=== PATIENT | female | born 1945 | race African-American/Black ===

== ENCOUNTER 2016-12-30 05:49 | Inpatient (IN) | payer MEDICARE ==
[2016-12-30] MEDS ORDERED: ASPIRIN 81 MG TABLET, CHEWABLE PO ONE (06:11)
[2016-12-30] MEDS ORDERED: MAGNESIUM SULFATE/D5W 100 ML IV ONE (06:16)
[2016-12-30] MEDS ORDERED: IPRATROPIUM/ALBUTEROL 0.5-2.5 MG/3 ML AMPUL NEB ONE (06:16)
[2016-12-30] MEDS ORDERED: METHYLPREDNISOLONE INJ 125 MG/2 ML SDV IV ONE (06:16)
[2016-12-30] MEDS ORDERED: ALBUTEROL SULFATE 0.083% NEB 2.5 MG/3 ML AMPUL NEB ONE (06:47)
[2016-12-30] MEDS ORDERED: LEVOFLOXACIN 500 MG/D5W RTU 100 ML IV ONE (06:48)
[2016-12-30 07:12] LABS: ABSOLUTE EOSINOPHILS # (AUTO) 0.2 10^3/uL (0.0-0.6); ABSOLUTE LYMPHOCYTES (AUTO) 1.3 10^3/uL (0.5-4.7); ABSOLUTE MONOCYTES (AUTO) 1.1 10^3/uL (0.1-1.4); ABSOLUTE NEUT (AUTO) 4.1 10^3/uL (1.7-8.2); BASOPHILS % (AUTO) 0.6 % (0-2); EOSINOPHILS % (AUTO) 2.4 % (0-6); HEMATOCRIT 40.2 % (36.0-47.0); HEMOGLOBIN 13.6 g/dL (12.0-15.5); HGB HCT DIFFERENCE 0.6; LYMPHOCYTES % (AUTO) 19.6 % (13-45); MEAN CORPUSCULAR HEMOGLOBIN 30.5 pg (27.0-33.4); MEAN CORPUSCULAR HGB CONC 33.8 g/dL (32.0-36.0); MEAN CORPUSCULAR VOLUME 90 fl (80-97); RED BLOOD COUNT 4.46 10^6/uL (3.72-5.28); RED CELL DISTRIBUTION WIDTH 14.4 % (11.5-14.0); SEGMENTED NEUTROPHILS % (AUTO) 61.4 % (42-78); VENOUS BLOOD BASE EXCESS 1.6 mmol/L; VENOUS BLOOD HCO3 27.5 mmol/L (20-32); VENOUS BLOOD PCO2 47.8 mmHg (35-63); VENOUS BLOOD PH 7.38 (7.30-7.42); WHITE BLOOD COUNT 6.6 10^3/uL (4.0-10.5)
[2016-12-30 07:32] LABS: PROTHROMBIN TIME 12.9 SEC (11.4-15.4)
[2016-12-30] MEDS ORDERED: NORMAL SALINE 1000 ML 1,000 ML IV ONE (08:27)
[2016-12-30 08:29] LABS: ALANINE AMINOTRANSFERASE 28 U/L (9-52); ALBUMIN 4.1 g/dL (3.5-5.0); ALKALINE PHOSPHATASE 100 U/L (38-126); ANION GAP 15 (5-19); ASPARTATE AMINO TRANSFERASE 23 U/L (14-36); BILIRUBIN,DIRECT 0.4 mg/dL (0.0-0.4); BILIRUBIN,TOTAL 0.6 mg/dL (0.2-1.3); BLOOD UREA NITROGEN 14 mg/dL (7-20); CALCIUM 9.7 mg/dL (8.4-10.2); CARBON DIOXIDE 24 mmol/L (22-30); CHLORIDE 101 mmol/L (98-107); CREATINE KINASE 116 U/L (30-135); CREATININE RESULT 1.03 mg/dL (0.52-1.25); GLUCOSE 136 mg/dL (75-110); MAGNESIUM 2.3 mg/dL (1.6-2.3); POTASSIUM 3.8 mmol/L (3.6-5.0); SODIUM 139.5 mmol/L (137-145); TOTAL PROTEIN 7.2 g/dL (6.3-8.2)
[2016-12-30 08:45] LABS: CREATINE KINASE MB 1.01 ng/mL (<4.55)
[2016-12-30 08:46] LABS: TROPONIN I < 0.012 ng/mL
--- NOTE | 2016-12-30 08:56 | EKG REPORT ---
SEVERITY:- ABNORMAL ECG - SINUS TACHYCARDIA WITH PACS RIGHT ATRIAL ABNORMALITY CONSIDER LEFT VENTRICULAR HYPERTROPHY NONSPECIFIC T ABNORMALITIES, INFERIOR LEADS : Confirmed by: Pancho Sanchez MD 30-Dec-2016 08:56:19
--- NOTE | 2016-12-30 10:08 | ER Document Report ---
ED General - General Chief Complaint: Breathing Difficulty Stated Complaint: SHORTNESS OF BREATH TRAVEL OUTSIDE OF THE [place] IN LAST 30 DAYS: No - HPI Patient complains to provider of: difficulty breathing shortness of breath Notes: Patient coming in for evaluation shortness of breath states coughing up yellow sputum for the last few days symptoms of breath the last few days denies any recent travel denies chest pain abdominal pain nausea vomiting. Patient denies any antibiotics denies any recent steroids. Patient states she does not smoke. Upon my evaluation patient has audible wheezes proximally 5 word dyspnea. - Related Data Allergies/Adverse Reactions: No Known Allergies Allergy (Unverified 12/30/16 08:02) Home Medications: Current Home Medications Aclidinium [place] [Tudorza Pressair] 1 puff IH DAILY 12/30/16 [History] Albuterol Sulfate [Albuterol Sulfate 2.5mg/3 mL] 3 ml NEB RTQ4 12/30/16 [History ] Amlodipine Besylate [Norvasc 5 mg Tablet] 5 mg PO DAILY 12/30/16 [History] Fluticasone/Salmeterol [Advair 250-50 Diskus 14 Dose/Diskus] 1 puff IH BID 12/30 [History] Furosemide [Lasix] 20 mg PO DAILY 12/30/16 [History] Levothyroxine Sodium [Synthroid] 150 mcg PO DAILY 12/30/16 [History] Meloxicam [Mobic 7.5 mg Tablet] 7.5 mg PO DAILY PRN 12/30/16 [History] Potassium Chloride [Klor-Con 10 Meq Tablet.sa] 10 mg PO DAILY 12/30/16 [History] Theophylline Anhydrous [Theophylline] 400 mg PO DAILY 12/30/16 [History] Tiotropium [place] [Spiriva Respimat] 1 puff IH DAILY 12/30/16 [History] Tizanidine HCl [Zanaflex 4 mg Tablet] 2 mg PO Q8HP PRN 12/30/16 [History] Tramadol HCl [Ultram 50 mg Tablet] 50 mg PO Q8HP PRN 12/30/16 [History] Past Medical History - Social History Smoking Status: Former Smoker Chew tobacco use (# tins/day): No Frequency of alcohol use: Occasional Drug Abuse: None Family History: Reviewed & Not Pertinent Patient has suicidal ideation: No Patient has homicidal ideation: No Renal/ Medical History: Denies: Hx Peritoneal Dialysis Review of Systems - Review of Systems Constitutional: No symptoms reported EENT: No symptoms reported Cardiovascular: No symptoms reported Respiratory: Short of breath Gastrointestinal: No symptoms reported Genitourinary: No symptoms reported Female Genitourinary: No symptoms reported Musculoskeletal: No symptoms reported Skin: No symptoms reported Hematologic/Lymphatic: No symptoms reported Neurological/Psychological: No symptoms reported -: Yes All other systems reviewed and negative Physical Exam - Vital signs Vitals: Temp Pulse Resp BP Pulse Ox 98.9 F 118 H 30 H 187/70 H 94 12/30/16 05:56 12/30/16 05:56 12/30/16 05:56 12/30/16 05:56 12/30/16 05:56 Interpretation: Normal, Tachycardic - General General appearance: Appears well, Alert - HEENT Head: Normocephalic, Atraumatic Eyes: Normal Pupils: PERRL - Respiratory Respiratory status: Other - Mild distress Chest status: Nontender Breath sounds: Rhonchi, Wheezing Chest palpation: Normal - Cardiovascular Rhythm: Regular Heart sounds: Normal auscultation Murmur: No - Abdominal Inspection: Normal Distension: No distension Bowel sounds: Normal Tenderness: Nontender Organomegaly: No organomegaly - Back Back: Normal, Nontender - Extremities General upper extremity: Normal inspection, Nontender, Normal color, Normal ROM , Normal temperature General lower extremity: Normal inspection, Nontender, Normal color, Normal ROM , Normal temperature, Normal weight bearing. No: Curtis's sign - Neurological Neuro grossly intact: Yes Cognition: Normal Orientation: AAOx4 [place] Coma Scale Eye Opening: Spontaneous Maria [place] Coma Scale Verbal: Oriented Maria Esther Coma Scale Motor: Obeys Commands Maria Esther Coma Scale Total: 15 Speech: Normal Motor strength normal: LUE, RUE, LLE, RLE Sensory: Normal - Psychological Associated symptoms: Normal affect, Normal mood - Skin Skin Temperature: Warm Skin Moisture: Dry Skin Color: Normal Course - Re-evaluation Re-evalutation: 12/30/16 15:29 Patient had improvement of her lung sounds and her dyspnea with magnesium steroids and breathing treatments. Patient is a minute around the ER and was found to be hypoxic. 85% patient was placed on 2 L of oxygen. Patient will be admitted to the hospital for more likely developing pneumonia and COPD. - Vital Signs Vital signs: Temp Pulse Resp BP Pulse Ox 97.4 F 76 18 143/61 H 100 12/30/16 12:57 12/30/16 12:57 12/30/16 12:57 12/30/16 12:57 12/30/16 12:57 - Laboratory Result Diagrams: 12/30/16 06:40 12/30/16 08:07 Laboratory results interpreted by me: 12/30/16 12/30/16 06:40 08:07 RDW 14.4 H Monocytes % 16.0 H Est GFR (Non-Af Amer) 53 L Glucose 136 H Critical Care Note - Critical Care Note Total time excluding time spent on procedures (mins): 35 Comments: Patient with tachycardia and mild her story stress multiple re-evaluations. Discharge - Discharge Clinical Impression: COPD exacerbation Pneumonia Qualifiers: Pneumonia type: due to unspecified organism Laterality: unspecified laterality Lung location: unspecified part of lung Qualified Code(s): J18.9 - Pneumonia, unspecified organism Admitting Provider: Hospitalist [facility] Unit Admitted: Telemetry
[2016-12-30] MEDS ORDERED: ACETAMINOPHEN 325 MG TABLET PO PRN (10:58)
[2016-12-30] MEDS ORDERED: PHARMACY COMMUNICATION ORDER MC NR ×2 (11:15)
[2016-12-30] MEDS ORDERED: ENOXAPARIN SODIUM INJ 40 MG/0.4 ML DISP.SYRIN SUBCUT ONE (11:30)
[2016-12-30] MEDS: NORMAL SALINE 1000 ML 1,000 ML IV PRN ×2 (11:56→18:10)
[2016-12-30] MEDS: IPRATROPIUM/ALBUTEROL 0.5-2.5 MG/3 ML AMPUL NEB SCH ×3 (12:34→20:03)
[2016-12-30] MEDS ORDERED: MELOXICAM 7.5 MG TABLET PO PRN (13:56)
[2016-12-30] MEDS ORDERED: TRAMADOL HCL 50 MG TABLET PO PRN (13:56)
[2016-12-30] MEDS ORDERED: TIZANIDINE HCL 4 MG TABLET PO PRN (13:56)
[2016-12-30] MEDS: FLUTICASONE/SALMETEROL DISKUS 250-50 MCG/DOSE IH SCH (18:10)
--- NOTE | 2016-12-30 21:20 | PDOC H&P ---
History of Present Illness Admission Date/PCP: 12/30/16 10:14 KRYSTAL WEBSTER MD History of Present Illness: TEE VERAS is a 71 year old female with a known history of COPD/emphysema, hypothyroidism, hypertension who presents with a cough and shortness of breath increasing over the last 72 hours. Patient has had sick grandchildren. Patient has not been on any recent antibiotics or steroids. Patient was given 3 nebulized treatments, magnesium, Solu-Medrol with minimal relief in the emergency department. She is referred to the hospitalist service for acute hypoxemic respiratory failure with COPD exacerbation. Past Medical History Past Medical History: COPD/emphysema, hypothyroidism, hypertension Past Surgical History Past Surgical History: Reports: None Social History Smoking Status: Former Smoker Frequency of Alcohol Use: Occasional Hx Recreational Drug Use: No Hx Prescription Drug Abuse: No - Advance Directive Resuscitation Status: Full Code Surrogate healthcare decision maker:: [place], Family History Family History: Reviewed & Not Pertinent Parental Family History Reviewed: Yes Children Family History Reviewed: Yes Sibling(s) Family History Reviewed.: Yes Medication/Allergy Home Medications: Aclidinium [place] [Tudorza Pressair] 1 puff IH DAILY 12/30/16 Albuterol Sulfate [Albuterol Sulfate 2.5mg/3 mL] 3 ml NEB RTQ4 12/30/16 Amlodipine Besylate [Norvasc 5 mg Tablet] 5 mg PO DAILY 12/30/16 Fluticasone/Salmeterol [Advair 250-50 Diskus 14 Dose/Diskus] 1 puff IH BID 12/30 Furosemide [Lasix] 20 mg PO DAILY 12/30/16 Levothyroxine Sodium [Synthroid] 150 mcg PO DAILY 12/30/16 Meloxicam [Mobic 7.5 mg Tablet] 7.5 mg PO DAILY PRN 12/30/16 Potassium Chloride [Klor-Con 10 Meq Tablet.sa] 10 mg PO DAILY 12/30/16 Theophylline Anhydrous [Theophylline] 400 mg PO DAILY 12/30/16 Tiotropium [place] [Spiriva Respimat] 1 puff IH DAILY 12/30/16 Tizanidine HCl [Zanaflex 4 mg Tablet] 2 mg PO Q8HP PRN 12/30/16 Tramadol HCl [Ultram 50 mg Tablet] 50 mg PO Q8HP PRN 12/30/16 Allergies/Adverse Reactions: No Known Allergies Allergy (Unverified 12/30/16 08:02) Review of Systems Constitutional: PRESENT: fatigue. ABSENT: chills, fever(s), headache(s), night sweats, weight gain, weight loss Eyes: ABSENT: visual disturbances Ears: ABSENT: hearing changes Cardiovascular: ABSENT: chest pain, dyspnea on exertion, edema, orthropnea, palpitations Respiratory: PRESENT: cough, dyspnea, sputum. ABSENT: hemoptysis Gastrointestinal: ABSENT: abdominal pain, constipation, diarrhea, hematemesis, hematochezia, melena, nausea, vomiting Genitourinary: ABSENT: dysuria, hematuria Musculoskeletal: ABSENT: joint swelling Integumentary: ABSENT: rash, wounds Neurological: ABSENT: abnormal gait, abnormal speech, confusion, dizziness, focal weakness, syncope Psychiatric: ABSENT: anxiety, depression, homidical ideation, suicidal ideation Endocrine: ABSENT: cold intolerance, heat intolerance, polydipsia, polyuria Hematologic/Lymphatic: ABSENT: easy bleeding, easy bruising Physical Exam Vital Signs: Temp Pulse Resp BP Pulse Ox 98.9 F 118 H 22 H 140/68 H 94 12/30/16 05:56 12/30/16 05:56 12/30/16 10:00 12/30/16 10:01 12/30/16 10:01 General appearance: PRESENT: mild distress, obese, well-developed, well- nourished Head exam: PRESENT: atraumatic, normocephalic Eye exam: PRESENT: conjunctiva pink, EOMI, PERRLA. ABSENT: scleral icterus Ear exam: PRESENT: normal external ear exam Mouth exam: PRESENT: moist, tongue midline Neck exam: ABSENT: JVD, lymphadenopathy, thyromegaly, tracheal deviation Respiratory exam: PRESENT: accessory muscle use, prolonged expiratory phas, symmetrical, tachypnea, unlabored, wheezes - Bilateral end expiratory. ABSENT: crackles, rales, rhonchi Cardiovascular exam: PRESENT: RRR, +S1, +S2. ABSENT: diastolic murmur, gallop, rubs, systolic murmur, tachycardia Pulses: PRESENT: normal dorsalis pedis pul Vascular exam: PRESENT: normal capillary refill GI/Abdominal exam: PRESENT: normal bowel sounds, soft. ABSENT: distended, guarding, mass, organolmegaly, rebound, tenderness Rectal exam: PRESENT: deferred Extremities exam: PRESENT: full ROM. ABSENT: calf tenderness, clubbing, pedal edema Neurological exam: PRESENT: alert, awake, oriented to person, oriented to place , oriented to time, oriented to situation, CN II-XII grossly intact. ABSENT: motor sensory deficit Psychiatric exam: PRESENT: appropriate affect, normal mood. ABSENT: homicidal ideation, suicidal ideation Skin exam: PRESENT: dry, intact, warm. ABSENT: cyanosis, rash Results Impressions: Chest X-Ray 12/30/16 06:11 IMPRESSION: COPD. Postsurgical changes on the right. No acute findings. Assessment & Plan - Diagnosis (1) Acute hypoxemic respiratory failure Is this a current diagnosis for this admission?: YesPlan: Continue oxygen to maintain saturation greater than 94% (2) COPD exacerbation Is this a current diagnosis for this admission?: YesPlan: Place patient on Solu-Medrol, scheduled nebulized treatments, and Levaquin with concern for atypical organisms. (3) Hypothyroidism Qualifiers: Hypothyroidism type: unspecified Qualified Code(s): E03.9 - Hypothyroidism, unspecified Is this a current diagnosis for this admission?: YesPlan: We'll check TSH (4) Hypertension Qualifiers: Hypertension type: essential hypertension Qualified Code(s): I10 - Essential (primary) hypertension Is this a current diagnosis for this admission?: YesPlan: Continue home medication (5) Obesity Qualifiers: Obesity type: due to excess calories Obesity severity: non-morbid Qualified Code(s): E66.09 - Other obesity due to excess calories Is this a current diagnosis for this admission?: Yes - Time Time Spent: 50 to 70 Minutes Medications reviewed and adjusted accordingly: Yes Anticipated discharge: Home Within: within 48 hours, within 72 hours
[2016-12-30] MEDS: METHYLPREDNISOLONE INJ 40 MG/1 ML SDV IV SCH (22:27)
[2016-12-30] MEDS: FAMOTIDINE 20 MG TABLET PO SCH (22:28)
[2016-12-30] MEDS: GUAIFENESIN 600 MG TABLET.SA PO SCH (22:29)
[2016-12-31] MEDS: LEVALBUTEROL HCL NEB 1.25 MG/3 ML AMPUL NEB PRN ×2 (02:22→11:41)
[2016-12-31] MEDS: NORMAL SALINE 1000 ML 1,000 ML IV PRN (03:38)
[2016-12-31] MEDS: IPRATROPIUM/ALBUTEROL 0.5-2.5 MG/3 ML AMPUL NEB SCH ×6 (04:45→23:18)
[2016-12-31] MEDS: METHYLPREDNISOLONE INJ 40 MG/1 ML SDV IV SCH (05:31)
[2016-12-31] MEDS: LEVOTHYROXINE SODIUM 0.15 MG TABLET PO SCH (05:31)
[2016-12-31 07:43] LABS: VENOUS BLOOD BASE EXCESS -1.4 mmol/L; VENOUS BLOOD HCO3 25.7 mmol/L (20-32); VENOUS BLOOD PH 7.3 (7.30-7.42)
[2016-12-31 07:44] LABS: HEMOGLOBIN 12.8 g/dL (12.0-15.5); HGB HCT DIFFERENCE 0.4; MEAN CORPUSCULAR HEMOGLOBIN 30.5 pg (27.0-33.4); MEAN CORPUSCULAR HGB CONC 33.6 g/dL (32.0-36.0); MEAN CORPUSCULAR VOLUME 91 fl (80-97); RED BLOOD COUNT 4.19 10^6/uL (3.72-5.28); RED CELL DISTRIBUTION WIDTH 14.5 % (11.5-14.0); WHITE BLOOD COUNT 7.3 10^3/uL (4.0-10.5)
[2016-12-31] MEDS ORDERED: ENOXAPARIN SODIUM INJ 40 MG/0.4 ML DISP.SYRIN SUBCUT SCH (08:00)
[2016-12-31 08:07] LABS: ANION GAP 11 (5-19); BLOOD UREA NITROGEN 17 mg/dL (7-20); CALCIUM 9.4 mg/dL (8.4-10.2); CARBON DIOXIDE 25 mmol/L (22-30); CHLORIDE 105 mmol/L (98-107); CREATININE RESULT 0.91 mg/dL (0.52-1.25); GLUCOSE 163 mg/dL (75-110); POTASSIUM 4.6 mmol/L (3.6-5.0); SODIUM 141.4 mmol/L (137-145)
[2016-12-31] MEDS: LEVOFLOXACIN 750 MG/D5W RTU 150 ML IV SCH (09:53)
[2016-12-31] MEDS: GUAIFENESIN 600 MG TABLET.SA PO SCH ×2 (09:54→21:41)
[2016-12-31] MEDS: FLUTICASONE/SALMETEROL DISKUS 250-50 MCG/DOSE IH SCH ×2 (09:55→17:36)
[2016-12-31] MEDS: FAMOTIDINE 20 MG TABLET PO SCH ×2 (09:55→21:41)
[2016-12-31] MEDS: THEOPHYLLINE ANHYDROUS 100 MG TAB.SR.12H PO SCH (09:56)
[2016-12-31] MEDS ORDERED: THEOPHYLLINE ANHYDROUS 400 MG PO SCH (10:00)
[2016-12-31] MEDS ORDERED: FUROSEMIDE 20 MG TABLET PO SCH (10:00)
[2016-12-31] MEDS ORDERED: AMLODIPINE BESYLATE 5 MG TABLET PO SCH (10:00)
[2016-12-31] MEDS ORDERED: (PENDING PHARMACY ID) (Tiotropium Bromide [Spiriva Respimat] 1 PUFF) IH SCH (10:00)
[2016-12-31] MEDS: ENOXAPARIN SODIUM INJ 40 MG/0.4 ML DISP.SYRIN SUBCUT SCH (10:19)
[2016-12-31] MEDS ORDERED: METHYLPREDNISOLONE INJ 40 MG/1 ML SDV IV SCH (12:00)
[2016-12-31] MEDS ORDERED: METHYLPREDNISOLONE INJ 125 MG/2 ML SDV IV SCH (12:00)
[2016-12-31] MEDS ORDERED: FUROSEMIDE INJ/PF 20 MG/2 ML SDV IV ONE (12:45)
[2016-12-31] MEDS ORDERED: LORAZEPAM INJ 2 MG/1 ML VIAL IV ONE (12:45)
--- NOTE | 2016-12-31 14:58 | Physician Advisory Note ---
Physician Advisor ProgressNote .: Pursuant to the plan for [facility], I have reviewed the medical record for this patient. Physician Advisor Statement: Possible documentation opportunities if attending agrees: 1. ? - "chronic resp failure" - on Theophylline ... As always, if concerned about any unstable VS or abnormal labs, please comment on them & note what doing about them, & please document each day the potential clinical problems you are concerned could occur if pt not kept in hospital for tx at this time. Status: Pt w/COPD/emphysemia, HTN, hypothyroidism, not on home O2, arrived w/labored breathing per ED nursing assessment, here w/worsening SOB/cough, fatigue,sputum , having only minimal relief w/3nebs/Solumedrol/IV Mag in ED. In distress, HR 118, RR22-30, sat initially 94% on RA but later down to 88% at 11AM, w/ accessory muscle use, tachypnea persistent, wheezes. CXR=emphysema. Attending ordered O2, Solumedrol 60mg q8h, Duonebs q4h, Levaquin IV, Xopanex prn , daily Theophylline. After 1MN of hospital care, pt worse, with recurrent tachypnea to 26 w/ recurrent accessory muscle use, tachycardia to 115, needing Bipap by late AM . Attending added IV Cefepime to broaden IV abx coverage. Tx in inpatient hospital setting medically reasonable & necessary to protect pt' s health, safety, & medical condition. Appropriate for Inpt status. Thanks for your help with documentation accuracy/specificity improvement! Inna Junior MD [facility] Physician Advisor, Fellow of Hospital Medicine
[2016-12-31 15:01] LABS: ARTERIAL BLOOD BASE EXCESS -1.1 mmol/L; ARTERIAL BLOOD O2 SATURATION 98.9 % (94-98)
[2016-12-31] MEDS: METHYLPREDNISOLONE INJ 125 MG/2 ML SDV IV SCH ×2 (15:23→21:41)
[2016-12-31] MEDS ORDERED: CEFEPIME 2 GM/D5W RTU 2 GM/50 ML RTUPB IV SCH (16:00)
[2016-12-31] MEDS: CEFEPIME HCL 2 GM in DEXTROSE 5%-WATER 50 ML IV SCH (17:36)
[2016-12-31] MEDS ORDERED: LACTOBACILLUS ACIDOPHILUS 250 MG TAB PO SCH (18:00)
--- NOTE | 2016-12-31 20:32 | XCELERA REPORT ---
[address] [address] Transthoracic Echocardiogram Report Name: TEE VERAS Age: 71 yrs Gender: Female : 1945 Patient Status: Inpatient Patient Location: 5\[id number]\534\[id number]\A Study Date: 12/31/2016 09:22 AM Height: 62 in Weight: 180 lb BSA: 1.8 m2 Reason For Study: murmur Ordering Physician: HIMA HUDDLESTON Performed By: Justina Price Interpretation Summary The left ventricular ejection fraction is normal. Doppler measurements suggest impaired left ventricular relaxation, which is associated with grade I/IV or mild diastolic dysfunction There is borderline concentric left ventricular hypertrophy. The left ventricle is grossly normal size. Wall motion cannot be accurately commented on, but no definite regional wall motion abnormalities noted. The right ventricle appears to be hypertrophied The right ventricle is mildly dilated. The right atrium is normal in size The left atrial size is normal. There is no mitral valve stenosis. There is a trace amount of mitral regurgitation There is no aortic valve stenosis No aortic regurgitation is present. There is a mild amount of tricuspid regurgitation There is moderate pulmonary hypertension by echo Right ventricular systolic pressure is estimated to be elevated at 50- 60mmHg. The aortic root is not well visualized but is probably normal size. The inferior vena cava appeared normal and decreased < 50% with respiration (RAP 10-15 mmHg) There is no pericardial effusion. MMode/2D Measurements \T\ Calculations RVDd: 2.5 cm LVIDd: 4.2 cm FS: 34.5 % Ao root diam: 2.9 cm IVSd: 1.1 cm LVIDs: 2.8 cm EDV(Teich): 80.6 ml LVPWd: 1.1 cm ESV(Teich): 29.1 ml Ao root area: 6.4 cm2 EF(Teich): 63.9 % LA dimension: 2.7 cm LVOT diam: 1.9 cm LVOT area: 2.9 cm2 Doppler Measurements \T\ Calculations MV E max lottie: MV P1/2t max lottie: Ao V2 max: LV V1 max P.5 cm/sec 78.0 cm/sec 119.7 cm/sec 4.2 mmHg MV A max lottie: MV P1/2t: 75.4 msec Ao max PG: LV V1 max: 105.6 cm/sec MVA(P1/2t): 2.9 cm2 5.7 mmHg 102.6 cm/sec MV E/A: 0.74 MV dec slope: ART(V,D): 2.5 cm2 303.1 cm/sec2 PA V2 max: TR max lottie: 103.7 cm/sec 348.6 cm/sec PA max P.3 mmHgTR max P.6 mmHg Left Ventricle The left ventricle is grossly normal size. There is borderline concentric left ventricular hypertrophy. The left ventricular ejection fraction is normal. Doppler measurements suggest impaired left ventricular relaxation, which is associated with grade I/IV or mild diastolic dysfunction. Wall motion cannot be accurately commented on, but no definite regional wall motion abnormalities noted. Right Ventricle The right ventricle is mildly dilated. The right ventricle appears to be hypertrophied. The right ventricular systolic function is normal. Atria The right atrium is normal in size. The left atrial size is normal. Interarterial septum not well visualized and not well dopplered. Cannot comment on ASD/PFO presence. Mitral Valve The mitral valve leaflets are sclerotic, but show no functional abnormalities. There is no mitral valve stenosis. There is a trace amount of mitral regurgitation. Aortic Valve The aortic valve is sclerotic, but shows no functional abnormality. There is no aortic valve stenosis. No aortic regurgitation is present. Tricuspid Valve The tricuspid valve is not well visualized, but is grossly normal. There is no tricuspid stenosis. There is a mild amount of tricuspid regurgitation. There is moderate pulmonary hypertension by echo. Right ventricular systolic pressure is estimated to be elevated at 50-60mmHg. Pulmonic Valve The pulmonic valve is not well visualized. Great Vessels The aortic root is not well visualized but is probably normal size. The inferior vena cava appeared normal and decreased < 50% with respiration (RAP 10-15 mmHg). Effusions There is no pericardial effusion. : HIMA HUDDLESTON > Tam Rosas
[2016-12-31] MEDS: HALOPERIDOL LACTATE INJ 5 MG/1 ML VIAL IV PRN (21:53)
[2016-12-31] MEDS: LORAZEPAM INJ 2 MG/1 ML VIAL IV PRN (23:08)
[2017-01-01] MEDS: HALOPERIDOL LACTATE INJ 5 MG/1 ML VIAL IV PRN (01:57)
[2017-01-01] MEDS: LORAZEPAM INJ 2 MG/1 ML VIAL IV PRN (04:03)
[2017-01-01] MEDS: CEFEPIME HCL 2 GM in DEXTROSE 5%-WATER 50 ML IV SCH ×2 (04:03→15:44)
[2017-01-01] MEDS: IPRATROPIUM/ALBUTEROL 0.5-2.5 MG/3 ML AMPUL NEB SCH ×5 (04:44→20:47)
[2017-01-01] MEDS: METHYLPREDNISOLONE INJ 125 MG/2 ML SDV IV SCH ×4 (05:36→20:12)
[2017-01-01] MEDS: LEVOTHYROXINE SODIUM 0.15 MG TABLET PO SCH (05:36)
[2017-01-01] MEDS: ENOXAPARIN SODIUM INJ 40 MG/0.4 ML DISP.SYRIN SUBCUT SCH (08:32)
[2017-01-01] MEDS: LEVALBUTEROL HCL NEB 1.25 MG/3 ML AMPUL NEB PRN ×2 (09:13→11:28)
[2017-01-01] MEDS: LEVOFLOXACIN 750 MG/D5W RTU 150 ML IV SCH (09:22)
[2017-01-01 09:26] LABS: ARTERIAL BLOOD BASE EXCESS 0.7 mmol/L; ARTERIAL BLOOD O2 SATURATION 97.9 % (94-98)
[2017-01-01] MEDS ORDERED: FUROSEMIDE INJ/PF 20 MG/2 ML SDV IV ONE ×2 (09:30→11:30)
[2017-01-01 09:35] LABS: ABSOLUTE MONOCYTES (AUTO) 0.9 10^3/uL (0.1-1.4); ABSOLUTE NEUT (AUTO) 11.3 10^3/uL (1.7-8.2); BASOPHILS % (AUTO) 0.2 % (0-2); EOSINOPHILS % (AUTO) 0.3 % (0-6); HEMATOCRIT 40.6 % (36.0-47.0); HEMOGLOBIN 13.5 g/dL (12.0-15.5); HGB HCT DIFFERENCE -0.1; LYMPHOCYTES % (AUTO) 7.6 % (13-45); MEAN CORPUSCULAR HEMOGLOBIN 30.4 pg (27.0-33.4); MEAN CORPUSCULAR HGB CONC 33.3 g/dL (32.0-36.0); MEAN CORPUSCULAR VOLUME 91 fl (80-97); MONOCYTES % (AUTO) 6.6 % (3-13); RED BLOOD COUNT 4.45 10^6/uL (3.72-5.28); RED CELL DISTRIBUTION WIDTH 14.8 % (11.5-14.0); SEGMENTED NEUTROPHILS % (AUTO) 85.3 % (42-78); WHITE BLOOD COUNT 13.3 10^3/uL (4.0-10.5)
[2017-01-01 09:58] LABS: ANION GAP 14 (5-19); BLOOD UREA NITROGEN 23 mg/dL (7-20); CALCIUM 9.9 mg/dL (8.4-10.2); CARBON DIOXIDE 28 mmol/L (22-30); CHLORIDE 100 mmol/L (98-107); CREATININE RESULT 1.01 mg/dL (0.52-1.25); GLUCOSE 150 mg/dL (75-110); MAGNESIUM 2.5 mg/dL (1.6-2.3); POTASSIUM 4.9 mmol/L (3.6-5.0); SODIUM 142.4 mmol/L (137-145)
[2017-01-01] MEDS ORDERED: VANCOMYCIN HCL 0 MG in DEXTROSE 5%-WATER 250 ML IV NR (10:00)
[2017-01-01] MEDS ORDERED: FUROSEMIDE INJ/PF 20 MG/2 ML SDV IV SCH ×3 (10:00→22:00)
[2017-01-01] MEDS ORDERED: PHARMACY COMMUNICATION ORDER MC NR (10:00)
[2017-01-01] MEDS ORDERED: NITROGLYCERIN 2% OINTMENT 1 GM PACKET TP ONE (10:00)
[2017-01-01] MEDS ORDERED: ACETAMINOPHEN 325 MG TABLET NG PRN (10:14)
[2017-01-01] MEDS: MAGNESIUM SULFATE/D5W 1 GM/100 ML RTUPB IV PRN ×2 (10:20→13:29)
--- NOTE | 2017-01-01 10:21 | PDOC PROGRESS REPORT ---
Subjective Progress Note for:: 12/31/16 Physical Exam Vital Signs: Selected Entries 12/30/16 12:57 Temperature 97.4 F Temperature Oral Source Pulse Rate [ 76 Right Finger] Respiratory 18 Rate Blood Pressure 143/61 H [Left Upper Arm ] O2 Sat by Pulse 100 Oximetry Oxygen Delivery Room Air Method ( includes room air) Exam: General: Awake alert and oriented x3, on BiPAP, tachypnea, moderate respiratory distress, 5 word dyspnea HEENT: AT/NC, PERRL, EOMI, oropharynx is moist, pink, no scleral icterus, no conjunctival injection Neck: + JVD, trachea midline Chest: Bilateral end expiratory wheezes CV: Regular rate and rhythm, normal S1 and S2, no rub, or gallop Abdomen: Soft, nontender to palpation, nondistended, active bowel sounds; no rebound, rigidity, or guarding Extremities: No cyanosis, clubbing or edema Neuro: Cranial nerves II through XII are grossly intact without focal deficits; awake alert and oriented x3 Psych: Anxious Results Laboratory Results: 12/31/16 07:16 12/31/16 07:16 12/31/16 12/31/16 12/31/16 07:16 07:16 07:16 WBC 7.3 RBC 4.19 Hgb 12.8 Hct 38.0 MCV 91 MCH 30.5 MCHC 33.6 RDW 14.5 H Plt Count 220 VBG pH 7.30 VBG pCO2 53.0 VBG HCO3 25.7 VBG Base Excess -1.4 Sodium 141.4 Potassium 4.6 Chloride 105 Carbon Dioxide 25 Anion Gap 11 BUN 17 Creatinine 0.91 Est GFR ( Amer) > 60 Est GFR (Non-Af Amer) > 60 Glucose 163 H Calcium 9.4 Impressions: Chest X-Ray 12/31/16 00:00 IMPRESSION: No acute radiographic finding in the chest. Emphysema. Assessment & Plan - Diagnosis (1) Acute hypoxemic respiratory failure Is this a current diagnosis for this admission?: YesPlan: Patient currently requiring BiPAP. Would like to do CTA, but prohibited at this time due to her volume overload. Combination of COPD exacerbation and possible diastolic heart failure. Suspect component of pulmonary hypertension. Continue oxygen to maintain saturation greater than 94% (2) COPD exacerbation Is this a current diagnosis for this admission?: YesPlan: Attempt to decrease Solu-Medrol today in light of apparent volume overload. Continues scheduled nebulized treatment . And have consulted Dr. elder of pulmonary medicine. (3) Hypothyroidism Qualifiers: Hypothyroidism type: unspecified Qualified Code(s): E03.9 - Hypothyroidism, unspecified Is this a current diagnosis for this admission?: YesPlan: Normal. Continue Synthroid (4) Hypertension Qualifiers: Hypertension type: essential hypertension Qualified Code(s): I10 - Essential (primary) hypertension Is this a current diagnosis for this admission?: YesPlan: Continue home medication (5) Volume overload Qualifiers: Hypervolemia type: unspecified Qualified Code(s): E87.70 - Fluid overload, unspecified Is this a current diagnosis for this admission?: YesPlan: Suspect the patient has a component of diastolic heart failure and have obtained echo. Have given patient IV Lasix and we'll follow echo. Will stop IV fluids. (6) Obesity Qualifiers: Obesity type: due to excess calories Obesity severity: non-morbid Qualified Code(s): E66.09 - Other obesity due to excess calories Is this a current diagnosis for this admission?: Yes - Time Time Spent with patient: 35 or more minutes Medications reviewed and adjusted accordingly: Yes
[2017-01-01] MEDS ORDERED: AMLODIPINE BESYLATE 5 MG TABLET NG ONE (10:30)
--- NOTE | 2017-01-01 10:31 | PDOC PROGRESS REPORT ---
Subjective Progress Note for:: 01/01/17 Subjective:: Patient did poorly overnight despite having improved throughout the day. Patient continued to have increased work of breathing and tachypnea. Patient found to be in extremis this morning. Physical Exam Vital Signs: Temp Pulse Resp BP Pulse Ox 97.6 F 94 20 158/85 H 100 01/01/17 08:00 01/01/17 08:00 01/01/17 08:00 01/01/17 08:00 01/01/17 08:00 Intake & Output 12/31/16 01/01/17 01/02/17 06:59 06:59 06:59 Intake Total 2660 400 Output Total 0 Balance 2660 400 Weight 81.2 kg 79.9 kg Exam: General: Awake alert, and severe respiratory distress on BiPAP HEENT: AT/NC, PERRL, EOMI, oropharynx is moist, pink, no scleral icterus, no conjunctival injection Neck: +JVD, trachea midline Chest: Tachypnea, use of abdominal muscles, retractions, Poor air excursion, bilateral end expiratory wheezes, poor air movement throughout CV: Tachycardic, Regular rate and rhythm, normal S1 and S2, no rub or gallop Abdomen: Soft, nontender to palpation, nondistended, active bowel sounds; no rebound, rigidity, or guarding Extremities: No cyanosis, clubbing or edema Neuro: Cranial nerves II through XII are grossly intact without focal deficits Results Laboratory Results: 12/31/16 07:16 12/31/16 07:16 12/31/16 14:00 Carbonic Acid 1.28 HCO3/H2CO3 Ratio 18:1 ABG pH 7.37 ABG pCO2 42.5 ABG pO2 151.2 H ABG HCO3 24.2 ABG O2 Saturation 98.9 H ABG Base Excess -1.1 FiO2 40% 12/31/16 07:16 NT-Pro-B Natriuret Pep 160 Impressions: Chest X-Ray 12/31/16 00:00 IMPRESSION: No acute radiographic finding in the chest. Emphysema. Assessment & Plan - Diagnosis (1) Acute hypoxemic respiratory failure Is this a current diagnosis for this admission?: YesPlan: Secondary to COPD exacerbation and acute on chronic diastolic heart failure. Moderate to severe pulmonary hypertension. Patient currently in extremis and will require intubation. (2) COPD exacerbation Is this a current diagnosis for this admission?: YesPlan: Patient has had sick exposure at home. Patient on Solu-Medrol 125mg IV every 6h with now dose. Will give patient 2 g of magnesium over 10 minutes. Continue patient on Levaquin, cefepime, and have added vancomycin. Patient likely has underlying structural lung disease and will obtain CTA once patient is stabilized. Have discussed case with pulmonary medicine and appreciate their input and ventilator settings. (3) Hypothyroidism Qualifiers: Hypothyroidism type: unspecified Qualified Code(s): E03.9 - Hypothyroidism, unspecified Is this a current diagnosis for this admission?: YesPlan: Pending TSH. (4) Hypertension Qualifiers: Hypertension type: essential hypertension Qualified Code(s): I10 - Essential (primary) hypertension Is this a current diagnosis for this admission?: YesPlan: Have given patient topical nitroglycerin and effort to reduce her overload. Will revisit patient's antihypertensives after intubation. (5) Pulmonary hypertension Is this a current diagnosis for this admission?: Yes (6) Obesity Qualifiers: Obesity type: due to excess calories Obesity severity: non-morbid Qualified Code(s): E66.09 - Other obesity due to excess calories Is this a current diagnosis for this admission?: Yes (7) Acute diastolic (congestive) heart failure Is this a current diagnosis for this admission?: YesPlan: Have increased Lasix at this time. We'll continue to monitor I's and O's. Patient with grade 1 diastolic dysfunction. EF not reported, but reported to be normal. - Time Critical Time spent with patient: 35 or more minutes Medications reviewed and adjusted accordingly: Yes - Inpatient Certification Based on my medical assessment, after consideration of the patient's comorbidities, presenting symptoms, or acuity I expect that the services needed warrant INPATIENT care.: Yes I certify that my determination is in accordance with my understanding of Medicare's requirements for reasonable and necessary INPATIENT services [42 CFR 412.3e].: Yes Medical Necessity: Need for Nebulizer Therapy and Monitoring of Response, Need for IV Antibiotics
[2017-01-01] MEDS ORDERED: NORMAL SALINE 1000 ML 1,000 ML IV PRN (10:38)
[2017-01-01] MEDS ORDERED: PROPOFOL 100 ML IV ONE (10:45)
[2017-01-01] MEDS ORDERED: MELOXICAM 7.5 MG TABLET NG PRN (10:49)
--- NOTE | 2017-01-01 11:35 | PDOC CONSULTATION ---
Consultation Consult Date: 01/01/17 Attending physician:: HIMA HUDDLESTON Consult reason:: dyspnea History of Present Illness Admission Date/PCP: 12/30/16 10:59 KRYSTAL WEBSTER MD History of Present Illness: TEE VERAS is a 71 year old female with a known history of COPD/emphysema, hypothyroidism, hypertension who presents with a cough and shortness of breath increasing over the last 72 hours. Patient has had sick grandchildren. Patient has not been on any recent antibiotics or steroids. Patient was given 3 nebulized treatments, magnesium, Solu-Medrol with minimal relief in the emergency department. She is referred to the hospitalist service for acute hypoxemic respiratory failure with COPD exacerbation. Patient currently very lethargic respiratory rate of 28 despite being on BiPAP PCO2 is elevated after discussing with Dr.Cecilia Huddleston patient is being taken to the intensive care unit for intubation. Past Surgical History Past Surgical History: Reports: None Social History Information Source: [facility] Records Smoking Status: Former Smoker Frequency of Alcohol Use: Occasional Hx Recreational Drug Use: No Hx Prescription Drug Abuse: No - Advance Directive Resuscitation Status: Full Code Family History Family History: Reviewed & Not Pertinent Parental Family History Reviewed: No Children Family History Reviewed: No Sibling(s) Family History Reviewed.: No Medication/Allergy Home Medications: Aclidinium [place] [Tudorza Pressair] 1 puff IH DAILY 12/30/16 Albuterol Sulfate [Albuterol Sulfate 2.5mg/3 mL] 3 ml NEB RTQ4 12/30/16 Amlodipine Besylate [Norvasc 5 mg Tablet] 5 mg PO DAILY 12/30/16 Fluticasone/Salmeterol [Advair 250-50 Diskus 14 Dose/Diskus] 1 puff IH BID 12/30 Furosemide [Lasix] 20 mg PO DAILY 12/30/16 Levothyroxine Sodium [Synthroid] 150 mcg PO DAILY 12/30/16 Meloxicam [Mobic 7.5 mg Tablet] 7.5 mg PO DAILY PRN 12/30/16 Potassium Chloride [Klor-Con 10 Meq Tablet.sa] 10 mg PO DAILY 12/30/16 Theophylline Anhydrous [Theophylline] 400 mg PO DAILY 12/30/16 Tiotropium [place] [Spiriva Respimat] 1 puff IH DAILY 12/30/16 Tizanidine HCl [Zanaflex 4 mg Tablet] 2 mg PO Q8HP PRN 12/30/16 Tramadol HCl [Ultram 50 mg Tablet] 50 mg PO Q8HP PRN 12/30/16 Allergies/Adverse Reactions: No Known Allergies Allergy (Unverified 12/30/16 08:02) Review of Systems ROS unobtainable: Due to mental status Physical Exam Vital Signs: Temp Pulse Resp BP Pulse Ox 97.6 F 94 20 158/85 H 100 01/01/17 08:00 01/01/17 08:00 01/01/17 08:00 01/01/17 08:00 01/01/17 08:00 Intake & Output 12/31/16 01/01/17 01/02/17 06:59 06:59 06:59 Intake Total 2660 400 Output Total 0 Balance 2660 400 Weight 81.2 kg 79.9 kg General appearance: PRESENT: disheveled, mild distress, obese Head exam: PRESENT: atraumatic, normocephalic Eye exam: PRESENT: conjunctiva pale, EOMI Mouth exam: PRESENT: dry mucosa, neck supple Neck exam: ABSENT: carotid bruit, JVD, lymphadenopathy, thyromegaly Respiratory exam: PRESENT: decreased breath sounds, prolonged expiratory phas, rhonchi, symmetrical, wheezes Cardiovascular exam: PRESENT: RRR, +S1, +S2 Pulses: PRESENT: normal radial pulses GI/Abdominal exam: PRESENT: normal bowel sounds, soft. ABSENT: distended, guarding, mass, organolmegaly, rebound, tenderness Rectal exam: PRESENT: deferred Musculoskeletal exam: PRESENT: normal inspection Skin exam: PRESENT: dry, warm Results Laboratory Results: 12/31/16 07:16 12/31/16 07:16 12/31/16 14:00 Carbonic Acid 1.28 HCO3/H2CO3 Ratio 18:1 ABG pH 7.37 ABG pCO2 42.5 ABG pO2 151.2 H ABG HCO3 24.2 ABG O2 Saturation 98.9 H ABG Base Excess -1.1 FiO2 40% 12/31/16 07:16 NT-Pro-B Natriuret Pep 160 Impressions: Chest X-Ray 12/31/16 00:00 IMPRESSION: No acute radiographic finding in the chest. Emphysema. Assessment & Plan - Diagnosis (1) Acute hypercapnic respiratory failure Is this a current diagnosis for this admission?: YesPlan: Intubated (2) Acute hypoxemic respiratory failure Is this a current diagnosis for this admission?: YesPlan: Intubated (3) COPD exacerbation Is this a current diagnosis for this admission?: YesPlan: Continue bronchodilators (4) Hypothyroidism Qualifiers: Hypothyroidism type: unspecified Qualified Code(s): E03.9 - Hypothyroidism, unspecified Is this a current diagnosis for this admission?: Yes (5) Pulmonary hypertension Is this a current diagnosis for this admission?: Yes (6) Volume overload Qualifiers: Hypervolemia type: unspecified Qualified Code(s): E87.70 - Fluid overload, unspecified Is this a current diagnosis for this admission?: YesPlan: Patient given diuretics and preload reduction - Time Critical Time spent with patient: 35 or more minutes
[2017-01-01] MEDS ORDERED: NORMAL SALINE 1000 ML 2,000 ML IV ONE (11:36)
[2017-01-01] MEDS ORDERED: DEXTROSE 40% GEL 15 GM TUBE PO PRN ×2 (11:37)
[2017-01-01] MEDS ORDERED: DEXTROSE 50%-WATER 25 GM/50 ML DISP.SYRIN IV PRN ×2 (11:37)
[2017-01-01] MEDS ORDERED: GLUCAGON,HUMAN RECOMB 1 MG INJ IM PRN (11:37)
[2017-01-01] MEDS ORDERED: NOREPINEPHRINE BITARTRATE INJ/PF 4 MG/4 ML SDV IV ONE (11:39)
[2017-01-01 12:15] LABS: ARTERIAL BLOOD BASE EXCESS 2.2 mmol/L; ARTERIAL BLOOD O2 SATURATION 99.6 % (94-98)
[2017-01-01] MEDS: PROPOFOL 100 ML IV PRN ×3 (13:29→20:39)
[2017-01-01] MEDS: VANCOMYCIN HCL 1,250 MG in DEXTROSE 5%-WATER 250 ML IV SCH (13:33)
[2017-01-01] MEDS: THEOPHYLLINE ANHYDROUS 100 MG TAB.SR.12H PO SCH (13:36)
[2017-01-01] MEDS: FLUTICASONE/SALMETEROL DISKUS 250-50 MCG/DOSE IH SCH ×2 (13:36→17:07)
[2017-01-01] MEDS: DEXTROSE 5%-WATER 250 ML with NOREPINEPHRINE BITARTRATE 4 MG IV PRN ×4 (13:38→22:00)
[2017-01-01] MEDS: GUAIFENESIN 600 MG TABLET.SA PO SCH ×2 (13:47→21:41)
[2017-01-01] MEDS: LACTOBACILLUS ACIDOPHILUS 250 MG TAB NG SCH ×2 (13:47→17:07)
[2017-01-01] MEDS: FAMOTIDINE 20 MG TABLET NG SCH ×2 (13:48→21:41)
[2017-01-01] MEDS ORDERED: SUCCINYLCHOLINE CHLORIDE INJ 200 MG/10 ML VIAL ONE (15:03)
--- NOTE | 2017-01-01 17:30 | PDOC PROGRESS REPORT ---
Bedside Procedure - Central Line Right Internal jugular Consent obtained: Yes Central line pre-insertion: Sterile PPE donned, Betadine prep applied, Chloraprep applied, Sterile drapes applied, Other Central line lumen type: Triple Anesthetic type: 1% Lidocaine Ultrasound guided: Yes Line secured with sutures: Yes Central line post-insertion: Blood return from lumens, Biopatch applied, Sutured , Sterile dressing applied, Position confirmed w/ CXR Complications: No - NO PNEUMOTHORAX
[2017-01-01] MEDS: INSULIN LISPRO 100 UNIT/ML 3 ML VIAL SUBCUT PRN (17:42)
[2017-01-01 17:55] LABS: ARTERIAL BLOOD BASE EXCESS 2.8 mmol/L; ARTERIAL BLOOD O2 SATURATION 99.3 % (94-98)
[2017-01-01] MEDS: NORMAL SALINE 1000 ML 1,000 ML IV PRN (18:37)
[2017-01-02] MEDS: IPRATROPIUM/ALBUTEROL 0.5-2.5 MG/3 ML AMPUL NEB SCH ×6 (00:01→21:49)
[2017-01-02] MEDS: PROPOFOL 100 ML IV PRN ×6 (00:43→21:38)
[2017-01-02] MEDS: METHYLPREDNISOLONE INJ 125 MG/2 ML SDV IV SCH ×4 (02:51→20:21)
[2017-01-02] MEDS: NORMAL SALINE 1000 ML 1,000 ML IV PRN ×2 (04:09→11:46)
[2017-01-02] MEDS: CEFEPIME HCL 2 GM in DEXTROSE 5%-WATER 50 ML IV SCH ×2 (04:09→16:51)
[2017-01-02 04:39] LABS: ABSOLUTE LYMPHOCYTES (AUTO) 0.7 10^3/uL (0.5-4.7); ABSOLUTE MONOCYTES (AUTO) 0.6 10^3/uL (0.1-1.4); ABSOLUTE NEUT (AUTO) 7.3 10^3/uL (1.7-8.2); BASOPHILS % (AUTO) 0.1 % (0-2); HEMATOCRIT 36.8 % (36.0-47.0); HEMOGLOBIN 12.4 g/dL (12.0-15.5); HGB HCT DIFFERENCE 0.4; LYMPHOCYTES % (AUTO) 8.3 % (13-45); MEAN CORPUSCULAR HEMOGLOBIN 30.1 pg (27.0-33.4); MEAN CORPUSCULAR HGB CONC 33.6 g/dL (32.0-36.0); MEAN CORPUSCULAR VOLUME 90 fl (80-97); MONOCYTES % (AUTO) 7.3 % (3-13); RED CELL DISTRIBUTION WIDTH 14.6 % (11.5-14.0); SEGMENTED NEUTROPHILS % (AUTO) 84.3 % (42-78); WHITE BLOOD COUNT 8.7 10^3/uL (4.0-10.5)
[2017-01-02 04:48] LABS: ARTERIAL BLOOD BASE EXCESS 1.1 mmol/L; ARTERIAL BLOOD O2 SATURATION 94.8 % (94-98)
[2017-01-02 05:00] LABS: ALANINE AMINOTRANSFERASE 37 U/L (9-52); ALBUMIN 3.6 g/dL (3.5-5.0); ALKALINE PHOSPHATASE 85 U/L (38-126); ANION GAP 11 (5-19); ASPARTATE AMINO TRANSFERASE 31 U/L (14-36); BILIRUBIN,DIRECT 0.2 mg/dL (0.0-0.4); BILIRUBIN,TOTAL 0.4 mg/dL (0.2-1.3); BLOOD UREA NITROGEN 25 mg/dL (7-20); CALCIUM 9.4 mg/dL (8.4-10.2); CARBON DIOXIDE 26 mmol/L (22-30); CHLORIDE 103 mmol/L (98-107); CREATININE RESULT 1.18 mg/dL (0.52-1.25); GLUCOSE 174 mg/dL (75-110); MAGNESIUM 2.9 mg/dL (1.6-2.3); PHOSPHORUS 3.5 mg/dL (2.5-4.5); SODIUM 139.9 mmol/L (137-145)
[2017-01-02 05:05] LABS: POTASSIUM 3.6 mmol/L (3.6-5.0)
[2017-01-02] MEDS: INSULIN LISPRO 100 UNIT/ML 3 ML VIAL SUBCUT PRN (06:13)
[2017-01-02] MEDS: LEVOTHYROXINE SODIUM 0.15 MG TABLET NG SCH (06:13)
[2017-01-02 09:26] LABS: FREE T3 2.58 pg/mL (2.77-5.27)
[2017-01-02] MEDS: FENTANYL CITRATE INJ/PF 100 MCG/2 ML AMPUL IV PRN (10:28)
[2017-01-02] MEDS: FUROSEMIDE INJ/PF 20 MG/2 ML SDV IV SCH (10:29)
[2017-01-02] MEDS: FAMOTIDINE 20 MG TABLET NG SCH ×2 (10:29→21:39)
[2017-01-02] MEDS: LACTOBACILLUS ACIDOPHILUS 250 MG TAB NG SCH ×2 (10:30→18:42)
[2017-01-02] MEDS: GUAIFENESIN 600 MG TABLET.SA PO SCH (10:30)
[2017-01-02] MEDS: ENOXAPARIN SODIUM INJ 40 MG/0.4 ML DISP.SYRIN SUBCUT SCH (10:30)
[2017-01-02] MEDS ORDERED: SUCCINYLCHOLINE CHLORIDE INJ 200 MG/10 ML VIAL ONE (10:30)
[2017-01-02] MEDS: THEOPHYLLINE ANHYDROUS 100 MG TAB.SR.12H PO SCH (10:32)
[2017-01-02] MEDS: AMLODIPINE BESYLATE 5 MG TABLET NG SCH (10:32)
[2017-01-02] MEDS: FLUTICASONE/SALMETEROL DISKUS 250-50 MCG/DOSE IH SCH ×2 (10:32→18:13)
[2017-01-02] MEDS: LEVOFLOXACIN 750 MG/D5W RTU 150 ML IV SCH (10:32)
[2017-01-02] MEDS: VANCOMYCIN HCL 1,250 MG in DEXTROSE 5%-WATER 250 ML IV SCH (11:46)
[2017-01-02] MEDS ORDERED: POTASSIUM CHLORIDE 20 MEQ/15 ML UDCUP PO ONE (13:00)
--- NOTE | 2017-01-02 13:28 | PDOC PROGRESS REPORT ---
Subjective Progress Note for:: 01/02/17 Subjective:: After sedation patient awake responsive Physical Exam Vital Signs: Temp Pulse Resp BP Pulse Ox 97.7 F 87 24 H 112/55 L 99 01/02/17 08:00 01/02/17 08:00 01/02/17 08:23 01/02/17 08:23 01/02/17 08:23 Intake & Output 01/01/17 01/02/17 01/03/17 06:59 06:59 06:59 Intake Total 400 4114 Output Total 0 1905 35 Balance 400 2209 -35 Weight 79.9 kg 80.5 kg General appearance: PRESENT: no acute distress, well-developed, well-nourished Head exam: PRESENT: atraumatic, normocephalic Eye exam: PRESENT: conjunctiva pale, EOMI Mouth exam: PRESENT: dry mucosa, neck supple, other - ET tube in place Neck exam: ABSENT: carotid bruit, JVD, lymphadenopathy, thyromegaly Respiratory exam: PRESENT: decreased breath sounds, prolonged expiratory phas, rhonchi, symmetrical, unlabored, wheezes Cardiovascular exam: PRESENT: RRR, +S1, +S2 Pulses: PRESENT: normal radial pulses GI/Abdominal exam: PRESENT: normal bowel sounds, soft. ABSENT: distended, guarding, mass, organolmegaly, rebound, tenderness Rectal exam: PRESENT: deferred Gentrourinary exam: PRESENT: indwelling catheter Musculoskeletal exam: PRESENT: normal inspection Neurological exam: PRESENT: alert, awake Psychiatric exam: PRESENT: normal mood Skin exam: PRESENT: dry, intact, warm Results Laboratory Results: 01/02/17 04:26 01/02/17 04:26 01/01/17 01/01/17 01/01/17 09:10 09:26 09:26 WBC 13.3 H RBC 4.45 Hgb 13.5 Hct 40.6 MCV 91 MCH 30.4 MCHC 33.3 RDW 14.8 H Plt Count 235 Seg Neutrophils % 85.3 H Lymphocytes % 7.6 L Monocytes % 6.6 Eosinophils % 0.3 Basophils % 0.2 Absolute Neutrophils 11.3 H Absolute Lymphocytes 1.0 Absolute Monocytes 0.9 Absolute Eosinophils 0.0 Absolute Basophils 0.0 Carbonic Acid 2.13 H HCO3/H2CO3 Ratio 14:1 ABG pH 7.25 L ABG pCO2 70.7 H* ABG pO2 126.6 H ABG HCO3 30.0 H ABG O2 Saturation 97.9 ABG Base Excess 0.7 FiO2 40% Sodium 142.4 Potassium 4.9 Chloride 100 Carbon Dioxide 28 Anion Gap 14 BUN 23 H Creatinine 1.01 Est GFR ( Amer) > 60 Est GFR (Non-Af Amer) 54 L Glucose 150 H Calcium 9.9 Phosphorus Magnesium 2.5 H Total Bilirubin AST ALT Alkaline Phosphatase Total Protein Albumin TSH 01/01/17 01/01/17 01/01/17 09:26 11:38 17:30 WBC RBC Hgb Hct MCV MCH MCHC RDW Plt Count Seg Neutrophils % Lymphocytes % Monocytes % Eosinophils % Basophils % Absolute Neutrophils Absolute Lymphocytes Absolute Monocytes Absolute Eosinophils Absolute Basophils Carbonic Acid 1.42 H 1.04 L HCO3/H2CO3 Ratio 19:1 24:1 ABG pH 7.39 7.49 H ABG pCO2 47.3 H 34.6 L ABG pO2 263.4 H 177.3 H ABG HCO3 27.9 H 25.8 ABG O2 Saturation 99.6 H 99.3 H ABG Base Excess 2.2 2.8 FiO2 50% 40% Sodium Potassium Chloride Carbon Dioxide Anion Gap BUN Creatinine Est GFR ( Amer) Est GFR (Non-Af Amer) Glucose Calcium Phosphorus Magnesium Total Bilirubin AST ALT Alkaline Phosphatase Total Protein Albumin TSH < 0.02 L 01/02/17 01/02/17 01/02/17 04:26 04:26 04:26 WBC 8.7 RBC 4.10 Hgb 12.4 Hct 36.8 MCV 90 MCH 30.1 MCHC 33.6 RDW 14.6 H Plt Count 203 Seg Neutrophils % 84.3 H Lymphocytes % 8.3 L Monocytes % 7.3 Eosinophils % 0.0 Basophils % 0.1 Absolute Neutrophils 7.3 Absolute Lymphocytes 0.7 Absolute Monocytes 0.6 Absolute Eosinophils 0.0 Absolute Basophils 0.0 Carbonic Acid 1.16 HCO3/H2CO3 Ratio 21:1 ABG pH 7.44 ABG pCO2 38.4 ABG pO2 70.9 L ABG HCO3 25.2 ABG O2 Saturation 94.8 ABG Base Excess 1.1 FiO2 30% Sodium 139.9 Potassium 3.6 D Chloride 103 Carbon Dioxide 26 Anion Gap 11 BUN 25 H Creatinine 1.18 Est GFR ( Amer) 55 L Est GFR (Non-Af Amer) 45 L Glucose 174 H Calcium 9.4 Phosphorus 3.5 Magnesium 2.9 H Total Bilirubin 0.4 AST 31 ALT 37 Alkaline Phosphatase 85 Total Protein 6.0 L Albumin 3.6 TSH 12/31/16 01/02/17 07:16 04:26 NT-Pro-B Natriuret Pep 160 127 Impressions: Chest/Abdomen CTA 01/01/17 00:00 IMPRESSION: Emphysematous changes. Postsurgical changes in the right upper lobe. Minimal infiltrate in the left base could represent atelectasis or developing pneumonia. . Chest X-Ray 01/02/17 06:00 IMPRESSION: STABLE APPEARANCE OF THE CHEST. Assessment & Plan - Diagnosis (1) Acute hypercapnic respiratory failure Is this a current diagnosis for this admission?: YesPlan: Improved minute ventilation, respiratory rate, FiO2 and airway pressures all suggest successful extubation will proceed with extubation pretreat with albuterol Pulmicort and Decadron,pulmicort and decadron (2) Acute hypoxemic respiratory failure Is this a current diagnosis for this admission?: Yes (3) COPD exacerbation Is this a current diagnosis for this admission?: Yes (4) Hypothyroidism Qualifiers: Hypothyroidism type: unspecified Qualified Code(s): E03.9 - Hypothyroidism, unspecified Is this a current diagnosis for this admission?: Yes (5) Pulmonary hypertension Is this a current diagnosis for this admission?: Yes (6) Volume overload Qualifiers: Hypervolemia type: unspecified Qualified Code(s): E87.70 - Fluid overload, unspecified Is this a current diagnosis for this admission?: Yes - Time Critical Time spent with patient: 35 or more minutes - 55 min
[2017-01-02] MEDS ORDERED: DEXAMETHASONE SOD PHOSPHATE INJ 4 MG/1 ML VIAL IV ONE (14:30)
[2017-01-02] MEDS ORDERED: ALBUTEROL SULFATE 0.083% NEB 2.5 MG/3 ML AMPUL NEB ONE (14:30)
[2017-01-02] MEDS ORDERED: BUDESONIDE NEB 0.5 MG/2 ML AMPUL NEB ONE (14:30)
[2017-01-02] MEDS ORDERED: RACEPINEPHRINE HCL 2.25% NEB 0.5 ML AMPUL NEB ONE (15:18)
[2017-01-02] MEDS: LEVALBUTEROL HCL NEB 1.25 MG/3 ML AMPUL NEB PRN (15:37)
[2017-01-02] MEDS ORDERED: MAGNESIUM SULFATE/D5W 2 GM/200 ML RTUPB IV ONE (15:38)
[2017-01-02] MEDS ORDERED: KETAMINE HCL INJ 500 MG/10 ML VIAL ONE (15:44)
[2017-01-02] MEDS ORDERED: CLONIDINE 0.1 MG/24 HR PATCH.TDWK TD ONE (16:00)
[2017-01-02] MEDS ORDERED: KETAMINE HCL INJ 500 MG/10 ML VIAL IV ONE ×2 (16:00→16:15)
[2017-01-02] MEDS ORDERED: ENALAPRILAT DIHYDRATE INJ/PF 2.5 MG/2 ML SDV IV ONE (16:00)
[2017-01-02] MEDS ORDERED: LEVALBUTEROL HCL NEB 1.25 MG/3 ML AMPUL NEB ONE (16:00)
[2017-01-02] MEDS ORDERED: ALPRAZOLAM 0.25 MG TABLET PO ONE (16:00)
[2017-01-02] MEDS: LORAZEPAM INJ 2 MG/1 ML VIAL IV PRN (16:01)
[2017-01-02] MEDS: MAGNESIUM SULFATE/D5W 1 GM/100 ML RTUPB IV PRN ×2 (16:02→16:51)
[2017-01-02] MEDS ORDERED: PHARMACY COMMUNICATION ORDER MC NR (16:15)
[2017-01-02] MEDS ORDERED: TIZANIDINE HCL 4 MG TABLET NG PRN (16:18)
[2017-01-02] MEDS ORDERED: TRAMADOL HCL 50 MG TABLET NG PRN (16:18)
[2017-01-02] MEDS ORDERED: MIDAZOLAM HCL 100 ML IV PRN (16:32)
[2017-01-02 17:49] LABS: ARTERIAL BLOOD BASE EXCESS 2.3 mmol/L; ARTERIAL BLOOD O2 SATURATION 99.3 % (94-98)
[2017-01-02] MEDS ORDERED: UDCUP PO SCH (18:00)
[2017-01-02] MEDS ORDERED: THEOPHYLLINE ANHYDROUS 80 MG/15 ML PO SCH (18:00)
[2017-01-02] MEDS: GUAIFENESIN SYRP 200 MG/10 ML UDC PO SCH ×2 (18:42→21:38)
[2017-01-02] MEDS: UDCUP NG SCH ×2 (18:42→23:35)
[2017-01-02] MEDS: THEOPHYLLINE ANHYDROUS 80 MG/15 ML NG SCH ×2 (18:42→23:35)
--- NOTE | 2017-01-02 18:54 | PDOC PROGRESS REPORT ---
Subjective Progress Note for:: 01/02/17 Subjective:: Patient was seen earlier on morning rounds and had been doing well and stable on the ventilator, and was subsequently extubated by pulmonary medicine. Nursing called for respiratory distress after extubation. Physical Exam Vital Signs: Temp Pulse Resp BP Pulse Ox 98.4 F 102 H 24 H 96/55 L 100 01/02/17 18:00 01/02/17 16:00 01/02/17 18:00 01/02/17 17:23 01/02/17 18:00 Intake & Output 01/01/17 01/02/17 01/03/17 06:59 06:59 06:59 Intake Total 400 4114 1905 Output Total 0 1905 1860 Balance 400 2209 45 Weight 79.9 kg 80.5 kg Exam: General: Awake and in severe respiratory distress on BiPAP HEENT: AT/NC, PERRL, EOMI, oropharynx is moist, pink, no scleral icterus, no conjunctival injection Neck: no JVD, trachea midline Chest: Tachypnea, use of abdominal muscles, retractions, poor air excursion, bilateral end expiratory wheezes, poor air movement throughout CV: Tachycardic, regular rate and rhythm, normal S1 and S2, no rub or gallop Abdomen: Soft, nontender to palpation, nondistended, active bowel sounds; no rebound, rigidity, or guarding Extremities: No cyanosis, clubbing or edema Results Laboratory Results: 01/02/17 04:26 01/02/17 04:26 01/02/17 01/02/17 01/02/17 04:26 04:26 04:26 WBC 8.7 RBC 4.10 Hgb 12.4 Hct 36.8 MCV 90 MCH 30.1 MCHC 33.6 RDW 14.6 H Plt Count 203 Seg Neutrophils % 84.3 H Lymphocytes % 8.3 L Monocytes % 7.3 Eosinophils % 0.0 Basophils % 0.1 Absolute Neutrophils 7.3 Absolute Lymphocytes 0.7 Absolute Monocytes 0.6 Absolute Eosinophils 0.0 Absolute Basophils 0.0 Carbonic Acid 1.16 HCO3/H2CO3 Ratio 21:1 ABG pH 7.44 ABG pCO2 38.4 ABG pO2 70.9 L ABG HCO3 25.2 ABG O2 Saturation 94.8 ABG Base Excess 1.1 FiO2 30% Sodium 139.9 Potassium 3.6 D Chloride 103 Carbon Dioxide 26 Anion Gap 11 BUN 25 H Creatinine 1.18 Est GFR ( Amer) 55 L Est GFR (Non-Af Amer) 45 L Glucose 174 H Calcium 9.4 Phosphorus 3.5 Magnesium 2.9 H Total Bilirubin 0.4 AST 31 ALT 37 Alkaline Phosphatase 85 Total Protein 6.0 L Albumin 3.6 Triglycerides Free T4 Free T3 pg/mL 01/02/17 01/02/17 01/02/17 08:18 08:18 17:40 WBC RBC Hgb Hct MCV MCH MCHC RDW Plt Count Seg Neutrophils % Lymphocytes % Monocytes % Eosinophils % Basophils % Absolute Neutrophils Absolute Lymphocytes Absolute Monocytes Absolute Eosinophils Absolute Basophils Carbonic Acid 1.03 L HCO3/H2CO3 Ratio 24:1 ABG pH 7.49 H ABG pCO2 34.2 L ABG pO2 170.8 H ABG HCO3 25.3 ABG O2 Saturation 99.3 H ABG Base Excess 2.3 FiO2 40% Sodium Potassium Chloride Carbon Dioxide Anion Gap BUN Creatinine Est GFR ( Amer) Est GFR (Non-Af Amer) Glucose Calcium Phosphorus Magnesium Total Bilirubin AST ALT Alkaline Phosphatase Total Protein Albumin Triglycerides 98 Free T4 1.81 Free T3 pg/mL 2.58 L 12/31/16 01/02/17 07:16 04:26 NT-Pro-B Natriuret Pep 160 127 Impressions: Chest/Abdomen CTA 01/01/17 00:00 IMPRESSION: Emphysematous changes. Postsurgical changes in the right upper lobe. Minimal infiltrate in the left base could represent atelectasis or developing pneumonia. . Chest X-Ray 01/02/17 06:00 IMPRESSION: STABLE APPEARANCE OF THE CHEST. Assessment & Plan - Diagnosis (1) Acute hypoxemic respiratory failure Is this a current diagnosis for this admission?: YesPlan: Secondary to COPD exacerbation and pneumonia. Moderate to severe pulmonary hypertension. Patient currently in extremis and will require intubation. (2) COPD exacerbation Is this a current diagnosis for this admission?: YesPlan: Patient has had sick exposure at home. Patient on Solu-Medrol 125mg IV every 6h with now dose. Will give patient 2 g of magnesium over 10 minutes. Have given patient also 20 mg total of ketamine and 2 different boluses with minimal improvement. Continue patient on Levaquin, cefepime, and vancomycin. Have discussed case with pulmonary medicine and appreciate their input and ventilator settings. (3) Hypothyroidism Qualifiers: Hypothyroidism type: unspecified Qualified Code(s): E03.9 - Hypothyroidism, unspecified Is this a current diagnosis for this admission?: YesPlan: Pending TSH. (4) Hypertension Qualifiers: Hypertension type: essential hypertension Qualified Code(s): I10 - Essential (primary) hypertension Is this a current diagnosis for this admission?: YesPlan: Have given patient clonidine and enalapril Will revisit patient's antihypertensives after intubation. (5) Pulmonary hypertension Is this a current diagnosis for this admission?: Yes (6) Obesity Qualifiers: Obesity type: due to excess calories Obesity severity: non-morbid Qualified Code(s): E66.09 - Other obesity due to excess calories Is this a current diagnosis for this admission?: Yes (7) Acute diastolic (congestive) heart failure Is this a current diagnosis for this admission?: YesPlan: We'll continue to monitor I's and O's. Patient with grade 1 diastolic dysfunction. EF not reported, but reported to be normal. - Time Critical Time spent with patient: 35 or more minutes Medications reviewed and adjusted accordingly: Yes
[2017-01-02] MEDS: ALPRAZOLAM 0.25 MG TABLET NG SCH (21:38)
[2017-01-02] MEDS ORDERED: ALPRAZOLAM 0.25 MG TABLET PO SCH (22:00)
[2017-01-03] MEDS: IPRATROPIUM/ALBUTEROL 0.5-2.5 MG/3 ML AMPUL NEB SCH ×6 (00:34→21:08)
[2017-01-03] MEDS: METHYLPREDNISOLONE INJ 125 MG/2 ML SDV IV SCH ×4 (02:12→20:20)
[2017-01-03] MEDS: GUAIFENESIN SYRP 200 MG/10 ML UDC PO SCH ×6 (02:12→21:24)
[2017-01-03] MEDS: PROPOFOL 100 ML IV PRN ×7 (02:13→20:54)
[2017-01-03] MEDS: CEFEPIME HCL 2 GM in DEXTROSE 5%-WATER 50 ML IV SCH ×2 (04:35→15:20)
[2017-01-03] MEDS: NORMAL SALINE 1000 ML 1,000 ML IV PRN ×3 (04:36→23:26)
[2017-01-03 04:46] LABS: ABSOLUTE LYMPHOCYTES (AUTO) 0.7 10^3/uL (0.5-4.7); ABSOLUTE MONOCYTES (AUTO) 0.6 10^3/uL (0.1-1.4); HEMATOCRIT 35.6 % (36.0-47.0); HGB HCT DIFFERENCE 0.4; LYMPHOCYTES % (AUTO) 7.6 % (13-45); MEAN CORPUSCULAR HEMOGLOBIN 30.2 pg (27.0-33.4); MEAN CORPUSCULAR HGB CONC 33.7 g/dL (32.0-36.0); MEAN CORPUSCULAR VOLUME 90 fl (80-97); MONOCYTES % (AUTO) 6.8 % (3-13); RED BLOOD COUNT 3.97 10^6/uL (3.72-5.28); RED CELL DISTRIBUTION WIDTH 14.9 % (11.5-14.0); SEGMENTED NEUTROPHILS % (AUTO) 85.6 % (42-78); WHITE BLOOD COUNT 9.4 10^3/uL (4.0-10.5)
[2017-01-03 04:51] LABS: ARTERIAL BLOOD BASE EXCESS 0.2 mmol/L
[2017-01-03 05:08] LABS: ALANINE AMINOTRANSFERASE 33 U/L (9-52); ALBUMIN 3.3 g/dL (3.5-5.0); ALKALINE PHOSPHATASE 72 U/L (38-126); ANION GAP 9 (5-19); ASPARTATE AMINO TRANSFERASE 27 U/L (14-36); BILIRUBIN,DIRECT 0.2 mg/dL (0.0-0.4); BILIRUBIN,TOTAL 0.3 mg/dL (0.2-1.3); BLOOD UREA NITROGEN 24 mg/dL (7-20); CALCIUM 9.2 mg/dL (8.4-10.2); CARBON DIOXIDE 25 mmol/L (22-30); CHLORIDE 108 mmol/L (98-107); CREATININE RESULT 1.01 mg/dL (0.52-1.25); GLUCOSE 188 mg/dL (75-110); MAGNESIUM 3.2 mg/dL (1.6-2.3); PHOSPHORUS 3.9 mg/dL (2.5-4.5); POTASSIUM 3.9 mmol/L (3.6-5.0); SODIUM 141.5 mmol/L (137-145); TOTAL PROTEIN 5.9 g/dL (6.3-8.2)
[2017-01-03] MEDS: LEVOTHYROXINE SODIUM 0.15 MG TABLET NG SCH (05:43)
[2017-01-03] MEDS: UDCUP NG SCH ×4 (05:43→23:28)
[2017-01-03] MEDS: ALPRAZOLAM 0.25 MG TABLET NG SCH ×3 (05:43→21:24)
[2017-01-03] MEDS: THEOPHYLLINE ANHYDROUS 80 MG/15 ML NG SCH ×4 (05:43→23:28)
[2017-01-03] MEDS: INSULIN LISPRO 100 UNIT/ML 3 ML VIAL SUBCUT PRN (05:58)
[2017-01-03] MEDS: ENOXAPARIN SODIUM INJ 40 MG/0.4 ML DISP.SYRIN SUBCUT SCH (08:03)
[2017-01-03] MEDS: FAMOTIDINE 20 MG TABLET NG SCH ×2 (09:52→21:24)
[2017-01-03] MEDS: LACTOBACILLUS ACIDOPHILUS 250 MG TAB NG SCH ×2 (09:52→17:22)
[2017-01-03] MEDS: AMLODIPINE BESYLATE 5 MG TABLET NG SCH (09:52)
[2017-01-03] MEDS: FUROSEMIDE INJ/PF 20 MG/2 ML SDV IV SCH (09:53)
[2017-01-03] MEDS: LEVOFLOXACIN 750 MG/D5W RTU 150 ML IV SCH (09:54)
[2017-01-03] MEDS: POLYETHYLENE GLYCOL 3350 POWDER 17 GM/1 PACKET NG SCH (09:54)
[2017-01-03] MEDS: TIOTROPIUM BROMIDE DPI 5 CAP/KIT (18 MCG/CAP) IH SCH (10:03)
[2017-01-03] MEDS: FLUTICASONE/SALMETEROL DISKUS 250-50 MCG/DOSE IH SCH ×2 (10:03→17:23)
[2017-01-03] MEDS: VANCOMYCIN HCL 1,250 MG in DEXTROSE 5%-WATER 250 ML IV SCH (13:09)
--- NOTE | 2017-01-03 19:41 | PDOC PROGRESS REPORT ---
Subjective Progress Note for:: 01/03/17 Subjective:: Patient required re-intubation yesterday secondary to bronchospasm. Unable to obtain ROS secondary to intubated and sedated status. No acute event overnight. Physical Exam Vital Signs: Temp Pulse Resp BP Pulse Ox 97.2 F 77 22 H 123/66 100 01/03/17 06:08 01/03/17 04:15 01/03/17 06:08 01/03/17 06:08 01/03/17 06:08 Intake & Output 01/02/17 01/03/17 01/04/17 06:59 06:59 06:59 Intake Total 4114 5578 Output Total 1905 2260 Balance 2209 3318 Weight 80.5 kg 81.8 kg Exam: General: Intubated and sedated HEENT: AT/NC, PERRL, oropharynx is moist, pink, no scleral icterus, no conjunctival injection Neck: no JVD, trachea midline Chest: diminished bases, bilateral end expiratory wheezes CV: Regular rate and rhythm, normal S1 and S2, no rub or gallop Abdomen: Soft, nontender to palpation, distended, diminished bowel sounds; no rebound, rigidity, or guarding Extremities: No cyanosis, clubbing or +2 edema Skin: no rashes or lesions Results Laboratory Results: 01/03/17 04:30 01/03/17 04:30 01/02/17 01/02/17 01/02/17 08:18 08:18 17:40 WBC RBC Hgb Hct MCV MCH MCHC RDW Plt Count Seg Neutrophils % Lymphocytes % Monocytes % Eosinophils % Basophils % Absolute Neutrophils Absolute Lymphocytes Absolute Monocytes Absolute Eosinophils Absolute Basophils Carbonic Acid 1.03 L HCO3/H2CO3 Ratio 24:1 ABG pH 7.49 H ABG pCO2 34.2 L ABG pO2 170.8 H ABG HCO3 25.3 ABG O2 Saturation 99.3 H ABG Base Excess 2.3 FiO2 40% Sodium Potassium Chloride Carbon Dioxide Anion Gap BUN Creatinine Est GFR ( Amer) Est GFR (Non-Af Amer) Glucose Calcium Phosphorus Magnesium Total Bilirubin AST ALT Alkaline Phosphatase Total Protein Albumin Triglycerides 98 Free T4 1.81 Free T3 pg/mL 2.58 L 01/03/17 01/03/17 01/03/17 04:30 04:30 04:30 WBC 9.4 RBC 3.97 Hgb 12.0 Hct 35.6 L MCV 90 MCH 30.2 MCHC 33.7 RDW 14.9 H Plt Count 194 Seg Neutrophils % 85.6 H Lymphocytes % 7.6 L Monocytes % 6.8 Eosinophils % 0.0 Basophils % 0.0 Absolute Neutrophils 8.0 Absolute Lymphocytes 0.7 Absolute Monocytes 0.6 Absolute Eosinophils 0.0 Absolute Basophils 0.0 Carbonic Acid 1.09 HCO3/H2CO3 Ratio 22:1 ABG pH 7.44 ABG pCO2 36.1 ABG pO2 152.9 H ABG HCO3 24.0 ABG O2 Saturation 99.0 H ABG Base Excess 0.2 FiO2 40% Sodium 141.5 Potassium 3.9 Chloride 108 H Carbon Dioxide 25 Anion Gap 9 BUN 24 H Creatinine 1.01 Est GFR ( Amer) > 60 Est GFR (Non-Af Amer) 54 L Glucose 188 H Calcium 9.2 Phosphorus 3.9 Magnesium 3.2 H Total Bilirubin 0.3 AST 27 ALT 33 Alkaline Phosphatase 72 Total Protein 5.9 L Albumin 3.3 L Triglycerides Free T4 Free T3 pg/mL 12/31/16 01/02/17 07:16 04:26 NT-Pro-B Natriuret Pep 160 127 Impressions: Chest/Abdomen CTA 01/01/17 00:00 IMPRESSION: Emphysematous changes. Postsurgical changes in the right upper lobe. Minimal infiltrate in the left base could represent atelectasis or developing pneumonia. . Assessment & Plan - Diagnosis (1) Acute hypoxemic respiratory failure Is this a current diagnosis for this admission?: YesPlan: Patient now reintubated. Appreciate pulmonary input. Discussed this case with them today. Continue treatment for underlying COPD exacerbation (2) COPD exacerbation Is this a current diagnosis for this admission?: YesPlan: Patient has had sick exposure at home. Patient on Solu-Medrol 125mg IV every 6h with now dose. Will give patient 2 g of magnesium over 10 minutes. Continue patient on Levaquin, cefepime, and vancomycin. Have discussed case with pulmonary medicine and appreciate their input and ventilator settings. (3) Hypothyroidism Qualifiers: Hypothyroidism type: unspecified Qualified Code(s): E03.9 - Hypothyroidism, unspecified Is this a current diagnosis for this admission?: YesPlan: Pending TSH undetectable and free T4 is normal. This likely represents sick euthyroid (4) Hypertension Qualifiers: Hypertension type: essential hypertension Qualified Code(s): I10 - Essential (primary) hypertension Is this a current diagnosis for this admission?: YesPlan: Patient currently on Norvasc and clonidine patch (5) Pulmonary hypertension Is this a current diagnosis for this admission?: Yes (6) Obesity Qualifiers: Obesity type: due to excess calories Obesity severity: non-morbid Qualified Code(s): E66.09 - Other obesity due to excess calories Is this a current diagnosis for this admission?: Yes (7) Acute diastolic (congestive) heart failure Is this a current diagnosis for this admission?: YesPlan: Hypervolemic We'll continue to monitor I's and O's. Patient with grade 1 diastolic dysfunction. EF not reported, but reported to be normal. - Time Critical Time spent with patient: 35 or more minutes Medications reviewed and adjusted accordingly: Yes Anticipated discharge: Acute Rehab
[2017-01-04] MEDS: IPRATROPIUM/ALBUTEROL 0.5-2.5 MG/3 ML AMPUL NEB SCH ×6 (00:13→20:39)
[2017-01-04] MEDS: PROPOFOL 100 ML IV PRN ×7 (00:32→23:11)
[2017-01-04] MEDS: GUAIFENESIN SYRP 200 MG/10 ML UDC PO SCH ×6 (01:50→21:42)
[2017-01-04] MEDS: METHYLPREDNISOLONE INJ 125 MG/2 ML SDV IV SCH ×4 (02:00→21:43)
[2017-01-04] MEDS: CEFEPIME HCL 2 GM in DEXTROSE 5%-WATER 50 ML IV SCH ×2 (03:22→16:45)
[2017-01-04] MEDS: UDCUP NG SCH ×4 (05:00→23:11)
[2017-01-04] MEDS: ALPRAZOLAM 0.25 MG TABLET NG SCH ×3 (05:00→21:40)
[2017-01-04] MEDS: THEOPHYLLINE ANHYDROUS 80 MG/15 ML NG SCH ×4 (05:00→23:11)
[2017-01-04] MEDS: LEVOTHYROXINE SODIUM 0.15 MG TABLET NG SCH (06:32)
[2017-01-04] MEDS: NORMAL SALINE 1000 ML 1,000 ML IV PRN (07:47)
[2017-01-04 08:36] LABS: ARTERIAL BLOOD BASE EXCESS -1.6 mmol/L; ARTERIAL BLOOD O2 SATURATION 98.2 % (94-98)
[2017-01-04 08:40] LABS: HEMATOCRIT 33.9 % (36.0-47.0); HEMOGLOBIN 11.5 g/dL (12.0-15.5); HGB HCT DIFFERENCE 0.6; MEAN CORPUSCULAR HEMOGLOBIN 30.3 pg (27.0-33.4); MEAN CORPUSCULAR HGB CONC 33.8 g/dL (32.0-36.0); MEAN CORPUSCULAR VOLUME 90 fl (80-97); RED BLOOD COUNT 3.78 10^6/uL (3.72-5.28); RED CELL DISTRIBUTION WIDTH 14.9 % (11.5-14.0); WHITE BLOOD COUNT 10.8 10^3/uL (4.0-10.5)
[2017-01-04] MEDS ORDERED: NORMAL SALINE 1000 ML 1,000 ML IV PRN (08:42)
[2017-01-04] MEDS ORDERED: MINERAL OIL ENEMA 133 ML PR PRN (08:42)
[2017-01-04 08:58] LABS: ALANINE AMINOTRANSFERASE 38 U/L (9-52); ALBUMIN 2.4 g/dL (3.5-5.0); ALKALINE PHOSPHATASE 50 U/L (38-126); ANION GAP 9 (5-19); ASPARTATE AMINO TRANSFERASE 20 U/L (14-36); BILIRUBIN,DIRECT 0.2 mg/dL (0.0-0.4); BILIRUBIN,TOTAL 0.3 mg/dL (0.2-1.3); BLOOD UREA NITROGEN 20 mg/dL (7-20); CALCIUM 7.3 mg/dL (8.4-10.2); CARBON DIOXIDE 19 mmol/L (22-30); CHLORIDE 115 mmol/L (98-107); CREATININE RESULT 0.83 mg/dL (0.52-1.25); GLUCOSE 160 mg/dL (75-110); POTASSIUM 3.4 mmol/L (3.6-5.0); SODIUM 142.5 mmol/L (137-145); TOTAL PROTEIN 4.8 g/dL (6.3-8.2)
[2017-01-04 09:11] LABS: BAND NEUTROPHILS % (MANUAL) 1 % (3-5); BASOPHILS % (MANUAL) 0 % (0-2); EOSINOPHILS % (MANUAL) 0 % (0-6); LYMPHOCYTES % (MANUAL) 5 % (13-45); TOTAL CELLS COUNTED 100; TOXIC GRANULATION SLIGHT; TOXIC VACUOLATION PRESENT
[2017-01-04 09:12] LABS: HYPOCHROMASIA SLIGHT; POLYCHROMASIA SLIGHT
[2017-01-04] MEDS: TIOTROPIUM BROMIDE DPI 5 CAP/KIT (18 MCG/CAP) IH SCH (09:34)
[2017-01-04] MEDS: FLUTICASONE/SALMETEROL DISKUS 250-50 MCG/DOSE IH SCH ×2 (09:34→18:22)
[2017-01-04] MEDS: LEVOFLOXACIN 750 MG/D5W RTU 150 ML IV SCH (09:35)
[2017-01-04] MEDS: FAMOTIDINE 20 MG TABLET NG SCH ×2 (09:36→21:41)
[2017-01-04] MEDS: LACTOBACILLUS ACIDOPHILUS 250 MG TAB NG SCH ×2 (09:36→18:34)
[2017-01-04] MEDS: FUROSEMIDE INJ/PF 20 MG/2 ML SDV IV SCH ×2 (09:36→21:49)
[2017-01-04] MEDS: NYSTATIN TOPICAL POWDER 15 GM TP SCH ×2 (09:37→18:34)
[2017-01-04] MEDS: AMLODIPINE BESYLATE 5 MG TABLET NG SCH (09:37)
[2017-01-04] MEDS: POLYETHYLENE GLYCOL 3350 POWDER 17 GM/1 PACKET NG SCH (09:37)
[2017-01-04] MEDS: ENOXAPARIN SODIUM INJ 40 MG/0.4 ML DISP.SYRIN SUBCUT SCH (09:38)
[2017-01-04] MEDS ORDERED: POTASSIUM CHLORIDE 20 MEQ/15 ML UDCUP NG ONE (12:42)
[2017-01-04 13:34] LABS: CREATININE RESULT 0.95 mg/dL (0.52-1.25)
[2017-01-04] MEDS: VANCOMYCIN HCL 1,250 MG in DEXTROSE 5%-WATER 250 ML IV SCH (14:14)
--- NOTE | 2017-01-04 15:27 | PDOC PROGRESS REPORT ---
Subjective Progress Note for:: 01/04/17 Subjective:: Patient remains intubated doing well. Unable to obtain review of systems secondary to intubated and sedated status. No acute events overnight. Physical Exam Vital Signs: Temp Pulse Resp BP Pulse Ox 97.0 F 84 22 H 128/63 H 99 01/04/17 08:00 01/04/17 04:35 01/04/17 08:00 01/04/17 07:10 01/04/17 08:00 Intake & Output 01/03/17 01/04/17 01/05/17 06:59 06:59 06:59 Intake Total 5578 4410 Output Total 2260 2120 Balance 3318 2290 Weight 81.8 kg 85.8 kg Exam: General: Intubated and sedated HEENT: AT/NC, PERRL, oropharynx is moist, pink, no scleral icterus, no conjunctival injection Neck: no JVD, trachea midline Chest: diminished bases, otherwise clear to auscultation bilaterally CV: Regular rate and rhythm, normal S1 and S2, no rub or gallop Abdomen: Soft, nontender to palpation, distended, diminished bowel sounds; no rebound, rigidity, or guarding Extremities: No cyanosis, clubbing or +2 edema Skin: no rashes or lesions Results Laboratory Results: 01/03/17 04:30 01/03/17 04:30 01/02/17 08:18 Catheterized Urine Legionella Urinary Antigen - Final 12/31/16 01/02/17 07:16 04:26 NT-Pro-B Natriuret Pep 160 127 Impressions: Chest/Abdomen CTA 01/01/17 00:00 IMPRESSION: Emphysematous changes. Postsurgical changes in the right upper lobe. Minimal infiltrate in the left base could represent atelectasis or developing pneumonia. . Chest X-Ray 01/03/17 06:00 IMPRESSION: STABLE APPEARANCE OF THE CHEST. Assessment & Plan - Diagnosis (1) Acute hypoxemic respiratory failure Is this a current diagnosis for this admission?: YesPlan: Patient requiring less FiO2. Appreciate pulmonary input. Discussed this case with them today. Continue treatment for underlying COPD exacerbation with status asthmaticus (2) COPD exacerbation Is this a current diagnosis for this admission?: YesPlan: Patient with COPD exacerbation and status asthmaticus. Concern at this time for worsening lower respiratory tract infection. Patient has had sick exposure at home. Decrease to Solu-Medrol 125mg IV every 8h.. Day #5 Levaquin, cefepime, and vancomycin. Have discussed case with pulmonary medicine and appreciate their input and ventilator settings. (3) Hypothyroidism Qualifiers: Hypothyroidism type: unspecified Qualified Code(s): E03.9 - Hypothyroidism, unspecified Is this a current diagnosis for this admission?: YesPlan: Pending TSH undetectable and free T4 is normal. This likely represents sick euthyroid (4) Hypertension Qualifiers: Hypertension type: essential hypertension Qualified Code(s): I10 - Essential (primary) hypertension Is this a current diagnosis for this admission?: YesPlan: Patient currently on Norvasc and clonidine patch (5) Pulmonary hypertension Is this a current diagnosis for this admission?: YesPlan: Patient at baseline has moderate pulmonary hypertension. This is likely complicating patient's extubation. Family reports that she is always short of breath. (6) Obesity Qualifiers: Obesity type: due to excess calories Obesity severity: non-morbid Qualified Code(s): E66.09 - Other obesity due to excess calories Is this a current diagnosis for this admission?: Yes (7) Acute diastolic (congestive) heart failure Is this a current diagnosis for this admission?: YesPlan: Hypervolemic. Increase Lasix. We'll continue to monitor I's and O's. Patient is still overall 7 L positive. Patient with grade 1 diastolic dysfunction. EF not reported, but reported to be normal. - Time Critical Time spent with patient: 25-34 minutes Medications reviewed and adjusted accordingly: Yes Anticipated discharge: Acute Rehab
[2017-01-05] MEDS: IPRATROPIUM/ALBUTEROL 0.5-2.5 MG/3 ML AMPUL NEB SCH ×3 (00:13→08:40)
[2017-01-05] MEDS: GUAIFENESIN SYRP 200 MG/10 ML UDC PO SCH ×6 (02:16→21:01)
[2017-01-05] MEDS: PROPOFOL 100 ML IV PRN ×7 (02:17→22:56)
[2017-01-05] MEDS: CEFEPIME HCL 2 GM in DEXTROSE 5%-WATER 50 ML IV SCH ×2 (03:26→16:27)
[2017-01-05] MEDS: METHYLPREDNISOLONE INJ 125 MG/2 ML SDV IV SCH (05:09)
[2017-01-05] MEDS: LEVOTHYROXINE SODIUM 0.15 MG TABLET NG SCH (05:09)
[2017-01-05] MEDS: ALPRAZOLAM 0.25 MG TABLET NG SCH (05:09)
[2017-01-05] MEDS: UDCUP NG SCH ×3 (05:19→17:35)
[2017-01-05] MEDS: THEOPHYLLINE ANHYDROUS 80 MG/15 ML NG SCH ×3 (05:19→17:35)
[2017-01-05 05:50] LABS: HEMATOCRIT 34.4 % (36.0-47.0); HEMOGLOBIN 11.5 g/dL (12.0-15.5); HGB HCT DIFFERENCE 0.1; MEAN CORPUSCULAR HEMOGLOBIN 30.2 pg (27.0-33.4); MEAN CORPUSCULAR HGB CONC 33.3 g/dL (32.0-36.0); MEAN CORPUSCULAR VOLUME 91 fl (80-97); RED CELL DISTRIBUTION WIDTH 15.1 % (11.5-14.0); WHITE BLOOD COUNT 12.7 10^3/uL (4.0-10.5)
[2017-01-05 06:05] LABS: ANION GAP 12 (5-19); BLOOD UREA NITROGEN 27 mg/dL (7-20); CALCIUM 8.7 mg/dL (8.4-10.2); CARBON DIOXIDE 24 mmol/L (22-30); CHLORIDE 108 mmol/L (98-107); CREATININE RESULT 1.02 mg/dL (0.52-1.25); GLUCOSE 182 mg/dL (75-110); MAGNESIUM 2.5 mg/dL (1.6-2.3); PHOSPHORUS 4.1 mg/dL (2.5-4.5); POTASSIUM 3.9 mmol/L (3.6-5.0); SODIUM 143.9 mmol/L (137-145); TRIGLYCERIDES 98 mg/dL (<150)
[2017-01-05 06:09] LABS: ARTERIAL BLOOD BASE EXCESS -0.3 mmol/L; ARTERIAL BLOOD O2 SATURATION 97.1 % (94-98)
[2017-01-05 06:23] LABS: BAND NEUTROPHILS % (MANUAL) 2 % (3-5); BASOPHILS % (MANUAL) 0 % (0-2); EOSINOPHILS % (MANUAL) 0 % (0-6); LYMPHOCYTES % (MANUAL) 15 % (13-45); TOTAL CELLS COUNTED 100
[2017-01-05 06:24] LABS: ANISOCYTOSIS 1+
[2017-01-05] MEDS: ENOXAPARIN SODIUM INJ 40 MG/0.4 ML DISP.SYRIN SUBCUT SCH (08:15)
[2017-01-05] MEDS ORDERED: ALTEPLASE INJ 2 MG VIAL (CATH CLEARANCE) IV PRN (09:19)
[2017-01-05] MEDS: FUROSEMIDE INJ/PF 40 MG/4 ML SDV IV SCH ×2 (09:22→21:00)
[2017-01-05] MEDS: LACTOBACILLUS ACIDOPHILUS 250 MG TAB NG SCH ×2 (09:22→17:35)
[2017-01-05] MEDS: FAMOTIDINE 20 MG TABLET NG SCH ×2 (09:23→21:01)
[2017-01-05] MEDS: AMLODIPINE BESYLATE 5 MG TABLET NG SCH (09:24)
[2017-01-05] MEDS: LEVOFLOXACIN 750 MG/D5W RTU 150 ML IV SCH (09:25)
[2017-01-05] MEDS: NYSTATIN TOPICAL POWDER 15 GM TP SCH ×2 (09:25→17:29)
[2017-01-05] MEDS ORDERED: FUROSEMIDE INJ/PF 20 MG/2 ML SDV IV SCH (10:00)
[2017-01-05] MEDS ORDERED: MICONAZOLE NITRATE 200 MG/SUPP (3 SUPP/BOX) VG SCH (10:00)
[2017-01-05] MEDS: TIOTROPIUM BROMIDE DPI 5 CAP/KIT (18 MCG/CAP) IH SCH (11:02)
[2017-01-05] MEDS: FLUTICASONE/SALMETEROL DISKUS 250-50 MCG/DOSE IH SCH ×2 (11:02→17:29)
[2017-01-05] MEDS: LEVALBUTEROL HCL NEB 1.25 MG/3 ML AMPUL NEB PRN ×3 (12:12→21:19)
[2017-01-05] MEDS: POLYETHYLENE GLYCOL 3350 POWDER 17 GM/1 PACKET NG SCH (12:17)
[2017-01-05] MEDS: LACTULOSE SYRUP 20 GM/30 ML UDCUP PO SCH ×2 (12:17→17:35)
[2017-01-05] MEDS: NORMAL SALINE 1000 ML 1,000 ML IV PRN (12:17)
[2017-01-05] MEDS: VANCOMYCIN HCL 1,500 MG in DEXTROSE 5%-WATER 250 ML IV SCH (12:22)
[2017-01-05] MEDS: INSULIN LISPRO 100 UNIT/ML 3 ML VIAL SUBCUT PRN (12:41)
[2017-01-05] MEDS ORDERED: METHYLPREDNISOLONE INJ 125 MG/2 ML SDV IV SCH (14:00)
[2017-01-05] MEDS: METRONIDAZOLE 500 MG/NS RTU 100 ML IV SCH ×2 (14:04→20:57)
[2017-01-05] MEDS: METHYLPREDNISOLONE INJ 40 MG/1 ML SDV IV SCH ×2 (14:05→21:02)
[2017-01-05 14:10] LABS: CHLAM PCR NOT DETECTED (NOT DETECT)
--- NOTE | 2017-01-05 17:05 | PDOC PROGRESS REPORT ---
Subjective Progress Note for:: 01/05/17 Subjective:: Patient remains intubated doing well. Unable to obtain review of systems secondary to intubated and sedated status. Patient is found to have copious, foul vaginal discharge. Sensitive exam performed with nurse Iqra Hardin present. Physical Exam Vital Signs: Temp Pulse Resp BP Pulse Ox 98.4 F 94 29 H 125/48 L 97 01/05/17 16:09 01/05/17 16:02 01/05/17 16:09 01/05/17 16:09 01/05/17 16:09 Intake & Output 01/04/17 01/05/17 01/06/17 06:59 06:59 06:59 Intake Total 4410 3413 Output Total 2120 4295 2845 Balance 2290 -882 -2845 Weight 85.8 kg 85.7 kg Exam: General: Intubated and sedated HEENT: AT/NC, PERRL, oropharynx is moist, pink, no scleral icterus, no conjunctival injection Neck: no JVD, trachea midline Chest: diminished bases, otherwise clear to auscultation bilaterally CV: Regular rate and rhythm, normal S1 and S2, no rub or gallop Abdomen: Soft, nontender to palpation, distended, diminished bowel sounds; no rebound, rigidity, or guarding : Patient with strawberry-like erythema of the labia minora and diffusely through her vagina, vaginal cuff seen, bimanual exam reveals no uterus Extremities: No cyanosis, clubbing or +2 edema Skin: no rashes or lesions Results Laboratory Results: 01/05/17 05:30 01/05/17 05:30 01/05/17 01/05/17 01/05/17 05:30 05:30 05:55 WBC 12.7 H RBC 3.80 Hgb 11.5 L Hct 34.4 L MCV 91 MCH 30.2 MCHC 33.3 RDW 15.1 H Plt Count 187 Seg Neutrophils % Not Reportable Lymphocytes % Not Reportable Monocytes % Not Reportable Eosinophils % Not Reportable Basophils % Not Reportable Absolute Neutrophils Not Reportable Absolute Lymphocytes Not Reportable Absolute Monocytes Not Reportable Absolute Eosinophils Not Reportable Absolute Basophils Not Reportable Carbonic Acid 1.04 L HCO3/H2CO3 Ratio 22:1 ABG pH 7.44 ABG pCO2 34.7 L ABG pO2 88.4 ABG HCO3 23.3 ABG O2 Saturation 97.1 ABG Base Excess -0.3 FiO2 28% Sodium 143.9 Potassium 3.9 Chloride 108 H Carbon Dioxide 24 Anion Gap 12 BUN 27 H Creatinine 1.02 Est GFR ( Amer) > 60 Est GFR (Non-Af Amer) 53 L Glucose 182 H Calcium 8.7 Phosphorus 4.1 Magnesium 2.5 H Triglycerides 98 12/31/16 01/02/17 07:16 04:26 NT-Pro-B Natriuret Pep 160 127 Impressions: Chest/Abdomen CTA 01/01/17 00:00 IMPRESSION: Emphysematous changes. Postsurgical changes in the right upper lobe. Minimal infiltrate in the left base could represent atelectasis or developing pneumonia. . Chest X-Ray 01/05/17 06:00 IMPRESSION: 1. Support tubes and lines as above. 2. Hyperinflated lung volumes. Postoperative changes in the right lung. No focal opacities. Assessment & Plan - Diagnosis (1) Acute hypoxemic respiratory failure Is this a current diagnosis for this admission?: Yes (2) COPD exacerbation Is this a current diagnosis for this admission?: YesPlan: Patient with COPD exacerbation and status asthmaticus. Concern at this time for worsening lower respiratory tract infection. Patient has had sick exposure at home. Decrease to Solu-Medrol 80mg IV every 8h.. Day #6 Levaquin, cefepime, and vancomycin. Have discussed case with pulmonary medicine and appreciate their input and ventilator settings. (3) Hypothyroidism Qualifiers: Hypothyroidism type: unspecified Qualified Code(s): E03.9 - Hypothyroidism, unspecified Is this a current diagnosis for this admission?: YesPlan: Pending TSH undetectable and free T4 is normal. This likely represents sick euthyroid (4) Hypertension Qualifiers: Hypertension type: essential hypertension Qualified Code(s): I10 - Essential (primary) hypertension Is this a current diagnosis for this admission?: YesPlan: Patient currently on Norvasc and clonidine patch (5) Pulmonary hypertension Is this a current diagnosis for this admission?: Yes (6) Obesity Qualifiers: Obesity type: due to excess calories Obesity severity: non-morbid Qualified Code(s): E66.09 - Other obesity due to excess calories Is this a current diagnosis for this admission?: Yes (7) Acute diastolic (congestive) heart failure Is this a current diagnosis for this admission?: YesPlan: Hypervolemic. Increase Lasix. We'll continue to monitor I's and O's. Patient is still overall positive. Patient with grade 1 diastolic dysfunction. EF not reported, but reported to be normal. (8) Trichomonas vaginitis Is this a current diagnosis for this admission?: YesPlan: Have obtained with prep, GC and Chlamydia, and herpes culture. Patient's wet prep reveals Trichomonas. Will begin patient on Flagyl 500 mg IV every 6. Will obtain HIV and RPR. - Time Critical Time spent with patient: 35 or more minutes Medications reviewed and adjusted accordingly: Yes
--- NOTE | 2017-01-05 17:20 | PDOC PROGRESS REPORT ---
Subjective Progress Note for:: 01/03/17 Subjective:: After sedation patient awake responsive Physical Exam Vital Signs: Temp Pulse Resp BP Pulse Ox 98.2 F 90 22 H 120/57 L 92 01/03/17 13:08 01/03/17 12:00 01/03/17 13:08 01/03/17 13:08 01/03/17 13:08 Intake & Output 01/02/17 01/03/17 01/04/17 06:59 06:59 06:59 Intake Total 4114 5578 Output Total 1906 2260 475 Balance 2209 3318 -475 Weight 80.5 kg 81.8 kg General appearance: PRESENT: no acute distress, cooperative, disheveled Head exam: PRESENT: atraumatic, normocephalic Eye exam: PRESENT: conjunctiva pale Mouth exam: PRESENT: moist Neck exam: ABSENT: carotid bruit, JVD, lymphadenopathy, thyromegaly Respiratory exam: PRESENT: decreased breath sounds, prolonged expiratory phas, symmetrical Cardiovascular exam: PRESENT: RRR, +S2 Pulses: PRESENT: normal radial pulses GI/Abdominal exam: PRESENT: ascites Rectal exam: PRESENT: deferred Gentrourinary exam: PRESENT: indwelling catheter Musculoskeletal exam: PRESENT: normal inspection Neurological exam: PRESENT: awake Results Laboratory Results: 01/03/17 04:30 01/03/17 04:30 01/02/17 01/02/17 01/03/17 08:18 17:40 04:30 WBC RBC Hgb Hct MCV MCH MCHC RDW Plt Count Seg Neutrophils % Lymphocytes % Monocytes % Eosinophils % Basophils % Absolute Neutrophils Absolute Lymphocytes Absolute Monocytes Absolute Eosinophils Absolute Basophils Carbonic Acid 1.03 L 1.09 HCO3/H2CO3 Ratio 24:1 22:1 ABG pH 7.49 H 7.44 ABG pCO2 34.2 L 36.1 ABG pO2 170.8 H 152.9 H ABG HCO3 25.3 24.0 ABG O2 Saturation 99.3 H 99.0 H ABG Base Excess 2.3 0.2 FiO2 40% 40% Sodium Potassium Chloride Carbon Dioxide Anion Gap BUN Creatinine Est GFR ( Amer) Est GFR (Non-Af Amer) Glucose Calcium Phosphorus Magnesium Total Bilirubin AST ALT Alkaline Phosphatase Total Protein Albumin Triglycerides 98 01/03/17 01/03/17 04:30 04:30 WBC 9.4 RBC 3.97 Hgb 12.0 Hct 35.6 L MCV 90 MCH 30.2 MCHC 33.7 RDW 14.9 H Plt Count 194 Seg Neutrophils % 85.6 H Lymphocytes % 7.6 L Monocytes % 6.8 Eosinophils % 0.0 Basophils % 0.0 Absolute Neutrophils 8.0 Absolute Lymphocytes 0.7 Absolute Monocytes 0.6 Absolute Eosinophils 0.0 Absolute Basophils 0.0 Carbonic Acid HCO3/H2CO3 Ratio ABG pH ABG pCO2 ABG pO2 ABG HCO3 ABG O2 Saturation ABG Base Excess FiO2 Sodium 141.5 Potassium 3.9 Chloride 108 H Carbon Dioxide 25 Anion Gap 9 BUN 24 H Creatinine 1.01 Est GFR ( Amer) > 60 Est GFR (Non-Af Amer) 54 L Glucose 188 H Calcium 9.2 Phosphorus 3.9 Magnesium 3.2 H Total Bilirubin 0.3 AST 27 ALT 33 Alkaline Phosphatase 72 Total Protein 5.9 L Albumin 3.3 L Triglycerides 12/31/16 01/02/17 07:16 04:26 NT-Pro-B Natriuret Pep 160 127 Impressions: Chest/Abdomen CTA 01/01/17 00:00 IMPRESSION: Emphysematous changes. Postsurgical changes in the right upper lobe. Minimal infiltrate in the left base could represent atelectasis or developing pneumonia. . Chest X-Ray 01/03/17 06:00 IMPRESSION: STABLE APPEARANCE OF THE CHEST. Assessment & Plan - Diagnosis (1) Acute hypercapnic respiratory failure Is this a current diagnosis for this admission?: YesPlan: Failed extubation (2) Acute hypoxemic respiratory failure Is this a current diagnosis for this admission?: Yes (3) COPD exacerbation Is this a current diagnosis for this admission?: YesPlan: Continue bronchodilators (4) Hypothyroidism Qualifiers: Hypothyroidism type: unspecified Qualified Code(s): E03.9 - Hypothyroidism, unspecified Is this a current diagnosis for this admission?: Yes (5) Pulmonary hypertension Is this a current diagnosis for this admission?: Yes (6) Volume overload Qualifiers: Hypervolemia type: unspecified Qualified Code(s): E87.70 - Fluid overload, unspecified Is this a current diagnosis for this admission?: YesPlan: Patient given diuretics and preload reduction - Time Critical Time spent with patient: 25-34 minutes - 34 min
--- NOTE | 2017-01-05 17:23 | PDOC PROGRESS REPORT ---
Subjective Progress Note for:: 01/04/17 Subjective:: After sedation patient awake responsive Physical Exam Vital Signs: Temp Pulse Resp BP Pulse Ox 97.0 F 84 22 H 128/63 H 99 01/04/17 08:00 01/04/17 04:35 01/04/17 08:00 01/04/17 07:10 01/04/17 08:00 Intake & Output 01/03/17 01/04/17 01/05/17 06:59 06:59 06:59 Intake Total 5578 4410 Output Total 2260 2120 Balance 3318 2290 Weight 81.8 kg 85.8 kg General appearance: PRESENT: no acute distress, obese Head exam: PRESENT: atraumatic, normocephalic Eye exam: PRESENT: conjunctiva pale Mouth exam: PRESENT: moist, neck supple - ET tube, other - ET Neck exam: ABSENT: carotid bruit, JVD, lymphadenopathy, thyromegaly Respiratory exam: PRESENT: crackles, decreased breath sounds, prolonged expiratory phas, rhonchi, symmetrical, unlabored, wheezes Cardiovascular exam: PRESENT: RRR, +S1, +S2 GI/Abdominal exam: PRESENT: normal bowel sounds, soft. ABSENT: distended, guarding, mass, organolmegaly, rebound, tenderness Rectal exam: PRESENT: deferred Gentrourinary exam: PRESENT: indwelling catheter Musculoskeletal exam: PRESENT: normal inspection Skin exam: PRESENT: dry, warm Results Laboratory Results: 01/03/17 04:30 01/03/17 04:30 01/02/17 08:18 Catheterized Urine Legionella Urinary Antigen - Final 12/31/16 01/02/17 07:16 04:26 NT-Pro-B Natriuret Pep 160 127 Impressions: Chest/Abdomen CTA 01/01/17 00:00 IMPRESSION: Emphysematous changes. Postsurgical changes in the right upper lobe. Minimal infiltrate in the left base could represent atelectasis or developing pneumonia. . Chest X-Ray 01/03/17 06:00 IMPRESSION: STABLE APPEARANCE OF THE CHEST. Assessment & Plan - Diagnosis (1) Acute hypercapnic respiratory failure Is this a current diagnosis for this admission?: Yes (2) Acute hypoxemic respiratory failure Is this a current diagnosis for this admission?: Yes (3) COPD exacerbation Is this a current diagnosis for this admission?: YesPlan: Continue bronchodilators (4) Hypothyroidism Qualifiers: Hypothyroidism type: unspecified Qualified Code(s): E03.9 - Hypothyroidism, unspecified Is this a current diagnosis for this admission?: Yes (5) Pulmonary hypertension Is this a current diagnosis for this admission?: Yes (6) Volume overload Qualifiers: Hypervolemia type: unspecified Qualified Code(s): E87.70 - Fluid overload, unspecified Is this a current diagnosis for this admission?: YesPlan: insufficient diuresis thus far - Time Critical Time spent with patient: 35 or more minutes
--- NOTE | 2017-01-05 17:27 | PDOC PROGRESS REPORT ---
Subjective Progress Note for:: 01/05/17 Subjective:: After sedation patient awake responsive Physical Exam Vital Signs: Temp Pulse Resp BP Pulse Ox 97.0 F 87 22 H 114/50 L 97 01/05/17 08:10 01/05/17 08:00 01/05/17 08:10 01/05/17 08:10 01/05/17 08:10 Intake & Output 01/04/17 01/05/17 01/06/17 06:59 06:59 06:59 Intake Total 4410 3413 Output Total 2120 4295 45 Balance 2290 -882 -45 Weight 85.8 kg 85.7 kg General appearance: PRESENT: no acute distress, disheveled, obese Head exam: PRESENT: atraumatic, normocephalic Eye exam: PRESENT: conjunctiva pale Mouth exam: PRESENT: moist, neck supple, other - ET tube Neck exam: ABSENT: carotid bruit, JVD, lymphadenopathy, thyromegaly Respiratory exam: PRESENT: crackles, decreased breath sounds, prolonged expiratory phas, symmetrical, unlabored, wheezes Cardiovascular exam: PRESENT: RRR, +S1. ABSENT: +S2 Pulses: PRESENT: normal radial pulses GI/Abdominal exam: PRESENT: normal bowel sounds, soft. ABSENT: distended, guarding, mass, organolmegaly, rebound, tenderness Rectal exam: PRESENT: deferred Gentrourinary exam: PRESENT: indwelling catheter Musculoskeletal exam: PRESENT: normal inspection Skin exam: PRESENT: dry, warm Results Laboratory Results: 01/05/17 05:30 01/05/17 05:30 01/04/17 01/05/17 01/05/17 13:05 05:30 05:30 WBC 12.7 H RBC 3.80 Hgb 11.5 L Hct 34.4 L MCV 91 MCH 30.2 MCHC 33.3 RDW 15.1 H Plt Count 187 Seg Neutrophils % Not Reportable Lymphocytes % Not Reportable Monocytes % Not Reportable Eosinophils % Not Reportable Basophils % Not Reportable Absolute Neutrophils Not Reportable Absolute Lymphocytes Not Reportable Absolute Monocytes Not Reportable Absolute Eosinophils Not Reportable Absolute Basophils Not Reportable Carbonic Acid HCO3/H2CO3 Ratio ABG pH ABG pCO2 ABG pO2 ABG HCO3 ABG O2 Saturation ABG Base Excess FiO2 Sodium 143.9 Potassium 3.9 Chloride 108 H Carbon Dioxide 24 Anion Gap 12 BUN 27 H Creatinine 0.95 1.02 Est GFR ( Amer) > 60 > 60 Est GFR (Non-Af Amer) 58 L 53 L Glucose 182 H Calcium 8.7 Phosphorus 4.1 Magnesium 2.5 H Triglycerides 98 01/05/17 05:55 WBC RBC Hgb Hct MCV MCH MCHC RDW Plt Count Seg Neutrophils % Lymphocytes % Monocytes % Eosinophils % Basophils % Absolute Neutrophils Absolute Lymphocytes Absolute Monocytes Absolute Eosinophils Absolute Basophils Carbonic Acid 1.04 L HCO3/H2CO3 Ratio 22:1 ABG pH 7.44 ABG pCO2 34.7 L ABG pO2 88.4 ABG HCO3 23.3 ABG O2 Saturation 97.1 ABG Base Excess -0.3 FiO2 28% Sodium Potassium Chloride Carbon Dioxide Anion Gap BUN Creatinine Est GFR ( Amer) Est GFR (Non-Af Amer) Glucose Calcium Phosphorus Magnesium Triglycerides 01/01/17 11:30 Tracheal Aspirate Gram Stain - Final 01/01/17 11:30 Tracheal Aspirate Sputum Culture - Final NO GROWTH 3 DAYS 01/02/17 08:18 Catheterized Urine Legionella Urinary Antigen - Final 12/31/16 01/02/17 07:16 04:26 NT-Pro-B Natriuret Pep 160 127 Impressions: Chest/Abdomen CTA 01/01/17 00:00 IMPRESSION: Emphysematous changes. Postsurgical changes in the right upper lobe. Minimal infiltrate in the left base could represent atelectasis or developing pneumonia. . Chest X-Ray 01/05/17 06:00 IMPRESSION: 1. Support tubes and lines as above. 2. Hyperinflated lung volumes. Postoperative changes in the right lung. No focal opacities. Assessment & Plan - Diagnosis (1) Acute hypercapnic respiratory failure Is this a current diagnosis for this admission?: YesPlan: stable per abg (2) Acute hypoxemic respiratory failure Is this a current diagnosis for this admission?: YesPlan: ABG acceptable (3) COPD exacerbation Is this a current diagnosis for this admission?: YesPlan: wheezes,rales,rhonchi (4) Hypothyroidism Qualifiers: Hypothyroidism type: unspecified Qualified Code(s): E03.9 - Hypothyroidism, unspecified Is this a current diagnosis for this admission?: Yes (5) Pulmonary hypertension Is this a current diagnosis for this admission?: Yes (6) Volume overload Qualifiers: Hypervolemia type: unspecified Qualified Code(s): E87.70 - Fluid overload, unspecified Is this a current diagnosis for this admission?: YesPlan: insufficient diuresis thus far - Time Critical Time spent with patient: 35 or more minutes
[2017-01-05 18:42] LABS: ADD HIVPANEL? NO; HIV (1 AND 2) ANTIBODY NEGATIVE (NEGATIVE)
[2017-01-06] MEDS: THEOPHYLLINE ANHYDROUS 80 MG/15 ML NG SCH ×5 (00:15→23:28)
[2017-01-06] MEDS: UDCUP NG SCH ×5 (00:15→23:28)
[2017-01-06] MEDS: LACTULOSE SYRUP 20 GM/30 ML UDCUP PO SCH ×3 (00:17→11:06)
[2017-01-06] MEDS: LEVALBUTEROL HCL NEB 1.25 MG/3 ML AMPUL NEB PRN ×4 (01:16→20:00)
[2017-01-06] MEDS: METRONIDAZOLE 500 MG/NS RTU 100 ML IV SCH ×4 (02:07→20:01)
[2017-01-06] MEDS: GUAIFENESIN SYRP 200 MG/10 ML UDC PO SCH ×6 (02:08→21:55)
[2017-01-06] MEDS: PROPOFOL 100 ML IV PRN ×7 (02:10→23:30)
[2017-01-06] MEDS: CEFEPIME HCL 2 GM in DEXTROSE 5%-WATER 50 ML IV SCH ×2 (04:48→16:37)
[2017-01-06 05:09] LABS: ARTERIAL BLOOD BASE EXCESS 4.3 mmol/L; ARTERIAL BLOOD O2 SATURATION 92.3 % (94-98)
[2017-01-06 05:13] LABS: HEMATOCRIT 36.8 % (36.0-47.0); HEMOGLOBIN 12.2 g/dL (12.0-15.5); HGB HCT DIFFERENCE -0.2; MEAN CORPUSCULAR HGB CONC 33.1 g/dL (32.0-36.0); MEAN CORPUSCULAR VOLUME 91 fl (80-97); RED BLOOD COUNT 4.06 10^6/uL (3.72-5.28); RED CELL DISTRIBUTION WIDTH 14.8 % (11.5-14.0); WHITE BLOOD COUNT 17.5 10^3/uL (4.0-10.5)
[2017-01-06] MEDS: METHYLPREDNISOLONE INJ 40 MG/1 ML SDV IV SCH ×3 (05:18→21:59)
[2017-01-06] MEDS: LEVOTHYROXINE SODIUM 0.15 MG TABLET NG SCH (05:19)
[2017-01-06 05:27] LABS: ANION GAP 14 (5-19); BLOOD UREA NITROGEN 27 mg/dL (7-20); CALCIUM 8.7 mg/dL (8.4-10.2); CARBON DIOXIDE 28 mmol/L (22-30); CHLORIDE 104 mmol/L (98-107); CREATININE RESULT 0.96 mg/dL (0.52-1.25); GLUCOSE 148 mg/dL (75-110); MAGNESIUM 2.5 mg/dL (1.6-2.3); POTASSIUM 3.4 mmol/L (3.6-5.0); SODIUM 145.6 mmol/L (137-145)
[2017-01-06 05:29] LABS: BAND NEUTROPHILS % (MANUAL) 2 % (3-5); BASOPHILS % (MANUAL) 0 % (0-2); EOSINOPHILS % (MANUAL) 0 % (0-6); LYMPHOCYTES % (MANUAL) 9 % (13-45); TOTAL CELLS COUNTED 100
[2017-01-06 05:31] LABS: ANISOCYTOSIS SLIGHT; POIKILOCYTOSIS SLIGHT; TARGET CELLS SLIGHT; TOXIC GRANULATION SLIGHT; TOXIC VACUOLATION PRESENT
[2017-01-06] MEDS: POTASSIUM CHLORIDE 20 MEQ/50 ML RTU IV SCH ×2 (07:41→10:05)
[2017-01-06] MEDS: ENOXAPARIN SODIUM INJ 40 MG/0.4 ML DISP.SYRIN SUBCUT SCH (07:42)
[2017-01-06] MEDS ORDERED: PROPOFOL INJ 200 MG/20 ML VIAL IV ONE (08:38)
[2017-01-06] MEDS: LEVOFLOXACIN 750 MG/D5W RTU 150 ML IV SCH (09:06)
[2017-01-06] MEDS: LACTOBACILLUS ACIDOPHILUS 250 MG TAB NG SCH ×2 (09:07→17:41)
[2017-01-06] MEDS: FAMOTIDINE 20 MG TABLET NG SCH ×2 (09:07→21:55)
[2017-01-06] MEDS: AMLODIPINE BESYLATE 5 MG TABLET NG SCH (09:08)
[2017-01-06] MEDS: FUROSEMIDE INJ/PF 40 MG/4 ML SDV IV SCH ×2 (09:08→22:01)
[2017-01-06] MEDS: POLYETHYLENE GLYCOL 3350 POWDER 17 GM/1 PACKET NG SCH (09:42)
[2017-01-06] MEDS: TIOTROPIUM BROMIDE DPI 5 CAP/KIT (18 MCG/CAP) IH SCH (09:42)
[2017-01-06] MEDS: FLUTICASONE/SALMETEROL DISKUS 250-50 MCG/DOSE IH SCH (09:42)
[2017-01-06] MEDS ORDERED: SUCCINYLCHOLINE CHLORIDE INJ 200 MG/10 ML VIAL ONE (09:53)
[2017-01-06] MEDS: NYSTATIN TOPICAL POWDER 15 GM TP SCH ×2 (10:05→17:41)
[2017-01-06] MEDS: LORAZEPAM INJ 2 MG/1 ML VIAL IV PRN ×2 (11:13→20:22)
[2017-01-06] MEDS: NORMAL SALINE 1000 ML 1,000 ML IV PRN (11:42)
[2017-01-06] MEDS: VANCOMYCIN HCL 1,500 MG in DEXTROSE 5%-WATER 250 ML IV SCH (11:42)
[2017-01-06] MEDS: FENTANYL CITRATE INJ/PF 100 MCG/2 ML AMPUL IV PRN ×2 (13:16→18:20)
--- NOTE | 2017-01-06 14:57 | PDOC PROGRESS REPORT ---
Subjective Progress Note for:: 01/06/17 Subjective:: Patient remains intubated and sedated. No acute events overnight. Patient maintained pressure support for the last 24 hours. Unable to obtain review of systems secondary to intubated and sedated status. Physical Exam Vital Signs: Temp Pulse Resp BP Pulse Ox 97.3 F 95 27 H 133/63 H 95 01/06/17 06:11 01/05/17 21:53 01/06/17 06:11 01/06/17 06:11 01/06/17 06:11 Intake & Output 01/05/17 01/06/17 01/07/17 06:59 06:59 06:59 Intake Total 3413 6768 Output Total 2709 6223 Balance -137 -7043 Weight 85.7 kg 81.6 kg Exam: General: Intubated, sedated, mechanically ventilated HEENT: AT/NC, PERRL, oropharynx is moist, pink, no scleral icterus, no conjunctival injection Neck: No JVD, trachea midline Chest: Diminished left lower lobe, otherwise no overt wheezes rhonchi or rales CV: Regular rate and rhythm, normal S1 and S2, no rub, or gallop Abdomen: Soft, nondistended, active bowel sounds; no rigidity, or guarding Extremities: No cyanosis, clubbing; +2edema Results Laboratory Results: 01/06/17 05:00 01/06/17 05:00 01/06/17 01/06/17 01/06/17 05:00 05:00 05:00 WBC 17.5 H RBC 4.06 Hgb 12.2 Hct 36.8 MCV 91 MCH 30.0 MCHC 33.1 RDW 14.8 H Plt Count 197 Seg Neutrophils % Not Reportable Lymphocytes % Not Reportable Monocytes % Not Reportable Eosinophils % Not Reportable Basophils % Not Reportable Absolute Neutrophils Not Reportable Absolute Lymphocytes Not Reportable Absolute Monocytes Not Reportable Absolute Eosinophils Not Reportable Absolute Basophils Not Reportable Carbonic Acid 1.38 H HCO3/H2CO3 Ratio 21:1 ABG pH 7.43 ABG pCO2 45.7 H ABG pO2 62.4 L ABG HCO3 29.4 H ABG O2 Saturation 92.3 L ABG Base Excess 4.3 FiO2 21% Sodium 145.6 H Potassium 3.4 L Chloride 104 Carbon Dioxide 28 Anion Gap 14 BUN 27 H Creatinine 0.96 Est GFR ( Amer) > 60 Est GFR (Non-Af Amer) 57 L Glucose 148 H Calcium 8.7 Magnesium 2.5 H 12/31/16 01/02/17 07:16 04:26 NT-Pro-B Natriuret Pep 160 127 Impressions: Chest/Abdomen CTA 01/01/17 00:00 IMPRESSION: Emphysematous changes. Postsurgical changes in the right upper lobe. Minimal infiltrate in the left base could represent atelectasis or developing pneumonia. . Chest X-Ray 01/06/17 06:00 IMPRESSION: 1. Support tubes and lines as above. 2. Overall appearance of the chest not significant change from prior study. SUPPORT DEVICE(S) IN EXPECTED LOCATIONS. Assessment & Plan - Diagnosis (1) COPD exacerbation Is this a current diagnosis for this admission?: YesPlan: Patient with COPD exacerbation and status asthmaticus. Concern at this time for worsening lower respiratory tract infection. Patient has had sick exposure at home. Decrease to Solu-Medrol 40mg IV every 8h.. Day #7 Levaquin, cefepime, and vancomycin. Have discussed case with pulmonary medicine and appreciate their input and ventilator settings. (2) Acute hypoxemic respiratory failure Is this a current diagnosis for this admission?: YesPlan: Patient requiring less FiO2. Appreciate pulmonary input. Discussed this case with them today. Continue treatment for underlying COPD exacerbation with status asthmaticus (3) Acute diastolic (congestive) heart failure Is this a current diagnosis for this admission?: YesPlan: Hypervolemic. Continue IV Lasix. We'll continue to monitor I's and O's. Patient is negative for approximately 4 L in the last 24 hours. Patient with grade 1 diastolic dysfunction. EF not reported, but reported to be normal. (4) Hypothyroidism Qualifiers: Hypothyroidism type: unspecified Qualified Code(s): E03.9 - Hypothyroidism, unspecified Is this a current diagnosis for this admission?: YesPlan: Pending TSH undetectable and free T4 is normal. This likely represents sick euthyroid (5) Hypertension Qualifiers: Hypertension type: essential hypertension Qualified Code(s): I10 - Essential (primary) hypertension Is this a current diagnosis for this admission?: Yes (6) Pulmonary hypertension Is this a current diagnosis for this admission?: Yes (7) Obesity Qualifiers: Obesity type: due to excess calories Obesity severity: non-morbid Qualified Code(s): E66.09 - Other obesity due to excess calories Is this a current diagnosis for this admission?: Yes (8) Trichomonas vaginitis Is this a current diagnosis for this admission?: YesPlan: Have obtained with prep, GC and Chlamydia, and herpes culture. Patient's wet prep reveals Trichomonas. Will begin patient on Flagyl 500 mg IV every 6. Will obtain HIV and RPR. Patient on day #2/ of Flagyl. - Time Critical Time spent with patient: 35 or more minutes Medications reviewed and adjusted accordingly: Yes
[2017-01-06] MEDS: INSULIN LISPRO 100 UNIT/ML 3 ML VIAL SUBCUT PRN (17:42)
[2017-01-06] MEDS: BUDESONIDE NEB 0.5 MG/2 ML AMPUL NEB SCH (20:00)
[2017-01-06] MEDS: MONTELUKAST SODIUM 10 MG TABLET NG SCH (21:54)
[2017-01-06] MEDS: LORATADINE 10 MG TABLET NG SCH (21:55)
[2017-01-07] MEDS: GUAIFENESIN SYRP 200 MG/10 ML UDC PO SCH ×6 (01:18→21:28)
[2017-01-07] MEDS: METRONIDAZOLE 500 MG/NS RTU 100 ML IV SCH ×4 (02:14→21:28)
[2017-01-07] MEDS: LEVALBUTEROL HCL NEB 1.25 MG/3 ML AMPUL NEB PRN (02:42)
[2017-01-07] MEDS: CEFEPIME HCL 2 GM in DEXTROSE 5%-WATER 50 ML IV SCH ×2 (04:44→18:10)
[2017-01-07] MEDS: PROPOFOL 100 ML IV PRN ×2 (04:47→16:02)
[2017-01-07] MEDS: UDCUP NG SCH ×4 (05:00→23:53)
[2017-01-07] MEDS: LEVOTHYROXINE SODIUM 0.15 MG TABLET NG SCH (05:00)
[2017-01-07] MEDS: THEOPHYLLINE ANHYDROUS 80 MG/15 ML NG SCH ×4 (05:00→23:53)
[2017-01-07] MEDS: METHYLPREDNISOLONE INJ 40 MG/1 ML SDV IV SCH (05:04)
[2017-01-07 06:35] LABS: ARTERIAL BLOOD BASE EXCESS 7.8 mmol/L; ARTERIAL BLOOD O2 SATURATION 90.3 % (94-98)
[2017-01-07 06:39] LABS: HEMATOCRIT 36.3 % (36.0-47.0); HEMOGLOBIN 12.1 g/dL (12.0-15.5); MEAN CORPUSCULAR HEMOGLOBIN 29.9 pg (27.0-33.4); MEAN CORPUSCULAR HGB CONC 33.4 g/dL (32.0-36.0); MEAN CORPUSCULAR VOLUME 90 fl (80-97); RED BLOOD COUNT 4.05 10^6/uL (3.72-5.28); RED CELL DISTRIBUTION WIDTH 14.6 % (11.5-14.0); WHITE BLOOD COUNT 18.2 10^3/uL (4.0-10.5)
[2017-01-07 06:45] LABS: ANION GAP 11 (5-19); BLOOD UREA NITROGEN 34 mg/dL (7-20); CALCIUM 9.2 mg/dL (8.4-10.2); CARBON DIOXIDE 34 mmol/L (22-30); CHLORIDE 97 mmol/L (98-107); CREATININE RESULT 1.02 mg/dL (0.52-1.25); GLUCOSE 157 mg/dL (75-110); MAGNESIUM 2.6 mg/dL (1.6-2.3); PHOSPHORUS 4.3 mg/dL (2.5-4.5); POTASSIUM 3.8 mmol/L (3.6-5.0); SODIUM 142.2 mmol/L (137-145)
[2017-01-07 07:09] LABS: BASOPHILS % (MANUAL) 0 % (0-2); EOSINOPHILS % (MANUAL) 0 % (0-6); LYMPHOCYTES % (MANUAL) 6 % (13-45); TOTAL CELLS COUNTED 100
[2017-01-07 07:14] LABS: ANISOCYTOSIS SLIGHT; POLYCHROMASIA SLIGHT; TARGET CELLS SLIGHT
[2017-01-07] MEDS: IPRATROPIUM/ALBUTEROL 0.5-2.5 MG/3 ML AMPUL NEB PRN (07:48)
[2017-01-07] MEDS: BUDESONIDE NEB 0.5 MG/2 ML AMPUL NEB SCH ×2 (07:48→21:02)
[2017-01-07] MEDS: ENOXAPARIN SODIUM INJ 40 MG/0.4 ML DISP.SYRIN SUBCUT SCH (08:00)
[2017-01-07] MEDS: FENTANYL CITRATE INJ/PF 100 MCG/2 ML AMPUL IV PRN (08:00)
[2017-01-07 08:50] LABS: ARTERIAL BLOOD BASE EXCESS 9.1 mmol/L; ARTERIAL BLOOD O2 SATURATION 93.3 % (94-98)
[2017-01-07] MEDS ORDERED: METHYLPREDNISOLONE INJ 40 MG/1 ML SDV IV ONE (09:00)
--- NOTE | 2017-01-07 10:54 | PDOC PROGRESS REPORT ---
Subjective Progress Note for:: 01/07/17 Subjective:: Intubated and sedated Physical Exam Vital Signs: Temp Pulse Resp BP Pulse Ox 98.8 F 96 22 H 111/65 97 01/07/17 06:11 01/07/17 07:48 01/07/17 07:48 01/07/17 06:11 01/07/17 07:48 Intake & Output 01/06/17 01/07/17 01/08/17 06:59 06:59 06:59 Intake Total 2822 2263 Output Total 0858 3095 Balance -8712 -3543 Weight 81.6 kg 81.5 kg General appearance: PRESENT: no acute distress, disheveled, obese Head exam: PRESENT: atraumatic, normocephalic Eye exam: PRESENT: conjunctiva pale Mouth exam: PRESENT: neck supple, other - ET tube in place Neck exam: PRESENT: carotid bruit Respiratory exam: PRESENT: decreased breath sounds, prolonged expiratory phas, rales, rhonchi, symmetrical, unlabored, wheezes Cardiovascular exam: PRESENT: RRR, +S1, +S2 Pulses: PRESENT: normal radial pulses GI/Abdominal exam: PRESENT: normal bowel sounds, soft. ABSENT: distended, guarding, mass, organolmegaly, rebound, tenderness Rectal exam: PRESENT: deferred Gentrourinary exam: PRESENT: indwelling catheter Musculoskeletal exam: PRESENT: normal inspection Skin exam: PRESENT: dry, warm Results Laboratory Results: 01/07/17 05:50 01/07/17 05:50 01/07/17 01/07/17 01/07/17 05:50 05:50 06:15 WBC 18.2 H RBC 4.05 Hgb 12.1 Hct 36.3 MCV 90 MCH 29.9 MCHC 33.4 RDW 14.6 H Plt Count 225 Seg Neutrophils % Not Reportable Lymphocytes % Not Reportable Monocytes % Not Reportable Eosinophils % Not Reportable Basophils % Not Reportable Absolute Neutrophils Not Reportable Absolute Lymphocytes Not Reportable Absolute Monocytes Not Reportable Absolute Eosinophils Not Reportable Absolute Basophils Not Reportable Carbonic Acid 1.25 HCO3/H2CO3 Ratio 25:1 ABG pH 7.50 H ABG pCO2 41.4 ABG pO2 53.3 L ABG HCO3 31.7 H ABG O2 Saturation 90.3 L ABG Base Excess 7.8 FiO2 30% Sodium 142.2 Potassium 3.8 Chloride 97 L Carbon Dioxide 34 H Anion Gap 11 BUN 34 H Creatinine 1.02 Est GFR ( Amer) > 60 Est GFR (Non-Af Amer) 53 L Glucose 157 H Calcium 9.2 Phosphorus 4.3 Magnesium 2.6 H 12/31/16 01/02/17 07:16 04:26 NT-Pro-B Natriuret Pep 160 127 Impressions: Chest/Abdomen CTA 01/01/17 00:00 IMPRESSION: Emphysematous changes. Postsurgical changes in the right upper lobe. Minimal infiltrate in the left base could represent atelectasis or developing pneumonia. . Chest X-Ray 01/07/17 06:00 IMPRESSION: Patchy ground-glass opacity at the lateral right lung base, may represent atelectasis versus developing pneumonia. Emphysema. Assessment & Plan - Diagnosis (1) Acute hypercapnic respiratory failure Is this a current diagnosis for this admission?: Yes (2) Acute hypoxemic respiratory failure Is this a current diagnosis for this admission?: Yes (3) COPD exacerbation Is this a current diagnosis for this admission?: Yes (4) Hypothyroidism Qualifiers: Hypothyroidism type: unspecified Qualified Code(s): E03.9 - Hypothyroidism, unspecified Is this a current diagnosis for this admission?: Yes (5) Pulmonary hypertension Is this a current diagnosis for this admission?: Yes (6) Volume overload Qualifiers: Hypervolemia type: unspecified Qualified Code(s): E87.70 - Fluid overload, unspecified Is this a current diagnosis for this admission?: YesPlan: Metabolic alkalosis suggestive may be some volume contraction - Time Critical Time spent with patient: 35 or more minutes
--- NOTE | 2017-01-07 10:54 | PDOC PROGRESS REPORT ---
Subjective Progress Note for:: 01/06/17 Subjective:: Intubated and sedated Physical Exam Vital Signs: Temp Pulse Resp BP Pulse Ox 96.8 F L 103 H 22 H 144/72 H 100 01/06/17 11:10 01/06/17 09:26 01/06/17 11:10 01/06/17 11:10 01/06/17 11:10 Intake & Output 01/05/17 01/06/17 01/07/17 06:59 06:59 06:59 Intake Total 3411 2826 Output Total 4291 4005 1675 Balance -908 -8370 -9504 Weight 85.7 kg 81.6 kg General appearance: PRESENT: no acute distress, disheveled, obese Head exam: PRESENT: atraumatic, normocephalic Eye exam: PRESENT: conjunctiva pale Mouth exam: PRESENT: moist, neck supple, other - Endotracheal tube in place Neck exam: ABSENT: carotid bruit, JVD, lymphadenopathy, thyromegaly Respiratory exam: PRESENT: crackles, decreased breath sounds, prolonged expiratory phas, rhonchi, symmetrical, unlabored Cardiovascular exam: PRESENT: RRR, +S1, +S2 Pulses: PRESENT: normal carotid pulses GI/Abdominal exam: PRESENT: normal bowel sounds, soft. ABSENT: distended, guarding, mass, organolmegaly, rebound, tenderness Rectal exam: PRESENT: deferred Gentrourinary exam: PRESENT: indwelling catheter Musculoskeletal exam: PRESENT: normal inspection Skin exam: PRESENT: dry, warm Results Laboratory Results: 01/06/17 05:00 01/06/17 05:00 01/06/17 01/06/17 01/06/17 05:00 05:00 05:00 WBC 17.5 H RBC 4.06 Hgb 12.2 Hct 36.8 MCV 91 MCH 30.0 MCHC 33.1 RDW 14.8 H Plt Count 197 Seg Neutrophils % Not Reportable Lymphocytes % Not Reportable Monocytes % Not Reportable Eosinophils % Not Reportable Basophils % Not Reportable Absolute Neutrophils Not Reportable Absolute Lymphocytes Not Reportable Absolute Monocytes Not Reportable Absolute Eosinophils Not Reportable Absolute Basophils Not Reportable Carbonic Acid 1.38 H HCO3/H2CO3 Ratio 21:1 ABG pH 7.43 ABG pCO2 45.7 H ABG pO2 62.4 L ABG HCO3 29.4 H ABG O2 Saturation 92.3 L ABG Base Excess 4.3 FiO2 21% Sodium 145.6 H Potassium 3.4 L Chloride 104 Carbon Dioxide 28 Anion Gap 14 BUN 27 H Creatinine 0.96 Est GFR ( Amer) > 60 Est GFR (Non-Af Amer) 57 L Glucose 148 H Calcium 8.7 Magnesium 2.5 H 12/31/16 01/02/17 07:16 04:26 NT-Pro-B Natriuret Pep 160 127 Impressions: Chest/Abdomen CTA 01/01/17 00:00 IMPRESSION: Emphysematous changes. Postsurgical changes in the right upper lobe. Minimal infiltrate in the left base could represent atelectasis or developing pneumonia. . Chest X-Ray 01/06/17 06:00 IMPRESSION: 1. Support tubes and lines as above. 2. Overall appearance of the chest not significant change from prior study. SUPPORT DEVICE(S) IN EXPECTED LOCATIONS. Assessment & Plan - Diagnosis (1) Acute hypercapnic respiratory failure Is this a current diagnosis for this admission?: YesPlan: Ventilating well (2) Acute hypoxemic respiratory failure Is this a current diagnosis for this admission?: YesPlan: ABG acceptable (3) COPD exacerbation Is this a current diagnosis for this admission?: Yes (4) Hypothyroidism Qualifiers: Hypothyroidism type: unspecified Qualified Code(s): E03.9 - Hypothyroidism, unspecified Is this a current diagnosis for this admission?: Yes (5) Pulmonary hypertension Is this a current diagnosis for this admission?: Yes (6) Volume overload Qualifiers: Hypervolemia type: unspecified Qualified Code(s): E87.70 - Fluid overload, unspecified Is this a current diagnosis for this admission?: YesPlan: insufficient diuresis thus far - Time Critical Time spent with patient: 25-34 minutes
[2017-01-07] MEDS: AMLODIPINE BESYLATE 5 MG TABLET NG SCH (11:35)
[2017-01-07] MEDS: LACTOBACILLUS ACIDOPHILUS 250 MG TAB NG SCH ×2 (11:36→18:10)
[2017-01-07] MEDS: FAMOTIDINE 20 MG TABLET NG SCH ×2 (11:36→21:29)
[2017-01-07] MEDS: NYSTATIN TOPICAL POWDER 15 GM TP SCH ×2 (11:37→18:11)
[2017-01-07] MEDS: POLYETHYLENE GLYCOL 3350 POWDER 17 GM/1 PACKET NG SCH (11:38)
[2017-01-07] MEDS: MORPHINE SULFATE 10 MG/ML INJ IV PRN (11:38)
[2017-01-07] MEDS: LORAZEPAM INJ 2 MG/1 ML VIAL IV PRN (11:38)
[2017-01-07] MEDS: VANCOMYCIN HCL 1,500 MG in DEXTROSE 5%-WATER 250 ML IV SCH (11:44)
[2017-01-07] MEDS: TIOTROPIUM BROMIDE DPI 5 CAP/KIT (18 MCG/CAP) IH SCH (11:45)
[2017-01-07] MEDS: METHYLPREDNISOLONE INJ 125 MG/2 ML SDV IV SCH ×2 (16:00→21:29)
--- NOTE | 2017-01-07 18:07 | PDOC PROGRESS REPORT ---
Subjective Progress Note for:: 01/07/17 Subjective:: Patient remains intubated and sedated. No acute events overnight. Unable to obtain review of systems secondary to intubated and sedated status. Physical Exam Vital Signs: Temp Pulse Resp BP Pulse Ox 98.8 F 88 22 H 111/65 99 01/07/17 06:11 01/07/17 05:54 01/07/17 06:11 01/07/17 06:11 01/07/17 06:11 Intake & Output 01/06/17 01/07/17 01/08/17 06:59 06:59 06:59 Intake Total 2825 1648 Output Total 9230 3720 Balance -9990 -8281 Weight 81.6 kg 81.5 kg Exam: General: Intubated, sedated, mechanically ventilated HEENT: AT/NC, PERRL, oropharynx is moist, pink, no scleral icterus, no conjunctival injection Neck: No JVD, trachea midline Chest: Light end expiratory wheezes bilaterally CV: Regular rate and rhythm, normal S1 and S2, no rub, or gallop Abdomen: Soft, nondistended, active bowel sounds; no rigidity, or guarding Extremities: No cyanosis, clubbing; +1edema Skin: No rashes or lesions Results Laboratory Results: 01/07/17 05:50 01/07/17 05:50 01/07/17 01/07/17 01/07/17 05:50 05:50 06:15 WBC 18.2 H RBC 4.05 Hgb 12.1 Hct 36.3 MCV 90 MCH 29.9 MCHC 33.4 RDW 14.6 H Plt Count 225 Seg Neutrophils % Not Reportable Lymphocytes % Not Reportable Monocytes % Not Reportable Eosinophils % Not Reportable Basophils % Not Reportable Absolute Neutrophils Not Reportable Absolute Lymphocytes Not Reportable Absolute Monocytes Not Reportable Absolute Eosinophils Not Reportable Absolute Basophils Not Reportable Carbonic Acid 1.25 HCO3/H2CO3 Ratio 25:1 ABG pH 7.50 H ABG pCO2 41.4 ABG pO2 53.3 L ABG HCO3 31.7 H ABG O2 Saturation 90.3 L ABG Base Excess 7.8 FiO2 30% Sodium 142.2 Potassium 3.8 Chloride 97 L Carbon Dioxide 34 H Anion Gap 11 BUN 34 H Creatinine 1.02 Est GFR ( Amer) > 60 Est GFR (Non-Af Amer) 53 L Glucose 157 H Calcium 9.2 Phosphorus 4.3 Magnesium 2.6 H 12/31/16 01/02/17 07:16 04:26 NT-Pro-B Natriuret Pep 160 127 Impressions: Chest/Abdomen CTA 01/01/17 00:00 IMPRESSION: Emphysematous changes. Postsurgical changes in the right upper lobe. Minimal infiltrate in the left base could represent atelectasis or developing pneumonia. . Chest X-Ray 01/07/17 06:00 IMPRESSION: Patchy ground-glass opacity at the lateral right lung base, may represent atelectasis versus developing pneumonia. Emphysema. Assessment & Plan - Diagnosis (1) COPD exacerbation Is this a current diagnosis for this admission?: YesPlan: Patient with COPD exacerbation and status asthmaticus. Concern at this time for worsening lower respiratory tract infection. Would consider bronchoscopy plus or minus repeat CTA if no improvement. Patient has had sick exposure at home. Re-increase to Solu-Medrol 80mg IV every 8h. Day #8 Levaquin, cefepime, and vancomycin. Have discussed case with pulmonary medicine and appreciate their input and ventilator settings. (2) Acute hypoxemic respiratory failure Is this a current diagnosis for this admission?: YesPlan: Patient requiring more FiO2. Concern for developing acute lung injury. Appreciate pulmonary input. Discussed this case with them today. Continue treatment for underlying COPD exacerbation with status asthmaticus (3) Acute diastolic (congestive) heart failure Is this a current diagnosis for this admission?: YesPlan: Compensated Hold IV Lasix. We'll continue to monitor I's and O's. Patient is negative for approximately 5.4 L in the last 48 hours. Patient with grade 1 diastolic dysfunction. EF not reported, but reported to be normal. (4) Hypothyroidism Qualifiers: Hypothyroidism type: unspecified Qualified Code(s): E03.9 - Hypothyroidism, unspecified Is this a current diagnosis for this admission?: YesPlan: Pending TSH undetectable and free T4 is normal. This likely represents sick euthyroid (5) Hypertension Qualifiers: Hypertension type: essential hypertension Qualified Code(s): I10 - Essential (primary) hypertension Is this a current diagnosis for this admission?: YesPlan: Patient currently on Norvasc and clonidine patch (6) Pulmonary hypertension Is this a current diagnosis for this admission?: YesPlan: Patient at baseline has moderate pulmonary hypertension. This is likely complicating patient's extubation. Family reports that she is always short of breath. (7) Trichomonas vaginitis Is this a current diagnosis for this admission?: YesPlan: Patient's wet prep reveals Trichomonas. Patient on Flagyl 500 mg IV every 6. Patient on day #3/7 of Flagyl. (8) Obesity Qualifiers: Obesity type: due to excess calories Obesity severity: non-morbid Qualified Code(s): E66.09 - Other obesity due to excess calories Is this a current diagnosis for this admission?: YesPlan: On tube feeds, appreciate dietary input (9) GI prophylaxis Is this a current diagnosis for this admission?: YesPlan: On Pepcid 20 mg NG twice a day (10) DVT prophylaxis Is this a current diagnosis for this admission?: YesPlan: On Lovenox, TYLER hose, and SCDs. - Time Critical Time spent with patient: 25-34 minutes Medications reviewed and adjusted accordingly: Yes
[2017-01-07] MEDS: LORATADINE 10 MG TABLET NG SCH (21:29)
[2017-01-07] MEDS: MONTELUKAST SODIUM 10 MG TABLET NG SCH (21:29)
[2017-01-08] MEDS: INSULIN LISPRO 100 UNIT/ML 3 ML VIAL SUBCUT PRN ×3 (00:17→23:44)
[2017-01-08] MEDS: METRONIDAZOLE 500 MG/NS RTU 100 ML IV SCH ×4 (02:38→21:23)
[2017-01-08] MEDS: GUAIFENESIN SYRP 200 MG/10 ML UDC PO SCH ×6 (02:39→21:24)
[2017-01-08] MEDS: PROPOFOL 100 ML IV PRN ×4 (02:39→21:27)
[2017-01-08] MEDS: FENTANYL CITRATE INJ/PF 100 MCG/2 ML AMPUL IV PRN ×2 (02:40→12:00)
[2017-01-08] MEDS: CEFEPIME HCL 2 GM in DEXTROSE 5%-WATER 50 ML IV SCH ×2 (04:13→16:14)
[2017-01-08] MEDS: NORMAL SALINE 1000 ML 1,000 ML IV PRN (04:14)
[2017-01-08] MEDS: LEVALBUTEROL HCL NEB 1.25 MG/3 ML AMPUL NEB PRN ×2 (04:39→21:01)
[2017-01-08] MEDS: UDCUP NG SCH ×4 (05:12→23:08)
[2017-01-08] MEDS: LEVOTHYROXINE SODIUM 0.15 MG TABLET NG SCH (05:12)
[2017-01-08] MEDS: METHYLPREDNISOLONE INJ 125 MG/2 ML SDV IV SCH ×3 (05:12→21:23)
[2017-01-08] MEDS: THEOPHYLLINE ANHYDROUS 80 MG/15 ML NG SCH ×4 (05:12→23:08)
[2017-01-08 05:20] LABS: ARTERIAL BLOOD BASE EXCESS 3.5 mmol/L; ARTERIAL BLOOD O2 SATURATION 95.3 % (94-98)
[2017-01-08 05:32] LABS: HEMATOCRIT 36.8 % (36.0-47.0); HEMOGLOBIN 12.2 g/dL (12.0-15.5); HGB HCT DIFFERENCE -0.2; MEAN CORPUSCULAR HEMOGLOBIN 29.9 pg (27.0-33.4); MEAN CORPUSCULAR HGB CONC 33.2 g/dL (32.0-36.0); MEAN CORPUSCULAR VOLUME 90 fl (80-97); RED BLOOD COUNT 4.08 10^6/uL (3.72-5.28); RED CELL DISTRIBUTION WIDTH 14.9 % (11.5-14.0); WHITE BLOOD COUNT 17.8 10^3/uL (4.0-10.5)
[2017-01-08 05:47] LABS: ANION GAP 10 (5-19); BLOOD UREA NITROGEN 36 mg/dL (7-20); CALCIUM 8.6 mg/dL (8.4-10.2); CARBON DIOXIDE 30 mmol/L (22-30); CHLORIDE 100 mmol/L (98-107); CREATININE RESULT 0.99 mg/dL (0.52-1.25); GLUCOSE 171 mg/dL (75-110); MAGNESIUM 2.8 mg/dL (1.6-2.3); PHOSPHORUS 4.1 mg/dL (2.5-4.5); POTASSIUM 4.1 mmol/L (3.6-5.0); SODIUM 140.3 mmol/L (137-145); TRIGLYCERIDES 113 mg/dL (<150)
[2017-01-08 05:52] LABS: BAND NEUTROPHILS % (MANUAL) 7 % (3-5); BASOPHILS % (MANUAL) 0 % (0-2); EOSINOPHILS % (MANUAL) 0 % (0-6); LYMPHOCYTES % (MANUAL) 11 % (13-45); TOTAL CELLS COUNTED 100
[2017-01-08 05:53] LABS: TARGET CELLS SLIGHT; TOXIC VACUOLATION PRESENT
[2017-01-08 05:54] LABS: ANISOCYTOSIS SLIGHT; POIKILOCYTOSIS SLIGHT; TEAR DROP CELLS SLIGHT
[2017-01-08] MEDS: ENOXAPARIN SODIUM INJ 40 MG/0.4 ML DISP.SYRIN SUBCUT SCH (08:10)
[2017-01-08] MEDS: IPRATROPIUM/ALBUTEROL 0.5-2.5 MG/3 ML AMPUL NEB PRN (08:15)
[2017-01-08] MEDS: BUDESONIDE NEB 0.5 MG/2 ML AMPUL NEB SCH ×2 (08:15→21:00)
--- NOTE | 2017-01-08 08:31 | PDOC PROGRESS REPORT ---
Subjective Progress Note for:: 01/08/17 Subjective:: Patient remains intubated, on sedation, no reported temperature spikes, respiratory distress, nausea or vomiting, diarrhea. Tried to be extubated a few days ago but failed. Patient being weaned from the ventilator at this time. Physical Exam Vital Signs: Temp Pulse Resp BP Pulse Ox 97.9 F 95 22 H 110/57 L 99 01/08/17 08:00 01/08/17 07:43 01/08/17 08:00 01/08/17 07:11 01/08/17 08:00 Intake & Output 01/07/17 01/08/17 01/09/17 06:59 06:59 06:59 Intake Total 2578 3079 Output Total 4725 1170 125 Balance -2147 1909 -125 Weight 81.5 kg 81.4 kg General appearance: PRESENT: no acute distress, other - Intubated and sedated Head exam: PRESENT: normocephalic Eye exam: PRESENT: conjunctiva pink Mouth exam: PRESENT: moist, neck supple Neck exam: ABSENT: JVD Respiratory exam: PRESENT: decreased breath sounds - Bilateral. ABSENT: rhonchi , wheezes Cardiovascular exam: PRESENT: RRR. ABSENT: gallop GI/Abdominal exam: PRESENT: hypoactive bowel sounds, soft. ABSENT: distended Extremities exam: ABSENT: pedal edema Psychiatric exam: ABSENT: agitated Focused psych exam: ABSENT: restlessness Skin exam: PRESENT: dry, warm. ABSENT: cyanosis Results Laboratory Results: 01/08/17 04:55 01/08/17 04:55 01/07/17 01/08/17 01/08/17 08:20 04:55 04:55 WBC RBC Hgb Hct MCV MCH MCHC RDW Plt Count Seg Neutrophils % Lymphocytes % Monocytes % Eosinophils % Basophils % Absolute Neutrophils Absolute Lymphocytes Absolute Monocytes Absolute Eosinophils Absolute Basophils Carbonic Acid 1.34 1.27 HCO3/H2CO3 Ratio 25:1 22:1 ABG pH 7.49 H 7.44 ABG pCO2 44.5 42.1 ABG pO2 61.8 L 74.0 L ABG HCO3 33.5 H 28.0 H ABG O2 Saturation 93.3 L 95.3 ABG Base Excess 9.1 3.5 FiO2 30% 30% Sodium 140.3 Potassium 4.1 Chloride 100 Carbon Dioxide 30 Anion Gap 10 BUN 36 H Creatinine 0.99 Est GFR ( Amer) > 60 Est GFR (Non-Af Amer) 55 L Glucose 171 H Calcium 8.6 Phosphorus 4.1 Magnesium 2.8 H Triglycerides 113 01/08/17 04:55 WBC 17.8 H RBC 4.08 Hgb 12.2 Hct 36.8 MCV 90 MCH 29.9 MCHC 33.2 RDW 14.9 H Plt Count 214 Seg Neutrophils % Not Reportable Lymphocytes % Not Reportable Monocytes % Not Reportable Eosinophils % Not Reportable Basophils % Not Reportable Absolute Neutrophils Not Reportable Absolute Lymphocytes Not Reportable Absolute Monocytes Not Reportable Absolute Eosinophils Not Reportable Absolute Basophils Not Reportable Carbonic Acid HCO3/H2CO3 Ratio ABG pH ABG pCO2 ABG pO2 ABG HCO3 ABG O2 Saturation ABG Base Excess FiO2 Sodium Potassium Chloride Carbon Dioxide Anion Gap BUN Creatinine Est GFR ( Amer) Est GFR (Non-Af Amer) Glucose Calcium Phosphorus Magnesium Triglycerides 12/31/16 01/02/17 07:16 04:26 NT-Pro-B Natriuret Pep 160 127 Impressions: Chest/Abdomen CTA 01/01/17 00:00 IMPRESSION: Emphysematous changes. Postsurgical changes in the right upper lobe. Minimal infiltrate in the left base could represent atelectasis or developing pneumonia. . Chest X-Ray 01/08/17 06:00 IMPRESSION: Improved aeration right lower lobe. No pneumothorax. Assessment & Plan - Diagnosis (1) Acute hypoxemic respiratory failure Is this a current diagnosis for this admission?: Yes (2) COPD exacerbation Is this a current diagnosis for this admission?: Yes (3) Acute diastolic (congestive) heart failure Is this a current diagnosis for this admission?: Yes (4) Hypertension Qualifiers: Hypertension type: essential hypertension Qualified Code(s): I10 - Essential (primary) hypertension Is this a current diagnosis for this admission?: Yes (5) Hypothyroidism Qualifiers: Hypothyroidism type: unspecified Qualified Code(s): E03.9 - Hypothyroidism, unspecified Is this a current diagnosis for this admission?: Yes (6) Obesity Qualifiers: Obesity type: due to excess calories Obesity severity: non-morbid Qualified Code(s): E66.09 - Other obesity due to excess calories Is this a current diagnosis for this admission?: Yes (7) Pulmonary hypertension Is this a current diagnosis for this admission?: Yes (8) Trichomonas vaginitis Is this a current diagnosis for this admission?: Yes - Time Time Spent with patient: 25-34 minutes - Plan Summary Plan Summary: We are going to continue current antibiotics and fluids. Patient noted with 1.9 L positive fluid balance today. I am going to add diuretics. Weaning as per pulmonary service. Continue supportive care. Her ejection fraction however is normal, her initial heart failure likely from fluid overload. Routine laboratories/electrolytes in the morning. Await the results of herpes.
[2017-01-08] MEDS: NYSTATIN TOPICAL POWDER 15 GM TP SCH ×2 (09:00→19:35)
[2017-01-08] MEDS: POLYETHYLENE GLYCOL 3350 POWDER 17 GM/1 PACKET NG SCH (09:01)
[2017-01-08] MEDS: LEVOFLOXACIN 750 MG/D5W RTU 750 MG/150 ML RTUPB IV SCH (09:01)
[2017-01-08] MEDS: FAMOTIDINE 20 MG TABLET NG SCH ×2 (09:01→21:23)
[2017-01-08] MEDS: AMLODIPINE BESYLATE 5 MG TABLET NG SCH (09:01)
[2017-01-08] MEDS: LACTOBACILLUS ACIDOPHILUS 250 MG TAB NG SCH ×2 (09:01→19:35)
[2017-01-08] MEDS: TIOTROPIUM BROMIDE DPI 5 CAP/KIT (18 MCG/CAP) IH SCH (09:02)
[2017-01-08] MEDS ORDERED: FUROSEMIDE INJ/PF 40 MG/4 ML SDV IV SCH (10:00)
[2017-01-08] MEDS: DEXAMETHASONE SOD PHOSPHATE INJ 4 MG/1 ML VIAL IV SCH ×2 (10:29→19:34)
[2017-01-08] MEDS: VANCOMYCIN HCL 1,500 MG in DEXTROSE 5%-WATER 250 ML IV SCH (11:38)
[2017-01-08 11:39] LABS: STREP PNEUMO TYPE 56 15.1 ug/mL (>1.3)
[2017-01-08] MEDS: MONTELUKAST SODIUM 10 MG TABLET NG SCH (21:23)
[2017-01-08] MEDS: LORATADINE 10 MG TABLET NG SCH (21:23)
[2017-01-09] MEDS: PROPOFOL 100 ML IV PRN ×7 (00:47→23:57)
[2017-01-09] MEDS: NORMAL SALINE 1000 ML 1,000 ML IV PRN (00:47)
[2017-01-09] MEDS: METRONIDAZOLE 500 MG/NS RTU 100 ML IV SCH ×4 (02:47→21:44)
[2017-01-09] MEDS: DEXAMETHASONE SOD PHOSPHATE INJ 4 MG/1 ML VIAL IV SCH ×2 (02:48→10:54)
[2017-01-09] MEDS: GUAIFENESIN SYRP 200 MG/10 ML UDC PO SCH ×6 (02:48→21:45)
[2017-01-09] MEDS: CEFEPIME HCL 2 GM in DEXTROSE 5%-WATER 50 ML IV SCH (03:24)
[2017-01-09 05:09] LABS: ARTERIAL BLOOD BASE EXCESS 5.6 mmol/L; ARTERIAL BLOOD O2 SATURATION 95.9 % (94-98)
[2017-01-09 05:10] LABS: HEMATOCRIT 34.3 % (36.0-47.0); HEMOGLOBIN 11.6 g/dL (12.0-15.5); HGB HCT DIFFERENCE 0.5; MEAN CORPUSCULAR HEMOGLOBIN 30.1 pg (27.0-33.4); MEAN CORPUSCULAR HGB CONC 33.7 g/dL (32.0-36.0); MEAN CORPUSCULAR VOLUME 89 fl (80-97); RED BLOOD COUNT 3.84 10^6/uL (3.72-5.28); RED CELL DISTRIBUTION WIDTH 14.7 % (11.5-14.0); WHITE BLOOD COUNT 21.7 10^3/uL (4.0-10.5)
[2017-01-09] MEDS: THEOPHYLLINE ANHYDROUS 80 MG/15 ML NG SCH ×4 (05:25→23:57)
[2017-01-09] MEDS: UDCUP NG SCH ×4 (05:25→23:57)
[2017-01-09] MEDS: LEVOTHYROXINE SODIUM 0.15 MG TABLET NG SCH (05:26)
[2017-01-09] MEDS: METHYLPREDNISOLONE INJ 125 MG/2 ML SDV IV SCH ×3 (05:26→21:45)
[2017-01-09 05:32] LABS: ANION GAP 11 (5-19); BLOOD UREA NITROGEN 39 mg/dL (7-20); CALCIUM 8.7 mg/dL (8.4-10.2); CARBON DIOXIDE 28 mmol/L (22-30); CHLORIDE 99 mmol/L (98-107); CREATININE RESULT 0.93 mg/dL (0.52-1.25); GLUCOSE 201 mg/dL (75-110); MAGNESIUM 2.7 mg/dL (1.6-2.3); PHOSPHORUS 3.5 mg/dL (2.5-4.5); POTASSIUM 3.8 mmol/L (3.6-5.0); SODIUM 138.3 mmol/L (137-145)
[2017-01-09] MEDS: INSULIN LISPRO 100 UNIT/ML 3 ML VIAL SUBCUT PRN ×3 (06:01→23:58)
[2017-01-09] MEDS: BUDESONIDE NEB 0.5 MG/2 ML AMPUL NEB SCH ×2 (08:08→19:54)
[2017-01-09] MEDS: IPRATROPIUM/ALBUTEROL 0.5-2.5 MG/3 ML AMPUL NEB PRN ×2 (08:08→12:28)
--- NOTE | 2017-01-09 08:54 | PDOC PROGRESS REPORT ---
Subjective Progress Note for:: 01/09/17 Subjective:: Patient remains intubated, on sedation, no reported temperature spikes, respiratory distress, nausea or vomiting, diarrhea. Still with intermittent wheezing, WBC trending up. Tried to be extubated a few days ago but failed. Patient being weaned from the ventilator at this time by pulmonary service. Physical Exam Vital Signs: Temp Pulse Resp BP Pulse Ox 97.5 F 69 22 H 108/67 97 01/09/17 07:59 01/09/17 07:59 01/09/17 07:59 01/09/17 07:59 01/09/17 07:59 Intake & Output 01/08/17 01/09/17 01/10/17 06:59 06:59 06:59 Intake Total 3079 3486 Output Total 1170 3495 30 Balance 1908 Weight 81.4 kg 82.3 kg General appearance: PRESENT: no acute distress, other - Sedated Head exam: PRESENT: normocephalic Eye exam: PRESENT: conjunctiva pale Mouth exam: PRESENT: moist, neck supple Neck exam: ABSENT: JVD Respiratory exam: PRESENT: clear to auscultation kenrick - Anteriorly, wheezes - Occasional posteriorly Cardiovascular exam: PRESENT: RRR. ABSENT: gallop GI/Abdominal exam: PRESENT: hypoactive bowel sounds, soft. ABSENT: distended, tenderness Extremities exam: PRESENT: +1 edema Skin exam: PRESENT: dry, warm. ABSENT: cyanosis Results Laboratory Results: 01/09/17 04:50 01/09/17 04:50 01/09/17 01/09/17 01/09/17 04:50 04:50 04:50 WBC 21.7 H RBC 3.84 Hgb 11.6 L Hct 34.3 L MCV 89 MCH 30.1 MCHC 33.7 RDW 14.7 H Plt Count 217 Carbonic Acid 1.07 HCO3/H2CO3 Ratio 26:1 ABG pH 7.52 H ABG pCO2 35.5 ABG pO2 71.8 L ABG HCO3 28.5 H ABG O2 Saturation 95.9 ABG Base Excess 5.6 FiO2 30% Sodium 138.3 Potassium 3.8 Chloride 99 Carbon Dioxide 28 Anion Gap 11 BUN 39 H Creatinine 0.93 Est GFR ( Amer) > 60 Est GFR (Non-Af Amer) 59 L Glucose 201 H Calcium 8.7 Phosphorus 3.5 Magnesium 2.7 H 01/05/17 11:55 Labia - Rash Herpes Simplex Culture & Type - Final 12/31/16 01/02/17 07:16 04:26 NT-Pro-B Natriuret Pep 160 127 Impressions: Chest/Abdomen CTA 01/01/17 00:00 IMPRESSION: Emphysematous changes. Postsurgical changes in the right upper lobe. Minimal infiltrate in the left base could represent atelectasis or developing pneumonia. . Chest X-Ray 01/09/17 06:00 IMPRESSION: STABLE APPEARANCE OF THE CHEST. SUPPORT DEVICES UNCHANGED. Assessment & Plan - Diagnosis (1) Acute hypoxemic respiratory failure Is this a current diagnosis for this admission?: Yes (2) COPD exacerbation Is this a current diagnosis for this admission?: Yes (3) Acute diastolic (congestive) heart failure Is this a current diagnosis for this admission?: Yes (4) Hypertension Qualifiers: Hypertension type: essential hypertension Qualified Code(s): I10 - Essential (primary) hypertension Is this a current diagnosis for this admission?: Yes (5) Hypothyroidism Qualifiers: Hypothyroidism type: unspecified Qualified Code(s): E03.9 - Hypothyroidism, unspecified Is this a current diagnosis for this admission?: Yes (6) Obesity Qualifiers: Obesity type: due to excess calories Obesity severity: non-morbid Qualified Code(s): E66.09 - Other obesity due to excess calories Is this a current diagnosis for this admission?: Yes (7) Pulmonary hypertension Is this a current diagnosis for this admission?: Yes (8) Trichomonas vaginitis Is this a current diagnosis for this admission?: Yes - Time Time Spent with patient: 25-34 minutes - Plan Summary Plan Summary: WBC trending up. We will check urinalysis and a urine culture. Continue current antibiotics. Patient still on steroids which probably contributed to the patient's elevated WBC. In the meantime, continue weaning and pulmonary plan of extubating in the morning and if unable to likely will need bronchoscopy. Case discussed with Dr. Riley.
[2017-01-09] MEDS: FUROSEMIDE INJ/PF 20 MG/2 ML SDV IV SCH ×2 (10:44→21:46)
[2017-01-09] MEDS: ENOXAPARIN SODIUM INJ 40 MG/0.4 ML DISP.SYRIN SUBCUT SCH (10:46)
[2017-01-09] MEDS: LEVOFLOXACIN 750 MG/D5W RTU 750 MG/150 ML RTUPB IV SCH (10:46)
[2017-01-09] MEDS: LORAZEPAM INJ 2 MG/1 ML VIAL IV PRN (10:48)
[2017-01-09] MEDS: LACTOBACILLUS ACIDOPHILUS 250 MG TAB NG SCH ×2 (10:54→17:20)
[2017-01-09] MEDS: MORPHINE SULFATE 10 MG/ML INJ IV PRN ×2 (10:54→15:44)
[2017-01-09] MEDS: NYSTATIN TOPICAL POWDER 15 GM TP SCH ×2 (10:55→17:20)
[2017-01-09] MEDS: AMLODIPINE BESYLATE 5 MG TABLET NG SCH (10:55)
[2017-01-09] MEDS: FAMOTIDINE 20 MG TABLET NG SCH ×2 (10:55→21:45)
[2017-01-09] MEDS: POLYETHYLENE GLYCOL 3350 POWDER 17 GM/1 PACKET NG SCH (10:55)
[2017-01-09] MEDS: TIOTROPIUM BROMIDE DPI 5 CAP/KIT (18 MCG/CAP) IH SCH (10:55)
[2017-01-09 11:08] LABS: APPEARANCE,URINE CLEAR; BILIRUBIN,URINE NEGATIVE (NEGATIVE); GLUCOSE, URINE NEGATIVE (NEGATIVE); KETONES,URINE NEGATIVE (NEGATIVE); LEUKOCYTE ESTERASE,URINE NEGATIVE (NEGATIVE); NITRITE,URINE NEGATIVE (NEGATIVE); PROTEIN,URINE 100 mg/dL (NEGATIVE); URINE SPECIFIC GRAVITY 1.034; UROBILINOGEN,URINE NEGATIVE mg/dL (<2.0)
[2017-01-09] MEDS: VANCOMYCIN HCL 1,500 MG in DEXTROSE 5%-WATER 250 ML IV SCH (14:00)
[2017-01-09] MEDS: CEFEPIME HCL 2 GM in DEXTROSE 5%-WATER 100 ML IV SCH (15:44)
--- NOTE | 2017-01-09 17:00 | PDOC PROGRESS REPORT ---
Subjective Progress Note for:: 01/08/17 Subjective:: Intubated and sedated Physical Exam Vital Signs: Temp Pulse Resp BP Pulse Ox 98.2 F 89 22 H 110/57 L 99 01/08/17 08:00 01/08/17 08:00 01/08/17 08:00 01/08/17 08:00 01/08/17 08:00 Intake & Output 01/07/17 01/08/17 01/09/17 06:59 06:59 06:59 Intake Total 2578 3079 Output Total 4787 1170 125 Balance -2147 1909 -125 Weight 81.5 kg 81.4 kg General appearance: PRESENT: no acute distress, disheveled, obese Head exam: PRESENT: atraumatic, normocephalic Eye exam: PRESENT: conjunctiva pale Mouth exam: PRESENT: moist, neck supple, other - ET tube Neck exam: ABSENT: carotid bruit, JVD, lymphadenopathy, thyromegaly Respiratory exam: PRESENT: decreased breath sounds, prolonged expiratory phas, unlabored, wheezes, other - Right hemithorax greater than left Cardiovascular exam: PRESENT: RRR, +S1 Pulses: PRESENT: normal radial pulses GI/Abdominal exam: PRESENT: normal bowel sounds, soft. ABSENT: distended, guarding, mass, organolmegaly, rebound, tenderness Rectal exam: PRESENT: deferred Gentrourinary exam: PRESENT: indwelling catheter, other - Vaginal discharge Musculoskeletal exam: PRESENT: normal inspection Skin exam: PRESENT: dry, warm Results Laboratory Results: 01/08/17 04:55 01/08/17 04:55 01/07/17 01/08/17 01/08/17 08:20 04:55 04:55 WBC RBC Hgb Hct MCV MCH MCHC RDW Plt Count Seg Neutrophils % Lymphocytes % Monocytes % Eosinophils % Basophils % Absolute Neutrophils Absolute Lymphocytes Absolute Monocytes Absolute Eosinophils Absolute Basophils Carbonic Acid 1.34 1.27 HCO3/H2CO3 Ratio 25:1 22:1 ABG pH 7.49 H 7.44 ABG pCO2 44.5 42.1 ABG pO2 61.8 L 74.0 L ABG HCO3 33.5 H 28.0 H ABG O2 Saturation 93.3 L 95.3 ABG Base Excess 9.1 3.5 FiO2 30% 30% Sodium 140.3 Potassium 4.1 Chloride 100 Carbon Dioxide 30 Anion Gap 10 BUN 36 H Creatinine 0.99 Est GFR ( Amer) > 60 Est GFR (Non-Af Amer) 55 L Glucose 171 H Calcium 8.6 Phosphorus 4.1 Magnesium 2.8 H Triglycerides 113 01/08/17 04:55 WBC 17.8 H RBC 4.08 Hgb 12.2 Hct 36.8 MCV 90 MCH 29.9 MCHC 33.2 RDW 14.9 H Plt Count 214 Seg Neutrophils % Not Reportable Lymphocytes % Not Reportable Monocytes % Not Reportable Eosinophils % Not Reportable Basophils % Not Reportable Absolute Neutrophils Not Reportable Absolute Lymphocytes Not Reportable Absolute Monocytes Not Reportable Absolute Eosinophils Not Reportable Absolute Basophils Not Reportable Carbonic Acid HCO3/H2CO3 Ratio ABG pH ABG pCO2 ABG pO2 ABG HCO3 ABG O2 Saturation ABG Base Excess FiO2 Sodium Potassium Chloride Carbon Dioxide Anion Gap BUN Creatinine Est GFR ( Amer) Est GFR (Non-Af Amer) Glucose Calcium Phosphorus Magnesium Triglycerides 12/31/16 01/02/17 07:16 04:26 NT-Pro-B Natriuret Pep 160 127 Impressions: Chest/Abdomen CTA 01/01/17 00:00 IMPRESSION: Emphysematous changes. Postsurgical changes in the right upper lobe. Minimal infiltrate in the left base could represent atelectasis or developing pneumonia. . Chest X-Ray 01/08/17 06:00 IMPRESSION: Improved aeration right lower lobe. No pneumothorax. Assessment & Plan - Diagnosis (1) Acute hypercapnic respiratory failure Is this a current diagnosis for this admission?: Yes (2) Acute hypoxemic respiratory failure Is this a current diagnosis for this admission?: Yes (3) COPD exacerbation Is this a current diagnosis for this admission?: Yes (4) Hypothyroidism Qualifiers: Hypothyroidism type: unspecified Qualified Code(s): E03.9 - Hypothyroidism, unspecified Is this a current diagnosis for this admission?: Yes (5) Pulmonary hypertension Is this a current diagnosis for this admission?: Yes (6) Volume overload Qualifiers: Hypervolemia type: unspecified Qualified Code(s): E87.70 - Fluid overload, unspecified Is this a current diagnosis for this admission?: YesPlan: Metabolic alkalosis has resolved total volume suggest volume overload - Time Critical Time spent with patient: 35 or more minutes
--- NOTE | 2017-01-09 17:02 | PDOC PROGRESS REPORT ---
Subjective Progress Note for:: 01/09/17 Subjective:: Intubated and sedated Physical Exam Vital Signs: Temp Pulse Resp BP Pulse Ox 97.5 F 69 22 H 108/67 97 01/09/17 07:59 01/09/17 07:59 01/09/17 07:59 01/09/17 07:59 01/09/17 07:59 Intake & Output 01/08/17 01/09/17 01/10/17 06:59 06:59 06:59 Intake Total 3079 3486 Output Total 1170 3495 30 Balance 1908 Weight 81.4 kg 82.3 kg General appearance: PRESENT: no acute distress, disheveled, obese Head exam: PRESENT: atraumatic, normocephalic Eye exam: PRESENT: conjunctiva pale Mouth exam: PRESENT: neck supple, other - Endotracheal tube in place Neck exam: ABSENT: carotid bruit, JVD, lymphadenopathy, thyromegaly Respiratory exam: PRESENT: decreased breath sounds, prolonged expiratory phas, unlabored, wheezes, other - Right anterior chest wall Cardiovascular exam: PRESENT: RRR, +S1, +S2 Pulses: PRESENT: normal radial pulses GI/Abdominal exam: PRESENT: normal bowel sounds, soft. ABSENT: distended, guarding, mass, organolmegaly, rebound, tenderness Rectal exam: PRESENT: deferred Gentrourinary exam: PRESENT: indwelling catheter, other - Persistent vaginal discharge Musculoskeletal exam: PRESENT: normal inspection Skin exam: PRESENT: dry, warm Results Laboratory Results: 01/09/17 04:50 01/09/17 04:50 01/09/17 01/09/17 01/09/17 04:50 04:50 04:50 WBC 21.7 H RBC 3.84 Hgb 11.6 L Hct 34.3 L MCV 89 MCH 30.1 MCHC 33.7 RDW 14.7 H Plt Count 217 Carbonic Acid 1.07 HCO3/H2CO3 Ratio 26:1 ABG pH 7.52 H ABG pCO2 35.5 ABG pO2 71.8 L ABG HCO3 28.5 H ABG O2 Saturation 95.9 ABG Base Excess 5.6 FiO2 30% Sodium 138.3 Potassium 3.8 Chloride 99 Carbon Dioxide 28 Anion Gap 11 BUN 39 H Creatinine 0.93 Est GFR ( Amer) > 60 Est GFR (Non-Af Amer) 59 L Glucose 201 H Calcium 8.7 Phosphorus 3.5 Magnesium 2.7 H 01/05/17 11:55 Labia - Rash Herpes Simplex Culture & Type - Final 12/31/16 01/02/17 07:16 04:26 NT-Pro-B Natriuret Pep 160 127 Impressions: Chest/Abdomen CTA 01/01/17 00:00 IMPRESSION: Emphysematous changes. Postsurgical changes in the right upper lobe. Minimal infiltrate in the left base could represent atelectasis or developing pneumonia. . Chest X-Ray 01/09/17 06:00 IMPRESSION: STABLE APPEARANCE OF THE CHEST. SUPPORT DEVICES UNCHANGED. Assessment & Plan - Diagnosis (1) Acute hypercapnic respiratory failure Is this a current diagnosis for this admission?: Yes (2) Acute hypoxemic respiratory failure Is this a current diagnosis for this admission?: Yes (3) COPD exacerbation Is this a current diagnosis for this admission?: Yes (4) Hypothyroidism Qualifiers: Hypothyroidism type: unspecified Qualified Code(s): E03.9 - Hypothyroidism, unspecified Is this a current diagnosis for this admission?: Yes (5) Pulmonary hypertension Is this a current diagnosis for this admission?: Yes (6) Volume overload Qualifiers: Hypervolemia type: unspecified Qualified Code(s): E87.70 - Fluid overload, unspecified Is this a current diagnosis for this admission?: Yes - Time Critical Time spent with patient: 35 or more minutes - No improvement may be necessary to do fiberoptic bronchoscopy
[2017-01-09] MEDS: LEVALBUTEROL HCL NEB 1.25 MG/3 ML AMPUL NEB PRN (19:54)
[2017-01-09] MEDS: LORATADINE 10 MG TABLET NG SCH (21:46)
[2017-01-09] MEDS: MONTELUKAST SODIUM 10 MG TABLET NG SCH (21:46)
[2017-01-10] MEDS: METRONIDAZOLE 500 MG/NS RTU 100 ML IV SCH ×4 (02:05→20:39)
[2017-01-10] MEDS: GUAIFENESIN SYRP 200 MG/10 ML UDC PO SCH ×6 (02:05→21:01)
[2017-01-10] MEDS: CEFEPIME HCL 2 GM in DEXTROSE 5%-WATER 100 ML IV SCH (03:31)
[2017-01-10] MEDS: PROPOFOL 100 ML IV PRN ×6 (03:32→23:10)
[2017-01-10 04:59] LABS: ARTERIAL BLOOD BASE EXCESS 4.1 mmol/L; ARTERIAL BLOOD O2 SATURATION 96.3 % (94-98)
[2017-01-10 05:02] LABS: HEMATOCRIT 35.2 % (36.0-47.0); HEMOGLOBIN 11.8 g/dL (12.0-15.5); HGB HCT DIFFERENCE 0.2; MEAN CORPUSCULAR HEMOGLOBIN 30.1 pg (27.0-33.4); MEAN CORPUSCULAR HGB CONC 33.7 g/dL (32.0-36.0); MEAN CORPUSCULAR VOLUME 90 fl (80-97); RED BLOOD COUNT 3.93 10^6/uL (3.72-5.28); RED CELL DISTRIBUTION WIDTH 14.3 % (11.5-14.0); WHITE BLOOD COUNT 27.6 10^3/uL (4.0-10.5)
[2017-01-10 05:11] LABS: ANION GAP 11 (5-19); BLOOD UREA NITROGEN 39 mg/dL (7-20); CALCIUM 8.5 mg/dL (8.4-10.2); CARBON DIOXIDE 28 mmol/L (22-30); CHLORIDE 100 mmol/L (98-107); CREATININE RESULT 0.93 mg/dL (0.52-1.25); GLUCOSE 199 mg/dL (75-110); MAGNESIUM 2.6 mg/dL (1.6-2.3); PHOSPHORUS 3.9 mg/dL (2.5-4.5); POTASSIUM 3.4 mmol/L (3.6-5.0); SODIUM 139.1 mmol/L (137-145)
[2017-01-10 05:35] LABS: BAND NEUTROPHILS % (MANUAL) 9 % (3-5); BASOPHILS % (MANUAL) 0 % (0-2); EOSINOPHILS % (MANUAL) 0 % (0-6); LYMPHOCYTES % (MANUAL) 10 % (13-45); TOTAL CELLS COUNTED 100
[2017-01-10 05:36] LABS: RBC MORPHOLOGY COMMENT NORMO-CYTIC/CHROMIC; TOXIC GRANULATION 1+; TOXIC VACUOLATION PRESENT
[2017-01-10] MEDS: LEVOTHYROXINE SODIUM 0.15 MG TABLET NG SCH (06:26)
[2017-01-10] MEDS: THEOPHYLLINE ANHYDROUS 80 MG/15 ML NG SCH ×4 (06:26→23:09)
[2017-01-10] MEDS: NORMAL SALINE 1000 ML 1,000 ML IV PRN (06:26)
[2017-01-10] MEDS: UDCUP NG SCH ×4 (06:26→23:09)
[2017-01-10] MEDS: METHYLPREDNISOLONE INJ 125 MG/2 ML SDV IV SCH ×3 (06:26→21:01)
[2017-01-10] MEDS: INSULIN LISPRO 100 UNIT/ML 3 ML VIAL SUBCUT PRN ×3 (06:29→23:11)
[2017-01-10] MEDS ORDERED: TOBRAMYCIN SULFATE INJ 80 MG/2 ML VIAL NEB SCH (08:00)
[2017-01-10] MEDS: IPRATROPIUM/ALBUTEROL 0.5-2.5 MG/3 ML AMPUL NEB PRN ×3 (08:11→16:27)
[2017-01-10] MEDS: BUDESONIDE NEB 0.5 MG/2 ML AMPUL NEB SCH ×2 (08:11→22:04)
--- NOTE | 2017-01-10 08:11 | PDOC PROGRESS REPORT ---
Subjective Progress Note for:: 01/10/17 Subjective:: Patient having diarrhea, WBC continues to trend up. No reported nausea or vomiting, temperature spikes. Remained on the ventilator. Patient on sedation with Diprivan. Physical Exam Vital Signs: Temp Pulse Resp BP Pulse Ox 97.3 F 78 18 115/61 98 01/10/17 06:17 01/09/17 20:00 01/10/17 06:17 01/10/17 06:17 01/10/17 06:17 Intake & Output 01/09/17 01/10/17 01/11/17 06:59 06:59 06:59 Intake Total 3486 1926 Output Total 3496 3050 Balance -9 -1124 Weight 82.3 kg 83.8 kg General appearance: PRESENT: no acute distress, obese, other - Intubated and sedated Head exam: PRESENT: normocephalic Eye exam: PRESENT: conjunctiva pale Mouth exam: PRESENT: moist, neck supple Neck exam: ABSENT: JVD Respiratory exam: PRESENT: rhonchi - Minimal, wheezes - Mild end-expiration Cardiovascular exam: PRESENT: RRR. ABSENT: gallop GI/Abdominal exam: PRESENT: hyperactive bowel sounds, soft. ABSENT: distended Extremities exam: PRESENT: +1 edema Skin exam: PRESENT: dry, warm. ABSENT: cyanosis Results Laboratory Results: 01/10/17 04:45 01/10/17 04:45 01/09/17 01/10/17 01/10/17 10:35 04:45 04:45 WBC RBC Hgb Hct MCV MCH MCHC RDW Plt Count Seg Neutrophils % Lymphocytes % Monocytes % Eosinophils % Basophils % Absolute Neutrophils Absolute Lymphocytes Absolute Monocytes Absolute Eosinophils Absolute Basophils Carbonic Acid 1.08 HCO3/H2CO3 Ratio 25:1 ABG pH 7.50 H ABG pCO2 35.8 ABG pO2 76.4 L ABG HCO3 27.2 H ABG O2 Saturation 96.3 ABG Base Excess 4.1 FiO2 28% Sodium 139.1 Potassium 3.4 L Chloride 100 Carbon Dioxide 28 Anion Gap 11 BUN 39 H Creatinine 0.93 Est GFR ( Amer) > 60 Est GFR (Non-Af Amer) 59 L Glucose 199 H Calcium 8.5 Phosphorus 3.9 Magnesium 2.6 H Urine Color YELLOW Urine Appearance CLEAR Urine pH 5.0 Ur Specific [place] 1.034 Urine Protein 100 H Urine Glucose (UA) NEGATIVE Urine Ketones NEGATIVE Urine Blood NEGATIVE Urine Nitrite NEGATIVE Ur Leukocyte Esterase NEGATIVE Urine WBC (Auto) 2 Urine RBC (Auto) 22 01/10/17 04:45 WBC 27.6 H RBC 3.93 Hgb 11.8 L Hct 35.2 L MCV 90 MCH 30.1 MCHC 33.7 RDW 14.3 H Plt Count 231 Seg Neutrophils % Not Reportable Lymphocytes % Not Reportable Monocytes % Not Reportable Eosinophils % Not Reportable Basophils % Not Reportable Absolute Neutrophils Not Reportable Absolute Lymphocytes Not Reportable Absolute Monocytes Not Reportable Absolute Eosinophils Not Reportable Absolute Basophils Not Reportable Carbonic Acid HCO3/H2CO3 Ratio ABG pH ABG pCO2 ABG pO2 ABG HCO3 ABG O2 Saturation ABG Base Excess FiO2 Sodium Potassium Chloride Carbon Dioxide Anion Gap BUN Creatinine Est GFR ( Amer) Est GFR (Non-Af Amer) Glucose Calcium Phosphorus Magnesium Urine Color Urine Appearance Urine pH Ur Specific [place] Urine Protein Urine Glucose (UA) Urine Ketones Urine Blood Urine Nitrite Ur Leukocyte Esterase Urine WBC (Auto) Urine RBC (Auto) 01/05/17 11:55 Labia - Rash Herpes Simplex Culture & Type - Final 12/31/16 01/02/17 07:16 04:26 NT-Pro-B Natriuret Pep 160 127 Impressions: Chest/Abdomen CTA 01/01/17 00:00 IMPRESSION: Emphysematous changes. Postsurgical changes in the right upper lobe. Minimal infiltrate in the left base could represent atelectasis or developing pneumonia. . Assessment & Plan - Diagnosis (1) Acute hypoxemic respiratory failure Is this a current diagnosis for this admission?: Yes (2) Sepsis Qualifiers: Sepsis type: sepsis due to unspecified organism Qualified Code(s): A41.9 - Sepsis, unspecified organism Is this a current diagnosis for this admission?: Yes (3) COPD exacerbation Is this a current diagnosis for this admission?: Yes (4) Acute diastolic (congestive) heart failure Is this a current diagnosis for this admission?: Yes (5) Hypertension Qualifiers: Hypertension type: essential hypertension Qualified Code(s): I10 - Essential (primary) hypertension Is this a current diagnosis for this admission?: Yes (6) Hypothyroidism Qualifiers: Hypothyroidism type: unspecified Qualified Code(s): E03.9 - Hypothyroidism, unspecified Is this a current diagnosis for this admission?: Yes (7) Obesity Qualifiers: Obesity type: due to excess calories Obesity severity: non-morbid Qualified Code(s): E66.09 - Other obesity due to excess calories Is this a current diagnosis for this admission?: Yes (8) Pulmonary hypertension Is this a current diagnosis for this admission?: Yes (9) Trichomonas vaginitis Is this a current diagnosis for this admission?: Yes - Time Time Spent with patient: 25-34 minutes - Plan Summary Plan Summary: Check stool for Clostridium difficile toxin. Patient already on lactobacillus and Flagyl. We will culture the blood and sputum, discontinue Levaquin and cefepime and begin Primaxin w/ tobramycin nebulizer, continue the vancomycin, replace potassium. Possible bronchoscopy. Continue supportive care.
[2017-01-10] MEDS: ENOXAPARIN SODIUM INJ 40 MG/0.4 ML DISP.SYRIN SUBCUT SCH (08:20)
[2017-01-10] MEDS: POTASSI CL 20 MEQ/50 ML RIDER 50 ML IV SCH ×3 (08:21→11:49)
[2017-01-10] MEDS: FAMOTIDINE 20 MG TABLET NG SCH ×2 (10:11→21:02)
[2017-01-10] MEDS: LACTOBACILLUS ACIDOPHILUS 250 MG TAB NG SCH ×2 (10:11→17:41)
[2017-01-10] MEDS: AMLODIPINE BESYLATE 5 MG TABLET NG SCH (10:12)
[2017-01-10] MEDS: POLYETHYLENE GLYCOL 3350 POWDER 17 GM/1 PACKET NG SCH (10:12)
[2017-01-10] MEDS: TIOTROPIUM BROMIDE DPI 5 CAP/KIT (18 MCG/CAP) IH SCH (10:14)
[2017-01-10] MEDS: NYSTATIN TOPICAL POWDER 15 GM TP SCH ×2 (10:20→17:52)
[2017-01-10] MEDS: IMIPENEM/CILASTATIN SODIUM 500 MG in NORMAL SALINE 100 ML IV SCH ×3 (11:35→23:10)
[2017-01-10] MEDS: VANCOMYCIN HCL 1,500 MG in DEXTROSE 5%-WATER 250 ML IV SCH (11:37)
[2017-01-10] MEDS ORDERED: IMIPENEM/CILASTATIN SODIUM INJ 500 MG VIAL IV SCH (12:00)
--- NOTE | 2017-01-10 15:58 | Operative Report ---
Operative Report DATE OF SURGERY: 01/10/17 Operative Report: Patient intubated sedated with persistent bronchospasm particularly during attempts to initiating sedation vacations pressure support and CPAP. Patient being intubated on propofol and Versed a T size [place] bronchoscope was introduced in the tracheobronchial tree No abnormalities noted in the distal trachea. There was no splaying of the julio. Left mainstem bronchus, left upper lobe, lingula and left lower lobe showed no mucosal abnormalities or submucosal bleeding or edema. There were no endobronchial lesions noted. The entire right tracheobronchial tree had diffuse mucosal edema as well as what appeared to be vesicular lesions in the bronchus intermedius and right lower lobe these areas were lavaged and brushed and sent to lab for appropriate cultures And studies. The patient tolerated procedure well postprocedure SaO2 is 98%. PREOPERATIVE DIAGNOSIS: unresolving pneumonia POSTOPERATIVE DIAGNOSIS: Same OPERATION: Fiber optic bronchoscopy with alveolar lavage SURGEON: HEATHER ANDERSON ANESTHESIA: GA TISSUE REMOVED OR ALTERED: Bronchoalveolar lavage in the left lower lobe and bronchoalveolar lavage from the right lower lobe mucosal brushings from the right lower lobe and right bronchus intermedius COMPLICATIONS: None ESTIMATED BLOOD LOSS: 5 cc INTRAOPERATIVE FINDINGS: No abnormalities noted in the distal trachea was no splaying of the julio left mainstem bronchus left upper lobe lingula and left lower lobe showed no mucosal abnormalities or submucosal bleeding or edema there were no endobronchial lesions noted. The entire right tracheobronchial tree had diffuse mucosal edema as well as what appeared to be vesicular lesions in the bronchus intermedius and right lower lobe these areas were lavaged and breast and sent to lab for appropriate cultures and studies patient tolerated procedure well postprocedure SaO2 is 98% PROCEDURE: Fiber optic bronchoscopy with Bronchoalveolar lavage and mucosal brushing
--- NOTE | 2017-01-10 16:00 | PDOC PROGRESS REPORT ---
Subjective Progress Note for:: 01/10/17 Subjective:: Intubated and sedated Physical Exam Vital Signs: Temp Pulse Resp BP Pulse Ox 97.3 F 72 18 123/61 95 01/10/17 09:17 01/10/17 08:11 01/10/17 09:17 01/10/17 09:17 01/10/17 09:17 Intake & Output 01/09/17 01/10/17 01/11/17 06:59 06:59 06:59 Intake Total 3484 1926 Output Total 3496 2542 Balance -9 -1124 Weight 82.3 kg 83.8 kg General appearance: PRESENT: no acute distress, disheveled, obese Head exam: PRESENT: atraumatic, normocephalic Eye exam: PRESENT: conjunctiva pale Mouth exam: PRESENT: neck supple, other - ET tube Neck exam: ABSENT: carotid bruit, JVD, lymphadenopathy, thyromegaly Respiratory exam: PRESENT: decreased breath sounds, prolonged expiratory phas, rhonchi, unlabored - Abnormal breath sounds greatest in the right anterior chest wall, wheezes Cardiovascular exam: PRESENT: RRR, +S1, +S2 Pulses: PRESENT: normal radial pulses GI/Abdominal exam: PRESENT: normal bowel sounds, soft. ABSENT: distended, guarding, mass, organolmegaly, rebound, tenderness Rectal exam: PRESENT: deferred Gentrourinary exam: PRESENT: indwelling catheter Musculoskeletal exam: PRESENT: normal inspection Skin exam: PRESENT: dry, warm Results Laboratory Results: 01/10/17 04:45 01/10/17 04:45 01/09/17 01/10/17 01/10/17 10:35 04:45 04:45 WBC RBC Hgb Hct MCV MCH MCHC RDW Plt Count Seg Neutrophils % Lymphocytes % Monocytes % Eosinophils % Basophils % Absolute Neutrophils Absolute Lymphocytes Absolute Monocytes Absolute Eosinophils Absolute Basophils Carbonic Acid 1.08 HCO3/H2CO3 Ratio 25:1 ABG pH 7.50 H ABG pCO2 35.8 ABG pO2 76.4 L ABG HCO3 27.2 H ABG O2 Saturation 96.3 ABG Base Excess 4.1 FiO2 28% Sodium 139.1 Potassium 3.4 L Chloride 100 Carbon Dioxide 28 Anion Gap 11 BUN 39 H Creatinine 0.93 Est GFR ( Amer) > 60 Est GFR (Non-Af Amer) 59 L Glucose 199 H Calcium 8.5 Phosphorus 3.9 Magnesium 2.6 H Urine Color YELLOW Urine Appearance CLEAR Urine pH 5.0 Ur Specific [place] 1.034 Urine Protein 100 H Urine Glucose (UA) NEGATIVE Urine Ketones NEGATIVE Urine Blood NEGATIVE Urine Nitrite NEGATIVE Ur Leukocyte Esterase NEGATIVE Urine WBC (Auto) 2 Urine RBC (Auto) 22 01/10/17 04:45 WBC 27.6 H RBC 3.93 Hgb 11.8 L Hct 35.2 L MCV 90 MCH 30.1 MCHC 33.7 RDW 14.3 H Plt Count 231 Seg Neutrophils % Not Reportable Lymphocytes % Not Reportable Monocytes % Not Reportable Eosinophils % Not Reportable Basophils % Not Reportable Absolute Neutrophils Not Reportable Absolute Lymphocytes Not Reportable Absolute Monocytes Not Reportable Absolute Eosinophils Not Reportable Absolute Basophils Not Reportable Carbonic Acid HCO3/H2CO3 Ratio ABG pH ABG pCO2 ABG pO2 ABG HCO3 ABG O2 Saturation ABG Base Excess FiO2 Sodium Potassium Chloride Carbon Dioxide Anion Gap BUN Creatinine Est GFR ( Amer) Est GFR (Non-Af Amer) Glucose Calcium Phosphorus Magnesium Urine Color Urine Appearance Urine pH Ur Specific [place] Urine Protein Urine Glucose (UA) Urine Ketones Urine Blood Urine Nitrite Ur Leukocyte Esterase Urine WBC (Auto) Urine RBC (Auto) 01/05/17 11:55 Labia - Rash Herpes Simplex Culture & Type - Final 12/31/16 01/02/17 07:16 04:26 NT-Pro-B Natriuret Pep 160 127 Impressions: Chest/Abdomen CTA 01/01/17 00:00 IMPRESSION: Emphysematous changes. Postsurgical changes in the right upper lobe. Minimal infiltrate in the left base could represent atelectasis or developing pneumonia. . Chest X-Ray 01/10/17 06:00 IMPRESSION: STABLE APPEARANCE. NO ACUTE RADIOGRAPHIC FINDING IN THE CHEST. Assessment & Plan - Diagnosis (1) Acute hypercapnic respiratory failure Is this a current diagnosis for this admission?: Yes (2) Acute hypoxemic respiratory failure Is this a current diagnosis for this admission?: Yes (3) COPD exacerbation Is this a current diagnosis for this admission?: Yes (4) Hypothyroidism Qualifiers: Hypothyroidism type: unspecified Qualified Code(s): E03.9 - Hypothyroidism, unspecified Is this a current diagnosis for this admission?: Yes (5) Pulmonary hypertension Is this a current diagnosis for this admission?: Yes (6) Volume overload Qualifiers: Hypervolemia type: unspecified Qualified Code(s): E87.70 - Fluid overload, unspecified Is this a current diagnosis for this admission?: Yes - Time Critical Time spent with patient: 35 or more minutes
[2017-01-10 18:26] LABS: FLUID TYPE BRONCHIAL WASH
[2017-01-10 18:27] LABS: FLUID APPEARANCE HAZY; FLUID RBC DILUENT USED SALINE; FLUID RBC SIDE 1 196; FLUID RBC SIDE 2 198
[2017-01-10 18:28] LABS: FLUID RBC DILUTION FACTOR 10; TOTAL RBC SQUARES COUNTED FLD 25
[2017-01-10] MEDS: ACYCLOVIR SODIUM 800 MG in NORMAL SALINE 250 ML IV SCH (20:56)
[2017-01-10] MEDS: MONTELUKAST SODIUM 10 MG TABLET NG SCH (21:02)
[2017-01-10] MEDS: LORATADINE 10 MG TABLET NG SCH (21:02)
[2017-01-10] MEDS: LEVALBUTEROL HCL NEB 1.25 MG/3 ML AMPUL NEB PRN (22:04)
[2017-01-10] MEDS: TOBRAMYCIN SULFATE NEB 40 MG/ML 30 ML NEB SCH (22:21)
[2017-01-11] MEDS: GUAIFENESIN SYRP 200 MG/10 ML UDC PO SCH ×6 (02:41→22:03)
[2017-01-11] MEDS: METRONIDAZOLE 500 MG/NS RTU 100 ML IV SCH ×4 (02:41→21:40)
[2017-01-11] MEDS: NORMAL SALINE 1000 ML 1,000 ML IV PRN ×3 (03:11→17:54)
[2017-01-11] MEDS: PROPOFOL 100 ML IV PRN ×5 (03:11→22:03)
[2017-01-11] MEDS: ACYCLOVIR SODIUM 800 MG in NORMAL SALINE 250 ML IV SCH ×3 (04:36→21:37)
[2017-01-11] MEDS: LEVALBUTEROL HCL NEB 1.25 MG/3 ML AMPUL NEB PRN (04:46)
[2017-01-11] MEDS: IMIPENEM/CILASTATIN SODIUM 500 MG in NORMAL SALINE 100 ML IV SCH ×4 (05:11→23:49)
[2017-01-11] MEDS: UDCUP NG SCH ×4 (05:11→23:49)
[2017-01-11] MEDS: THEOPHYLLINE ANHYDROUS 80 MG/15 ML NG SCH ×4 (05:11→23:49)
[2017-01-11] MEDS: LEVOTHYROXINE SODIUM 0.15 MG TABLET NG SCH (05:12)
[2017-01-11] MEDS: METHYLPREDNISOLONE INJ 125 MG/2 ML SDV IV SCH ×3 (05:13→22:03)
[2017-01-11 05:44] LABS: HEMATOCRIT 33.6 % (36.0-47.0); HGB HCT DIFFERENCE -0.6; MEAN CORPUSCULAR HEMOGLOBIN 29.5 pg (27.0-33.4); MEAN CORPUSCULAR HGB CONC 32.8 g/dL (32.0-36.0); MEAN CORPUSCULAR VOLUME 90 fl (80-97); RED BLOOD COUNT 3.74 10^6/uL (3.72-5.28); RED CELL DISTRIBUTION WIDTH 14.5 % (11.5-14.0); WHITE BLOOD COUNT 27.8 10^3/uL (4.0-10.5)
[2017-01-11 05:57] LABS: ANION GAP 9 (5-19); BLOOD UREA NITROGEN 36 mg/dL (7-20); CALCIUM 8.5 mg/dL (8.4-10.2); CARBON DIOXIDE 26 mmol/L (22-30); CHLORIDE 104 mmol/L (98-107); CREATININE RESULT 0.89 mg/dL (0.52-1.25); GLUCOSE 179 mg/dL (75-110); MAGNESIUM 2.7 mg/dL (1.6-2.3); PHOSPHORUS 3.7 mg/dL (2.5-4.5); POTASSIUM 3.9 mmol/L (3.6-5.0); SODIUM 139.4 mmol/L (137-145)
[2017-01-11 06:17] LABS: BASOPHILS % (MANUAL) 0 % (0-2); EOSINOPHILS % (MANUAL) 0 % (0-6); LYMPHOCYTES % (MANUAL) 10 % (13-45); TOTAL CELLS COUNTED 100
[2017-01-11 06:20] LABS: ANISOCYTOSIS SLIGHT; OVALOCYTES SLIGHT; POLYCHROMASIA SLIGHT; TARGET CELLS SLIGHT; TOXIC GRANULATION SLIGHT
[2017-01-11 07:53] LABS: ARTERIAL BLOOD BASE EXCESS 0.3 mmol/L; ARTERIAL BLOOD O2 SATURATION 92.9 % (94-98)
[2017-01-11] MEDS: BUDESONIDE NEB 0.5 MG/2 ML AMPUL NEB SCH ×2 (08:11→21:11)
[2017-01-11] MEDS: TOBRAMYCIN SULFATE NEB 40 MG/ML 30 ML NEB SCH ×2 (08:19→21:38)
--- NOTE | 2017-01-11 08:49 | PDOC PROGRESS REPORT ---
Subjective Progress Note for:: 01/11/17 Subjective:: Patient remained on the ventilator. Sedated. Had bronchoscopy done yesterday. So far cultures are pending. No reported respiratory distress, temperature spikes. Tolerating tube feedings. Clostridium difficile toxin pending. WBC is still elevated but seems to have stabilized. Acyclovir added by pulmonary service to the treatment regimen. Physical Exam Vital Signs: Temp Pulse Resp BP Pulse Ox 97.5 F 72 18 130/66 H 97 01/11/17 08:00 01/11/17 04:00 01/11/17 08:00 01/11/17 07:47 01/11/17 08:00 Intake & Output 01/10/17 01/11/17 01/12/17 06:59 06:59 06:59 Intake Total 1926 4250 Output Total 3050 1650 125 Balance -1124 2600 -125 Weight 83.8 kg 85.5 kg General appearance: PRESENT: no acute distress, obese, other - Sedated and intubated Head exam: PRESENT: normocephalic Eye exam: PRESENT: conjunctiva pale Mouth exam: PRESENT: moist, neck supple Neck exam: ABSENT: JVD Respiratory exam: PRESENT: rhonchi - minimal bilateral, other - Air entry improved. ABSENT: wheezes Cardiovascular exam: PRESENT: RRR. ABSENT: gallop GI/Abdominal exam: PRESENT: normal bowel sounds, soft. ABSENT: distended Extremities exam: PRESENT: +1 edema Skin exam: PRESENT: dry, warm. ABSENT: cyanosis Results Laboratory Results: 01/11/17 05:00 01/11/17 05:00 01/10/17 01/10/17 01/11/17 15:50 15:50 05:00 WBC RBC Hgb Hct MCV MCH MCHC RDW Plt Count Seg Neutrophils % Lymphocytes % Monocytes % Eosinophils % Basophils % Absolute Neutrophils Absolute Lymphocytes Absolute Monocytes Absolute Eosinophils Absolute Basophils Carbonic Acid HCO3/H2CO3 Ratio ABG pH ABG pCO2 ABG pO2 ABG HCO3 ABG O2 Saturation ABG Base Excess FiO2 Sodium Cancelled Potassium Cancelled Chloride Cancelled Carbon Dioxide Cancelled Anion Gap Cancelled BUN Cancelled Creatinine Cancelled Est GFR ( Amer) Cancelled Est GFR (Non-Af Amer) Cancelled Glucose Cancelled Calcium Cancelled Phosphorus Magnesium Triglycerides 65 Fluid Type BRONCHIAL WASH Cancelled Fluid Source LUNG Cancelled Fluid Color RED Cancelled Fluid Appearance HAZY Cancelled Fluid Viscosity MODERATELY VISCOUS Cancelled Fluid WBC 233 Cancelled Fluid RBC 95029 Cancelled 01/11/17 01/11/17 01/11/17 05:00 05:00 07:35 WBC 27.8 H RBC 3.74 Hgb 11.0 L Hct 33.6 L MCV 90 MCH 29.5 MCHC 32.8 RDW 14.5 H Plt Count 224 Seg Neutrophils % Not Reportable Lymphocytes % Not Reportable Monocytes % Not Reportable Eosinophils % Not Reportable Basophils % Not Reportable Absolute Neutrophils Not Reportable Absolute Lymphocytes Not Reportable Absolute Monocytes Not Reportable Absolute Eosinophils Not Reportable Absolute Basophils Not Reportable Carbonic Acid 1.04 L HCO3/H2CO3 Ratio 22:1 ABG pH 7.45 ABG pCO2 34.7 L ABG pO2 61.7 L ABG HCO3 23.8 ABG O2 Saturation 92.9 L ABG Base Excess 0.3 FiO2 28% Sodium 139.4 Potassium 3.9 Chloride 104 Carbon Dioxide 26 Anion Gap 9 BUN 36 H Creatinine 0.89 Est GFR ( Amer) > 60 Est GFR (Non-Af Amer) > 60 Glucose 179 H Calcium 8.5 Phosphorus 3.7 Magnesium 2.7 H Triglycerides Fluid Type Fluid Source Fluid Color Fluid Appearance Fluid Viscosity Fluid WBC Fluid RBC 12/31/16 01/02/17 07:16 04:26 NT-Pro-B Natriuret Pep 160 127 Impressions: Chest/Abdomen CTA 01/01/17 00:00 IMPRESSION: Emphysematous changes. Postsurgical changes in the right upper lobe. Minimal infiltrate in the left base could represent atelectasis or developing pneumonia. . Chest X-Ray 01/11/17 06:00 IMPRESSION: STABLE APPEARANCE. NO ACUTE FINDINGS. Assessment & Plan - Diagnosis (1) Acute hypoxemic respiratory failure Is this a current diagnosis for this admission?: Yes (2) Sepsis Qualifiers: Sepsis type: sepsis due to unspecified organism Qualified Code(s): A41.9 - Sepsis, unspecified organism Is this a current diagnosis for this admission?: Yes (3) COPD exacerbation Is this a current diagnosis for this admission?: Yes (4) Acute diastolic (congestive) heart failure Is this a current diagnosis for this admission?: Yes (5) Hypertension Qualifiers: Hypertension type: essential hypertension Qualified Code(s): I10 - Essential (primary) hypertension Is this a current diagnosis for this admission?: Yes (6) Hypothyroidism Qualifiers: Hypothyroidism type: unspecified Qualified Code(s): E03.9 - Hypothyroidism, unspecified Is this a current diagnosis for this admission?: Yes (7) Obesity Qualifiers: Obesity type: due to excess calories Obesity severity: non-morbid Qualified Code(s): E66.09 - Other obesity due to excess calories Is this a current diagnosis for this admission?: Yes (8) Pulmonary hypertension Is this a current diagnosis for this admission?: Yes (9) Trichomonas vaginitis Is this a current diagnosis for this admission?: Yes - Time Time Spent with patient: 25-34 minutes - Plan Summary Plan Summary: We will resume intravenous diuretic. Has 2.6 liter positive balance today, we will continue to monitor electrolytes. Continue to monitor WBC. Follow cultures. Continue current antibiotics for now. Extubation per pulmonary service. Continue supportive care
[2017-01-11] MEDS: ENOXAPARIN SODIUM INJ 40 MG/0.4 ML DISP.SYRIN SUBCUT SCH (09:04)
[2017-01-11] MEDS: LACTOBACILLUS ACIDOPHILUS 250 MG TAB NG SCH ×2 (09:12→17:09)
[2017-01-11] MEDS: AMLODIPINE BESYLATE 5 MG TABLET NG SCH (09:12)
[2017-01-11] MEDS: FAMOTIDINE 20 MG TABLET NG SCH ×2 (09:13→22:03)
[2017-01-11] MEDS: FUROSEMIDE INJ/PF 20 MG/2 ML SDV IV SCH (09:13)
[2017-01-11] MEDS: POLYETHYLENE GLYCOL 3350 POWDER 17 GM/1 PACKET NG SCH (09:13)
[2017-01-11] MEDS: TIOTROPIUM BROMIDE DPI 5 CAP/KIT (18 MCG/CAP) IH SCH (09:14)
[2017-01-11] MEDS: VANCOMYCIN HCL 1,500 MG in DEXTROSE 5%-WATER 250 ML IV SCH (12:03)
[2017-01-11] MEDS: INSULIN LISPRO 100 UNIT/ML 3 ML VIAL SUBCUT PRN (12:48)
[2017-01-11] MEDS ORDERED: LORAZEPAM INJ 2 MG/1 ML VIAL ONE (13:43)
--- NOTE | 2017-01-11 15:48 | PDOC PROGRESS REPORT ---
Subjective Progress Note for:: 01/11/17 Subjective:: Intubated and sedated Physical Exam Vital Signs: Temp Pulse Resp BP Pulse Ox 97.5 F 72 13 137/67 H 95 01/11/17 09:17 01/11/17 04:00 01/11/17 09:17 01/11/17 09:17 01/11/17 09:17 Intake & Output 01/10/17 01/11/17 01/12/17 06:59 06:59 06:59 Intake Total 1926 4250 Output Total 3050 1650 125 Balance -1124 2600 -125 Weight 83.8 kg 85.5 kg General appearance: PRESENT: no acute distress, disheveled, obese Head exam: PRESENT: atraumatic, normocephalic Eye exam: PRESENT: conjunctiva pale Mouth exam: PRESENT: dry mucosa, neck supple, other - Endotracheal tube in place Neck exam: ABSENT: carotid bruit, JVD, lymphadenopathy, thyromegaly Respiratory exam: PRESENT: decreased breath sounds, prolonged expiratory phas, rhonchi, unlabored - Abnormal breath sounds limited to the right hemithorax Cardiovascular exam: PRESENT: RRR, +S1, +S2 Pulses: PRESENT: normal radial pulses GI/Abdominal exam: PRESENT: ascites Rectal exam: PRESENT: deferred Gentrourinary exam: PRESENT: indwelling catheter Musculoskeletal exam: PRESENT: normal inspection Skin exam: PRESENT: dry, warm Results Laboratory Results: 01/11/17 05:00 01/11/17 05:00 01/10/17 01/10/17 01/11/17 15:50 15:50 05:00 WBC RBC Hgb Hct MCV MCH MCHC RDW Plt Count Seg Neutrophils % Lymphocytes % Monocytes % Eosinophils % Basophils % Absolute Neutrophils Absolute Lymphocytes Absolute Monocytes Absolute Eosinophils Absolute Basophils Carbonic Acid HCO3/H2CO3 Ratio ABG pH ABG pCO2 ABG pO2 ABG HCO3 ABG O2 Saturation ABG Base Excess FiO2 Sodium Cancelled Potassium Cancelled Chloride Cancelled Carbon Dioxide Cancelled Anion Gap Cancelled BUN Cancelled Creatinine Cancelled Est GFR ( Amer) Cancelled Est GFR (Non-Af Amer) Cancelled Glucose Cancelled Calcium Cancelled Phosphorus Magnesium Triglycerides 65 Fluid Type BRONCHIAL WASH Cancelled Fluid Source LUNG Cancelled Fluid Color RED Cancelled Fluid Appearance HAZY Cancelled Fluid Viscosity MODERATELY VISCOUS Cancelled Fluid WBC 233 Cancelled Fluid RBC [id number] Cancelled 01/11/17 01/11/17 01/11/17 05:00 05:00 07:35 WBC 27.8 H RBC 3.74 Hgb 11.0 L Hct 33.6 L MCV 90 MCH 29.5 MCHC 32.8 RDW 14.5 H Plt Count 224 Seg Neutrophils % Not Reportable Lymphocytes % Not Reportable Monocytes % Not Reportable Eosinophils % Not Reportable Basophils % Not Reportable Absolute Neutrophils Not Reportable Absolute Lymphocytes Not Reportable Absolute Monocytes Not Reportable Absolute Eosinophils Not Reportable Absolute Basophils Not Reportable Carbonic Acid 1.04 L HCO3/H2CO3 Ratio 22:1 ABG pH 7.45 ABG pCO2 34.7 L ABG pO2 61.7 L ABG HCO3 23.8 ABG O2 Saturation 92.9 L ABG Base Excess 0.3 FiO2 28% Sodium 139.4 Potassium 3.9 Chloride 104 Carbon Dioxide 26 Anion Gap 9 BUN 36 H Creatinine 0.89 Est GFR ( Amer) > 60 Est GFR (Non-Af Amer) > 60 Glucose 179 H Calcium 8.5 Phosphorus 3.7 Magnesium 2.7 H Triglycerides Fluid Type Fluid Source Fluid Color Fluid Appearance Fluid Viscosity Fluid WBC Fluid RBC 12/31/16 01/02/17 07:16 04:26 NT-Pro-B Natriuret Pep 160 127 Impressions: Chest/Abdomen CTA 01/01/17 00:00 IMPRESSION: Emphysematous changes. Postsurgical changes in the right upper lobe. Minimal infiltrate in the left base could represent atelectasis or developing pneumonia. . Chest X-Ray 01/11/17 06:00 IMPRESSION: STABLE APPEARANCE. NO ACUTE FINDINGS. Assessment & Plan - Diagnosis (1) Acute hypercapnic respiratory failure Is this a current diagnosis for this admission?: YesPlan: Status post bronchoscopy left lung appeared to be within normal limits right lung and vesicles diffuse submucosal erythema awaiting BAL result (2) Acute hypoxemic respiratory failure Is this a current diagnosis for this admission?: Yes (3) COPD exacerbation Is this a current diagnosis for this admission?: YesPlan: Encouraged his airway pressures have decreased from 30-20 (4) Hypothyroidism Qualifiers: Hypothyroidism type: unspecified Qualified Code(s): E03.9 - Hypothyroidism, unspecified Is this a current diagnosis for this admission?: Yes (5) Pulmonary hypertension Is this a current diagnosis for this admission?: Yes (6) Volume overload Qualifiers: Hypervolemia type: unspecified Qualified Code(s): E87.70 - Fluid overload, unspecified Is this a current diagnosis for this admission?: Yes - Time Critical Time spent with patient: 35 or more minutes - 60 minutes extensive conversation with family guarding current status plan of care
[2017-01-11] MEDS: IPRATROPIUM/ALBUTEROL 0.5-2.5 MG/3 ML AMPUL NEB PRN (21:11)
[2017-01-11] MEDS: LORATADINE 10 MG TABLET NG SCH (22:03)
[2017-01-11] MEDS: MONTELUKAST SODIUM 10 MG TABLET NG SCH (22:03)
[2017-01-12] MEDS: PROPOFOL 100 ML IV PRN ×5 (02:03→21:50)
[2017-01-12] MEDS: METRONIDAZOLE 500 MG/NS RTU 100 ML IV SCH ×2 (02:04→09:22)
[2017-01-12] MEDS: GUAIFENESIN SYRP 200 MG/10 ML UDC PO SCH ×6 (02:04→21:51)
[2017-01-12] MEDS: ACYCLOVIR SODIUM 800 MG in NORMAL SALINE 250 ML IV SCH ×3 (05:15→21:52)
[2017-01-12] MEDS: UDCUP NG SCH ×4 (05:33→23:09)
[2017-01-12] MEDS: THEOPHYLLINE ANHYDROUS 80 MG/15 ML NG SCH ×4 (05:33→23:09)
[2017-01-12] MEDS: IMIPENEM/CILASTATIN SODIUM 500 MG in NORMAL SALINE 100 ML IV SCH ×4 (05:33→23:10)
[2017-01-12] MEDS: METHYLPREDNISOLONE INJ 125 MG/2 ML SDV IV SCH ×3 (05:33→21:51)
[2017-01-12] MEDS: LEVOTHYROXINE SODIUM 0.15 MG TABLET NG SCH (05:33)
[2017-01-12 06:17] LABS: HEMATOCRIT 32.6 % (36.0-47.0); HEMOGLOBIN 10.7 g/dL (12.0-15.5); HGB HCT DIFFERENCE -0.5; MEAN CORPUSCULAR HEMOGLOBIN 29.7 pg (27.0-33.4); MEAN CORPUSCULAR HGB CONC 32.7 g/dL (32.0-36.0); MEAN CORPUSCULAR VOLUME 91 fl (80-97); RED BLOOD COUNT 3.59 10^6/uL (3.72-5.28); RED CELL DISTRIBUTION WIDTH 14.6 % (11.5-14.0); WHITE BLOOD COUNT 24.8 10^3/uL (4.0-10.5)
[2017-01-12 06:34] LABS: ANION GAP 5 (5-19); BLOOD UREA NITROGEN 30 mg/dL (7-20); CALCIUM 8.2 mg/dL (8.4-10.2); CARBON DIOXIDE 29 mmol/L (22-30); CHLORIDE 107 mmol/L (98-107); CREATININE RESULT 0.76 mg/dL (0.52-1.25); GLUCOSE 134 mg/dL (75-110); POTASSIUM 3.4 mmol/L (3.6-5.0)
[2017-01-12 06:56] LABS: BAND NEUTROPHILS % (MANUAL) 9 % (3-5); BASOPHILS % (MANUAL) 0 % (0-2); EOSINOPHILS % (MANUAL) 0 % (0-6); LYMPHOCYTES % (MANUAL) 6 % (13-45); TOTAL CELLS COUNTED 100
[2017-01-12 06:58] LABS: ANISOCYTOSIS SLIGHT; TOXIC GRANULATION SLIGHT; TOXIC VACUOLATION PRESENT
[2017-01-12] MEDS: ENOXAPARIN SODIUM INJ 40 MG/0.4 ML DISP.SYRIN SUBCUT SCH (08:03)
[2017-01-12] MEDS: IPRATROPIUM/ALBUTEROL 0.5-2.5 MG/3 ML AMPUL NEB PRN (08:37)
[2017-01-12] MEDS: TOBRAMYCIN SULFATE NEB 40 MG/ML 30 ML NEB SCH ×2 (08:37→21:14)
[2017-01-12] MEDS: BUDESONIDE NEB 0.5 MG/2 ML AMPUL NEB SCH ×2 (08:38→21:14)
--- NOTE | 2017-01-12 09:08 | PDOC PROGRESS REPORT ---
Subjective Progress Note for:: 01/12/17 Subjective:: Intubated and sedated Physical Exam Vital Signs: Temp Pulse Resp BP Pulse Ox 97.3 F 84 18 102/50 L 97 01/12/17 06:23 01/11/17 21:11 01/12/17 06:23 01/12/17 06:23 01/12/17 06:23 Intake & Output 01/11/17 01/12/17 01/13/17 06:59 06:59 06:59 Intake Total 4250 1117 Output Total 1650 4095 Balance 2600 -2978 Weight 85.5 kg 85.6 kg General appearance: PRESENT: no acute distress, disheveled Head exam: PRESENT: atraumatic, normocephalic Eye exam: PRESENT: conjunctiva pale Mouth exam: PRESENT: dry mucosa, neck supple, other - ET tube Neck exam: PRESENT: carotid bruit Respiratory exam: PRESENT: decreased breath sounds, prolonged expiratory phas, rhonchi, symmetrical, unlabored Cardiovascular exam: PRESENT: RRR, +S1, +S2 Pulses: PRESENT: normal radial pulses GI/Abdominal exam: PRESENT: normal bowel sounds, soft. ABSENT: distended, guarding, mass, organolmegaly, rebound, tenderness Rectal exam: PRESENT: deferred Gentrourinary exam: PRESENT: indwelling catheter Skin exam: PRESENT: dry, warm Results Laboratory Results: 01/12/17 06:00 01/12/17 06:00 01/12/17 01/12/17 06:00 06:00 WBC 24.8 H RBC 3.59 L Hgb 10.7 L Hct 32.6 L MCV 91 MCH 29.7 MCHC 32.7 RDW 14.6 H Plt Count 217 Seg Neutrophils % Not Reportable Lymphocytes % Not Reportable Monocytes % Not Reportable Eosinophils % Not Reportable Basophils % Not Reportable Absolute Neutrophils Not Reportable Absolute Lymphocytes Not Reportable Absolute Monocytes Not Reportable Absolute Eosinophils Not Reportable Absolute Basophils Not Reportable Sodium 141.0 Potassium 3.4 L Chloride 107 Carbon Dioxide 29 Anion Gap 5 BUN 30 H Creatinine 0.76 Est GFR ( Amer) > 60 Est GFR (Non-Af Amer) > 60 Glucose 134 H Calcium 8.2 L 01/09/17 10:35 Catheterized Urine Urine Culture - Final NO GROWTH 2 DAYS 12/31/16 01/02/17 07:16 04:26 NT-Pro-B Natriuret Pep 160 127 Impressions: Chest/Abdomen CTA 01/01/17 00:00 IMPRESSION: Emphysematous changes. Postsurgical changes in the right upper lobe. Minimal infiltrate in the left base could represent atelectasis or developing pneumonia. . Chest X-Ray 01/11/17 06:00 IMPRESSION: STABLE APPEARANCE. NO ACUTE FINDINGS. Assessment & Plan - Diagnosis (1) Acute hypercapnic respiratory failure Is this a current diagnosis for this admission?: Yes (2) Acute hypoxemic respiratory failure Is this a current diagnosis for this admission?: Yes (3) COPD exacerbation Is this a current diagnosis for this admission?: Yes (4) Hypothyroidism Qualifiers: Hypothyroidism type: unspecified Qualified Code(s): E03.9 - Hypothyroidism, unspecified Is this a current diagnosis for this admission?: Yes (5) Pulmonary hypertension Is this a current diagnosis for this admission?: Yes (6) Volume overload Qualifiers: Hypervolemia type: unspecified Qualified Code(s): E87.70 - Fluid overload, unspecified Is this a current diagnosis for this admission?: Yes - Time Critical Time spent with patient: 25-34 minutes
[2017-01-12] MEDS: POLYETHYLENE GLYCOL 3350 POWDER 17 GM/1 PACKET NG SCH (09:21)
[2017-01-12] MEDS: FAMOTIDINE 20 MG TABLET NG SCH ×2 (09:22→21:51)
[2017-01-12] MEDS: LACTOBACILLUS ACIDOPHILUS 250 MG TAB NG SCH ×2 (09:22→17:13)
[2017-01-12] MEDS: FUROSEMIDE INJ/PF 20 MG/2 ML SDV IV SCH (09:23)
--- NOTE | 2017-01-12 09:59 | PDOC PROGRESS REPORT ---
Subjective Progress Note for:: 01/12/17 Subjective:: Still with diarrhea likely related to tube feedings, Clostridium difficile toxin was negative as reported. No temperature spikes, respiratory distress, nausea or vomiting. Remains intubated on sedation. Physical Exam Vital Signs: Temp Pulse Resp BP Pulse Ox 97.0 F 85 18 110/57 L 96 01/12/17 09:00 01/12/17 08:00 01/12/17 09:00 01/12/17 08:53 01/12/17 09:00 Intake & Output 01/11/17 01/12/17 01/13/17 06:59 06:59 06:59 Intake Total 4250 1117 Output Total 1650 4095 150 Balance 9260 -6509 -150 Weight 85.5 kg 85.6 kg General appearance: PRESENT: no acute distress, other - Sedated and intubated Head exam: PRESENT: normocephalic Eye exam: PRESENT: conjunctiva pale Mouth exam: PRESENT: moist, neck supple Neck exam: ABSENT: JVD Respiratory exam: PRESENT: clear to auscultation kenrick - Posteriorly, rales - Dry on the bases. ABSENT: rhonchi, wheezes Cardiovascular exam: PRESENT: RRR. ABSENT: gallop GI/Abdominal exam: PRESENT: distended - Obese, hyperactive bowel sounds, soft Extremities exam: PRESENT: other - Trace lower extremity edema Skin exam: PRESENT: dry, warm. ABSENT: cyanosis Results Laboratory Results: 01/12/17 06:00 01/12/17 06:00 01/12/17 01/12/17 06:00 06:00 WBC 24.8 H RBC 3.59 L Hgb 10.7 L Hct 32.6 L MCV 91 MCH 29.7 MCHC 32.7 RDW 14.6 H Plt Count 217 Seg Neutrophils % Not Reportable Lymphocytes % Not Reportable Monocytes % Not Reportable Eosinophils % Not Reportable Basophils % Not Reportable Absolute Neutrophils Not Reportable Absolute Lymphocytes Not Reportable Absolute Monocytes Not Reportable Absolute Eosinophils Not Reportable Absolute Basophils Not Reportable Sodium 141.0 Potassium 3.4 L Chloride 107 Carbon Dioxide 29 Anion Gap 5 BUN 30 H Creatinine 0.76 Est GFR ( Amer) > 60 Est GFR (Non-Af Amer) > 60 Glucose 134 H Calcium 8.2 L 01/10/17 12:00 Tracheal Aspirate Gram Stain - Final 01/10/17 12:00 Tracheal Aspirate Sputum Culture - Final Yeast, Not Cherri Albicans Normal Jordyn Absent 01/10/17 15:50 Bronchial Washings Gram Stain - Final 01/10/17 15:50 Bronchial Washings Bronchial Washings Culture - Final Yeast, Not Cherri Albicans Normal Jordyn Absent 01/09/17 10:35 Catheterized Urine Urine Culture - Final NO GROWTH 2 DAYS 12/31/16 01/02/17 07:16 04:26 NT-Pro-B Natriuret Pep 160 127 Impressions: Chest/Abdomen CTA 01/01/17 00:00 IMPRESSION: Emphysematous changes. Postsurgical changes in the right upper lobe. Minimal infiltrate in the left base could represent atelectasis or developing pneumonia. . Chest X-Ray 01/11/17 06:00 IMPRESSION: STABLE APPEARANCE. NO ACUTE FINDINGS. Assessment & Plan - Diagnosis (1) Acute hypoxemic respiratory failure Is this a current diagnosis for this admission?: Yes (2) Sepsis Qualifiers: Sepsis type: sepsis due to unspecified organism Qualified Code(s): A41.9 - Sepsis, unspecified organism Is this a current diagnosis for this admission?: Yes (3) COPD exacerbation Is this a current diagnosis for this admission?: Yes (4) Acute diastolic (congestive) heart failure Is this a current diagnosis for this admission?: Yes (5) Hypertension Qualifiers: Hypertension type: essential hypertension Qualified Code(s): I10 - Essential (primary) hypertension Is this a current diagnosis for this admission?: Yes (6) Hypothyroidism Qualifiers: Hypothyroidism type: unspecified Qualified Code(s): E03.9 - Hypothyroidism, unspecified Is this a current diagnosis for this admission?: Yes (7) Obesity Qualifiers: Obesity type: due to excess calories Obesity severity: non-morbid Qualified Code(s): E66.09 - Other obesity due to excess calories Is this a current diagnosis for this admission?: Yes (8) Pulmonary hypertension Is this a current diagnosis for this admission?: Yes (9) Trichomonas vaginitis Is this a current diagnosis for this admission?: Yes - Time Time Spent with patient: 25-34 minutes - Plan Summary Plan Summary: Continue current antibiotics. Cultures remain negative. WBC seems to be trending down. No reported temperature spikes. Replace electrolytes, recheck potassium and magnesium in the morning. Monitor WBC. Continue supportive care. Weaning per pulmonary service.
[2017-01-12] MEDS: TIOTROPIUM BROMIDE DPI 5 CAP/KIT (18 MCG/CAP) IH SCH (10:07)
[2017-01-12] MEDS: AMLODIPINE BESYLATE 5 MG TABLET NG SCH (10:07)
[2017-01-12] MEDS: POTASSI CL 20 MEQ/50 ML RIDER 20 MEQ/50 ML RTUPB IV SCH ×3 (11:03→15:55)
[2017-01-12] MEDS: LEVALBUTEROL HCL NEB 1.25 MG/3 ML AMPUL NEB PRN (21:15)
[2017-01-12] MEDS: LORATADINE 10 MG TABLET NG SCH (21:51)
[2017-01-12] MEDS: MONTELUKAST SODIUM 10 MG TABLET NG SCH (21:51)
[2017-01-13] MEDS: PROPOFOL 100 ML IV PRN ×7 (00:46→22:27)
[2017-01-13] MEDS: GUAIFENESIN SYRP 200 MG/10 ML UDC PO SCH ×6 (03:20→22:25)
[2017-01-13] MEDS: ACYCLOVIR SODIUM 800 MG in NORMAL SALINE 250 ML IV SCH ×3 (04:18→20:26)
[2017-01-13] MEDS: LEVOTHYROXINE SODIUM 0.15 MG TABLET NG SCH (05:56)
[2017-01-13] MEDS: IMIPENEM/CILASTATIN SODIUM 500 MG in NORMAL SALINE 100 ML IV SCH ×4 (05:57→23:30)
[2017-01-13] MEDS: THEOPHYLLINE ANHYDROUS 80 MG/15 ML NG SCH ×4 (05:57→23:30)
[2017-01-13] MEDS: METHYLPREDNISOLONE INJ 125 MG/2 ML SDV IV SCH ×3 (05:57→22:26)
[2017-01-13] MEDS: UDCUP NG SCH ×4 (05:57→23:30)
[2017-01-13 06:23] LABS: ARTERIAL BLOOD BASE EXCESS 0.3 mmol/L; ARTERIAL BLOOD O2 SATURATION 94.2 % (94-98)
[2017-01-13 06:31] LABS: HEMATOCRIT 33.2 % (36.0-47.0); HEMOGLOBIN 11.1 g/dL (12.0-15.5); HGB HCT DIFFERENCE 0.1; MEAN CORPUSCULAR HEMOGLOBIN 30.3 pg (27.0-33.4); MEAN CORPUSCULAR HGB CONC 33.4 g/dL (32.0-36.0); MEAN CORPUSCULAR VOLUME 91 fl (80-97); RED BLOOD COUNT 3.65 10^6/uL (3.72-5.28); RED CELL DISTRIBUTION WIDTH 14.7 % (11.5-14.0); WHITE BLOOD COUNT 21.2 10^3/uL (4.0-10.5)
[2017-01-13 06:43] LABS: BLOOD UREA NITROGEN 28 mg/dL (7-20); CALCIUM 8.4 mg/dL (8.4-10.2); CARBON DIOXIDE 29 mmol/L (22-30); CHLORIDE 109 mmol/L (98-107); CREATININE RESULT 0.75 mg/dL (0.52-1.25); GLUCOSE 102 mg/dL (75-110); MAGNESIUM 2.4 mg/dL (1.6-2.3); PHOSPHORUS 3.5 mg/dL (2.5-4.5); POTASSIUM 4.1 mmol/L (3.6-5.0)
[2017-01-13 07:14] LABS: SODIUM 142.1 mmol/L (137-145)
[2017-01-13 07:16] LABS: ANION GAP 4 (5-19)
[2017-01-13 07:33] LABS: BAND NEUTROPHILS % (MANUAL) 3 % (3-5); BASOPHILS % (MANUAL) 0 % (0-2); EOSINOPHILS % (MANUAL) 0 % (0-6); LYMPHOCYTES % (MANUAL) 16 % (13-45); NUCLEATED RED BLOOD CELLS 1 /100 WBC (0); TOTAL CELLS COUNTED 100
[2017-01-13 07:34] LABS: HYPOCHROMASIA SLIGHT
[2017-01-13] MEDS: ENOXAPARIN SODIUM INJ 40 MG/0.4 ML DISP.SYRIN SUBCUT SCH (08:18)
[2017-01-13] MEDS: LORAZEPAM INJ 2 MG/1 ML VIAL IV PRN ×2 (08:18→15:09)
[2017-01-13] MEDS: TOBRAMYCIN SULFATE NEB 40 MG/ML 30 ML NEB SCH ×2 (08:28→20:17)
[2017-01-13] MEDS: LEVALBUTEROL HCL NEB 1.25 MG/3 ML AMPUL NEB PRN ×2 (08:29→20:17)
[2017-01-13] MEDS: BUDESONIDE NEB 0.5 MG/2 ML AMPUL NEB SCH ×2 (08:29→20:16)
--- NOTE | 2017-01-13 09:03 | PDOC PROGRESS REPORT ---
Subjective Progress Note for:: 01/13/17 Subjective:: Patient reportedly with some weight gain, urine output positive balance this morning, no reported temperature spikes, respiratory distress, increasing diarrhea. Tolerating tube feedings. Lung sounds however more rhonchi's were noted. Physical Exam Vital Signs: Temp Pulse Resp BP Pulse Ox 97.2 F 118 H 20 120/66 96 01/13/17 08:00 01/13/17 08:00 01/13/17 08:00 01/13/17 08:00 01/13/17 08:00 Intake & Output 01/12/17 01/13/17 01/14/17 06:59 06:59 06:59 Intake Total 1117 3664 Output Total 4095 3630 650 Balance -2978 34 -650 Weight 85.6 kg 89 kg General appearance: PRESENT: no acute distress, morbidly obese, other - Sedated and intubated Head exam: PRESENT: normocephalic Eye exam: PRESENT: conjunctiva pink Mouth exam: PRESENT: moist, neck supple Neck exam: ABSENT: JVD Respiratory exam: PRESENT: rhonchi - Scattered bilateral Cardiovascular exam: PRESENT: RRR. ABSENT: gallop GI/Abdominal exam: PRESENT: hyperactive bowel sounds, soft. ABSENT: distended - Obese, tenderness Extremities exam: PRESENT: +1 edema Psychiatric exam: ABSENT: agitated Focused psych exam: ABSENT: restlessness Skin exam: PRESENT: dry, warm. ABSENT: cyanosis Results Laboratory Results: 01/13/17 06:00 01/13/17 06:00 01/13/17 01/13/17 01/13/17 06:00 06:00 06:00 WBC 21.2 H RBC 3.65 L Hgb 11.1 L Hct 33.2 L MCV 91 MCH 30.3 MCHC 33.4 RDW 14.7 H Plt Count 208 Seg Neutrophils % Not Reportable Lymphocytes % Not Reportable Monocytes % Not Reportable Eosinophils % Not Reportable Basophils % Not Reportable Absolute Neutrophils Not Reportable Absolute Lymphocytes Not Reportable Absolute Monocytes Not Reportable Absolute Eosinophils Not Reportable Absolute Basophils Not Reportable Carbonic Acid 1.31 HCO3/H2CO3 Ratio 19:1 ABG pH 7.39 ABG pCO2 43.6 ABG pO2 71.7 L ABG HCO3 25.6 ABG O2 Saturation 94.2 ABG Base Excess 0.3 FiO2 28% Sodium 142.1 Potassium 4.1 Chloride 109 H Carbon Dioxide 29 Anion Gap 4 L BUN 28 H Creatinine 0.75 Est GFR ( Amer) > 60 Est GFR (Non-Af Amer) > 60 Glucose 102 Calcium 8.4 Phosphorus 3.5 Magnesium 2.4 H 01/10/17 12:00 Tracheal Aspirate Gram Stain - Final 01/10/17 12:00 Tracheal Aspirate Sputum Culture - Final Yeast, Not Cherri Albicans Normal Jordyn Absent 01/10/17 15:50 Bronchial Washings Gram Stain - Final 01/10/17 15:50 Bronchial Washings Bronchial Washings Culture - Final Yeast, Not Cherri Albicans Normal Jordyn Absent 12/31/16 01/02/17 07:16 04:26 NT-Pro-B Natriuret Pep 160 127 Impressions: Chest/Abdomen CTA 01/01/17 00:00 IMPRESSION: Emphysematous changes. Postsurgical changes in the right upper lobe. Minimal infiltrate in the left base could represent atelectasis or developing pneumonia. . Chest X-Ray 01/13/17 06:00 IMPRESSION: Minimal right basilar atelectasis. No other significant changes. Support lines and tubes remain in satisfactory position. Assessment & Plan - Diagnosis (1) Acute hypoxemic respiratory failure Is this a current diagnosis for this admission?: Yes (2) Sepsis Qualifiers: Sepsis type: sepsis due to unspecified organism Qualified Code(s): A41.9 - Sepsis, unspecified organism Is this a current diagnosis for this admission?: Yes (3) COPD exacerbation Is this a current diagnosis for this admission?: Yes (4) Acute diastolic (congestive) heart failure Is this a current diagnosis for this admission?: Yes (5) Hypertension Qualifiers: Hypertension type: essential hypertension Qualified Code(s): I10 - Essential (primary) hypertension Is this a current diagnosis for this admission?: Yes (6) Hypothyroidism Qualifiers: Hypothyroidism type: unspecified Qualified Code(s): E03.9 - Hypothyroidism, unspecified Is this a current diagnosis for this admission?: Yes (7) Obesity Qualifiers: Obesity type: due to excess calories Obesity severity: non-morbid Qualified Code(s): E66.09 - Other obesity due to excess calories Is this a current diagnosis for this admission?: Yes (8) Pulmonary hypertension Is this a current diagnosis for this admission?: Yes (9) Trichomonas vaginitis Is this a current diagnosis for this admission?: Yes - Time Time Spent with patient: 25-34 minutes - Plan Summary Plan Summary: Continue current antibiotics, WBC continues to trend down. We will continue to monitor. In the meantime I am going to give extra dose of Lasix today, increase Lasix to 40 mg IV daily. Plan is to try to extubate in the morning as reported. So far cultures remain negative. Continue other medications and supportive care.
[2017-01-13] MEDS: POLYETHYLENE GLYCOL 3350 POWDER 17 GM/1 PACKET NG SCH (09:30)
[2017-01-13] MEDS ORDERED: FUROSEMIDE INJ/PF 40 MG/4 ML SDV IV ONE (09:30)
[2017-01-13] MEDS: FAMOTIDINE 20 MG TABLET NG SCH ×2 (09:31→22:25)
[2017-01-13] MEDS: LACTOBACILLUS ACIDOPHILUS 250 MG TAB NG SCH ×2 (09:31→17:05)
[2017-01-13] MEDS: AMLODIPINE BESYLATE 5 MG TABLET NG SCH (09:31)
[2017-01-13] MEDS: TIOTROPIUM BROMIDE DPI 5 CAP/KIT (18 MCG/CAP) IH SCH (11:11)
--- NOTE | 2017-01-13 18:00 | PDOC PROGRESS REPORT ---
Subjective Progress Note for:: 01/13/17 Subjective:: Intubated and sedated Physical Exam Vital Signs: Temp Pulse Resp BP Pulse Ox 96.4 F L 102 H 22 H 118/59 L 92 01/13/17 10:00 01/13/17 10:00 01/13/17 10:00 01/13/17 10:00 01/13/17 10:00 Intake & Output 01/12/17 01/13/17 01/14/17 06:59 06:59 06:59 Intake Total 1117 3664 Output Total 4095 3630 1025 Balance -2978 34 -1025 Weight 85.6 kg 89 kg General appearance: PRESENT: no acute distress, disheveled, obese Head exam: PRESENT: atraumatic, normocephalic Eye exam: PRESENT: conjunctiva pale Mouth exam: PRESENT: dry mucosa, neck supple, other - ET tube Neck exam: ABSENT: carotid bruit, JVD, lymphadenopathy, thyromegaly Respiratory exam: PRESENT: crackles, decreased breath sounds, prolonged expiratory phas, unlabored Cardiovascular exam: PRESENT: RRR, +S1, +S2 Pulses: PRESENT: +1 pedal pulses bilateral GI/Abdominal exam: PRESENT: normal bowel sounds, soft. ABSENT: distended, guarding, mass, organolmegaly, rebound, tenderness Rectal exam: PRESENT: deferred Gentrourinary exam: PRESENT: indwelling catheter Extremities exam: PRESENT: +2 edema Skin exam: PRESENT: dry, warm Results Laboratory Results: 01/13/17 06:00 01/13/17 06:00 01/13/17 01/13/17 01/13/17 06:00 06:00 06:00 WBC 21.2 H RBC 3.65 L Hgb 11.1 L Hct 33.2 L MCV 91 MCH 30.3 MCHC 33.4 RDW 14.7 H Plt Count 208 Seg Neutrophils % Not Reportable Lymphocytes % Not Reportable Monocytes % Not Reportable Eosinophils % Not Reportable Basophils % Not Reportable Absolute Neutrophils Not Reportable Absolute Lymphocytes Not Reportable Absolute Monocytes Not Reportable Absolute Eosinophils Not Reportable Absolute Basophils Not Reportable Carbonic Acid 1.31 HCO3/H2CO3 Ratio 19:1 ABG pH 7.39 ABG pCO2 43.6 ABG pO2 71.7 L ABG HCO3 25.6 ABG O2 Saturation 94.2 ABG Base Excess 0.3 FiO2 28% Sodium 142.1 Potassium 4.1 Chloride 109 H Carbon Dioxide 29 Anion Gap 4 L BUN 28 H Creatinine 0.75 Est GFR ( Amer) > 60 Est GFR (Non-Af Amer) > 60 Glucose 102 Calcium 8.4 Phosphorus 3.5 Magnesium 2.4 H 01/10/17 12:00 Tracheal Aspirate Gram Stain - Final 01/10/17 12:00 Tracheal Aspirate Sputum Culture - Final Yeast, Not Cherri Albicans Normal Jordyn Absent 01/10/17 15:50 Bronchial Washings Gram Stain - Final 01/10/17 15:50 Bronchial Washings Bronchial Washings Culture - Final Yeast, Not Cherri Albicans Normal Jordyn Absent 12/31/16 01/02/17 07:16 04:26 NT-Pro-B Natriuret Pep 160 127 Impressions: Chest/Abdomen CTA 01/01/17 00:00 IMPRESSION: Emphysematous changes. Postsurgical changes in the right upper lobe. Minimal infiltrate in the left base could represent atelectasis or developing pneumonia. . Chest X-Ray 01/13/17 06:00 IMPRESSION: Minimal right basilar atelectasis. No other significant changes. Support lines and tubes remain in satisfactory position. Assessment & Plan - Diagnosis (1) Acute hypercapnic respiratory failure Is this a current diagnosis for this admission?: Yes (2) Acute hypoxemic respiratory failure Is this a current diagnosis for this admission?: Yes (3) COPD exacerbation Is this a current diagnosis for this admission?: YesPlan: WBC slowly decreasing (4) Hypothyroidism Qualifiers: Hypothyroidism type: unspecified Qualified Code(s): E03.9 - Hypothyroidism, unspecified Is this a current diagnosis for this admission?: Yes (5) Pulmonary hypertension Is this a current diagnosis for this admission?: Yes (6) Volume overload Qualifiers: Hypervolemia type: unspecified Qualified Code(s): E87.70 - Fluid overload, unspecified Is this a current diagnosis for this admission?: Yes - Time Critical Time spent with patient: 35 or more minutes
[2017-01-13] MEDS: LORATADINE 10 MG TABLET NG SCH (22:25)
[2017-01-13] MEDS: MONTELUKAST SODIUM 10 MG TABLET NG SCH (22:25)
[2017-01-14] MEDS: PROPOFOL 100 ML IV PRN ×5 (01:44→21:52)
[2017-01-14] MEDS: GUAIFENESIN SYRP 200 MG/10 ML UDC PO SCH ×6 (02:52→21:51)
[2017-01-14] MEDS: ACYCLOVIR SODIUM 800 MG in NORMAL SALINE 250 ML IV SCH ×3 (05:28→21:50)
[2017-01-14] MEDS: THEOPHYLLINE ANHYDROUS 80 MG/15 ML NG SCH ×3 (05:28→17:27)
[2017-01-14] MEDS: UDCUP NG SCH ×3 (05:28→17:27)
[2017-01-14] MEDS: METHYLPREDNISOLONE INJ 125 MG/2 ML SDV IV SCH ×3 (05:29→21:51)
[2017-01-14] MEDS: LEVOTHYROXINE SODIUM 0.15 MG TABLET NG SCH (05:29)
[2017-01-14] MEDS: IMIPENEM/CILASTATIN SODIUM 500 MG in NORMAL SALINE 100 ML IV SCH ×3 (05:29→17:28)
[2017-01-14 06:04] LABS: HEMATOCRIT 36.3 % (36.0-47.0); HEMOGLOBIN 12.1 g/dL (12.0-15.5); MEAN CORPUSCULAR HEMOGLOBIN 30.1 pg (27.0-33.4); MEAN CORPUSCULAR HGB CONC 33.4 g/dL (32.0-36.0); MEAN CORPUSCULAR VOLUME 90 fl (80-97); RED BLOOD COUNT 4.02 10^6/uL (3.72-5.28); RED CELL DISTRIBUTION WIDTH 14.9 % (11.5-14.0); WHITE BLOOD COUNT 20.8 10^3/uL (4.0-10.5)
[2017-01-14 06:21] LABS: ARTERIAL BLOOD BASE EXCESS 0.4 mmol/L; ARTERIAL BLOOD O2 SATURATION 91.6 % (94-98)
[2017-01-14 06:23] LABS: ANION GAP 8 (5-19); BLOOD UREA NITROGEN 20 mg/dL (7-20); CALCIUM 8.5 mg/dL (8.4-10.2); CARBON DIOXIDE 29 mmol/L (22-30); CHLORIDE 106 mmol/L (98-107); CREATININE RESULT 0.74 mg/dL (0.52-1.25); GLUCOSE 109 mg/dL (75-110); MAGNESIUM 2.2 mg/dL (1.6-2.3); POTASSIUM 3.8 mmol/L (3.6-5.0); SODIUM 142.5 mmol/L (137-145); TRIGLYCERIDES 190 mg/dL (<150)
[2017-01-14] MEDS: BUDESONIDE NEB 0.5 MG/2 ML AMPUL NEB SCH ×2 (07:46→19:27)
[2017-01-14] MEDS: TOBRAMYCIN SULFATE NEB 40 MG/ML 30 ML NEB SCH ×2 (07:54→19:27)
--- NOTE | 2017-01-14 08:18 | PDOC PROGRESS REPORT ---
Subjective Progress Note for:: 01/14/17 Subjective:: Patient remained on the vent. On rectal tube. Clostridium difficile toxin was negative. WBC slowly trending down. Patient difficult to wean, getting tachycardic and hypoxic as reported. Failed extubation before. On 12 days on the ventilator since reintubated. No temperature spikes reported. Patient sedated. 1300 mL of negative balance today. Physical Exam Vital Signs: Temp Pulse Resp BP Pulse Ox 99.1 F 98 21 H 148/65 H 93 01/14/17 06:24 01/13/17 20:15 01/14/17 06:24 01/14/17 06:24 01/14/17 06:24 Intake & Output 01/13/17 01/14/17 01/15/17 06:59 06:59 06:59 Intake Total 3664 3896 Output Total 3630 5195 Balance 34 -1299 Weight 89 kg 88.8 kg General appearance: PRESENT: no acute distress, obese, other - Intubated and sedated Head exam: PRESENT: normocephalic Eye exam: PRESENT: conjunctiva pink Mouth exam: PRESENT: moist, neck supple Neck exam: ABSENT: JVD Respiratory exam: PRESENT: rhonchi - Scattered bilateral Cardiovascular exam: PRESENT: RRR, tachycardia GI/Abdominal exam: PRESENT: hyperactive bowel sounds, soft. ABSENT: distended, tenderness Extremities exam: PRESENT: +1 edema Skin exam: PRESENT: dry, warm. ABSENT: cyanosis Results Laboratory Results: 01/14/17 05:30 01/14/17 05:30 01/14/17 01/14/17 01/14/17 05:30 05:30 05:30 WBC 20.8 H RBC 4.02 Hgb 12.1 Hct 36.3 MCV 90 MCH 30.1 MCHC 33.4 RDW 14.9 H Plt Count 227 Carbonic Acid 1.13 HCO3/H2CO3 Ratio 21:1 ABG pH 7.43 ABG pCO2 37.6 ABG pO2 59.5 L ABG HCO3 24.4 ABG O2 Saturation 91.6 L ABG Base Excess 0.4 FiO2 38% Sodium 142.5 Potassium 3.8 Chloride 106 Carbon Dioxide 29 Anion Gap 8 BUN 20 Creatinine 0.74 Est GFR ( Amer) > 60 Est GFR (Non-Af Amer) > 60 Glucose 109 Calcium 8.5 Phosphorus 3.0 Magnesium 2.2 Triglycerides 190 H 12/31/16 01/02/17 07:16 04:26 NT-Pro-B Natriuret Pep 160 127 Impressions: Chest/Abdomen CTA 01/01/17 00:00 IMPRESSION: Emphysematous changes. Postsurgical changes in the right upper lobe. Minimal infiltrate in the left base could represent atelectasis or developing pneumonia. . Assessment & Plan - Diagnosis (1) Acute hypoxemic respiratory failure Is this a current diagnosis for this admission?: Yes (2) Sepsis Qualifiers: Sepsis type: sepsis due to unspecified organism Qualified Code(s): A41.9 - Sepsis, unspecified organism Is this a current diagnosis for this admission?: Yes (3) Pneumonia Qualifiers: Pneumonia type: due to unspecified organism Laterality: unspecified laterality Lung location: unspecified part of lung Qualified Code(s): J18.9 - Pneumonia, unspecified organism Is this a current diagnosis for this admission?: Yes (4) COPD exacerbation Is this a current diagnosis for this admission?: Yes (5) Acute diastolic (congestive) heart failure Is this a current diagnosis for this admission?: Yes (6) Hypertension Qualifiers: Hypertension type: essential hypertension Qualified Code(s): I10 - Essential (primary) hypertension Is this a current diagnosis for this admission?: Yes (7) Hypothyroidism Qualifiers: Hypothyroidism type: unspecified Qualified Code(s): E03.9 - Hypothyroidism, unspecified Is this a current diagnosis for this admission?: Yes (8) Obesity Qualifiers: Obesity type: due to excess calories Obesity severity: non-morbid Qualified Code(s): E66.09 - Other obesity due to excess calories Is this a current diagnosis for this admission?: Yes (9) Pulmonary hypertension Is this a current diagnosis for this admission?: Yes (10) Trichomonas vaginitis Is this a current diagnosis for this admission?: Yes - Time Time Spent with patient: 25-34 minutes - Plan Summary Plan Summary: Weaning per pulmonary service. We will check TSH and free T4, as well as theophylline level. Routine chest x-ray in the morning. Monitor electrolytes and WBC. Continue antibiotics. Continue supportive care. Follow cultures.
[2017-01-14] MEDS: FAMOTIDINE 20 MG TABLET NG SCH ×2 (09:42→21:51)
[2017-01-14] MEDS: ENOXAPARIN SODIUM INJ 40 MG/0.4 ML DISP.SYRIN SUBCUT SCH (09:42)
[2017-01-14] MEDS: AMLODIPINE BESYLATE 5 MG TABLET NG SCH (09:42)
[2017-01-14] MEDS: LACTOBACILLUS ACIDOPHILUS 250 MG TAB NG SCH ×2 (09:44→17:28)
[2017-01-14] MEDS: POLYETHYLENE GLYCOL 3350 POWDER 17 GM/1 PACKET NG SCH (09:50)
[2017-01-14] MEDS: TIOTROPIUM BROMIDE DPI 5 CAP/KIT (18 MCG/CAP) IH SCH (09:50)
[2017-01-14] MEDS ORDERED: FUROSEMIDE INJ/PF 20 MG/2 ML SDV IV SCH (10:00)
[2017-01-14] MEDS: IPRATROPIUM/ALBUTEROL 0.5-2.5 MG/3 ML AMPUL NEB PRN (13:25)
--- NOTE | 2017-01-14 14:24 | PDOC PROGRESS REPORT ---
Subjective Progress Note for:: 01/14/17 Subjective:: Intubated and sedated Physical Exam Vital Signs: Temp Pulse Resp BP Pulse Ox 99.1 F 98 21 H 148/65 H 93 01/14/17 06:24 01/13/17 20:15 01/14/17 06:24 01/14/17 06:24 01/14/17 06:24 Intake & Output 01/13/17 01/14/17 01/15/17 06:59 06:59 06:59 Intake Total 3664 3896 Output Total 3631 5195 Balance 34 -1299 Weight 89 kg 88.8 kg General appearance: PRESENT: no acute distress, disheveled, obese Head exam: PRESENT: atraumatic, normocephalic Eye exam: PRESENT: conjunctiva pale Mouth exam: PRESENT: moist, neck supple, other - ET tube Neck exam: ABSENT: carotid bruit, JVD, lymphadenopathy, thyromegaly Respiratory exam: PRESENT: decreased breath sounds, prolonged expiratory phas, rales, rhonchi, symmetrical, unlabored Cardiovascular exam: PRESENT: RRR, rubs, +S2 Pulses: PRESENT: normal radial pulses GI/Abdominal exam: PRESENT: hypoactive bowel sounds, normal bowel sounds, soft. ABSENT: distended, guarding, mass, organolmegaly, rebound, tenderness Rectal exam: PRESENT: deferred Gentrourinary exam: PRESENT: indwelling catheter Musculoskeletal exam: PRESENT: normal inspection Skin exam: PRESENT: dry, warm Results Laboratory Results: 01/14/17 05:30 01/14/17 05:30 01/14/17 01/14/17 01/14/17 05:30 05:30 05:30 WBC 20.8 H RBC 4.02 Hgb 12.1 Hct 36.3 MCV 90 MCH 30.1 MCHC 33.4 RDW 14.9 H Plt Count 227 Carbonic Acid 1.13 HCO3/H2CO3 Ratio 21:1 ABG pH 7.43 ABG pCO2 37.6 ABG pO2 59.5 L ABG HCO3 24.4 ABG O2 Saturation 91.6 L ABG Base Excess 0.4 FiO2 38% Sodium 142.5 Potassium 3.8 Chloride 106 Carbon Dioxide 29 Anion Gap 8 BUN 20 Creatinine 0.74 Est GFR ( Amer) > 60 Est GFR (Non-Af Amer) > 60 Glucose 109 Calcium 8.5 Phosphorus 3.0 Magnesium 2.2 Triglycerides 190 H 12/31/16 01/02/17 07:16 04:26 NT-Pro-B Natriuret Pep 160 127 Impressions: Chest/Abdomen CTA 01/01/17 00:00 IMPRESSION: Emphysematous changes. Postsurgical changes in the right upper lobe. Minimal infiltrate in the left base could represent atelectasis or developing pneumonia. . Assessment & Plan - Diagnosis (1) Acute hypercapnic respiratory failure Is this a current diagnosis for this admission?: Yes (2) Acute hypoxemic respiratory failure Is this a current diagnosis for this admission?: Yes (3) COPD exacerbation Is this a current diagnosis for this admission?: Yes (4) Hypothyroidism Qualifiers: Hypothyroidism type: unspecified Qualified Code(s): E03.9 - Hypothyroidism, unspecified Is this a current diagnosis for this admission?: Yes (5) Pulmonary hypertension Is this a current diagnosis for this admission?: Yes (6) Volume overload Qualifiers: Hypervolemia type: unspecified Qualified Code(s): E87.70 - Fluid overload, unspecified Is this a current diagnosis for this admission?: Yes - Time Critical Time spent with patient: 35 or more minutes
[2017-01-14 14:52] LABS: THYROID STIMULATING HORMONE 0.2 uIU/mL (0.47-4.68)
[2017-01-14] MEDS ORDERED: NOREPINEPHRINE BITARTRATE INJ/PF 4 MG/4 ML SDV IV ONE (15:36)
[2017-01-14] MEDS ORDERED: DEXTROSE 5%-WATER 250 ML with NOREPINEPHRINE BITARTRATE 4 MG IV PRN ×2 (16:13)
[2017-01-14] MEDS: MONTELUKAST SODIUM 10 MG TABLET NG SCH (21:51)
[2017-01-14] MEDS: LORATADINE 10 MG TABLET NG SCH (21:51)
[2017-01-14] MEDS: NORMAL SALINE 1000 ML 1,000 ML IV PRN (21:52)
[2017-01-15] MEDS: UDCUP NG SCH ×5 (00:02→23:11)
[2017-01-15] MEDS: THEOPHYLLINE ANHYDROUS 80 MG/15 ML NG SCH ×5 (00:02→23:11)
[2017-01-15] MEDS: IMIPENEM/CILASTATIN SODIUM 500 MG in NORMAL SALINE 100 ML IV SCH ×2 (00:03→06:10)
[2017-01-15] MEDS: INSULIN LISPRO 100 UNIT/ML 3 ML VIAL SUBCUT PRN (00:04)
[2017-01-15] MEDS: PROPOFOL 100 ML IV PRN ×2 (01:45→04:36)
[2017-01-15] MEDS: GUAIFENESIN SYRP 200 MG/10 ML UDC PO SCH ×6 (01:45→22:31)
[2017-01-15] MEDS: IPRATROPIUM/ALBUTEROL 0.5-2.5 MG/3 ML AMPUL NEB PRN ×2 (03:42→20:34)
[2017-01-15] MEDS: ACYCLOVIR SODIUM 800 MG in NORMAL SALINE 250 ML IV SCH ×3 (04:37→20:12)
[2017-01-15] MEDS: METHYLPREDNISOLONE INJ 125 MG/2 ML SDV IV SCH ×3 (06:11→22:28)
[2017-01-15] MEDS: LEVOTHYROXINE SODIUM 0.15 MG TABLET NG SCH (06:12)
[2017-01-15 06:13] LABS: ARTERIAL BLOOD BASE EXCESS 2.4 mmol/L; ARTERIAL BLOOD O2 SATURATION 97.7 % (94-98)
[2017-01-15 06:19] LABS: HEMATOCRIT 33.7 % (36.0-47.0); HEMOGLOBIN 11.5 g/dL (12.0-15.5); HGB HCT DIFFERENCE 0.8; MEAN CORPUSCULAR HEMOGLOBIN 30.3 pg (27.0-33.4); MEAN CORPUSCULAR HGB CONC 34.2 g/dL (32.0-36.0); MEAN CORPUSCULAR VOLUME 89 fl (80-97); RED CELL DISTRIBUTION WIDTH 14.3 % (11.5-14.0); WHITE BLOOD COUNT 13.7 10^3/uL (4.0-10.5)
[2017-01-15 06:28] LABS: ANION GAP 8 (5-19); BLOOD UREA NITROGEN 23 mg/dL (7-20); CALCIUM 8.4 mg/dL (8.4-10.2); CARBON DIOXIDE 27 mmol/L (22-30); CHLORIDE 105 mmol/L (98-107); CREATININE RESULT 0.74 mg/dL (0.52-1.25); GLUCOSE 182 mg/dL (75-110); MAGNESIUM 2.2 mg/dL (1.6-2.3); POTASSIUM 3.8 mmol/L (3.6-5.0); SODIUM 139.8 mmol/L (137-145)
[2017-01-15] MEDS: BUDESONIDE NEB 0.5 MG/2 ML AMPUL NEB SCH ×2 (07:59→20:35)
[2017-01-15] MEDS: TOBRAMYCIN SULFATE NEB 40 MG/ML 30 ML NEB SCH ×2 (07:59→20:35)
[2017-01-15] MEDS ORDERED: LOPERAMIDE HCL ORAL SOLN 1 MG/5 ML UDC NG PRN (08:19)
[2017-01-15] MEDS ORDERED: NORMAL SALINE 1000 ML 1,000 ML IV PRN (08:22)
[2017-01-15] MEDS ORDERED: OLANZAPINE 5 MG TAB.RAPDIS NG PRN (08:23)
[2017-01-15 08:44] LABS: ARTERIAL BLOOD BASE EXCESS 2.4 mmol/L; ARTERIAL BLOOD O2 SATURATION 97.9 % (94-98)
[2017-01-15] MEDS ORDERED: BENZONATATE 100 MG CAPSULE PO PRN (08:44)
[2017-01-15] MEDS: ENOXAPARIN SODIUM INJ 40 MG/0.4 ML DISP.SYRIN SUBCUT SCH (08:52)
[2017-01-15] MEDS ORDERED: DEXAMETHASONE SOD PHOSPHATE INJ 4 MG/1 ML VIAL IV ONE (08:59)
[2017-01-15] MEDS: FUROSEMIDE INJ/PF 20 MG/2 ML SDV IV SCH ×2 (09:01→22:28)
[2017-01-15] MEDS: LACTOBACILLUS ACIDOPHILUS 250 MG TAB NG SCH ×2 (09:06→17:10)
[2017-01-15] MEDS: AMLODIPINE BESYLATE 5 MG TABLET NG SCH (09:11)
[2017-01-15] MEDS: LORAZEPAM INJ 2 MG/1 ML VIAL IV PRN (09:11)
[2017-01-15] MEDS: FAMOTIDINE 20 MG TABLET NG SCH ×2 (09:12→22:31)
[2017-01-15] MEDS ORDERED: RACEPINEPHRINE HCL 2.25% NEB 0.5 ML AMPUL NEB ONE (09:30)
[2017-01-15] MEDS: TIOTROPIUM BROMIDE DPI 5 CAP/KIT (18 MCG/CAP) IH SCH (09:30)
[2017-01-15] MEDS: POLYETHYLENE GLYCOL 3350 POWDER 17 GM/1 PACKET NG SCH (09:30)
[2017-01-15] MEDS ORDERED: DEXAMETHASONE SOD PHOS INJ 10 MG/1 ML VIAL IV ONE (09:45)
[2017-01-15 11:10] LABS: ARTERIAL BLOOD BASE EXCESS -1.1 mmol/L; ARTERIAL BLOOD O2 SATURATION 98.2 % (94-98)
--- NOTE | 2017-01-15 11:32 | PDOC PROGRESS REPORT ---
Subjective Progress Note for:: 01/15/17 Subjective:: Intubated and combative Physical Exam Vital Signs: Temp Pulse Resp BP Pulse Ox 97.5 F 100 16 135/70 H 99 01/15/17 08:00 01/15/17 08:00 01/15/17 08:00 01/15/17 08:00 01/15/17 08:00 Intake & Output 01/14/17 01/15/17 01/16/17 06:59 06:59 06:59 Intake Total 3896 4089 Output Total 5190 4182 100 Balance -1299 -96 -100 Weight 88.8 kg 88.1 kg General appearance: PRESENT: disheveled, obese, well-developed Head exam: PRESENT: atraumatic, normocephalic Eye exam: PRESENT: conjunctiva pale Mouth exam: PRESENT: moist, neck supple, other - ET tube in place Neck exam: ABSENT: carotid bruit, JVD, lymphadenopathy, thyromegaly Respiratory exam: PRESENT: decreased breath sounds, prolonged expiratory phas, rhonchi, symmetrical, unlabored Cardiovascular exam: PRESENT: RRR, +S2 Pulses: PRESENT: normal radial pulses GI/Abdominal exam: PRESENT: normal bowel sounds, soft. ABSENT: distended, guarding, mass, organolmegaly, rebound, tenderness Rectal exam: PRESENT: deferred Gentrourinary exam: PRESENT: indwelling catheter Musculoskeletal exam: PRESENT: normal inspection Skin exam: PRESENT: dry, intact, warm Results Laboratory Results: 01/15/17 05:55 01/15/17 05:55 01/14/17 01/15/17 01/15/17 12:46 05:55 05:55 WBC RBC Hgb Hct MCV MCH MCHC RDW Plt Count Carbonic Acid 0.67 L HCO3/H2CO3 Ratio 32:1 ABG pH 7.61 H* ABG pCO2 22.3 L ABG pO2 82.2 ABG HCO3 22.0 ABG O2 Saturation 97.7 ABG Base Excess 2.4 FiO2 28% Sodium 139.8 Potassium 3.8 Chloride 105 Carbon Dioxide 27 Anion Gap 8 BUN 23 H Creatinine 0.74 Est GFR ( Amer) > 60 Est GFR (Non-Af Amer) > 60 Glucose 182 H Calcium 8.4 Magnesium 2.2 TSH 0.20 L Free T4 0.76 L 01/15/17 05:55 WBC 13.7 H RBC 3.80 Hgb 11.5 L Hct 33.7 L MCV 89 MCH 30.3 MCHC 34.2 RDW 14.3 H Plt Count 199 Carbonic Acid HCO3/H2CO3 Ratio ABG pH ABG pCO2 ABG pO2 ABG HCO3 ABG O2 Saturation ABG Base Excess FiO2 Sodium Potassium Chloride Carbon Dioxide Anion Gap BUN Creatinine Est GFR ( Amer) Est GFR (Non-Af Amer) Glucose Calcium Magnesium TSH Free T4 01/10/17 15:50 Chest - Not Specified Herpes Simplex Culture & Type - Final 01/10/17 15:50 Bronchial Washings AFB Smear Concentration - Final 01/10/17 15:50 Bronchial Washings Acid Fast Bacilli Smear - Final 12/31/16 01/02/17 07:16 04:26 NT-Pro-B Natriuret Pep 160 127 Impressions: Chest/Abdomen CTA 01/01/17 00:00 IMPRESSION: Emphysematous changes. Postsurgical changes in the right upper lobe. Minimal infiltrate in the left base could represent atelectasis or developing pneumonia. . Chest X-Ray 01/15/17 06:00 IMPRESSION: NO CHANGE IN APPEARANCE OF THE CHEST. Assessment & Plan - Diagnosis (1) Acute hypercapnic respiratory failure Is this a current diagnosis for this admission?: YesPlan: abg good on "T" tube rr ,fio2,min vol suggest successful extubation --->extubate (2) Acute hypoxemic respiratory failure Is this a current diagnosis for this admission?: YesPlan: ABG acceptable (3) COPD exacerbation Is this a current diagnosis for this admission?: YesPlan: WBC slowly decreasing currently 13k (4) Hypothyroidism Qualifiers: Hypothyroidism type: unspecified Qualified Code(s): E03.9 - Hypothyroidism, unspecified Is this a current diagnosis for this admission?: YesPlan: tsh t3 t4 low ??? (5) Pulmonary hypertension Is this a current diagnosis for this admission?: Yes (6) Volume overload Qualifiers: Hypervolemia type: unspecified Qualified Code(s): E87.70 - Fluid overload, unspecified Is this a current diagnosis for this admission?: YesPlan: gentle diuresis - Time Critical Time spent with patient: 35 or more minutes - 60 min extubation
[2017-01-15 14:21] LABS: ARTERIAL BLOOD BASE EXCESS 3.2 mmol/L; ARTERIAL BLOOD O2 SATURATION 97.7 % (94-98)
--- NOTE | 2017-01-15 16:27 | PDOC PROGRESS REPORT ---
Subjective Progress Note for:: 01/15/17 Subjective:: Patient is seen on morning rounds with nurse and pulmonology present. Patient remains intubated and sedated this morning. No acute events overnight. Physical Exam Vital Signs: Temp Pulse Resp BP Pulse Ox 98.1 F 109 H 24 H 160/87 H 97 01/15/17 14:35 01/15/17 14:00 01/15/17 14:35 01/15/17 14:35 01/15/17 14:35 Intake & Output 01/14/17 01/15/17 01/16/17 06:59 06:59 06:59 Intake Total 3896 4089 Output Total 5193 4185 775 Balance -1299 -96 -775 Weight 88.8 kg 88.1 kg Exam: General: Intubated, sedated, mechanically ventilated HEENT: AT/NC, PERRL, oropharynx is moist, pink, no scleral icterus, no conjunctival injection Neck: No JVD, trachea midline Chest: Coarse left lower lobe, no overt wheezes rhonchi or rales CV: Regular rate and rhythm, normal S1 and S2, no rub, or gallop Abdomen: Soft, nondistended, active bowel sounds; no rigidity, or guarding Extremities: No cyanosis, clubbing; +1edema generalized Skin: No rashes or lesions Results Laboratory Results: 01/15/17 05:55 01/15/17 05:55 01/15/17 01/15/17 01/15/17 05:55 05:55 05:55 WBC 13.7 H RBC 3.80 Hgb 11.5 L Hct 33.7 L MCV 89 MCH 30.3 MCHC 34.2 RDW 14.3 H Plt Count 199 Carbonic Acid 0.67 L HCO3/H2CO3 Ratio 32:1 ABG pH 7.61 H* ABG pCO2 22.3 L ABG pO2 82.2 ABG HCO3 22.0 ABG O2 Saturation 97.7 ABG Base Excess 2.4 FiO2 28% Sodium 139.8 Potassium 3.8 Chloride 105 Carbon Dioxide 27 Anion Gap 8 BUN 23 H Creatinine 0.74 Est GFR ( Amer) > 60 Est GFR (Non-Af Amer) > 60 Glucose 182 H Calcium 8.4 Magnesium 2.2 01/15/17 01/15/17 01/15/17 08:25 11:01 14:10 WBC RBC Hgb Hct MCV MCH MCHC RDW Plt Count Carbonic Acid 0.93 L 1.25 1.26 HCO3/H2CO3 Ratio 26:1 19:1 22:1 ABG pH 7.52 H 7.38 7.44 ABG pCO2 30.9 L 41.4 41.9 ABG pO2 93.8 118.1 H 98.8 ABG HCO3 24.7 24.0 27.8 H ABG O2 Saturation 97.9 98.2 H 97.7 ABG Base Excess 2.4 -1.1 3.2 FiO2 28% 40% 35% Sodium Potassium Chloride Carbon Dioxide Anion Gap BUN Creatinine Est GFR ( Amer) Est GFR (Non-Af Amer) Glucose Calcium Magnesium 01/10/17 09:57 Blood Blood Culture - Final NO GROWTH IN 5 DAYS 01/10/17 09:52 Blood Blood Culture - Final NO GROWTH IN 5 DAYS 01/10/17 15:50 Bronchial Washings Chlamydia pneumoniae (PCR) - Final 01/10/17 15:50 Bronchial Washings Fungal Smear - Final 01/10/17 15:50 Bronchial Washings Fungal Smear - Final 01/10/17 15:50 Bronchial Washings Fungal Smear - Final 01/10/17 15:50 Chest - Not Specified Herpes Simplex Culture & Type - Final 01/10/17 15:50 Bronchial Washings AFB Smear Concentration - Final 01/10/17 15:50 Bronchial Washings Acid Fast Bacilli Smear - Final 12/31/16 01/02/17 07:16 04:26 NT-Pro-B Natriuret Pep 160 127 Impressions: Chest/Abdomen CTA 01/01/17 00:00 IMPRESSION: Emphysematous changes. Postsurgical changes in the right upper lobe. Minimal infiltrate in the left base could represent atelectasis or developing pneumonia. . Chest X-Ray 01/15/17 06:00 IMPRESSION: NO CHANGE IN APPEARANCE OF THE CHEST. Assessment & Plan - Diagnosis (1) COPD exacerbation Is this a current diagnosis for this admission?: YesPlan: Patient with COPD exacerbation and status asthmaticus. Decrease Solu-Medrol 60mg IV every 8h. Stop imipenem and continue acyclovir. Have discussed case with pulmonary medicine. Pulmonary medicine managing ventilator. Bronchoscopy apparently revealed vesicular like lesions. Suspicious for viral infection. (2) Acute hypoxemic respiratory failure Is this a current diagnosis for this admission?: YesPlan: Pulmonary managing ventilator (3) Acute diastolic (congestive) heart failure Is this a current diagnosis for this admission?: YesPlan: Compensated Hold IV Lasix. We'll continue to monitor I's and O's. Patient with grade 1 diastolic dysfunction. EF not reported, but reported to be normal. (4) Hypothyroidism Qualifiers: Hypothyroidism type: unspecified Qualified Code(s): E03.9 - Hypothyroidism, unspecified Is this a current diagnosis for this admission?: YesPlan: Pending TSH undetectable and free T4 is normal. This likely represents sick euthyroid Repeat of this again likely represents sick euthyroid. Continue patient's Synthroid at current dose. (5) Hypertension Qualifiers: Hypertension type: essential hypertension Qualified Code(s): I10 - Essential (primary) hypertension Is this a current diagnosis for this admission?: YesPlan: Patient has intervally received Levophed (6) Pulmonary hypertension Is this a current diagnosis for this admission?: YesPlan: Patient at baseline has moderate pulmonary hypertension. Defer treatment of this to pulmonary medicine (7) Trichomonas vaginitis Is this a current diagnosis for this admission?: YesPlan: Patient completed 7 days of Flagyl for this. (8) Obesity Qualifiers: Obesity type: due to excess calories Obesity severity: non-morbid Qualified Code(s): E66.09 - Other obesity due to excess calories Is this a current diagnosis for this admission?: Yes (9) GI prophylaxis Is this a current diagnosis for this admission?: YesPlan: Pepcid twice a day (10) DVT prophylaxis Is this a current diagnosis for this admission?: YesPlan: TYLER Arriaga SCDs - Time Critical Time spent with patient: 35 or more minutes Medications reviewed and adjusted accordingly: Yes Anticipated discharge: Acute Rehab
[2017-01-15] MEDS: DEXTROSE 5%-1/2 NORMAL SALINE 1,000 ML IV PRN (17:33)
[2017-01-15] MEDS ORDERED: HALOPERIDOL LACTATE INJ 5 MG/1 ML VIAL ONE (19:02)
[2017-01-15] MEDS: METOPROLOL TARTRATE PF/INJ 5 MG/5 ML SDV IV PRN (19:45)
[2017-01-15] MEDS ORDERED: OLANZAPINE 5 MG TAB.RAPDIS NG SCH (22:00)
[2017-01-15] MEDS: LORATADINE 10 MG TABLET NG SCH (22:31)
[2017-01-15] MEDS: MONTELUKAST SODIUM 10 MG TABLET NG SCH (22:31)
[2017-01-15] MEDS: HALOPERIDOL LACTATE INJ 5 MG/1 ML VIAL IV PRN (23:12)
[2017-01-16] MEDS: INSULIN LISPRO 100 UNIT/ML 3 ML VIAL SUBCUT PRN (00:27)
[2017-01-16] MEDS: GUAIFENESIN SYRP 200 MG/10 ML UDC PO SCH ×6 (01:10→21:05)
[2017-01-16] MEDS: HALOPERIDOL LACTATE INJ 5 MG/1 ML VIAL IV PRN (04:51)
[2017-01-16] MEDS: ACYCLOVIR SODIUM 800 MG in NORMAL SALINE 250 ML IV SCH ×3 (04:51→21:01)
[2017-01-16 05:19] LABS: ARTERIAL BLOOD BASE EXCESS 4.9 mmol/L; ARTERIAL BLOOD O2 SATURATION 98.8 % (94-98)
[2017-01-16 05:29] LABS: ANION GAP 6 (5-19); BLOOD UREA NITROGEN 16 mg/dL (7-20); CARBON DIOXIDE 33 mmol/L (22-30); CHLORIDE 106 mmol/L (98-107); CREATININE RESULT 0.67 mg/dL (0.52-1.25); GLUCOSE 132 mg/dL (75-110); MAGNESIUM 2.3 mg/dL (1.6-2.3); PHOSPHORUS 3.5 mg/dL (2.5-4.5); POTASSIUM 3.6 mmol/L (3.6-5.0); SODIUM 145.4 mmol/L (137-145)
[2017-01-16 05:38] LABS: HEMATOCRIT 40.1 % (36.0-47.0); HEMOGLOBIN 13.4 g/dL (12.0-15.5); HGB HCT DIFFERENCE 0.1; MEAN CORPUSCULAR HEMOGLOBIN 30.2 pg (27.0-33.4); MEAN CORPUSCULAR HGB CONC 33.5 g/dL (32.0-36.0); MEAN CORPUSCULAR VOLUME 90 fl (80-97); RED BLOOD COUNT 4.46 10^6/uL (3.72-5.28); RED CELL DISTRIBUTION WIDTH 14.6 % (11.5-14.0); WHITE BLOOD COUNT 25.8 10^3/uL (4.0-10.5)
[2017-01-16] MEDS: METHYLPREDNISOLONE INJ 125 MG/2 ML SDV IV SCH (05:45)
[2017-01-16] MEDS: METOPROLOL TARTRATE PF/INJ 5 MG/5 ML SDV IV PRN (05:45)
[2017-01-16] MEDS: DEXTROSE 5%-1/2 NORMAL SALINE 1,000 ML IV PRN ×2 (05:48→07:48)
[2017-01-16] MEDS: THEOPHYLLINE ANHYDROUS 80 MG/15 ML NG SCH (05:49)
[2017-01-16] MEDS: UDCUP NG SCH (05:49)
[2017-01-16] MEDS: LEVOTHYROXINE SODIUM 0.15 MG TABLET NG SCH (05:49)
[2017-01-16 06:20] LABS: BASOPHILS % (MANUAL) 0 % (0-2); EOSINOPHILS % (MANUAL) 0 % (0-6); LYMPHOCYTES % (MANUAL) 8 % (13-45); TOTAL CELLS COUNTED 100
[2017-01-16 06:22] LABS: OVALOCYTES SLIGHT; POIKILOCYTOSIS SLIGHT; TEAR DROP CELLS SLIGHT; TOXIC GRANULATION SLIGHT; TOXIC VACUOLATION PRESENT
[2017-01-16] MEDS: ENOXAPARIN SODIUM INJ 40 MG/0.4 ML DISP.SYRIN SUBCUT SCH (07:53)
[2017-01-16] MEDS: TOBRAMYCIN SULFATE NEB 40 MG/ML 30 ML NEB SCH (08:00)
[2017-01-16] MEDS: IPRATROPIUM/ALBUTEROL 0.5-2.5 MG/3 ML AMPUL NEB PRN (08:20)
[2017-01-16] MEDS: BUDESONIDE NEB 0.5 MG/2 ML AMPUL NEB SCH ×2 (08:21→20:28)
[2017-01-16] MEDS ORDERED: FUROSEMIDE INJ/PF 40 MG/4 ML SDV ONE (08:53)
[2017-01-16] MEDS ORDERED: DEXTROSE 5%-1/2 NORMAL SALINE 1,000 ML IV PRN (08:58)
[2017-01-16] MEDS ORDERED: METHYLPREDNISOLONE INJ 125 MG/2 ML SDV IV SCH (09:01)
[2017-01-16] MEDS ORDERED: LORAZEPAM INJ 2 MG/1 ML VIAL IV PRN (09:02)
[2017-01-16] MEDS ORDERED: LOPERAMIDE HCL ORAL SOLN 1 MG/5 ML UDC PO PRN (09:21)
[2017-01-16] MEDS ORDERED: MELOXICAM 7.5 MG TABLET PO PRN (09:23)
[2017-01-16] MEDS ORDERED: NITROGLYCERIN 2% OINTMENT 1 GM PACKET TP ONE (09:45)
[2017-01-16] MEDS ORDERED: FUROSEMIDE INJ/PF 40 MG/4 ML SDV IV ONE (09:45)
[2017-01-16] MEDS ORDERED: CLONIDINE 0.2 MG/24 HR PATCH.TDWK TD SCH (10:00)
[2017-01-16] MEDS: POLYETHYLENE GLYCOL 3350 POWDER 17 GM/1 PACKET PO SCH (10:13)
[2017-01-16] MEDS: TIOTROPIUM BROMIDE DPI 5 CAP/KIT (18 MCG/CAP) IH SCH (10:13)
[2017-01-16] MEDS: AMLODIPINE BESYLATE 5 MG TABLET PO SCH (10:13)
[2017-01-16] MEDS: FUROSEMIDE INJ/PF 20 MG/2 ML SDV IV SCH ×2 (10:13→21:02)
[2017-01-16] MEDS: FAMOTIDINE 20 MG TABLET PO SCH ×2 (10:13→21:05)
[2017-01-16] MEDS: LACTOBACILLUS ACIDOPHILUS 250 MG TAB PO SCH ×2 (10:13→17:53)
--- NOTE | 2017-01-16 10:52 | PDOC PROGRESS REPORT ---
Subjective Progress Note for:: 01/16/17 Subjective:: very lethargic Physical Exam Vital Signs: Temp Pulse Resp BP Pulse Ox 98.1 F 109 H 26 H 199/88 H 100 01/16/17 08:00 01/15/17 20:35 01/16/17 08:00 01/16/17 07:49 01/16/17 08:00 Intake & Output 01/15/17 01/16/17 01/17/17 06:59 06:59 06:59 Intake Total 4082 2035 Output Total 4183 2775 Balance -96 -2290 Weight 88.1 kg 85.5 kg General appearance: PRESENT: disheveled, obese Head exam: PRESENT: atraumatic, normocephalic Eye exam: PRESENT: conjunctiva pale Neck exam: ABSENT: carotid bruit, JVD, lymphadenopathy, thyromegaly Respiratory exam: PRESENT: decreased breath sounds, prolonged expiratory phas, rhonchi, symmetrical, unlabored, wheezes Cardiovascular exam: PRESENT: RRR, +S1, +S2 Pulses: PRESENT: normal radial pulses GI/Abdominal exam: PRESENT: normal bowel sounds, soft. ABSENT: distended, guarding, mass, organolmegaly, rebound, tenderness Rectal exam: PRESENT: deferred Gentrourinary exam: PRESENT: indwelling catheter Extremities exam: PRESENT: +2 edema Skin exam: PRESENT: dry, warm Results Laboratory Results: 01/16/17 05:05 01/16/17 05:05 01/15/17 01/15/17 01/15/17 08:25 11:01 14:10 WBC RBC Hgb Hct MCV MCH MCHC RDW Plt Count Seg Neutrophils % Lymphocytes % Monocytes % Eosinophils % Basophils % Absolute Neutrophils Absolute Lymphocytes Absolute Monocytes Absolute Eosinophils Absolute Basophils Carbonic Acid 0.93 L 1.25 1.26 HCO3/H2CO3 Ratio 26:1 19:1 22:1 ABG pH 7.52 H 7.38 7.44 ABG pCO2 30.9 L 41.4 41.9 ABG pO2 93.8 118.1 H 98.8 ABG HCO3 24.7 24.0 27.8 H ABG O2 Saturation 97.9 98.2 H 97.7 ABG Base Excess 2.4 -1.1 3.2 FiO2 28% 40% 35% Sodium Potassium Chloride Carbon Dioxide Anion Gap BUN Creatinine Est GFR ( Amer) Est GFR (Non-Af Amer) Glucose Calcium Phosphorus Magnesium 01/16/17 01/16/17 01/16/17 05:05 05:05 05:05 WBC 25.8 H RBC 4.46 Hgb 13.4 Hct 40.1 MCV 90 MCH 30.2 MCHC 33.5 RDW 14.6 H Plt Count 197 Seg Neutrophils % Not Reportable Lymphocytes % Not Reportable Monocytes % Not Reportable Eosinophils % Not Reportable Basophils % Not Reportable Absolute Neutrophils Not Reportable Absolute Lymphocytes Not Reportable Absolute Monocytes Not Reportable Absolute Eosinophils Not Reportable Absolute Basophils Not Reportable Carbonic Acid 1.28 HCO3/H2CO3 Ratio 22:1 ABG pH 7.46 H ABG pCO2 42.4 ABG pO2 133.5 H ABG HCO3 29.3 H ABG O2 Saturation 98.8 H ABG Base Excess 4.9 FiO2 3L Sodium 145.4 H Potassium 3.6 Chloride 106 Carbon Dioxide 33 H Anion Gap 6 BUN 16 Creatinine 0.67 Est GFR ( Amer) > 60 Est GFR (Non-Af Amer) > 60 Glucose 132 H Calcium 9.0 Phosphorus 3.5 Magnesium 2.3 01/10/17 09:57 Blood Blood Culture - Final NO GROWTH IN 5 DAYS 01/10/17 09:52 Blood Blood Culture - Final NO GROWTH IN 5 DAYS 01/10/17 15:50 Bronchial Washings Chlamydia pneumoniae (PCR) - Final 01/10/17 15:50 Bronchial Washings Fungal Smear - Final 01/10/17 15:50 Bronchial Washings Fungal Smear - Final 01/10/17 15:50 Bronchial Washings Fungal Smear - Final 12/31/16 01/02/17 07:16 04:26 NT-Pro-B Natriuret Pep 160 127 Impressions: Chest/Abdomen CTA 01/01/17 00:00 IMPRESSION: Emphysematous changes. Postsurgical changes in the right upper lobe. Minimal infiltrate in the left base could represent atelectasis or developing pneumonia. . Chest X-Ray 01/16/17 06:00 IMPRESSION: Stable chest status post extubation. Assessment & Plan - Diagnosis (1) Acute hypercapnic respiratory failure Is this a current diagnosis for this admission?: Yes (2) Acute hypoxemic respiratory failure Is this a current diagnosis for this admission?: Yes (3) COPD exacerbation Is this a current diagnosis for this admission?: YesPlan: afebtile ;incr WBC w/L shift CXR no infiltrates (4) Hypothyroidism Qualifiers: Hypothyroidism type: unspecified Qualified Code(s): E03.9 - Hypothyroidism, unspecified Is this a current diagnosis for this admission?: Yes (5) Pulmonary hypertension Is this a current diagnosis for this admission?: Yes (6) Volume overload Qualifiers: Hypervolemia type: unspecified Qualified Code(s): E87.70 - Fluid overload, unspecified Is this a current diagnosis for this admission?: YesPlan: scleral edema;peripheral edema (7) Lethargy Is this a current diagnosis for this admission?: YesPlan: elavated WBC no bands ,no fever rx acyclovir for pna with improvement discussed with Dr Khan patient to have LP - Time Critical Time spent with patient: 35 or more minutes
[2017-01-16] MEDS ORDERED: METOPROLOL TARTRATE PF/INJ 5 MG/5 ML SDV IV ONE (11:00)
[2017-01-16] MEDS: THEOPHYLLINE ANHYDROUS 80 MG/15 ML PO SCH ×2 (11:47→17:53)
[2017-01-16] MEDS: UDCUP PO SCH ×2 (11:47→17:53)
[2017-01-16] MEDS: METOPROLOL TARTRATE PF/INJ 5 MG/5 ML SDV IV SCH ×2 (13:33→17:52)
[2017-01-16] MEDS: METHYLPREDNISOLONE INJ 40 MG/1 ML SDV IV SCH ×2 (13:33→21:02)
[2017-01-16] MEDS: NITROGLYCERIN 2% OINTMENT 1 GM PACKET TP SCH ×2 (15:03→21:02)
--- NOTE | 2017-01-16 19:40 | PDOC PROGRESS REPORT ---
Subjective Progress Note for:: 01/16/17 Subjective:: Patient is seen on morning rounds with nurse and pulmonology present. Patient remains extubated. No acute events overnight. Patient is not following commands this morning. Physical Exam Vital Signs: Temp Pulse Resp BP Pulse Ox 98.2 F 87 23 H 175/87 H 98 01/16/17 18:31 01/16/17 08:21 01/16/17 18:31 01/16/17 18:31 01/16/17 18:31 Intake & Output 01/15/17 01/16/17 01/17/17 06:59 06:59 06:59 Intake Total 4089 2035 972 Output Total 4189 4545 3250 Balance -08 -9709 -9237 Weight 88.1 kg 85.5 kg Exam: General: Awake, does not respond to commands, withdraws from pain HEENT: AT/NC, PERRL, oropharynx is moist, pink, no scleral icterus, scleral edema Neck: No JVD, trachea midline Chest: Bilateral rales CV: Regular rate and rhythm, normal S1 and S2, no rub, or gallop Abdomen: Soft, nondistended, active bowel sounds; no rigidity, or guarding Extremities: No cyanosis, clubbing; edema generalized Neuro: Moves all extremities Results Laboratory Results: 01/16/17 05:05 01/16/17 05:05 01/16/17 01/16/17 01/16/17 05:05 05:05 05:05 WBC 25.8 H RBC 4.46 Hgb 13.4 Hct 40.1 MCV 90 MCH 30.2 MCHC 33.5 RDW 14.6 H Plt Count 197 Seg Neutrophils % Not Reportable Lymphocytes % Not Reportable Monocytes % Not Reportable Eosinophils % Not Reportable Basophils % Not Reportable Absolute Neutrophils Not Reportable Absolute Lymphocytes Not Reportable Absolute Monocytes Not Reportable Absolute Eosinophils Not Reportable Absolute Basophils Not Reportable Carbonic Acid 1.28 HCO3/H2CO3 Ratio 22:1 ABG pH 7.46 H ABG pCO2 42.4 ABG pO2 133.5 H ABG HCO3 29.3 H ABG O2 Saturation 98.8 H ABG Base Excess 4.9 FiO2 3L Sodium 145.4 H Potassium 3.6 Chloride 106 Carbon Dioxide 33 H Anion Gap 6 BUN 16 Creatinine 0.67 Est GFR ( Amer) > 60 Est GFR (Non-Af Amer) > 60 Glucose 132 H Calcium 9.0 Phosphorus 3.5 Magnesium 2.3 12/31/16 01/02/17 07:16 04:26 NT-Pro-B Natriuret Pep 160 127 Impressions: Chest/Abdomen CTA 01/01/17 00:00 IMPRESSION: Emphysematous changes. Postsurgical changes in the right upper lobe. Minimal infiltrate in the left base could represent atelectasis or developing pneumonia. . Chest X-Ray 01/16/17 06:00 IMPRESSION: Stable chest status post extubation. Assessment & Plan - Diagnosis (1) COPD exacerbation Is this a current diagnosis for this admission?: YesPlan: Patient with COPD exacerbation and status asthmaticus. Decrease Solu-Medrol 40mg IV every 8h. On acyclovir. Will panculture patient if she becomes febrile. Have discussed case with pulmonary medicine. Pulmonary medicine managing ventilator. Bronchoscopy apparently revealed vesicular like lesions. Suspicious for viral infection. (2) Acute hypoxemic respiratory failure Is this a current diagnosis for this admission?: YesPlan: Pulmonary managing (3) Acute diastolic (congestive) heart failure Is this a current diagnosis for this admission?: YesPlan: Hypovolemic Increase IV Lasix. We'll continue to monitor I's and O's. Patient with grade 1 diastolic dysfunction. EF not reported, but reported to be normal. (4) Hypothyroidism Qualifiers: Hypothyroidism type: unspecified Qualified Code(s): E03.9 - Hypothyroidism, unspecified Is this a current diagnosis for this admission?: YesPlan: Pending TSH undetectable and free T4 is normal. This likely represents sick euthyroid Repeat of this again likely represents sick euthyroid. Continue patient's Synthroid at current dose. (5) Hypertension Qualifiers: Hypertension type: essential hypertension Qualified Code(s): I10 - Essential (primary) hypertension Is this a current diagnosis for this admission?: YesPlan: Patient has intervally received Levophed (6) Pulmonary hypertension Is this a current diagnosis for this admission?: Yes (7) Trichomonas vaginitis Is this a current diagnosis for this admission?: Yes (8) Obesity Qualifiers: Obesity type: due to excess calories Obesity severity: non-morbid Qualified Code(s): E66.09 - Other obesity due to excess calories Is this a current diagnosis for this admission?: Yes (9) GI prophylaxis Is this a current diagnosis for this admission?: Yes (10) DVT prophylaxis Is this a current diagnosis for this admission?: Yes - Time Time Spent with patient: 25-34 minutes Medications reviewed and adjusted accordingly: Yes Anticipated discharge: Acute Rehab
[2017-01-16] MEDS: MONTELUKAST SODIUM 10 MG TABLET PO SCH (21:05)
[2017-01-16] MEDS: LORATADINE 10 MG TABLET PO SCH (21:05)
[2017-01-17] MEDS: UDCUP PO SCH ×4 (01:11→17:08)
[2017-01-17] MEDS: THEOPHYLLINE ANHYDROUS 80 MG/15 ML PO SCH ×4 (01:11→17:08)
[2017-01-17] MEDS: METOPROLOL TARTRATE PF/INJ 5 MG/5 ML SDV IV SCH ×4 (01:12→17:08)
[2017-01-17] MEDS: NITROGLYCERIN 2% OINTMENT 1 GM PACKET TP SCH ×4 (02:48→21:11)
[2017-01-17] MEDS: GUAIFENESIN SYRP 200 MG/10 ML UDC PO SCH ×6 (03:07→21:13)
[2017-01-17] MEDS: ACYCLOVIR SODIUM 800 MG in NORMAL SALINE 250 ML IV SCH ×3 (06:08→22:43)
[2017-01-17 06:10] LABS: ABSOLUTE BASOPHILS # (AUTO) 0.1 10^3/uL (0.0-0.2); ABSOLUTE LYMPHOCYTES (AUTO) 1.1 10^3/uL (0.5-4.7); ABSOLUTE MONOCYTES (AUTO) 0.9 10^3/uL (0.1-1.4); ABSOLUTE NEUT (AUTO) 15.4 10^3/uL (1.7-8.2); BASOPHILS % (AUTO) 0.5 % (0-2); HEMATOCRIT 38.8 % (36.0-47.0); HEMOGLOBIN 13.1 g/dL (12.0-15.5); HGB HCT DIFFERENCE 0.5; LYMPHOCYTES % (AUTO) 6.4 % (13-45); MEAN CORPUSCULAR HEMOGLOBIN 30.7 pg (27.0-33.4); MEAN CORPUSCULAR HGB CONC 33.9 g/dL (32.0-36.0); MEAN CORPUSCULAR VOLUME 91 fl (80-97); RED BLOOD COUNT 4.28 10^6/uL (3.72-5.28); RED CELL DISTRIBUTION WIDTH 14.7 % (11.5-14.0); SEGMENTED NEUTROPHILS % (AUTO) 88.1 % (42-78); WHITE BLOOD COUNT 17.5 10^3/uL (4.0-10.5)
[2017-01-17] MEDS: METHYLPREDNISOLONE INJ 40 MG/1 ML SDV IV SCH ×3 (06:10→21:16)
[2017-01-17] MEDS: LEVOTHYROXINE SODIUM 0.15 MG TABLET PO SCH (06:11)
[2017-01-17 06:27] LABS: ALANINE AMINOTRANSFERASE 47 U/L (9-52); ALBUMIN 3.3 g/dL (3.5-5.0); ALKALINE PHOSPHATASE 66 U/L (38-126); AMYLASE 105 U/L (30-110); ANION GAP 6 (5-19); ASPARTATE AMINO TRANSFERASE 30 U/L (14-36); BILIRUBIN,DIRECT 0.3 mg/dL (0.0-0.4); BILIRUBIN,TOTAL 0.9 mg/dL (0.2-1.3); BLOOD UREA NITROGEN 20 mg/dL (7-20); CARBON DIOXIDE 36 mmol/L (22-30); CHLORIDE 101 mmol/L (98-107); CREATININE RESULT 0.71 mg/dL (0.52-1.25); GLUCOSE 141 mg/dL (75-110); LIPASE 261.7 U/L (23-300); MAGNESIUM 2.4 mg/dL (1.6-2.3); POTASSIUM 3.7 mmol/L (3.6-5.0); SODIUM 143.3 mmol/L (137-145); TOTAL PROTEIN 5.9 g/dL (6.3-8.2)
[2017-01-17] MEDS: ENOXAPARIN SODIUM INJ 40 MG/0.4 ML DISP.SYRIN SUBCUT SCH (07:33)
[2017-01-17] MEDS: BUDESONIDE NEB 0.5 MG/2 ML AMPUL NEB SCH ×2 (08:45→20:08)
[2017-01-17] MEDS: IPRATROPIUM/ALBUTEROL 0.5-2.5 MG/3 ML AMPUL NEB PRN (08:45)
[2017-01-17 09:23] LABS: ARTERIAL BLOOD BASE EXCESS 6.2 mmol/L; ARTERIAL BLOOD O2 SATURATION 99.8 % (94-98)
[2017-01-17] MEDS ORDERED: FLUCONAZOLE 400 MG/NS RTU 400 MG/200 ML RTUPB IV ONE (09:30)
[2017-01-17] MEDS: POLYETHYLENE GLYCOL 3350 POWDER 17 GM/1 PACKET PO SCH (09:40)
[2017-01-17] MEDS: LACTOBACILLUS ACIDOPHILUS 250 MG TAB PO SCH ×2 (09:40→17:08)
[2017-01-17] MEDS: TIOTROPIUM BROMIDE DPI 5 CAP/KIT (18 MCG/CAP) IH SCH (09:40)
[2017-01-17] MEDS: FAMOTIDINE 20 MG TABLET PO SCH ×2 (09:40→21:13)
[2017-01-17] MEDS: AMLODIPINE BESYLATE 5 MG TABLET PO SCH (09:40)
[2017-01-17] MEDS: FUROSEMIDE INJ/PF 20 MG/2 ML SDV IV SCH ×2 (09:43→21:18)
--- NOTE | 2017-01-17 11:43 | PDOC PROGRESS REPORT ---
Subjective Progress Note for:: 01/17/17 Subjective:: Awake alert lethargic but responds Physical Exam Vital Signs: Temp Pulse Resp BP Pulse Ox 98.2 F 91 19 157/80 H 99 01/17/17 10:08 01/17/17 10:00 01/17/17 10:08 01/17/17 10:08 01/17/17 10:08 Intake & Output 01/16/17 01/17/17 01/18/17 06:59 06:59 06:59 Intake Total 2035 3108 Output Total 4325 6330 250 Balance -2290 -2702 -250 Weight 85.5 kg 80.3 kg General appearance: PRESENT: no acute distress, disheveled, obese Head exam: PRESENT: atraumatic, normocephalic Eye exam: PRESENT: conjunctiva pale, EOMI Mouth exam: PRESENT: moist, neck supple Respiratory exam: PRESENT: decreased breath sounds, prolonged expiratory phas, rhonchi, symmetrical, unlabored Cardiovascular exam: PRESENT: RRR, +S1, +S2 Pulses: PRESENT: normal radial pulses GI/Abdominal exam: PRESENT: normal bowel sounds, soft. ABSENT: distended, guarding, mass, organolmegaly, rebound, tenderness Rectal exam: PRESENT: deferred Gentrourinary exam: PRESENT: indwelling catheter Extremities exam: PRESENT: +1 edema Neurological exam: PRESENT: alert, awake Psychiatric exam: PRESENT: flat affect Skin exam: PRESENT: dry, warm Results Laboratory Results: 01/17/17 05:55 01/17/17 05:55 01/17/17 01/17/17 01/17/17 05:55 05:55 09:00 WBC 17.5 H RBC 4.28 Hgb 13.1 Hct 38.8 MCV 91 MCH 30.7 MCHC 33.9 RDW 14.7 H Plt Count 154 Seg Neutrophils % 88.1 H Lymphocytes % 6.4 L Monocytes % 5.0 Eosinophils % 0.0 Basophils % 0.5 Absolute Neutrophils 15.4 H Absolute Lymphocytes 1.1 Absolute Monocytes 0.9 Absolute Eosinophils 0.0 Absolute Basophils 0.1 Carbonic Acid 1.63 H HCO3/H2CO3 Ratio 20:1 ABG pH 7.40 ABG pCO2 54.3 H ABG pO2 365.5 H ABG HCO3 32.7 H ABG O2 Saturation 99.8 H ABG Base Excess 6.2 FiO2 3L Sodium 143.3 Potassium 3.7 Chloride 101 Carbon Dioxide 36 H Anion Gap 6 BUN 20 Creatinine 0.71 Est GFR ( Amer) > 60 Est GFR (Non-Af Amer) > 60 Glucose 141 H Calcium 9.0 Magnesium 2.4 H Total Bilirubin 0.9 AST 30 ALT 47 Alkaline Phosphatase 66 Total Protein 5.9 L Albumin 3.3 L Amylase 105 Lipase 261.7 01/10/17 15:50 Bronchial Washings Fungal Smear - Final 01/10/17 15:50 Bronchial Washings Fungal Smear - Final 01/10/17 15:50 Bronchial Washings Fungal Smear - Final 12/31/16 01/02/17 07:16 04:26 NT-Pro-B Natriuret Pep 160 127 Impressions: Chest/Abdomen CTA 01/01/17 00:00 IMPRESSION: Emphysematous changes. Postsurgical changes in the right upper lobe. Minimal infiltrate in the left base could represent atelectasis or developing pneumonia. . Chest X-Ray 01/17/17 00:00 IMPRESSION: STABLE APPEARANCE. NO ACUTE FINDINGS. Assessment & Plan - Diagnosis (1) Acute hypercapnic respiratory failure Is this a current diagnosis for this admission?: Yes (2) Acute hypoxemic respiratory failure Is this a current diagnosis for this admission?: Yes (3) COPD exacerbation Is this a current diagnosis for this admission?: Yes (4) Hypothyroidism Qualifiers: Hypothyroidism type: unspecified Qualified Code(s): E03.9 - Hypothyroidism, unspecified Is this a current diagnosis for this admission?: Yes (5) Pulmonary hypertension Is this a current diagnosis for this admission?: Yes (6) Volume overload Qualifiers: Hypervolemia type: unspecified Qualified Code(s): E87.70 - Fluid overload, unspecified Is this a current diagnosis for this admission?: YesPlan: improving with diuresis (7) Lethargy Is this a current diagnosis for this admission?: YesPlan: improving
[2017-01-17] MEDS ORDERED: DEXTROSE 5%-1/2 NORMAL SALINE 1,000 ML IV PRN (13:35)
[2017-01-17] MEDS: ACETAMINOPHEN 325 MG TABLET PO PRN (13:36)
[2017-01-17] MEDS ORDERED: HYDRALAZINE HCL INJ/PF 20 MG/1 ML SDV IV PRN (16:24)
--- NOTE | 2017-01-17 16:26 | PDOC PROGRESS REPORT ---
Subjective Progress Note for:: 01/17/17 Subjective:: Patient is seen on morning rounds with nurse and pulmonology present. Patient remains extubated. No acute events overnight. Patient is following commands this morning. She denies any pain. Physical Exam Vital Signs: Temp Pulse Resp BP Pulse Ox 98.4 F 77 22 H 164/80 H 98 01/17/17 12:00 01/17/17 12:00 01/17/17 12:00 01/17/17 12:00 01/17/17 12:00 Intake & Output 01/16/17 01/17/17 01/18/17 06:59 06:59 06:59 Intake Total 2035 1748 Output Total 4326 2947 1125 Balance -4480 -8381 -9174 Weight 85.5 kg 80.3 kg Exam: General: Awake, follows some commands, HEENT: AT/NC, PERRL, oropharynx is moist, pink, no scleral icterus, scleral edema Neck: No JVD, trachea midline Chest: Bilateral light end expiratory wheezing, tachypnea CV: Regular rate and rhythm, normal S1 and S2, no rub, or gallop Abdomen: Soft, nondistended, nontender to palpation, active bowel sounds; no rigidity, or guarding Extremities: No cyanosis, clubbing; edema generalized Neuro: Cranial nerves grossly intact, Moves all extremities Results Laboratory Results: 01/17/17 05:55 01/17/17 05:55 01/17/17 01/17/17 01/17/17 05:55 05:55 09:00 WBC 17.5 H RBC 4.28 Hgb 13.1 Hct 38.8 MCV 91 MCH 30.7 MCHC 33.9 RDW 14.7 H Plt Count 154 Seg Neutrophils % 88.1 H Lymphocytes % 6.4 L Monocytes % 5.0 Eosinophils % 0.0 Basophils % 0.5 Absolute Neutrophils 15.4 H Absolute Lymphocytes 1.1 Absolute Monocytes 0.9 Absolute Eosinophils 0.0 Absolute Basophils 0.1 Carbonic Acid 1.63 H HCO3/H2CO3 Ratio 20:1 ABG pH 7.40 ABG pCO2 54.3 H ABG pO2 365.5 H ABG HCO3 32.7 H ABG O2 Saturation 99.8 H ABG Base Excess 6.2 FiO2 3L Sodium 143.3 Potassium 3.7 Chloride 101 Carbon Dioxide 36 H Anion Gap 6 BUN 20 Creatinine 0.71 Est GFR ( Amer) > 60 Est GFR (Non-Af Amer) > 60 Glucose 141 H Calcium 9.0 Magnesium 2.4 H Total Bilirubin 0.9 AST 30 ALT 47 Alkaline Phosphatase 66 Total Protein 5.9 L Albumin 3.3 L Amylase 105 Lipase 261.7 01/10/17 15:50 Bronchial Washings Fungal Smear - Final 01/10/17 15:50 Bronchial Washings Fungal Smear - Final 01/10/17 15:50 Bronchial Washings Fungal Smear - Final 12/31/16 01/02/17 07:16 04:26 NT-Pro-B Natriuret Pep 160 127 Impressions: Chest/Abdomen CTA 01/01/17 00:00 IMPRESSION: Emphysematous changes. Postsurgical changes in the right upper lobe. Minimal infiltrate in the left base could represent atelectasis or developing pneumonia. . Chest X-Ray 01/17/17 00:00 IMPRESSION: STABLE APPEARANCE. NO ACUTE FINDINGS. Assessment & Plan - Diagnosis (1) COPD exacerbation Is this a current diagnosis for this admission?: YesPlan: Patient with COPD exacerbation and status asthmaticus. Increase Solu-Medrol 60mg IV every 8h. On acyclovir. Will panculture patient if she becomes febrile. Have discussed case with pulmonary medicine. Bronchoscopy apparently revealed vesicular like lesions. Suspicious for viral infection. (2) Acute hypoxemic respiratory failure Is this a current diagnosis for this admission?: YesPlan: Pulmonary managing (3) Acute diastolic (congestive) heart failure Is this a current diagnosis for this admission?: YesPlan: Hypervolemic Continue IV Lasix. We'll continue to monitor I's and O's. Patient with grade 1 diastolic dysfunction. EF not reported, but reported to be normal. (4) Hypothyroidism Qualifiers: Hypothyroidism type: unspecified Qualified Code(s): E03.9 - Hypothyroidism, unspecified Is this a current diagnosis for this admission?: YesPlan: TSH undetectable and free T4 is normal. This likely represents sick euthyroid Repeat of this again likely represents sick euthyroid. Continue patient's Synthroid at current dose. (5) Hypertension Qualifiers: Hypertension type: essential hypertension Qualified Code(s): I10 - Essential (primary) hypertension Is this a current diagnosis for this admission?: YesPlan: Patient currently on clonidine patch, metoprolol, and will add when necessary hydralazine (6) Pulmonary hypertension Is this a current diagnosis for this admission?: YesPlan: Patient at baseline has moderate pulmonary hypertension. Defer treatment of this to pulmonary medicine (7) Trichomonas vaginitis Is this a current diagnosis for this admission?: YesPlan: Patient completed 7 days of Flagyl for this. (8) Obesity Qualifiers: Obesity type: due to excess calories Obesity severity: non-morbid Qualified Code(s): E66.09 - Other obesity due to excess calories Is this a current diagnosis for this admission?: Yes (9) GI prophylaxis Is this a current diagnosis for this admission?: Yes (10) DVT prophylaxis Is this a current diagnosis for this admission?: Yes (11) Acute encephalopathy Is this a current diagnosis for this admission?: YesPlan: This is likely multifactorial. Patient currently is nonverbal and is not yet back at baseline. She will continue to require hospitalization for treatment with IV acyclovir as well as monitoring her mental status. - Time Time Spent with patient: 25-34 minutes Medications reviewed and adjusted accordingly: Yes Anticipated discharge: Acute Rehab
[2017-01-17] MEDS: LEVALBUTEROL HCL NEB 1.25 MG/3 ML AMPUL NEB PRN (17:08)
[2017-01-17] MEDS ORDERED: AMLODIPINE BESYLATE 10 MG TABLET PO ONE (18:15)
[2017-01-17] MEDS: LORATADINE 10 MG TABLET PO SCH (21:13)
[2017-01-17] MEDS: MONTELUKAST SODIUM 10 MG TABLET PO SCH (21:13)
[2017-01-18] MEDS: METOPROLOL TARTRATE PF/INJ 5 MG/5 ML SDV IV SCH ×3 (00:56→13:29)
[2017-01-18] MEDS: THEOPHYLLINE ANHYDROUS 80 MG/15 ML PO SCH ×4 (00:56→18:35)
[2017-01-18] MEDS: UDCUP PO SCH ×4 (00:56→18:35)
[2017-01-18] MEDS: GUAIFENESIN SYRP 200 MG/10 ML UDC PO SCH ×6 (02:36→22:11)
[2017-01-18] MEDS: NITROGLYCERIN 2% OINTMENT 1 GM PACKET TP SCH ×3 (02:38→14:34)
[2017-01-18] MEDS: IPRATROPIUM/ALBUTEROL 0.5-2.5 MG/3 ML AMPUL NEB PRN ×2 (06:19→13:45)
[2017-01-18] MEDS: ACYCLOVIR SODIUM 800 MG in NORMAL SALINE 250 ML IV SCH ×3 (06:28→22:10)
[2017-01-18] MEDS: METHYLPREDNISOLONE INJ 40 MG/1 ML SDV IV SCH ×3 (06:29→22:12)
[2017-01-18] MEDS: LEVOTHYROXINE SODIUM 0.15 MG TABLET PO SCH (06:29)
[2017-01-18 06:35] LABS: ANION GAP 8 (5-19); BLOOD UREA NITROGEN 23 mg/dL (7-20); CALCIUM 9.1 mg/dL (8.4-10.2); CARBON DIOXIDE 36 mmol/L (22-30); CHLORIDE 99 mmol/L (98-107); CREATININE RESULT 0.77 mg/dL (0.52-1.25); GLUCOSE 154 mg/dL (75-110); POTASSIUM 3.7 mmol/L (3.6-5.0); SODIUM 142.8 mmol/L (137-145)
[2017-01-18] MEDS: BUDESONIDE NEB 0.5 MG/2 ML AMPUL NEB SCH ×2 (08:06→20:12)
[2017-01-18] MEDS: LEVALBUTEROL HCL NEB 1.25 MG/3 ML AMPUL NEB PRN (08:06)
[2017-01-18] MEDS: ENOXAPARIN SODIUM INJ 40 MG/0.4 ML DISP.SYRIN SUBCUT SCH (09:15)
[2017-01-18] MEDS: LACTOBACILLUS ACIDOPHILUS 250 MG TAB PO SCH ×2 (09:17→18:35)
[2017-01-18] MEDS: FUROSEMIDE INJ/PF 20 MG/2 ML SDV IV SCH ×2 (09:17→22:12)
[2017-01-18] MEDS: FAMOTIDINE 20 MG TABLET PO SCH ×2 (09:17→22:12)
[2017-01-18] MEDS: AMLODIPINE BESYLATE 5 MG TABLET PO SCH (09:18)
[2017-01-18] MEDS: POLYETHYLENE GLYCOL 3350 POWDER 17 GM/1 PACKET PO SCH (09:18)
--- NOTE | 2017-01-18 09:58 | PDOC PROGRESS REPORT ---
Subjective Progress Note for:: 01/18/17 Subjective:: Awake alert responding appropriately Physical Exam Vital Signs: Temp Pulse Resp BP Pulse Ox 98.5 F 83 20 126/52 H 97 01/18/17 07:15 01/18/17 08:11 01/18/17 08:11 01/18/17 07:15 01/18/17 08:11 Intake & Output 01/17/17 01/18/17 01/19/17 06:59 06:59 06:59 Intake Total 1748 1694 Output Total 4457 7202 Balance -2702 -1301 Weight 80.3 kg 79.8 kg General appearance: PRESENT: no acute distress, disheveled, obese Head exam: PRESENT: atraumatic, normocephalic Eye exam: PRESENT: conjunctiva pale, EOMI Mouth exam: PRESENT: dry mucosa, neck supple Respiratory exam: PRESENT: decreased breath sounds, prolonged expiratory phas, rhonchi, symmetrical, unlabored Cardiovascular exam: PRESENT: RRR, +S1, +S2 Pulses: PRESENT: normal radial pulses GI/Abdominal exam: PRESENT: normal bowel sounds, soft. ABSENT: distended, guarding, mass, organolmegaly, rebound, tenderness Rectal exam: PRESENT: deferred Gentrourinary exam: PRESENT: indwelling catheter Neurological exam: PRESENT: alert, awake Skin exam: PRESENT: dry, warm Results Laboratory Results: 01/18/17 06:05 01/18/17 06:05 Sodium 142.8 Potassium 3.7 Chloride 99 Carbon Dioxide 36 H Anion Gap 8 BUN 23 H Creatinine 0.77 Est GFR ( Amer) > 60 Est GFR (Non-Af Amer) > 60 Glucose 154 H Calcium 9.1 01/10/17 15:50 Bronchial Washings Fungal Smear - Final 01/10/17 15:50 Bronchial Washings Fungal Smear - Final 01/10/17 15:50 Bronchial Washings Fungal Smear - Final 12/31/16 01/02/17 07:16 04:26 NT-Pro-B Natriuret Pep 160 127 Impressions: Chest/Abdomen CTA 01/01/17 00:00 IMPRESSION: Emphysematous changes. Postsurgical changes in the right upper lobe. Minimal infiltrate in the left base could represent atelectasis or developing pneumonia. . Chest X-Ray 01/17/17 00:00 IMPRESSION: STABLE APPEARANCE. NO ACUTE FINDINGS. Assessment & Plan - Diagnosis (1) Acute hypercapnic respiratory failure Is this a current diagnosis for this admission?: YesPlan: Most recent ABG showed excellent p.o. 2 on 3 L however the PCO2 is elevated will check ABG on room air (2) Acute hypoxemic respiratory failure Is this a current diagnosis for this admission?: Yes (3) COPD exacerbation Is this a current diagnosis for this admission?: Yes (4) Hypothyroidism Qualifiers: Hypothyroidism type: unspecified Qualified Code(s): E03.9 - Hypothyroidism, unspecified Is this a current diagnosis for this admission?: Yes (5) Pulmonary hypertension Is this a current diagnosis for this admission?: Yes (6) Volume overload Qualifiers: Hypervolemia type: unspecified Qualified Code(s): E87.70 - Fluid overload, unspecified Is this a current diagnosis for this admission?: YesPlan: euvolimic (7) Lethargy Is this a current diagnosis for this admission?: YesPlan: dramatically improved
[2017-01-18] MEDS ORDERED: FLUCONAZOLE 200 MG/NS RTU 100 ML IV SCH (10:00)
[2017-01-18 10:03] LABS: ABSOLUTE LYMPHOCYTES (AUTO) 0.7 10^3/uL (0.5-4.7); ABSOLUTE MONOCYTES (AUTO) 0.4 10^3/uL (0.1-1.4); ABSOLUTE NEUT (AUTO) 11.2 10^3/uL (1.7-8.2); BASOPHILS % (AUTO) 0.1 % (0-2); HEMATOCRIT 36.7 % (36.0-47.0); HEMOGLOBIN 12.5 g/dL (12.0-15.5); HGB HCT DIFFERENCE 0.8; LYMPHOCYTES % (AUTO) 5.4 % (13-45); MEAN CORPUSCULAR HEMOGLOBIN 30.8 pg (27.0-33.4); MEAN CORPUSCULAR HGB CONC 34.2 g/dL (32.0-36.0); MEAN CORPUSCULAR VOLUME 90 fl (80-97); MONOCYTES % (AUTO) 3.3 % (3-13); RED BLOOD COUNT 4.07 10^6/uL (3.72-5.28); RED CELL DISTRIBUTION WIDTH 14.4 % (11.5-14.0); SEGMENTED NEUTROPHILS % (AUTO) 91.2 % (42-78); WHITE BLOOD COUNT 12.3 10^3/uL (4.0-10.5)
[2017-01-18] MEDS: TIOTROPIUM BROMIDE DPI 5 CAP/KIT (18 MCG/CAP) IH SCH (10:38)
[2017-01-18] MEDS: NORMAL SALINE INJ/PF 0.9% 10 ML SDV IV PRN (14:34)
[2017-01-18] MEDS ORDERED: PHARMACY COMMUNICATION ORDER MC NR (15:00)
--- NOTE | 2017-01-18 15:12 | PDOC PROGRESS REPORT ---
Subjective Progress Note for:: 01/18/17 Subjective:: Patient is seen on morning rounds with son present at bedside. No acute events overnight. Patient denies chest pain, shortness of breath, abdominal pain, nausea, vomiting , fevers, chills, diarrhea, constipation, headache. Patient is quite weak and can hardly feed herself. Physical Exam Vital Signs: Temp Pulse Resp BP Pulse Ox 98.4 F 70 18 134/64 H 100 01/18/17 03:06 01/18/17 03:06 01/18/17 03:06 01/18/17 03:06 01/18/17 03:06 Intake & Output 01/17/17 01/18/17 01/19/17 06:59 06:59 06:59 Intake Total 1748 1694 Output Total 4451 3925 Balance -2702 -1301 Weight 80.3 kg 79.8 kg Exam: General: Awake, follows some commands, HEENT: AT/NC, PERRL, oropharynx is moist, pink, no scleral icterus, scleral edema Neck: No JVD, trachea midline Chest: Bilateral bibasilar crackles CV: Regular rate and rhythm, normal S1 and S2, no rub or gallop; 2/6 sm Abdomen: Soft, nondistended, nontender to palpation, active bowel sounds; no rigidity, or guarding Extremities: No cyanosis, clubbing; edema generalized Neuro: Cranial nerves grossly intact without focal deficits, Moves all extremities, but generally weak Results Laboratory Results: 01/17/17 05:55 01/18/17 06:05 01/17/17 01/18/17 09:00 06:05 Carbonic Acid 1.63 H HCO3/H2CO3 Ratio 20:1 ABG pH 7.40 ABG pCO2 54.3 H ABG pO2 365.5 H ABG HCO3 32.7 H ABG O2 Saturation 99.8 H ABG Base Excess 6.2 FiO2 3L Sodium 142.8 Potassium 3.7 Chloride 99 Carbon Dioxide 36 H Anion Gap 8 BUN 23 H Creatinine 0.77 Est GFR ( Amer) > 60 Est GFR (Non-Af Amer) > 60 Glucose 154 H Calcium 9.1 01/10/17 15:50 Bronchial Washings Fungal Smear - Final 01/10/17 15:50 Bronchial Washings Fungal Smear - Final 01/10/17 15:50 Bronchial Washings Fungal Smear - Final 12/31/16 01/02/17 07:16 04:26 NT-Pro-B Natriuret Pep 160 127 Impressions: Chest/Abdomen CTA 01/01/17 00:00 IMPRESSION: Emphysematous changes. Postsurgical changes in the right upper lobe. Minimal infiltrate in the left base could represent atelectasis or developing pneumonia. . Chest X-Ray 01/17/17 00:00 IMPRESSION: STABLE APPEARANCE. NO ACUTE FINDINGS. Assessment & Plan - Diagnosis (1) COPD exacerbation Is this a current diagnosis for this admission?: YesPlan: Patient with COPD exacerbation and status asthmaticus. Attempt to decrease Solu-Medrol 40mg IV every 8h. On acyclovir. Will panculture patient if she becomes febrile. Have discussed case with pulmonary medicine. Bronchoscopy apparently revealed vesicular like lesions. Suspicious for viral infection. (2) Acute hypoxemic respiratory failure Is this a current diagnosis for this admission?: YesPlan: Pulmonary managing (3) Acute diastolic (congestive) heart failure Is this a current diagnosis for this admission?: YesPlan: Hypervolemic Continue IV Lasix. Patient on metoprolol, Cozaar, and Lasix. Will continue to monitor I's and O's. Patient with grade 1 diastolic dysfunction. EF not reported, but reported to be normal. (4) Hypothyroidism Qualifiers: Hypothyroidism type: unspecified Qualified Code(s): E03.9 - Hypothyroidism, unspecified Is this a current diagnosis for this admission?: YesPlan: TSH undetectable and free T4 is normal. This likely represents sick euthyroid Repeat of this again likely represents sick euthyroid. Continue patient's Synthroid at current dose. (5) Hypertension Qualifiers: Hypertension type: essential hypertension Qualified Code(s): I10 - Essential (primary) hypertension Is this a current diagnosis for this admission?: YesPlan: Well-controlled. Decrease clonidine patch. Continue Norvasc, Cozaar, metoprolol. PRN hydralazine (6) Pulmonary hypertension Is this a current diagnosis for this admission?: YesPlan: Patient at baseline has moderate pulmonary hypertension. Defer treatment of this to pulmonary medicine (7) Trichomonas vaginitis Is this a current diagnosis for this admission?: YesPlan: Patient completed 7 days of Flagyl for this. (8) Acute encephalopathy Is this a current diagnosis for this admission?: YesPlan: This is likely multifactorial. Patient currently is back to baseline. (9) Ambulatory dysfunction Is this a current diagnosis for this admission?: YesPlan: PT consultation has been placed and suspect the patient may have myopathy of critical illness. Patient had prolonged intubation. She will require inpatient rehabilitation. 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
[2017-01-18] MEDS ORDERED: CLONIDINE 0.1 MG/24 HR PATCH.TDWK TD ONE (16:00)
[2017-01-18] MEDS: LORATADINE 10 MG TABLET PO SCH (22:12)
[2017-01-18] MEDS: METOPROLOL SUCCINATE 25 MG TAB.SR.24H PO SCH (22:12)
[2017-01-18] MEDS: LOSARTAN POTASSIUM 50 MG TABLET PO SCH (22:13)
[2017-01-18] MEDS: MONTELUKAST SODIUM 10 MG TABLET PO SCH (22:13)
[2017-01-19] MEDS: THEOPHYLLINE ANHYDROUS 80 MG/15 ML PO SCH ×4 (00:32→17:35)
[2017-01-19] MEDS: UDCUP PO SCH ×4 (00:32→17:35)
[2017-01-19 01:58] LABS: ARTERIAL BLOOD BASE EXCESS 7.8 mmol/L; ARTERIAL BLOOD O2 SATURATION 92.9 % (94-98)
[2017-01-19] MEDS: GUAIFENESIN SYRP 200 MG/10 ML UDC PO SCH ×6 (02:32→22:15)
[2017-01-19] MEDS: ACYCLOVIR SODIUM 800 MG in NORMAL SALINE 250 ML IV SCH ×3 (05:37→20:40)
[2017-01-19] MEDS: METHYLPREDNISOLONE INJ 40 MG/1 ML SDV IV SCH (05:38)
[2017-01-19] MEDS: NORMAL SALINE INJ/PF 0.9% 10 ML SDV IV PRN ×3 (05:39→22:18)
[2017-01-19] MEDS: LEVOTHYROXINE SODIUM 0.15 MG TABLET PO SCH (05:39)
[2017-01-19 07:01] LABS: ANION GAP 8 (5-19); BLOOD UREA NITROGEN 28 mg/dL (7-20); CALCIUM 8.8 mg/dL (8.4-10.2); CARBON DIOXIDE 34 mmol/L (22-30); CHLORIDE 99 mmol/L (98-107); CREATININE RESULT 0.77 mg/dL (0.52-1.25); GLUCOSE 160 mg/dL (75-110); POTASSIUM 3.5 mmol/L (3.6-5.0); SODIUM 140.6 mmol/L (137-145)
[2017-01-19] MEDS: BUDESONIDE NEB 0.5 MG/2 ML AMPUL NEB SCH ×2 (08:03→20:21)
[2017-01-19] MEDS: LEVALBUTEROL HCL NEB 1.25 MG/3 ML AMPUL NEB PRN (08:04)
[2017-01-19 09:10] LABS: ABSOLUTE LYMPHOCYTES (AUTO) 0.7 10^3/uL (0.5-4.7); ABSOLUTE MONOCYTES (AUTO) 0.4 10^3/uL (0.1-1.4); BASOPHILS % (AUTO) 0.1 % (0-2); HEMATOCRIT 37.3 % (36.0-47.0); HEMOGLOBIN 12.6 g/dL (12.0-15.5); HGB HCT DIFFERENCE 0.5; LYMPHOCYTES % (AUTO) 5.1 % (13-45); MEAN CORPUSCULAR HEMOGLOBIN 30.7 pg (27.0-33.4); MEAN CORPUSCULAR HGB CONC 33.7 g/dL (32.0-36.0); MEAN CORPUSCULAR VOLUME 91 fl (80-97); MONOCYTES % (AUTO) 2.8 % (3-13); RED BLOOD COUNT 4.11 10^6/uL (3.72-5.28); RED CELL DISTRIBUTION WIDTH 14.4 % (11.5-14.0); WHITE BLOOD COUNT 14.1 10^3/uL (4.0-10.5)
[2017-01-19] MEDS: TIOTROPIUM BROMIDE DPI 5 CAP/KIT (18 MCG/CAP) IH SCH (11:09)
[2017-01-19] MEDS: FAMOTIDINE 20 MG TABLET PO SCH ×2 (11:12→22:15)
[2017-01-19] MEDS: AMLODIPINE BESYLATE 5 MG TABLET PO SCH (11:12)
[2017-01-19] MEDS: METOPROLOL SUCCINATE 25 MG TAB.SR.24H PO SCH ×2 (11:12→22:16)
[2017-01-19] MEDS: LACTOBACILLUS ACIDOPHILUS 250 MG TAB PO SCH ×2 (11:13→17:35)
[2017-01-19] MEDS: LOSARTAN POTASSIUM 50 MG TABLET PO SCH ×2 (11:13→22:16)
[2017-01-19] MEDS: ENOXAPARIN SODIUM INJ 40 MG/0.4 ML DISP.SYRIN SUBCUT SCH (11:14)
[2017-01-19] MEDS: FUROSEMIDE INJ/PF 20 MG/2 ML SDV IV SCH ×2 (11:14→17:34)
[2017-01-19] MEDS: POLYETHYLENE GLYCOL 3350 POWDER 17 GM/1 PACKET PO SCH (11:27)
--- NOTE | 2017-01-19 14:42 | PDOC PROGRESS REPORT ---
Subjective Progress Note for:: 01/19/17 Subjective:: Patient is seen on morning rounds. No acute events overnight. Patient denies chest pain, shortness of breath, abdominal pain, nausea, vomiting , fevers, chills, diarrhea, constipation, headache. Patient was able to stand with physical therapy today. Physical Exam Vital Signs: Temp Pulse Resp BP Pulse Ox 98.4 F 69 18 117/57 L 97 01/19/17 00:01 01/19/17 02:00 01/19/17 00:01 01/19/17 00:01 01/19/17 00:01 Intake & Output 01/18/17 01/19/17 01/20/17 06:59 06:59 06:59 Intake Total 1694 830 Output Total 2995 1275 Balance -1301 -445 Weight 79.8 kg Exam: General: Awake, alert, oriented 3; no acute respiratory distress HEENT: AT/NC, PERRL, oropharynx is moist, pink, no scleral icterus, scleral edema Neck: No JVD, trachea midline Chest: Light Bilateral bibasilar crackles CV: Regular rate and rhythm, normal S1 and S2, no rub or gallop; 2/6 sm Abdomen: Soft, nondistended, nontender to palpation, active bowel sounds; no rigidity, or guarding Extremities: No cyanosis, clubbing; edema generalized Neuro: Cranial nerves grossly intact without focal deficits, Moves all extremities, but generally weak Psych: Normal mood and affect Results Laboratory Results: 01/18/17 09:10 01/19/17 05:55 01/18/17 01/18/17 01/19/17 09:10 14:25 05:55 WBC 12.3 H RBC 4.07 Hgb 12.5 Hct 36.7 MCV 90 MCH 30.8 MCHC 34.2 RDW 14.4 H Plt Count 134 L Seg Neutrophils % 91.2 H Lymphocytes % 5.4 L Monocytes % 3.3 Eosinophils % 0.0 Basophils % 0.1 Absolute Neutrophils 11.2 H Absolute Lymphocytes 0.7 Absolute Monocytes 0.4 Absolute Eosinophils 0.0 Absolute Basophils 0.0 Carbonic Acid 1.41 H HCO3/H2CO3 Ratio 23:1 ABG pH 7.46 H ABG pCO2 47.0 H ABG pO2 62.5 L ABG HCO3 32.8 H ABG O2 Saturation 92.9 L ABG Base Excess 7.8 FiO2 21% Sodium 140.6 Potassium 3.5 L Chloride 99 Carbon Dioxide 34 H Anion Gap 8 BUN 28 H Creatinine 0.77 Est GFR ( Amer) > 60 Est GFR (Non-Af Amer) > 60 Glucose 160 H Calcium 8.8 12/31/16 01/02/17 07:16 04:26 NT-Pro-B Natriuret Pep 160 127 Impressions: Chest/Abdomen CTA 01/01/17 00:00 IMPRESSION: Emphysematous changes. Postsurgical changes in the right upper lobe. Minimal infiltrate in the left base could represent atelectasis or developing pneumonia. . Chest X-Ray 01/17/17 00:00 IMPRESSION: STABLE APPEARANCE. NO ACUTE FINDINGS. Assessment & Plan - Diagnosis (1) COPD exacerbation Is this a current diagnosis for this admission?: YesPlan: Patient with COPD exacerbation and status asthmaticus, improving. Patient did not tolerate decrease in Solu-Medrol. Will re-increased to 60 mg IV every 8. On acyclovir. Will panculture patient if she becomes febrile. Bronchoscopy apparently revealed vesicular like lesions. Suspicious for viral infection. (2) Acute hypoxemic respiratory failure Is this a current diagnosis for this admission?: YesPlan: Pulmonary managing (3) Acute diastolic (congestive) heart failure Is this a current diagnosis for this admission?: YesPlan: Hypervolemic Continue IV Lasix. Patient on metoprolol, Cozaar, and Lasix. Will continue to monitor I's and O's. Patient with grade 1 diastolic dysfunction. EF not reported, but reported to be normal. (4) Hypothyroidism Qualifiers: Hypothyroidism type: unspecified Qualified Code(s): E03.9 - Hypothyroidism, unspecified Is this a current diagnosis for this admission?: YesPlan: TSH undetectable and free T4 is normal. This likely represents sick euthyroid Repeat of this again likely represents sick euthyroid. Continue patient's Synthroid at current dose. Recommend that this is rechecked as an outpatient in 4-6 weeks. (5) Hypertension Qualifiers: Hypertension type: essential hypertension Qualified Code(s): I10 - Essential (primary) hypertension Is this a current diagnosis for this admission?: YesPlan: Well-controlled. Continue Norvasc, clonidine, Cozaar, metoprolol. PRN hydralazine (6) Pulmonary hypertension Is this a current diagnosis for this admission?: YesPlan: Patient at baseline has moderate pulmonary hypertension. Defer treatment of this to pulmonary medicine (7) Trichomonas vaginitis Is this a current diagnosis for this admission?: YesPlan: Patient completed 7 days of Flagyl for this. Discussed this with patient today and informed her of the mode of transmission. Patient reports that she was diagnosed with this several years ago but not complete the treatment because she "couldn't take it with her beer". (8) Acute encephalopathy Is this a current diagnosis for this admission?: YesPlan: Improved. Patient currently is back to baseline. Secondary to sepsis, hypoxia. (9) Ambulatory dysfunction Is this a current diagnosis for this admission?: YesPlan: PT consultation has been placed and suspect the patient may have myopathy of critical illness. Patient had prolonged intubation. She will require inpatient rehabilitation. 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
[2017-01-19] MEDS: METHYLPREDNISOLONE INJ 125 MG/2 ML SDV IV SCH ×2 (15:03→22:17)
[2017-01-19] MEDS: IPRATROPIUM/ALBUTEROL 0.5-2.5 MG/3 ML AMPUL NEB PRN ×2 (15:34→20:21)
[2017-01-19] MEDS: MONTELUKAST SODIUM 10 MG TABLET PO SCH (22:15)
[2017-01-19] MEDS: LORATADINE 10 MG TABLET PO SCH (22:15)
[2017-01-20] MEDS: THEOPHYLLINE ANHYDROUS 80 MG/15 ML PO SCH ×5 (01:10→23:50)
[2017-01-20] MEDS: UDCUP PO SCH ×5 (01:10→23:50)
[2017-01-20] MEDS: GUAIFENESIN SYRP 200 MG/10 ML UDC PO SCH ×6 (01:14→21:22)
[2017-01-20] MEDS: NORMAL SALINE INJ/PF 0.9% 10 ML SDV IV PRN ×2 (05:20→13:44)
[2017-01-20] MEDS: ACYCLOVIR SODIUM 800 MG in NORMAL SALINE 250 ML IV SCH ×3 (05:22→20:26)
[2017-01-20] MEDS: LEVOTHYROXINE SODIUM 0.15 MG TABLET PO SCH (05:24)
[2017-01-20] MEDS: METHYLPREDNISOLONE INJ 125 MG/2 ML SDV IV SCH ×3 (05:24→21:22)
[2017-01-20 06:34] LABS: ANION GAP 7 (5-19); BLOOD UREA NITROGEN 25 mg/dL (7-20); CALCIUM 8.8 mg/dL (8.4-10.2); CARBON DIOXIDE 36 mmol/L (22-30); CHLORIDE 98 mmol/L (98-107); CREATININE RESULT 0.72 mg/dL (0.52-1.25); GLUCOSE 170 mg/dL (75-110); POTASSIUM 3.5 mmol/L (3.6-5.0); SODIUM 140.7 mmol/L (137-145)
[2017-01-20] MEDS ORDERED: POTASSIUM CHLORIDE 10 MEQ TABLET.SA PO ONE (07:52)
[2017-01-20] MEDS: BUDESONIDE NEB 0.5 MG/2 ML AMPUL NEB SCH ×2 (08:00→20:04)
[2017-01-20] MEDS: IPRATROPIUM/ALBUTEROL 0.5-2.5 MG/3 ML AMPUL NEB PRN ×2 (08:00→14:29)
[2017-01-20] MEDS: TIOTROPIUM BROMIDE DPI 5 CAP/KIT (18 MCG/CAP) IH SCH (09:44)
[2017-01-20] MEDS: LACTOBACILLUS ACIDOPHILUS 250 MG TAB PO SCH ×2 (09:45→17:58)
[2017-01-20] MEDS: FAMOTIDINE 20 MG TABLET PO SCH ×2 (09:46→21:23)
[2017-01-20] MEDS: METOPROLOL SUCCINATE 25 MG TAB.SR.24H PO SCH ×2 (09:47→21:23)
[2017-01-20] MEDS: AMLODIPINE BESYLATE 5 MG TABLET PO SCH (09:48)
[2017-01-20] MEDS: LOSARTAN POTASSIUM 50 MG TABLET PO SCH ×2 (09:49→21:24)
[2017-01-20] MEDS: MULTIVITAMINS W-IRON TABLET, CHEWABLE PO SCH (09:49)
[2017-01-20] MEDS: FUROSEMIDE INJ/PF 20 MG/2 ML SDV IV SCH (09:50)
[2017-01-20] MEDS: ENOXAPARIN SODIUM INJ 40 MG/0.4 ML DISP.SYRIN SUBCUT SCH (09:52)
[2017-01-20] MEDS: POLYETHYLENE GLYCOL 3350 POWDER 17 GM/1 PACKET PO SCH (09:53)
[2017-01-20] MEDS ORDERED: POLYETHYLENE GLYCOL 3350 POWDER 17 GM/1 PACKET PO PRN (14:51)
[2017-01-20] MEDS ORDERED: PHARMACY COMMUNICATION ORDER MC NR (15:00)
--- NOTE | 2017-01-20 15:02 | PDOC PROGRESS REPORT ---
Subjective Progress Note for:: 01/20/17 Subjective:: Patient is seen on morning rounds. No acute events overnight. Patient denies chest pain, shortness of breath, abdominal pain, nausea, vomiting , fevers, chills, diarrhea, constipation, headache. Patient was able to feed herself today. Physical Exam Vital Signs: Temp Pulse Resp BP Pulse Ox 97.9 F 62 20 139/60 H 100 01/20/17 03:20 01/20/17 03:20 01/20/17 03:20 01/20/17 03:20 01/20/17 03:20 Intake & Output 01/19/17 01/20/17 01/21/17 06:59 06:59 06:59 Intake Total 1390 1897 Output Total 1950 800 Balance -560 1097 Weight 82.8 kg 83.8 kg Exam: General: Awake, alert, oriented 3; no acute respiratory distress HEENT: AT/NC, PERRL, oropharynx is moist, pink, no scleral icterus, scleral edema Neck: No JVD, trachea midline Chest: Light bibasilar crackles CV: Regular rate and rhythm, normal S1 and S2, no rub or gallop; 2/6 sm Abdomen: Soft, nondistended, nontender to palpation, active bowel sounds; no rigidity, rebound, or guarding Extremities: No cyanosis, clubbing; trace edema Neuro: Cranial nerves grossly intact without focal deficits, Psych: Normal mood and affect Results Laboratory Results: 01/19/17 08:50 01/20/17 05:35 01/19/17 01/20/17 08:50 05:35 WBC 14.1 H RBC 4.11 Hgb 12.6 Hct 37.3 MCV 91 MCH 30.7 MCHC 33.7 RDW 14.4 H Plt Count 126 L Seg Neutrophils % 92.0 H Lymphocytes % 5.1 L Monocytes % 2.8 L Eosinophils % 0.0 Basophils % 0.1 Absolute Neutrophils 13.0 H Absolute Lymphocytes 0.7 Absolute Monocytes 0.4 Absolute Eosinophils 0.0 Absolute Basophils 0.0 Sodium 140.7 Potassium 3.5 L Chloride 98 Carbon Dioxide 36 H Anion Gap 7 BUN 25 H Creatinine 0.72 Est GFR ( Amer) > 60 Est GFR (Non-Af Amer) > 60 Glucose 170 H Calcium 8.8 12/31/16 01/02/17 07:16 04:26 NT-Pro-B Natriuret Pep 160 127 Impressions: Chest/Abdomen CTA 01/01/17 00:00 IMPRESSION: Emphysematous changes. Postsurgical changes in the right upper lobe. Minimal infiltrate in the left base could represent atelectasis or developing pneumonia. . Chest X-Ray 01/17/17 00:00 IMPRESSION: STABLE APPEARANCE. NO ACUTE FINDINGS. Assessment & Plan - Diagnosis (1) COPD exacerbation Is this a current diagnosis for this admission?: YesPlan: Patient with COPD exacerbation and status asthmaticus, improving. Patient did not tolerate decrease in Solu-Medrol. Goal to transition to prednisone within the next 48 hours. On acyclovir. Will panculture patient if she becomes febrile. Bronchoscopy apparently revealed vesicular like lesions. Suspicious for viral infection. (2) Acute hypoxemic respiratory failure Is this a current diagnosis for this admission?: YesPlan: Pulmonary managing (3) Acute diastolic (congestive) heart failure Is this a current diagnosis for this admission?: YesPlan: Mildly hypervolemic Transition to oral Lasix. Patient on metoprolol, Cozaar, and Lasix. Will continue to monitor I's and O's. Patient with grade 1 diastolic dysfunction. EF not reported, but reported to be normal. (4) Hypothyroidism Qualifiers: Hypothyroidism type: unspecified Qualified Code(s): E03.9 - Hypothyroidism, unspecified Is this a current diagnosis for this admission?: YesPlan: TSH undetectable and free T4 is normal. This likely represents sick euthyroid Repeat of this again likely represents sick euthyroid. Continue patient's Synthroid at current dose. Recommend that this is rechecked as an outpatient in 4-6 weeks. (5) Hypertension Qualifiers: Hypertension type: essential hypertension Qualified Code(s): I10 - Essential (primary) hypertension Is this a current diagnosis for this admission?: YesPlan: Well-controlled. Continue Norvasc, clonidine, Cozaar, metoprolol. PRN hydralazine (6) Pulmonary hypertension Is this a current diagnosis for this admission?: YesPlan: Patient at baseline has moderate pulmonary hypertension. Defer treatment of this to pulmonary medicine (7) Trichomonas vaginitis Is this a current diagnosis for this admission?: YesPlan: Patient completed 7 days of Flagyl for this. Discussed this with patient and informed her of the mode of transmission. Patient reports that she was diagnosed with this several years ago but not complete the treatment because she "couldn't take it with her beer". (8) Acute encephalopathy Is this a current diagnosis for this admission?: YesPlan: Improved. Patient currently is back to baseline. Secondary to sepsis, hypoxia. (9) Ambulatory dysfunction Is this a current diagnosis for this admission?: YesPlan: PT consultation has been placed and suspect the patient may have myopathy of critical illness. Patient had prolonged intubation. She will require inpatient rehabilitation. 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
[2017-01-20] MEDS: MONTELUKAST SODIUM 10 MG TABLET PO SCH (21:23)
[2017-01-20] MEDS: LORATADINE 10 MG TABLET PO SCH (21:24)
[2017-01-21] MEDS: IPRATROPIUM/ALBUTEROL 0.5-2.5 MG/3 ML AMPUL NEB PRN ×3 (00:42→16:26)
[2017-01-21] MEDS: GUAIFENESIN SYRP 200 MG/10 ML UDC PO SCH ×6 (02:00→22:02)
[2017-01-21] MEDS: ACYCLOVIR SODIUM 800 MG in NORMAL SALINE 250 ML IV SCH (04:00)
[2017-01-21 05:16] LABS: BLOOD UREA NITROGEN 26 mg/dL (7-20); CALCIUM 8.9 mg/dL (8.4-10.2); CREATININE RESULT 0.71 mg/dL (0.52-1.25); GLUCOSE 185 mg/dL (75-110)
[2017-01-21] MEDS: METHYLPREDNISOLONE INJ 125 MG/2 ML SDV IV SCH (05:16)
[2017-01-21 05:17] LABS: ANION GAP 7 (5-19); CARBON DIOXIDE 35 mmol/L (22-30); CHLORIDE 98 mmol/L (98-107); POTASSIUM 3.9 mmol/L (3.6-5.0); SODIUM 139.6 mmol/L (137-145)
[2017-01-21] MEDS: UDCUP PO SCH ×4 (05:17→23:39)
[2017-01-21] MEDS: THEOPHYLLINE ANHYDROUS 80 MG/15 ML PO SCH ×4 (05:17→23:39)
[2017-01-21] MEDS: LEVOTHYROXINE SODIUM 0.15 MG TABLET PO SCH (05:18)
[2017-01-21] MEDS: BUDESONIDE NEB 0.5 MG/2 ML AMPUL NEB SCH ×2 (08:35→20:48)
[2017-01-21] MEDS: LACTOBACILLUS ACIDOPHILUS 250 MG TAB PO SCH ×2 (09:31→17:06)
[2017-01-21] MEDS: MULTIVITAMINS W-IRON TABLET, CHEWABLE PO SCH (09:32)
[2017-01-21] MEDS: LOSARTAN POTASSIUM 50 MG TABLET PO SCH ×2 (09:32→22:03)
[2017-01-21] MEDS: AMLODIPINE BESYLATE 5 MG TABLET PO SCH (09:32)
[2017-01-21] MEDS: FAMOTIDINE 20 MG TABLET PO SCH ×2 (09:33→22:03)
[2017-01-21] MEDS: METOPROLOL SUCCINATE 25 MG TAB.SR.24H PO SCH ×2 (09:33→22:02)
[2017-01-21] MEDS: ENOXAPARIN SODIUM INJ 40 MG/0.4 ML DISP.SYRIN SUBCUT SCH (09:34)
[2017-01-21] MEDS ORDERED: FUROSEMIDE 40 MG TABLET PO SCH ×2 (10:00→18:00)
--- NOTE | 2017-01-21 10:24 | PDOC PROGRESS REPORT ---
Subjective Progress Note for:: 01/21/17 Subjective:: Awake alert Physical Exam Vital Signs: Temp Pulse Resp BP Pulse Ox 97.4 F 66 18 135/74 H 100 01/21/17 07:14 01/21/17 07:14 01/21/17 07:14 01/21/17 07:14 01/21/17 07:14 Intake & Output 01/20/17 01/21/17 01/22/17 06:59 06:59 06:59 Intake Total 1897 1737 Output Total 800 1230 Balance 1097 507 Weight 83.8 kg 84.1 kg General appearance: PRESENT: no acute distress, disheveled, obese Head exam: PRESENT: atraumatic, normocephalic Eye exam: PRESENT: conjunctiva pale, EOMI Mouth exam: PRESENT: moist, neck supple Neck exam: ABSENT: carotid bruit, JVD, lymphadenopathy, thyromegaly Respiratory exam: PRESENT: decreased breath sounds, prolonged expiratory phas, rhonchi, symmetrical, unlabored Cardiovascular exam: PRESENT: RRR, +S1, +S2 Pulses: PRESENT: normal radial pulses GI/Abdominal exam: PRESENT: normal bowel sounds, soft. ABSENT: distended, guarding, mass, organolmegaly, rebound, tenderness Rectal exam: PRESENT: deferred Gentrourinary exam: PRESENT: indwelling catheter Musculoskeletal exam: PRESENT: normal inspection Neurological exam: PRESENT: alert, awake Psychiatric exam: PRESENT: normal mood Skin exam: PRESENT: dry, warm Results Laboratory Results: 01/19/17 08:50 01/21/17 03:56 01/21/17 03:56 Sodium 139.6 Potassium 3.9 Chloride 98 Carbon Dioxide 35 H Anion Gap 7 BUN 26 H Creatinine 0.71 Est GFR ( Amer) > 60 Est GFR (Non-Af Amer) > 60 Glucose 185 H Calcium 8.9 12/31/16 01/02/17 07:16 04:26 NT-Pro-B Natriuret Pep 160 127 Impressions: Chest/Abdomen CTA 01/01/17 00:00 IMPRESSION: Emphysematous changes. Postsurgical changes in the right upper lobe. Minimal infiltrate in the left base could represent atelectasis or developing pneumonia. . Chest X-Ray 01/17/17 00:00 IMPRESSION: STABLE APPEARANCE. NO ACUTE FINDINGS. Assessment & Plan - Diagnosis (1) Acute hypercapnic respiratory failure Is this a current diagnosis for this admission?: Yes (2) Acute hypoxemic respiratory failure Is this a current diagnosis for this admission?: Yes (3) COPD exacerbation Is this a current diagnosis for this admission?: Yes (4) Hypothyroidism Qualifiers: Hypothyroidism type: unspecified Qualified Code(s): E03.9 - Hypothyroidism, unspecified Is this a current diagnosis for this admission?: Yes (5) Pulmonary hypertension Is this a current diagnosis for this admission?: Yes (6) Volume overload Qualifiers: Hypervolemia type: unspecified Qualified Code(s): E87.70 - Fluid overload, unspecified Is this a current diagnosis for this admission?: Yes (7) Lethargy Is this a current diagnosis for this admission?: Yes
--- NOTE | 2017-01-21 11:18 | PDOC PROGRESS REPORT ---
Subjective Progress Note for:: 01/21/17 Subjective:: Patient now extubated. Cannula oxygen. He remained on intravenous steroid. Bronchoalveolar lavage so far negative other than Cherri species. No reported respiratory distress, temperature spikes, nausea or vomiting, diarrhea. Physical Exam Vital Signs: Temp Pulse Resp BP Pulse Ox 97.4 F 79 24 H 135/74 H 95 01/21/17 07:14 01/21/17 08:35 01/21/17 08:35 01/21/17 07:14 01/21/17 08:35 Intake & Output 01/20/17 01/21/17 01/22/17 06:59 06:59 06:59 Intake Total 1897 1737 Output Total 800 1230 Balance 1097 507 Weight 83.8 kg 84.1 kg General appearance: PRESENT: no acute distress, obese Head exam: PRESENT: normocephalic Eye exam: PRESENT: EOMI Mouth exam: PRESENT: moist, neck supple Neck exam: ABSENT: JVD Respiratory exam: PRESENT: crackles - Lower lung dacosta Cardiovascular exam: PRESENT: RRR. ABSENT: gallop GI/Abdominal exam: PRESENT: normal bowel sounds, soft. ABSENT: tenderness Extremities exam: PRESENT: +1 edema Neurological exam: PRESENT: alert, awake, oriented to situation Skin exam: PRESENT: dry, warm. ABSENT: cyanosis Results Laboratory Results: 01/19/17 08:50 01/21/17 03:56 01/21/17 03:56 Sodium 139.6 Potassium 3.9 Chloride 98 Carbon Dioxide 35 H Anion Gap 7 BUN 26 H Creatinine 0.71 Est GFR ( Amer) > 60 Est GFR (Non-Af Amer) > 60 Glucose 185 H Calcium 8.9 12/31/16 01/02/17 07:16 04:26 NT-Pro-B Natriuret Pep 160 127 Impressions: Chest/Abdomen CTA 01/01/17 00:00 IMPRESSION: Emphysematous changes. Postsurgical changes in the right upper lobe. Minimal infiltrate in the left base could represent atelectasis or developing pneumonia. . Chest X-Ray 01/17/17 00:00 IMPRESSION: STABLE APPEARANCE. NO ACUTE FINDINGS. Assessment & Plan - Diagnosis (1) Acute hypoxemic respiratory failure Is this a current diagnosis for this admission?: Yes (2) Sepsis Qualifiers: Sepsis type: sepsis due to unspecified organism Qualified Code(s): A41.9 - Sepsis, unspecified organism Is this a current diagnosis for this admission?: Yes (3) Pneumonia Qualifiers: Pneumonia type: due to unspecified organism Laterality: unspecified laterality Lung location: unspecified part of lung Qualified Code(s): J18.9 - Pneumonia, unspecified organism Is this a current diagnosis for this admission?: Yes (4) COPD exacerbation Is this a current diagnosis for this admission?: Yes (5) Acute diastolic (congestive) heart failure Is this a current diagnosis for this admission?: Yes (6) Hypertension Qualifiers: Hypertension type: essential hypertension Qualified Code(s): I10 - Essential (primary) hypertension Is this a current diagnosis for this admission?: Yes (7) Hypothyroidism Qualifiers: Hypothyroidism type: unspecified Qualified Code(s): E03.9 - Hypothyroidism, unspecified Is this a current diagnosis for this admission?: Yes (8) Obesity Qualifiers: Obesity type: with alveolar hypoventilation Obesity severity: non- morbid Qualified Code(s): 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 Discontinue intravenous Solu-Medrol. Off antibiotics. The patient's culture was negative for virus. We will discontinue acyclovir as well. We will consult media planner / buyer for subacute rehabilitation. Patient had a positive fluid balance of 1.6 L for the past 48 hours, I would increase the patient's Lasix.
[2017-01-21] MEDS: TIOTROPIUM BROMIDE DPI 5 CAP/KIT (18 MCG/CAP) IH SCH (11:57)
[2017-01-21] MEDS: LEVALBUTEROL HCL NEB 1.25 MG/3 ML AMPUL NEB PRN ×2 (12:13→20:48)
[2017-01-21] MEDS: PREDNISONE 20 MG TABLET PO SCH (17:06)
[2017-01-21] MEDS: FUROSEMIDE 40 MG TABLET PO SCH (17:06)
[2017-01-21] MEDS: ACETAMINOPHEN 325 MG TABLET PO PRN (20:29)
[2017-01-21] MEDS: LORATADINE 10 MG TABLET PO SCH (22:02)
[2017-01-21] MEDS: MONTELUKAST SODIUM 10 MG TABLET PO SCH (22:02)
[2017-01-22] MEDS: IPRATROPIUM/ALBUTEROL 0.5-2.5 MG/3 ML AMPUL NEB PRN ×3 (00:23→12:12)
[2017-01-22] MEDS: GUAIFENESIN SYRP 200 MG/10 ML UDC PO SCH ×4 (03:05→13:56)
[2017-01-22] MEDS: LEVALBUTEROL HCL NEB 1.25 MG/3 ML AMPUL NEB PRN (04:11)
[2017-01-22] MEDS: THEOPHYLLINE ANHYDROUS 80 MG/15 ML PO SCH ×2 (05:17→11:17)
[2017-01-22] MEDS: LEVOTHYROXINE SODIUM 0.15 MG TABLET PO SCH (05:17)
[2017-01-22] MEDS: UDCUP PO SCH ×2 (05:17→11:17)
[2017-01-22 06:17] LABS: ANION GAP 8 (5-19); BLOOD UREA NITROGEN 24 mg/dL (7-20); CARBON DIOXIDE 38 mmol/L (22-30); CHLORIDE 95 mmol/L (98-107); CREATININE RESULT 0.72 mg/dL (0.52-1.25); GLUCOSE 202 mg/dL (75-110); POTASSIUM 3.6 mmol/L (3.6-5.0); SODIUM 140.9 mmol/L (137-145)
[2017-01-22] MEDS: BUDESONIDE NEB 0.5 MG/2 ML AMPUL NEB SCH (07:54)
[2017-01-22] MEDS: FUROSEMIDE 40 MG TABLET PO SCH ×2 (08:33→15:58)
[2017-01-22 09:26] LABS: ABSOLUTE LYMPHOCYTES (AUTO) 1.5 10^3/uL (0.5-4.7); ABSOLUTE MONOCYTES (AUTO) 0.5 10^3/uL (0.1-1.4); BASOPHILS % (AUTO) 0.2 % (0-2); HEMATOCRIT 39.1 % (36.0-47.0); HEMOGLOBIN 13.2 g/dL (12.0-15.5); HGB HCT DIFFERENCE 0.5; LYMPHOCYTES % (AUTO) 10.7 % (13-45); MEAN CORPUSCULAR HEMOGLOBIN 30.8 pg (27.0-33.4); MEAN CORPUSCULAR HGB CONC 33.8 g/dL (32.0-36.0); MEAN CORPUSCULAR VOLUME 91 fl (80-97); MONOCYTES % (AUTO) 3.5 % (3-13); RED CELL DISTRIBUTION WIDTH 14.5 % (11.5-14.0); SEGMENTED NEUTROPHILS % (AUTO) 85.6 % (42-78)
[2017-01-22] MEDS: ENOXAPARIN SODIUM INJ 40 MG/0.4 ML DISP.SYRIN SUBCUT SCH (11:13)
[2017-01-22] MEDS: MULTIVITAMINS W-IRON TABLET, CHEWABLE PO SCH (11:16)
[2017-01-22] MEDS: METOPROLOL SUCCINATE 25 MG TAB.SR.24H PO SCH (11:17)
[2017-01-22] MEDS: LACTOBACILLUS ACIDOPHILUS 250 MG TAB PO SCH (11:17)
[2017-01-22] MEDS: PREDNISONE 20 MG TABLET PO SCH (11:18)
[2017-01-22] MEDS: FAMOTIDINE 20 MG TABLET PO SCH (11:19)
[2017-01-22] MEDS: TIOTROPIUM BROMIDE DPI 5 CAP/KIT (18 MCG/CAP) IH SCH (11:19)
[2017-01-22] MEDS: LOSARTAN POTASSIUM 50 MG TABLET PO SCH (11:19)
[2017-01-22] MEDS: AMLODIPINE BESYLATE 5 MG TABLET PO SCH (11:19)
--- NOTE | 2017-01-22 13:32 | PDOC TRANSFER SUMMARY ---
General - Admit/Disc Date/PCP Admission Date/Primary Care Provider: 12/30/16 10:59 KRYSTAL WEBSTER MD Discharge Date: 01/22/17 - Discharge Diagnosis (1) Acute hypoxemic respiratory failure Is this a current diagnosis for this admission?: Yes (2) Sepsis Is this a current diagnosis for this admission?: Yes (3) Pneumonia Is this a current diagnosis for this admission?: Yes (4) COPD exacerbation Is this a current diagnosis for this admission?: Yes (5) Acute diastolic (congestive) heart failure Is this a current diagnosis for this admission?: Yes (6) Hypertension Is this a current diagnosis for this admission?: Yes (7) Hypothyroidism Is this a current diagnosis for this admission?: Yes (8) Obesity Is this a current diagnosis for this admission?: Yes (9) Pulmonary hypertension Is this a current diagnosis for this admission?: Yes (10) Trichomonas vaginitis Is this a current diagnosis for this admission?: Yes (11) Ambulatory dysfunction Is this a current diagnosis for this admission?: Yes - Additional Information Resuscitation Status: Full Code Discharge Diet: Cardiac - low-fat low-salt Discharge Activity: Activity As Tolerated, Balance Activity w/Rest, Energy Conservation, Slowly Increase Activity, Weigh Daily Home Medications: Amlodipine Besylate [Norvasc 5 mg Tablet] 5 mg PO DAILY 12/30/16 Fluticasone/Salmeterol [Advair 250-50 Diskus 14 Dose/Diskus] 1 puff IH BID 12/30 Levothyroxine Sodium [Synthroid] 150 mcg PO DAILY 12/30/16 Meloxicam [Mobic 7.5 mg Tablet] 7.5 mg PO DAILY PRN 12/30/16 Theophylline Anhydrous [Theophylline] 400 mg PO DAILY 12/30/16 Tiotropium [place] [Spiriva Respimat] 1 puff IH DAILY 12/30/16 Benzonatate [Tessalon Perles 100 mg Capsule] 100 mg PO Q8HP PRN capsule Famotidine [Pepcid 20 mg Tablet] 20 mg PO Q12 tablet 01/22/17 Furosemide [Lasix] 40 mg PO BID #20 tablet 01/22/17 Guaifenesin [Robitussin Syrup 200 mg/10 ml Ud Cup] 200 mg PO Q4 udc 01/22/17 Ipratropium/Albuterol Sulfate [Duoneb 3 ml Ampul] 3 ml NEB Q4H vial.neb Levalbuterol HCl [Xopenex Neb 1.25 mg/3 ml Ampul] 1.25 mg NEB RTQ2HP PRN vial.neb 01/22/17 Loratadine [Claritin 10 mg Tablet] 10 mg PO QHS tablet 01/22/17 Losartan Potassium [Cozaar 50 mg Tablet] 50 mg PO Q12 tablet 01/22/17 Metoprolol Succinate [Toprol Xl 25 mg Tab.sr] 25 mg PO Q12 tab.sr.24h 01/22/17 Montelukast Sodium [Singulair 10 mg Tablet] 10 mg PO QHS tablet 01/22/17 Multivitamins W-Iron [Flintstones Chewable Multivit W/Fe Tab] 2 tab PO DAILY tab.chew 01/22/17 Polyethylene Glycol 3350 [Miralax Powder 17 gm/Packet] 17 gm PO DAILYP PRN powd.pack 01/22/17 Prednisone [Sterapred Ds] 1 pkg PO ASDIR PRN 12 Days 01/22/17 Tramadol HCl [Ultram 50 mg Tablet] 50 mg PO Q8HP PRN #30 tablet 01/22/17 Additional Information: Follow-up final culture result for fungus and AFB on bronchial alveolar lavage as outpatient with primary care physician History of Present Illness Admission Date/PCP: 12/30/16 10:59 KRYSTAL WEBSTER MD Patient complains of: Respiratory distress History of Present Illness: TEE VERAS is a 71 year old female with a known history of COPD/emphysema, hypothyroidism, hypertension who presents with a cough and shortness of breath increasing over the last 72 hours. Patient has had sick grandchildren. Patient has not been on any recent antibiotics or steroids. Patient was given 3 nebulized treatments, magnesium, Solu-Medrol with minimal relief in the emergency department. She is referred to the hospitalist service for acute hypoxemic respiratory failure with COPD exacerbation. She was placed on BiPAP. For details please refer to history and physical examination performed by the admitting physician. Hospital Course Hospital Course: The patient was admitted to the [facility]. Patient was placed on BiPAP, intravenous steroids and [id number]-[id number] bronchodilators were started. Patient's mental status worsens as well as oxygenation and therefore patient was transferred to the intensive care unit and eventually intubated. Serial x-rays did not reveal any acute infiltrate, and the patient was tried to be extubated but failed. Patient was reintubated back, pulmonary was consulted and CT scan of the chest revealed possibility of pneumonia on the left lower. Patient was placed on broad-spectrum antibiotic as well. Her course was mainly noted for prolonged intubation. Eventually she was maintained on intravenous antibiotic, steroids, as well as nebulizers. She was placed on intravenous sedatives as well. Tube feedings were started. Cultures were performed which basically did not reveal any significant organism other than yeast. She however was found to have Trichomonas and was treated with flagyl. Intravenous Lasix was likewise given the balance input and output. She eventually required bronchoscopy and washings were negative for malignancy and cultures remain negative other than yeast noted on the sputum. AFB and fungal culture final report remain pending . Suspicion for possible viral was made and therefore the patient was likewise placed on acyclovir intravenously. After prolonged treatment of her COPD and pneumonia the patient was successfully weaned and extubated, placed back on BiPAP and transferred to the medical floor stepdown unit. Tube feedings were discontinued and placed the patient on oral diet which she tolerated. She completed 2 weeks of IV antibiotics, and likewise final culture came back negative and acyclovir was discontinued. She was transitioned to oral steroids and maintained on bronchodilators. Physical therapy was consulted and recommendation SUBACUTE rehabilitation was made. systems requirements planner was therefore [facility]. The rest of the hospital stay is unremarkable. Physical Exam Vital Signs: Temp Pulse Resp BP Pulse Ox 97.6 F 80 16 143/61 H 100 01/22/17 11:31 01/22/17 12:12 01/22/17 12:12 01/22/17 11:31 01/22/17 11:31 Intake & Output 01/21/17 01/22/17 01/23/17 06:59 06:59 06:59 Intake Total 1737 915 220 Output Total 1230 3500 700 Balance 780 -1567 -049 Weight 84.1 kg 83.9 kg General appearance: PRESENT: no acute distress, cooperative Head exam: PRESENT: normocephalic Eye exam: PRESENT: EOMI Mouth exam: PRESENT: moist, neck supple Neck exam: ABSENT: JVD Respiratory exam: PRESENT: decreased breath sounds. ABSENT: rhonchi, wheezes Cardiovascular exam: PRESENT: RRR. ABSENT: gallop GI/Abdominal exam: PRESENT: normal bowel sounds, soft. ABSENT: distended, tenderness Extremities exam: PRESENT: other - Trace lower extremity edema Neurological exam: PRESENT: alert, awake, oriented to situation Skin exam: PRESENT: dry, warm. ABSENT: cyanosis Results Laboratory Results: 01/22/17 09:07 01/22/17 05:05 01/22/17 01/22/17 05:05 09:07 WBC 14.0 H RBC 4.30 Hgb 13.2 Hct 39.1 MCV 91 MCH 30.8 MCHC 33.8 RDW 14.5 H Plt Count 154 Seg Neutrophils % 85.6 H Lymphocytes % 10.7 L Monocytes % 3.5 Eosinophils % 0.0 Basophils % 0.2 Absolute Neutrophils 12.0 H Absolute Lymphocytes 1.5 Absolute Monocytes 0.5 Absolute Eosinophils 0.0 Absolute Basophils 0.0 Sodium 140.9 Potassium 3.6 Chloride 95 L Carbon Dioxide 38 H Anion Gap 8 BUN 24 H Creatinine 0.72 Est GFR ( Amer) > 60 Est GFR (Non-Af Amer) > 60 Glucose 202 H Calcium 9.0 01/10/17 15:50 Bronchial Washings Legionella Culture - Final 01/10/17 15:50 Bronchial Washings Legionella Culture - Final 12/31/16 01/02/17 07:16 04:26 NT-Pro-B Natriuret Pep 160 127 Impressions: Chest/Abdomen CTA 01/01/17 00:00 IMPRESSION: Emphysematous changes. Postsurgical changes in the right upper lobe. Minimal infiltrate in the left base could represent atelectasis or developing pneumonia. . Chest X-Ray 01/17/17 00:00 IMPRESSION: STABLE APPEARANCE. NO ACUTE FINDINGS. Transfer Plan - Disposition Transfer Plan: longterm facility for subacute rehabilitation - Time Spent with Patient Time spent with patient: Less than 30 Minutes Qualifiers PATEINT BEING DISCHARGED WITH ANY OF THE FOLLOWING DIAGNOSIS?: Heart Failure HF Pt being discharged on ACEI for LVEF less than 40%?: No Reason(s) for not prescribing ACEI:: Not indicated - Ejection fraction is normal HF Pt being discharged on ARBS for LVEF less than 40%?: Yes HF Pt with Afib discharged with Warfarin?: No Reason(s) for not prescribing Warfarin:: Not indicated - No A. fib HF Pt discharged on evidence-based Beta Sis:: Yes Plan Discharge Plan: Appointment with primary care physician in one week. The patient will also be followed by the physician at subacute facility rehabilitation Center. Time Spent: Less than 30 Minutes
[2017-01-22] MEDS: NORMAL SALINE INJ/PF 0.9% 10 ML SDV IV PRN (13:55)
[2017-01-22 16:17] VITALS: BP 134/2
--- NOTE | 2017-01-22 19:48 | PDOC PROGRESS REPORT ---
Subjective Progress Note for:: 01/22/17 Subjective:: Awake alert Physical Exam Vital Signs: Temp Pulse Resp BP Pulse Ox 97.6 F 80 16 134/2 H 95 01/22/17 16:13 01/22/17 16:13 01/22/17 16:13 01/22/17 16:13 01/22/17 16:13 Intake & Output 01/21/17 01/22/17 01/23/17 06:59 06:59 06:59 Intake Total 1737 915 220 Output Total 1230 3500 700 Balance 838 -5736 -365 Weight 84.1 kg 83.9 kg General appearance: PRESENT: no acute distress, obese Head exam: PRESENT: atraumatic, normocephalic Eye exam: PRESENT: conjunctiva pale, EOMI Mouth exam: PRESENT: dry mucosa, neck supple Neck exam: ABSENT: carotid bruit, JVD, lymphadenopathy, thyromegaly Respiratory exam: PRESENT: other Cardiovascular exam: PRESENT: RRR, +S1 GI/Abdominal exam: PRESENT: normal bowel sounds, soft. ABSENT: distended, guarding, mass, organolmegaly, rebound, tenderness Rectal exam: PRESENT: deferred Musculoskeletal exam: PRESENT: normal inspection Neurological exam: PRESENT: alert, awake Psychiatric exam: PRESENT: normal mood Skin exam: PRESENT: dry, warm Results Laboratory Results: 01/22/17 09:07 01/22/17 05:05 01/22/17 01/22/17 05:05 09:07 WBC 14.0 H RBC 4.30 Hgb 13.2 Hct 39.1 MCV 91 MCH 30.8 MCHC 33.8 RDW 14.5 H Plt Count 154 Seg Neutrophils % 85.6 H Lymphocytes % 10.7 L Monocytes % 3.5 Eosinophils % 0.0 Basophils % 0.2 Absolute Neutrophils 12.0 H Absolute Lymphocytes 1.5 Absolute Monocytes 0.5 Absolute Eosinophils 0.0 Absolute Basophils 0.0 Sodium 140.9 Potassium 3.6 Chloride 95 L Carbon Dioxide 38 H Anion Gap 8 BUN 24 H Creatinine 0.72 Est GFR ( Amer) > 60 Est GFR (Non-Af Amer) > 60 Glucose 202 H Calcium 9.0 01/10/17 15:50 Bronchial Washings Legionella Culture - Final 01/10/17 15:50 Bronchial Washings Legionella Culture - Final 12/31/16 01/02/17 07:16 04:26 NT-Pro-B Natriuret Pep 160 127 Impressions: Chest/Abdomen CTA 01/01/17 00:00 IMPRESSION: Emphysematous changes. Postsurgical changes in the right upper lobe. Minimal infiltrate in the left base could represent atelectasis or developing pneumonia. . Chest X-Ray 01/17/17 00:00 IMPRESSION: STABLE APPEARANCE. NO ACUTE FINDINGS. Assessment & Plan - Diagnosis (1) Acute hypercapnic respiratory failure Is this a current diagnosis for this admission?: No (2) Acute hypoxemic respiratory failure Is this a current diagnosis for this admission?: No (3) COPD exacerbation Is this a current diagnosis for this admission?: YesPlan: resolved (4) Hypothyroidism Qualifiers: Hypothyroidism type: unspecified Qualified Code(s): E03.9 - Hypothyroidism, unspecified Is this a current diagnosis for this admission?: Yes (5) Pulmonary hypertension Is this a current diagnosis for this admission?: Yes (6) Volume overload Qualifiers: Hypervolemia type: unspecified Qualified Code(s): E87.70 - Fluid overload, unspecified Is this a current diagnosis for this admission?: No (7) Lethargy Is this a current diagnosis for this admission?: No
[2017-01-25] MEDS ORDERED: CLONIDINE 0.1 MG/24 HR PATCH.TDWK TD ONE (10:00)
== END 2017-01-22 17:00 | DRG 853 ==
LOC: ER 05:49 → UNDOADMIN 10:14 → EH 10:14 → 5 12:38 → 3S 12-31 15:11 → ICU 01-01 10:41 → 3W 01-17 21:30
PROVIDERS: ADMIT Family Medicine; ATTEND Family Medicine
PROC: 3E0F73Z Introduction of Anti-inflammatory into Respiratory Tract, Via Natural or Artificial Opening (ICD-10-PCS; 2016-12-30)
PROC: 5A09457 Assistance with Respiratory Ventilation, 24-96 Consecutive Hours, Continuous Positive Airway Pressure (ICD-10-PCS; 2016-12-31)
PROC: 5A1955Z Respiratory Ventilation, Greater than 96 Consecutive Hours (ICD-10-PCS; 2017-01-01)
PROC: 0BH17EZ Insertion of Endotracheal Airway into Trachea, Via Natural or Artificial Opening (ICD-10-PCS; 2017-01-01)
PROC: 05HM33Z Insertion of Infusion Device into Right Internal Jugular Vein, Percutaneous Approach (ICD-10-PCS; 2017-01-01)
PROC: 0B9D8ZX Drainage of Right Middle Lung Lobe, Via Natural or Artificial Opening Endoscopic, Diagnostic (ICD-10-PCS; 2017-01-10)
PROC: 0B9F8ZX Drainage of Right Lower Lung Lobe, Via Natural or Artificial Opening Endoscopic, Diagnostic (ICD-10-PCS; 2017-01-10)
PROC: 0B9J8ZX Drainage of Left Lower Lung Lobe, Via Natural or Artificial Opening Endoscopic, Diagnostic (ICD-10-PCS; principal; 2017-01-10 14:00)
DX: A41.9 Sepsis, unspecified organism (principal); J96.01 Acute respiratory failure with hypoxia; J18.9 Pneumonia, unspecified organism; I50.33 Acute on chronic diastolic (congestive) heart failure; G93.40 Encephalopathy, unspecified; J96.02 Acute respiratory failure with hypercapnia; J44.1 Chronic obstructive pulmonary disease with (acute) exacerbation; J45.902 Unspecified asthma with status asthmaticus; E66.2 Morbid (severe) obesity with alveolar hypoventilation; R65.20 Severe sepsis without septic shock; I11.0 Hypertensive heart disease with heart failure; E03.9 Hypothyroidism, unspecified; Z68.33 Body mass index [BMI] 33.0-33.9, adult; I27.2 Other secondary pulmonary hypertension; A59.01 Trichomonal vulvovaginitis; E87.70 Fluid overload, unspecified; Z78.1 Physical restraint status; Z79.899 Other long term (current) drug therapy; Z87.891 Personal history of nicotine dependence
CPT/HCPCS: 31500; 31623; 31624; 36415; 36600; 71010; 71275; 80048; 80053; 80076; 80198; 80202; 81001; 82150; 82550; 82553; 82565; 82803; 82962; 83036; 83690; 83735; 83880; 84100; 84439; 84443; 84478; 84481; 84484; 85025; 85027; 85610; 86317; 86592; 86603; 86701; 87015; 87040; 87070; 87086; 87101; 87116; 87205; 87206; 87210; 87250; 87486; 87491; 87493; 87591; 88104; 89050; 93005; 93010; 93306; 93970; 94002; 94003; 94640; 94660; 94799; 96361; 96365; 96368; 96375; 99291; G8978-GP; G8979-GP; G8987-GO; G8988-GO; G8996-GN; G8997-GN; J0133; J0330; J0360; J0692; J0743; J1100; J1630; J1642; J1650; J1815; J1940; J1956; J2060; J2270; J2704; J2920; J2930; J2997; J3010; J3370; J3475; J3480; J3490; J7030; J7050; J7060; J7512; J7620; J7685

== ENCOUNTER → 2017-04-19 | Outpatient (CLI) | payer MEDICARE ==
--- NOTE | 2017-04-19 13:54 | WOMENS IMAGING REPORT ---
EXAM DESCRIPTION: BILAT SCREENING MAMMO W/CAD COMPLETED DATE/TIME: 04/19/2017 12:32 pm REASON FOR STUDY: Z12.31, GABY SCREENING MAMMO Z12.31 ENCNTR SCREEN MAMMOGRAM FOR MALIGNANT NEOP LASM OF ALEXANDRA COMPARISON: Annual priors dating back to October 2007. TECHNIQUE: Standard craniocaudal and mediolateral oblique views of each breast recorded using digita l acquisition. LIMITATIONS: None. FINDINGS: No masses, calcifications or architectural distortion. No areas of suspicion. Read with the assistance of CAD. .[facility] - R2 Cenova Version 1.3 .[facility] Imaging - R2 Cenova Version 1.3 .[facility] - R2 Cenova Version 2.4 .[facility] - R2 Cenova Version 2.4 .[facility] - R2 [employer] Coordinator Version 9.2 IMPRESSION: NORMAL MAMMOGRAM. BIRADS 1. BREAST DENSITY: c. The breasts are heterogeneously dense, which may obscure small masses. BIRAD: 1 NEGATIVE RECOMMENDATION: ROUTINE SCREENING COMMENT: The patient has been notified of the results by letter per SA requirements. Additional no tification policies are in place for contacting patient with suspicious or incomplete findings. Quality ID #225: The [employer] recommends an annual screening mammogram for women aged 40 years or over. This facility utilizes a reminder system to ensure that all patients receive reminder letters, and/or direct phone calls for appointments. This includes reminders for routine scr eening mammograms, diagnostic mammograms, or other Breast Imaging Interventions when appropriate. Th is patient will be placed in the appropriate reminder system. The [employer] (ACR) has developed recommendations for screening MRI of the breast s in certain patient populations, to be used in conjunction with mammography. Breast MRI surveillanc e may be appropriate for women with more than 20% lifetime risk of developing breast cancer as deter mined by genetic testing, significant family history of the disease, or history of mantle radiation f or Hodgkins Disease. ACR Practice Guidelines 2008. TECHNICAL DOCUMENTATION: FINDING NUMBER: (1) ASSESSMENT: (1) JOB ID: [id number] [employer]- All Rights Reserved
== END ==
LOC: WI 13:26
PROVIDERS: ATTEND Physician Assistant
DX: Z12.31 Encounter for screening mammogram for malignant neoplasm of breast (principal)
CPT/HCPCS: 77067; G0202

== ENCOUNTER → 2018-03-21 | Outpatient (CLI) | payer MEDICARE | LOC: OD 14:55 | PROVIDERS: ATTEND Internal Medicine Pulmonary Disease | DX: J44.9 Chronic obstructive pulmonary disease, unspecified (principal) | CPT/HCPCS: 36415; 80198 ==

== ENCOUNTER → 2018-05-06 | Outpatient (CLI) | payer MEDICARE ==
--- NOTE | 2018-05-06 12:41 | WOMENS IMAGING REPORT ---
EXAM DESCRIPTION: 3D SCREENING MAMMO BILAT COMPLETED DATE/TIME: 05/06/2018 11:50 am REASON FOR STUDY: BILATERAL SCREENING MAMMO; Z12.31 COMPARISON: 04/19/2017 and 04/12/2016. TECHNIQUE: Standard craniocaudal and mediolateral oblique views of each breast recorded using digita l acquisition and breast tomosynthesis. LIMITATIONS: None. FINDINGS: No masses, calcifications or architectural distortion. No areas of suspicion. Read with the assistance of CAD. .[facility] - R2 Cenova Version 1.3 .[facility] Imaging - R2 Cenova Version 1.3 .[facility] Imaging - R2 Cenova Version 2.4 .[facility] - R2 Cenova Version 2.4 .[facility] - R2 Eeler Version 9.2 IMPRESSION: NORMAL MAMMOGRAM. BIRADS 1. BREAST DENSITY: c. The breasts are heterogeneously dense, which may obscure small masses. BIRAD: 1 NEGATIVE RECOMMENDATION: ROUTINE SCREENING COMMENT: The patient has been notified of the results by letter per SA requirements. Additional no tification policies are in place for contacting patient with suspicious or incomplete findings. Quality ID #[id number]: The [employer] recommends an annual screening mammogram for women aged 40 years or over. This facility utilizes a reminder system to ensure that all patients receive reminder letters, and/or direct phone calls for appointments. This includes reminders for routine scr eening mammograms, diagnostic mammograms, or other Breast Imaging Interventions when appropriate. Th is patient will be placed in the appropriate reminder system. The [employer] (ACR) has developed recommendations for screening MRI of the breast s in certain patient populations, to be used in conjunction with mammography. Breast MRI surveillanc e may be appropriate for women with more than 20% lifetime risk of developing breast cancer as deter mined by genetic testing, significant family history of the disease, or history of mantle radiation f or Hodgkins Disease. ACR Practice Guidelines 2008. DBT Technology DBT is a type of tomographic mammography. With conventional mammography, overlapping breast tissue ma y make lesions difficult to detect, even with good compression. DBT uses an x-ray tube that rotates a round the breast, taking images at different angles. These images are then combined to create thin sl ices of the breast that the radiologist can view as a 3D reconstruction. The [employer] unit can perform full-field digital mammograms (2D imaging); or DBT (3D imaging); or both, in a combination mode that quickly performs both the mammogram and the tomosynthesis scan while the breast is still compressed. PQRS 6045F: Fluoroscopic imaging is not utilized for breast tomosynthesis. TECHNICAL DOCUMENTATION: FINDING NUMBER: (1) ASSESSMENT: (1) JOB ID: [id number] [employer]- All Rights Reserved Reading location - IP/workstation name: [email or web address]
== END ==
LOC: WI 11:22
PROVIDERS: ATTEND Physician Assistant
DX: Z12.31 Encounter for screening mammogram for malignant neoplasm of breast (principal)
CPT/HCPCS: 77063; 77067

== ENCOUNTER → 2018-05-08 | Outpatient (CLI) | payer MEDICARE ==
--- NOTE | 2018-05-08 13:32 | RADIOLOGY REPORT (SQ) ---
EXAM DESCRIPTION: KNEE RIGHT 2 VIEWS COMPLETED DATE/TIME: 05/08/2018 1:16 pm REASON FOR STUDY: M22.2X1 PATELLOFEMORAL DISORDERS, RIGHT KNEE M22.2X1 PATELLOFEMORAL DISORDERS, RI GHT KNEE COMPARISON: None. NUMBER OF VIEWS: Two views TECHNIQUE: AP and lateral radiographic images acquired of the right knee. LIMITATIONS: None. FINDINGS: MINERALIZATION: There are areas of bony sclerosis primarily involving the lateral femoral condyle and to a lesser extent the medial femoral condyle. BONES: No acute fracture or dislocation. There appears to be an osteochondral defect involving the l ateral femoral condyle and I cannot exclude a smaller osteochondral defect involving the medial femor al condyle. MRI may be of value for further evaluation if clinically warranted JOINT: No effusion. SOFT TISSUES: No soft tissue swelling. No radio-opaque foreign body. OTHER: The patella appears slightly lateral in position in relation to the trochlear groove on the AP view and clinical correlation is recommended to exclude possible subluxation. IMPRESSION: NO RADIOGRAPHIC EVIDENCE OF ACUTE INJURY. Other findings as noted above. MRI may be o f value for further evaluation if clinically warranted. TECHNICAL DOCUMENTATION: JOB ID: [id number] [employer]- All Rights Reserved Reading location - IP/workstation name: [email or web address]
== END ==
LOC: RAD 12:50
PROVIDERS: ATTEND Physician Assistant
DX: M22.2X1 Patellofemoral disorders, right knee (principal)

== ENCOUNTER 2018-06-07 12:55 | Emergency (ER) | payer MEDICARE ==
[2018-06-07 13:21] VITALS: BP 117/60
--- NOTE | 2018-06-07 14:07 | RADIOLOGY REPORT (SQ) ---
EXAM DESCRIPTION: CT CHEST WITHOUT; CT ABD/PELVIS NO ORAL OR IV COMPLETED DATE/TIME: 06/07/2018 1:45 pm REASON FOR STUDY: back pain and r/o aneurysm back pain, right lower quadrant pain, left lower quadra nt pain COMPARISON: CT angio chest 01/01/2017 TECHNIQUE: CT scan of the chest performed without intravenous contrast using helical scanning techni que. Images reviewed with lung, soft tissue and bone windows. Reconstructed coronal and sagittal MPR images reviewed. All images stored on PACS. CT scan of the abdomen and pelvis performed without intravenous contrast and withoutoral contrast usi ng helical scanning technique with dynamic intravenous contrast injection. Images reviewed with lung , soft tissue and bone windows. Reconstructed coronal and sagittal MPR images reviewed. All images stored on PACS. All CT scanners at this facility use dose modulation, iterative reconstruction, and/or weight based d osing when appropriate to reduce radiation dose to as low as reasonably achievable (ALARA). [facility]: Dose Right [facility]: CareDose [facility]: Dose Right [facility]: Teradose 4D [facility]: Smart [email or web address] RADIATION DOSE: CT Rad equipment meets quality standard of care and radiation dose reduction techniq ues were employed. CTDIvol: 9.6 mGy. DLP: 613 mGy-cm. mGy. LIMITATIONS: No technical limitations. FINDINGS: CHEST: AXILLAE: No adenopathy. CHEST WALL: No masses. No subcutaneous air. LUNGS: No nodules or masses. No pneumothorax. No infiltrates. Old surgical nathalie along the perip shelby of the right upper lobe unchanged from 01/01/2017. Obstructive lung disease. PLEURA: No effusions. No calcifications. THYROID: No masses or significant asymmetry. HILAR AND MEDIASTINAL STRUCTURES: No identified masses or abnormal nodes. AORTA AND GREAT VESSELS: No aneurysm. HEART: No pericardial effusion. HARDWARE AND LIFELINES: None. BONES: No significant finding. OTHER: No other significant finding. ABDOMEN AND PELVIS: LIVER: Normal size. No masses. No dilated ducts. Benign hepatic cysts are present SPLEEN: Normal size. No focal lesions. PANCREAS: No masses. No significant calcifications. No adjacent inflammation or peripancreatic flui d collections. Pancreatic duct not dilated. GALLBLADDER: No identified stones by CT criteria. No inflammatory changes to suggest cholecystitis. ADRENAL GLANDS: No significant masses or asymmetry. RIGHT KIDNEY AND URETER: No solid masses. Assessment limited by lack of IV contrast. No significant calcifications. No hydronephrosis or hydroureter. LEFT KIDNEY AND URETER: No solid masses. Assessment limited by lack of IV contrast. No significant calcifications. No hydronephrosis or hydroureter. AORTA AND VESSELS: No aneurysm. RETROPERITONEUM: No retroperitoneal adenopathy, hemorrhage or masses. APPENDIX: Surgically absent LARGE AND SMALL BOWEL: No dilatation. No masses. No wall thickening. Scattered colonic diverticuli without diverticulitis. ABDOMINAL WALL: No hernia or masses. PERITONEAL CAVITY: No free air. No free fluid. No peritoneal implants or masses. PELVIS: No mass or free fluid. Normal bladder. Post hysterectomy. Pelvic retroperitoneal clips are present BONES: Degenerative disc changes and facet arthropathy at L4-5 OTHER: No other significant finding. IMPRESSION: Old postsurgical changes periphery right upper lobe. No acute changes in the chest. No CT evidence of abdominal or thoracic aortic aneurysm. No acute findings in the abdomen or pelvis TECHNICAL DOCUMENTATION: JOB ID: [id number] Quality ID # [id number]: Final reports with documentation of one or more dose reduction techniques (e.g., Au tomated exposure control, adjustment of the mA and/or kV according to patient size, use of iterative reconstruction technique) 2010 [employer]- All Rights Reserved Reading location - IP/workstation name: [email or web address]
--- NOTE | 2018-06-07 14:31 | ER Document Report ---
ED Neck/Back Problem - General Chief Complaint: Back Pain Stated Complaint: BACK PAIN Time Seen by Provider: 06/07/18 13:25 Mode of Arrival: Ambulatory Information source: Patient Notes: 73-year-old female presented to ED for complaint of pain to her lower back. She states she saw her MD last week and said that the pain in her back may be from walking on her sore knee. Patient states the pain got much worse so she came to the ER to get checked out. TRAVEL OUTSIDE OF THE [place] IN LAST 30 DAYS: No - HPI Patient complains to provider of: Lower back Onset: Last week Onset: Gradual Timing: Worse Quality of pain: Sharp, Throbbing Severity: Severe Pain Level: 5 Recent injury: No Associated symptoms: Lower back pain Exacerbated by: Movement of trunk, Sitting position Relieved by: Nothing Similar symptoms previously: Yes Recently seen / treated by doctor: Yes - Related Data Allergies/Adverse Reactions: No Known Allergies Allergy (Verified 06/07/18 13:03) Past Medical History - General Information source: Patient - Social History Smoking Status: Never Smoker Cigarette use (# per day): No Chew tobacco use (# tins/day): No Smoking Education Provided: No Frequency of alcohol use: Social Drug Abuse: None Lives with: Family Family History: Reviewed & Not Pertinent Patient has suicidal ideation: No Patient has homicidal ideation: No - Past Medical History Cardiac Medical History: Reports: Hx Congestive Heart Failure, Hx Hypercholesterolemia, Hx Hypertension Pulmonary Medical History: Reports: Hx COPD, Hx Pneumonia EENT Medical History: Reports: None Neurological Medical History: Reports: None Endocrine Medical History: Reports: None Renal/ Medical History: Reports: None Malignancy Medical History: Reports: None GI Medical History: Reports: None Musculoskeletal Medical History: Reports Hx Arthritis, Reports Hx Musculoskeletal Deformity, Reports Hx Musculoskeletal Trauma Skin Medical History: Reports None Psychiatric Medical History: Reports: Hx Anxiety Traumatic Medical History: Reports: Hx Pneumothorax Infectious Medical History: Reports: None Past Surgical History: Reports: Hx Hysterectomy, Other - Chest tube - Immunizations Immunizations up to date: Yes Review of Systems - Review of Systems Constitutional: No symptoms reported EENT: No symptoms reported Cardiovascular: No symptoms reported Respiratory: No symptoms reported Gastrointestinal: No symptoms reported Genitourinary: No symptoms reported Female Genitourinary: No symptoms reported Musculoskeletal: Back pain, Muscle pain, Muscle stiffness Skin: No symptoms reported Hematologic/Lymphatic: No symptoms reported Neurological/Psychological: No symptoms reported -: Yes All other systems reviewed and negative Physical Exam - Vital signs Vitals: Temp Pulse Resp BP Pulse Ox 98.1 F 94 20 117/60 97 06/07/18 13:16 06/07/18 13:16 06/07/18 13:16 06/07/18 13:16 06/07/18 13:16 Interpretation: Normal - General General appearance: Appears well, Alert - HEENT Head: Normocephalic, Atraumatic Eyes: Normal Pupils: PERRL - Respiratory Respiratory status: No respiratory distress Chest status: Nontender Breath sounds: Normal Chest palpation: Normal - Cardiovascular Rhythm: Regular Heart sounds: Normal auscultation Murmur: No - Abdominal Inspection: Normal Distension: No distension Bowel sounds: Normal Tenderness: Nontender Organomegaly: No organomegaly. No: Hepatomegaly, Splenomegaly, Mass - No pulsatile masses - Back Back: Normal, Tender, Vertebra tenderness. No: Deformity/step-off, CVA tenderness, Scars, Scoliosis, Wounds - Extremities General upper extremity: Normal inspection, Nontender, Normal color, Normal ROM , Normal temperature General lower extremity: Normal inspection, Nontender, Normal color, Normal ROM , Normal temperature, Normal weight bearing. No: Curtis's sign - Neurological Neuro grossly intact: Yes Cognition: Normal Orientation: AAOx4 [place] Coma Scale Eye Opening: Spontaneous [place] Coma Scale Verbal: Oriented [place] Coma Scale Motor: Obeys Commands Maria Esther Coma Scale Total: 15 Speech: Normal Motor strength normal: LUE, RUE, LLE, RLE Sensory: Normal - Psychological Associated symptoms: Normal affect, Normal mood - Skin Skin Temperature: Warm Skin Moisture: Dry Skin Color: Normal Course - Re-evaluation Re-evalutation: 06/07/18 22:22 CT discussed with patient and her daughter. Written report and the patient to follow-up with her primary doctor. Patient was discharged home with instructions for low back pain exercise ice warm packs and to follow-up with her primary doctor. Patient is already on Ultram for chronic pain. - Vital Signs Vital signs: Temp Pulse Resp BP Pulse Ox 98.1 F 87 20 117/60 94 06/07/18 13:16 06/07/18 14:43 06/07/18 13:16 06/07/18 13:16 06/07/18 14:43 - Diagnostic Test Radiology reviewed: Image reviewed, Reports reviewed Discharge - Discharge Clinical Impression: Low back pain Qualifiers: Chronicity: unspecified Back pain laterality: bilateral Sciatica presence: with sciatica Sciatica laterality: sciatica of right side Qualified Code(s): M54.41 - Lumbago with sciatica, right side Condition: Stable Disposition: HOME, SELF-CARE Additional Instructions: LOW BACK PAIN: Three out of every four people will have an episode of disabling back pain during their lifetime. Most commonly the pain is due to straining of the muscles and ligaments in the low back. Usual treatment includes: (1) Rest on a firm surface. Avoid lying on your stomach. (2) Ice pack the painful area. After a few days, gentle heat may be used intermittently to relax the area, or ice packs can be continued. (3) Medication may be needed -- muscle relaxers and antiinflammatory medicines are commonly used. (4) As the back improves, exercises are prescribed to strengthen the back and abdominal muscles. Your doctor will advise you on the proper care for your back at each stage in your recovery. You may be better in a few days -- or healing may take several weeks. If new symptoms of a "herniated disc" (radiation of pain, numbness, or tingling down the back of the leg or weakness in the leg) occur, you should be re-examined. Further testing may be necessary. We have placed a Lidoderm patch on you while you are in the emergency room. After you have removed this in 12 hours you can apply [id number] lidocaine cream gel or patches they will have the same effect. MUSCLE RELAXERS: Muscle relaxing medications are usually prescribed for acute muscle spasm or injury to the neck and back. They are often combined with antiinflammatory pain medication for increased relief. You may stop the muscle relaxer when the pain and stiffness have improved. Start the medication again if spasms recur. Muscle relaxers may cause drowsiness, especially with the first dose. Do not operate machinery or drive while under the effects of the medication. Most muscle relaxers last up to 24 hours. Do not combine the medication with alcohol. ICE PACKS: Apply ice packs frequently against the painful area. Many different schedules are recommended, such as "20 minutes on, 20 minutes off" or "one hour ice, two hours rest." If you need to work, you may need to go longer between ice treatments. You should plan to have the area ice packed AT LEAST one fourth of the time. The ice should be applied over the wrap, tape, or splint, or over a layer of cloth -- not directly against the skin. Some ice bags have a built-in cloth and can be put directly on the skin. WARM PACKS: After approximately two days, apply gentle heat (such as a heating pad or hot water bottle) for about 20 to 30 minutes about every two hours -- at least four times daily. Warmth and elevation will help you make a more rapid recovery , and will ease the pain considerably. Do not use HOT heat, and never apply heat for longer than 30 minutes. The continuous heat can invisibly damage skin and muscles -- even when no burn is seen on the surface. Damaged muscles can make you MORE sore. Stretching Exercises for the Back The physician has recommended that you begin stretching exercises for your back. These are often used even while the back is painful. However, you should notify the physician if the activities seem to increase your pain. PELVIC TILT: Lie flat on your back with knees bent. Tighten your stomach and buttock muscles so it flattens your lower back against the floor. Hold 10 seconds. Repeat 10 times, twice daily. KNEE RAISE: Lying on the back with knees bent, raise one knee to your chest, then the other. Hold both knees against the chest 10 seconds, then lower one knee at a time. Repeat 10 times, twice daily. PARTIAL TRUNK RAISE: Lie face down, arms at your sides. Keeping your waist on the floor, use your arms raise your chest up. Support yourself on your elbows for 30 seconds. Repeat twice daily, increasing the time to two minutes as you recover. FOLLOW-UP CARE: If you have been referred to a physician for follow-up care, call the physician s office for an appointment as you were instructed or within the next two days. If you experience worsening or a significant change in your symptoms, notify the physician immediately or return to the Emergency Department at any time for re-evaluation. Please call your primary doctor on Saturday and schedule a follow-up appointment and take your CT results to your primary care doctor to your follow-up appointment. Prescriptions: Cyclobenzaprine HCl [Flexeril 5 mg Tablet] 5 mg PO BIDP PRN #10 tablet PRN Reason: Referrals: DOREEN PELLETIER PA-C [Primary Care Provider] - Follow up as needed
[2018-06-07] MEDS ORDERED: LIDOCAINE 5% (700 MG) TRANSDERMAL ADH..PATCH TP ONE (14:32)
== END 2018-06-07 14:52 | disposition home or self-care (01) ==
LOC: ER 12:55
DX: M54.41 Lumbago with sciatica, right side (principal); J44.9 Chronic obstructive pulmonary disease, unspecified
CPT/HCPCS: 71250; 74176; 99284

== ENCOUNTER → 2019-05-12 | Outpatient (CLI) | payer MEDICARE ==
--- NOTE | 2019-05-13 10:01 | WOMENS IMAGING REPORT ---
EXAM DESCRIPTION: 3D SCREENING MAMMO BILAT COMPLETED DATE/TIME: 05/12/2019 10:55 am REASON FOR STUDY: Z12.31 ENCOUNTER FOR SCREENING MAMMOGRAM FOR MALIGNANT NEOPLASM OF BREAST Z12.31 ENCNTR SCREEN MAMMOGRAM FOR MALIGNANT NEOPLASM OF ALEXANDRA COMPARISON: Multiple since 2008 EXAM PARAMETERS: Views: Standard craniocaudal and mediolateral oblique views of each breast recorded using digital acquisition and breast tomosynthesis. Read with the assistance of CAD. .[facility] - [employer] Kettle Tender Version 9.2 LIMITATIONS: None. FINDINGS: No suspicious masses, suspicious calcifications or architectural distortion. No areas of c oncern. IMPRESSION: NEGATIVE MAMMOGRAM. BIRADS 1. BREAST DENSITY: b. There are scattered areas of fibroglandular density. BIRAD: ASSESSMENT: 1 NEGATIVE RECOMMENDATION: ROUTINE SCREENING COMMENT: The patient has been notified of the results by letter per MQSA requirements. Additional no tification policies are in place for contacting patient with suspicious or incomplete findings. Quality ID #[id number]: The [employer] recommends an annual screening mammogram for women aged 40 years or over. This facility utilizes a reminder system to ensure that all patients receive reminder letters, and/or direct phone calls for appointments. This includes reminders for routine scr eening mammograms, diagnostic mammograms, or other Breast Imaging Interventions when appropriate. Th is patient will be placed in the appropriate reminder system. TECHNICAL DOCUMENTATION: FINDING NUMBER: (1) ASSESSMENT: (1) JOB ID: [id number]- All Rights Reserved Reading location - IP/workstation name: [email or web address]
== END ==
LOC: WI 10:24
PROVIDERS: ATTEND Physician Assistant
DX: Z12.31 Encounter for screening mammogram for malignant neoplasm of breast (principal)
CPT/HCPCS: 77063; 77067

== ENCOUNTER 2019-09-11 04:41 | Inpatient (IN) | payer MEDICARE ==
--- NOTE | 2019-09-11 04:53 | ER Document Report ---
ED General - General Chief Complaint: Shortness Of Breath Stated Complaint: SHORTNESS OF BREATH Time Seen by Provider: 09/11/19 04:49 Primary Care Provider: DOREEN PELLETIER PA-C [Primary Care Provider] - Follow up as needed Mode of Arrival: Medic Information source: Patient TRAVEL OUTSIDE OF THE [place] IN LAST 30 DAYS: No - HPI Patient complains to provider of: Shortness of breath Onset: Other - over the last 12 hours Onset/Duration: Gradual Quality of pain: No pain Severity: Severe Pain Level: Denies Associated symptoms: Other - dry cough Exacerbated by: Movement, Coughing Relieved by: Denies Similar symptoms previously: Yes - patient has a history of COPD Recently seen / treated by doctor: No Notes: 74 year old female with a history of COPD, CHF, HTN, Pulmonary HTN, Hypothyroidism brought in by EMS for shortness of breath and wheezing. The wing ent received 125mg of solumedrol, 2g of Mg, and breathing treatments prior to ER arrival. The patient was tripoding on ER arrival with bipap on. The patient denies chest pain, fevers, chills, sweats, nausea, vomiting. The patient denies running out of her home medications. - Related Data Allergies/Adverse Reactions: No Known Allergies Allergy (Verified 09/11/19 05:06) Past Medical History - Social History Smoking Status: Former Smoker Frequency of alcohol use: Occasional Drug Abuse: None Family History: Reviewed & Not Pertinent - Past Medical History Cardiac Medical History: Reports: Hx Congestive Heart Failure, Hx Hypercholesterolemia, Hx Hypertension Pulmonary Medical History: Reports: Hx COPD, Hx Pneumonia EENT Medical History: Reports: None Neurological Medical History: Reports: None Endocrine Medical History: Reports: Hx Hypothyroidism Renal/ Medical History: Reports: None. Denies: Hx Peritoneal Dialysis Malignancy Medical History: Reports: None GI Medical History: Reports: None Musculoskeletal Medical History: Reports Hx Arthritis, Reports Hx Musc uloskeletal Deformity, Reports Hx Musculoskeletal Trauma Psychiatric Medical History: Reports: Hx Anxiety Traumatic Medical History: Reports: Hx Pneumothorax Infectious Medical History: Reports: None Past Surgical History: Reports: Hx Hysterectomy, Other - Chest tube - Immunizations Immunizations up to date: Yes Review of Systems - Review of Systems Constitutional: Weakness EENT: No symptoms reported Cardiovascular: No symptoms reported Respiratory: Cough, Short of breath, Wheezing Gastrointestinal: No symptoms reported Genitourinary: No symptoms reported Female Genitourinary: No symptoms reported Musculoskeletal: No symptoms reported Skin: No symptoms reported Hematologic/Lymphatic: No symptoms reported Neurological/Psychological: No symptoms reported Physical Exam - Vital signs Vitals: Temp Pulse Resp BP Pulse Ox 98.5 F 103 H 28 H 167/85 H 100 09/11/19 04:44 09/11/19 04:44 09/11/19 04:44 09/11/19 04:44 09/11/19 04:44 - Notes Notes: GENERAL: Respirtory Distress noted, Patient is Tripoding on ER arrival with Bipap on. HEAD: Atraumatic, normocephalic. EYES: Pupils equal round and reactive to light, extraocular movements intact, sclera anicteric, conjunctiva are normal. ENT: Nares patent, oropharynx clear without exudates. Moist mucous membranes. NECK: Normal range of motion, supple without lymphadenopathy or JVD. LUNGS: Decreased Breath sounds, Mild Wheezing heard throughout. No rales or rh onchi. HEART: Tachycardic. Normal rhythm. No murmurs, rubs or gallops. ABDOMEN: Soft, nontender, normoactive bowel sounds. No guarding, no rebound. No masses appreciated. EXTREMITIES: Normal range of motion, no pitting but mild peripheral leg edema. No clubbing or cyanosis. NEUROLOGICAL: Cranial nerves II through XII grossly intact. Normal speech, normal gait. PSYCH: Normal mood, normal affect. SKIN: Warm, Dry, normal turgor, no rashes or lesions noted. Course - Re-evaluation Re-evalutation: 09/11/19 06:20 The patient arrived in Respiratory Distress. She has a history of COPD and CHF. EMS gave 2g Mg, Solumedrol and Nebs. Patient has been maintained in bipap in the ER. The patient will need admission but not all labs are back at this point. Patient signed out to oncoming ER doctor. - Vital Signs Vital signs: Temp Pulse Resp BP Pulse Ox 98.5 F 103 H 24 H 147/78 H 100 09/11/19 04:44 09/11/19 04:44 09/11/19 06:03 09/11/19 06:03 09/11/19 06:03 - Laboratory Result Diagrams: 09/11/19 05:02 09/11/19 05:02 Laboratory results interpreted by me: 09/11/19 09/11/19 05:02 05:02 RDW 14.6 H BUN 27 H Creatinine 1.31 H Est GFR ( Amer) 48 L Est GFR (MDRD) Non-Af 40 L Glucose 116 H - Transfer of Care Care transferred to following provider: Dr. Hernandez at shift change Discharge - Discharge Clinical Impression: COPD (chronic obstructive pulmonary disease) Qualifiers: COPD type: COPD with acute exacerbation Qualified Code(s): J44.1 - Chronic obstructive pulmonary disease with (acute) exacerbation Condition: Serious Disposition: OTHER Referrals: DOREEN PELLETIER PA-C [Primary Care Provider] - Follow up as needed
[2019-09-11 05:22] LABS: ABSOLUTE EOSINOPHILS # (AUTO) 0.2 10^3/uL (0.0-0.6); ABSOLUTE LYMPHOCYTES (AUTO) 3.2 10^3/uL (0.5-4.7); ABSOLUTE MONOCYTES (AUTO) 0.8 10^3/uL (0.1-1.4); ABSOLUTE NEUT (AUTO) 3.9 10^3/uL (1.7-8.2); BASOPHILS % (AUTO) 0.6 % (0-2); EOSINOPHILS % (AUTO) 1.9 % (0-6); HEMATOCRIT 39.8 % (36.0-47.0); HEMOGLOBIN 13.3 g/dL (12.0-15.5); LYMPHOCYTES % (AUTO) 39.3 % (13-45); MEAN CORPUSCULAR HEMOGLOBIN 31.9 pg (27.0-33.4); MEAN CORPUSCULAR HGB CONC 33.5 g/dL (32.0-36.0); MEAN CORPUSCULAR VOLUME 95 fl (80-97); MONOCYTES % (AUTO) 10.1 % (3-13); PLATELET COUNT 259 10^3/uL (150-450); RED BLOOD COUNT 4.17 10^6/uL (3.72-5.28); RED CELL DISTRIBUTION WIDTH 14.6 % (11.5-14.0); SEGMENTED NEUTROPHILS % (AUTO) 48.1 % (42-78); TOTAL CELLS COUNTED % (AUTO) 100 %; WHITE BLOOD COUNT 8.2 10^3/uL (4.0-10.5)
[2019-09-11 05:48] LABS: ANION GAP 8 (5-19); BLOOD UREA NITROGEN 27 mg/dL (7-20); CALCIUM 9.4 mg/dL (8.4-10.2); CARBON DIOXIDE 29 mmol/L (22-30); CHLORIDE 104 mmol/L (98-107); GLUCOSE 116 mg/dL (75-110); POTASSIUM 4.4 mmol/L (3.6-5.0)
[2019-09-11 06:00] LABS: NT PRO BNP 67 pg/mL (<125)
[2019-09-11 06:08] LABS: ARTERIAL BLOOD BASE EXCESS -1.9 mmol/L; ARTERIAL BLOOD H2CO3 1.54 mmol/L (1.05-1.35); ARTERIAL BLOOD O2 SATURATION 98.6 % (94-98); ARTERIAL BLOOD PH 7.31 (7.35-7.45); ARTERIAL BLOOD PO2 144.8 mmHg (80-100); ARTERIAL BLOOD TOTAL CO2 26.6 mmol/L (21-25)
[2019-09-11 06:09] LABS: TROPONIN I < 0.012 ng/mL
--- NOTE | 2019-09-11 06:10 | RADIOLOGY REPORT (SQ) ---
Chest single view on 09/11/2019 at 5:17 AM CLINICAL INDICATION: Shortness of breath COMPARISON: 01/17/2017 FINDINGS: Emphysematous changes of the lungs are noted. The lungs are otherwise clear. Cardiac, hilar and mediastinal contours are within normal limits. No bony abnormality is noted. IMPRESSION: No acute disease.
[2019-09-11 06:32] LABS: ARTERIAL BLOOD FIO2 40%
[2019-09-11] MEDS ORDERED: LEVOTHYROXINE SODIUM 0.075 MG TABLET PO SCH (10:00)
[2019-09-11] MEDS ORDERED: LOSARTAN POTASSIUM 50 MG TABLET PO SCH (10:00)
[2019-09-11] MEDS ORDERED: FUROSEMIDE 40 MG TABLET PO SCH (10:00)
[2019-09-11] MEDS ORDERED: TRAMADOL HCL 50 MG TABLET PO SCH (10:00)
[2019-09-11 10:01] LABS: ARTERIAL BLOOD BASE EXCESS 1.1 mmol/L; ARTERIAL BLOOD FIO2 25%; ARTERIAL BLOOD H2CO3 1.63 mmol/L (1.05-1.35); ARTERIAL BLOOD O2 SATURATION 97.7 % (94-98); ARTERIAL BLOOD PCO2 54.1 mmHg (35-45); ARTERIAL BLOOD PH 7.33 (7.35-7.45); ARTERIAL BLOOD PO2 110.6 mmHg (80-100); ARTERIAL BLOOD TOTAL CO2 29.7 mmol/L (21-25)
[2019-09-11] MEDS: AMLODIPINE BESYLATE 5 MG TABLET PO SCH (10:51)
[2019-09-11] MEDS: TIZANIDINE HCL 4 MG TABLET PO SCH ×3 (10:51→17:33)
[2019-09-11] MEDS: NITROFURANTOIN MONOHYD/M-CRYST 100 MG CAPSULE PO SCH ×2 (10:51→17:33)
[2019-09-11] MEDS: METHYLPREDNISOLONE INJ 40 MG/1 ML SDV IV SCH ×2 (10:53→22:42)
--- NOTE | 2019-09-11 12:37 | PDOC H&P ---
History of Present Illness Admission Date/PCP: 09/11/19 09:53 DOREEN PELLETIER PA-C Patient complains of: dyspnea History of Present Illness: TEE VERAS is a 74 year old female with history of emphysema with secondary pneumothorax, hypertension, hypothyroidism, presents with complaints of dyspnea of sudden onset starting last night. Patient states that she usually takes an DuoNeb nebulizer every 4-5 hours every day for over a year. Yesterday she attempted taking it after feeling short of breath but there was no improvement. She has not been experiencing much cough. Denies any chest pain, fever or chills. Patient subsequently called EMS. On arrival of EMS, patient was tripoding and was subsequently placed on BiPAP. Patient also admits to being recently diagnosed by her PCP with UTI yesterday and started on Macrobid. Patient follows with Dr. Riley in the outpatient setting. Past Medical History Cardiac Medical History: Reports: Hypertension Pulmonary Medical History: Reports: Chronic Obstructive Pulmonary Disease (COPD), Pneumonia EENT Medical History: Reports: None Neurological Medical History: Reports: None Endocrine Medical History: Reports: Hypothyroidism Renal/ Medical History: Reports: None Malignancy Medical History: Reports: None GI Medical History: Reports: None Musculoskeltal Medical History: Reports: Arthritis Traumatic Medical History: Reports: Pneumothorax Infectious Medical History: Reports: None Past Surgical History Past Surgical History: Reports: Hysterectomy, Other - Chest tube Social History Information Source: Patient Smoking Status: Former Smoker Electronic Cigarette use?: No Frequency of Alcohol Use: Occasional Hx Recreational Drug Use: No Hx Prescription Drug Abuse: No - Advance Directive Resuscitation Status: Full Code Family History Family History: DM, Hypertension Parental Family History Reviewed: Yes Children Family History Reviewed: NA Sibling(s) Family History Reviewed.: Yes Medication/Allergy Home Medications: Amlodipine Besylate [Norvasc 5 mg Tablet] 5 mg PO DAILY 12/30/16 Tiotropium [place] [Spiriva Respimat] 1 puff IH DAILY 12/30/16 Furosemide [Lasix] 40 mg PO BID #20 tablet 01/22/17 Ipratropium/Albuterol Sulfate [Duoneb 3 ml Ampul] 3 ml NEB Q4H vial.neb 01/22/17 Losartan Potassium [Cozaar 50 mg Tablet] 50 mg PO Q12 tablet 01/22/17 Multivitamins W-Iron [Flintstones Chewable Multivit W/Fe Tab] 2 tab PO DAILY tab.chew 01/22/17 Budesonide/Formoterol Fumarate [Symbicort Hfa 160-4.5 Mcg Inhaler 6 gm] 2 puff IH Q12 09/11/19 Diphenhydramine HCl [Benadryl] 25 mg PO PRN PRN 09/11/19 Lactobacillus Acidophilus [Probiotic] 1 each PO BID 09/11/19 Levothyroxine Sodium 125 mcg PO DAILY 09/11/19 Nitrofurantoin Macrocrystal [Macrodantin] 100 mg PO BID 09/11/19 Tizanidine HCl [Zanaflex] 4 mg PO Q6H 09/11/19 Tramadol HCl [Ultram 50 mg Tablet] 50 mg PO BID 09/11/19 Allergies/Adverse Reactions: No Known Allergies Allergy (Verified 09/11/19 05:06) Review of Systems Constitutional: ABSENT: chills, fever(s) Eyes: ABSENT: visual disturbances Nose, Mouth, and Throat: ABSENT: headache(s) Cardiovascular: ABSENT: chest pain Respiratory: PRESENT: dyspnea. ABSENT: cough Gastrointestinal: ABSENT: abdominal pain, diarrhea, nausea, vomiting Genitourinary: ABSENT: dysuria Integumentary: ABSENT: diaphoresis Neurological: ABSENT: dizziness Endocrine: PRESENT: polyuria Physical Exam Vital Signs: Temp Pulse Resp BP Pulse Ox 98.5 F 103 H 14 131/63 H 97 09/11/19 04:44 09/11/19 04:44 09/11/19 09:01 09/11/19 09:01 09/11/19 08:31 Intake & Output 09/10/19 09/11/19 09/12/19 06:59 06:59 06:59 Weight 90.9 kg General appearance: PRESENT: no acute distress, cooperative, other - Seems comfortable on BiPAP Eye exam: PRESENT: EOMI Neck exam: ABSENT: JVD Respiratory exam: PRESENT: decreased breath sounds, prolonged expiratory phas, symmetrical, unlabored. ABSENT: tachypnea, wheezes Cardiovascular exam: PRESENT: RRR, +S1, +S2. ABSENT: gallop, tachycardia GI/Abdominal exam: PRESENT: normal bowel sounds, soft. ABSENT: rebound, rigid, tenderness Extremities exam: ABSENT: pedal edema Musculoskeletal exam: PRESENT: ambulatory Neurological exam: PRESENT: alert, awake, oriented to person, oriented to place, oriented to time, oriented to situation Results Laboratory Results: 09/11/19 05:02 09/11/19 05:02 09/11/19 09/11/19 09/11/19 05:02 05:02 05:02 WBC 8.2 RBC 4.17 Hgb 13.3 Hct 39.8 MCV 95 MCH 31.9 MCHC 33.5 RDW 14.6 H Plt Count 259 Seg Neutrophils % 48.1 Carbonic Acid HCO3/H2CO3 Ratio ABG pH ABG pCO2 ABG pO2 ABG HCO3 ABG O2 Saturation ABG Base Excess FiO2 Sodium 140.9 Potassium 4.4 Chloride 104 Carbon Dioxide 29 Anion Gap 8 BUN 27 H Creatinine 1.31 H Est GFR ( Amer) 48 L Est GFR (Non-Af Amer) Glucose 116 H Lactic Acid 1.2 Calcium 9.4 09/11/19 09/11/19 09/11/19 05:02 05:49 09:36 WBC RBC Hgb Hct MCV MCH MCHC RDW Plt Count Seg Neutrophils % Carbonic Acid 1.54 H 1.63 H HCO3/H2CO3 Ratio 16:1 17:1 ABG pH 7.31 L 7.33 L ABG pCO2 51.0 H 54.1 H ABG pO2 144.8 H 110.6 H ABG HCO3 25.0 H 28.0 H ABG O2 Saturation 98.6 H 97.7 ABG Base Excess -1.9 1.1 FiO2 40% 25% Sodium Cancelled Potassium Cancelled Chloride Cancelled Carbon Dioxide Cancelled Anion Gap Cancelled BUN Cancelled Creatinine Cancelled Est GFR ( Amer) Cancelled Est GFR (Non-Af Amer) Cancelled Glucose Cancelled Lactic Acid Calcium Cancelled 09/11/19 05:02 Troponin I < 0.012 NT-Pro-B Natriuret Pep 67 Impressions: Chest X-Ray 09/11/19 04:50 IMPRESSION: No acute disease. Assessment and Plan - Diagnosis (1) COPD exacerbation Is this a current diagnosis for this admission?: Yes Plan: Standing DuoNeb's Steroids LABA/ICS/LAMA Has history of emphysema with secondary pneumothorax (2) Acute respiratory failure Qualifiers: Respiratory failure complication: unspecified whether with hypoxia or hypercapnia Qualified Code(s): J96.00 - Acute respiratory failure, unspecified whether with hypoxia or hypercapnia Is this a current diagnosis for this admission?: Yes Plan: Initialy placed on BiPAP for increased work of breathing but appears a lot more comfortable now and with only mild hypercapnia on ABG. I will attempt to wean off BiPAP now. (3) UTI (urinary tract infection) Is this a current diagnosis for this admission?: Yes Plan: Diagnosed with UTI yesterday by PCP I will continue Macrobid to complete 5 day therapy as planned by PCP (4) Hypertension Qualifiers: Hypertension type: essential hypertension Qualified Code(s): I10 - Essential (primary) hypertension Is this a current diagnosis for this admission?: Yes Plan: Continue losartan amlodipine and Lasix (5) Hypothyroidism Qualifiers: Hypothyroidism type: unspecified Qualified Code(s): E03.9 - Hypothyroidism, unspecified Is this a current diagnosis for this admission?: Yes Plan: Continue Synthroid (6) Obesity (BMI 30.0-34.9) Is this a current diagnosis for this admission?: Yes Plan: Advised on weight loss - Time Time Spent with patient: 35 or more minutes
--- NOTE | 2019-09-11 13:09 | EKG REPORT ---
SEVERITY:- BORDERLINE ECG - SINUS TACHYCARDIA ABERRANT COMPLEX, POSSIBLY SUPRAVENTRICULAR MINIMAL ST DEPRESSION, INFERIOR LEADS : Confirmed by: Andreia Henry MD 11-Sep-2019 13:08:26
[2019-09-11] MEDS: FLUTICASONE/UMECLIDIN/VILANTER 100-62.5-25 MCG/DOSE IH SCH (13:32)
[2019-09-11] MEDS: IPRATROPIUM/ALBUTEROL 0.5-2.5 MG/3 ML AMPUL NEB SCH ×2 (13:42→19:40)
[2019-09-11] MEDS ORDERED: TRAMADOL HCL 50 MG TABLET PO PRN (14:52)
[2019-09-11] MEDS: HEPARIN SOD (PORCINE) 5,000 UNIT/ML 1 ML VIAL SUBCUT SCH ×2 (17:32→22:43)
[2019-09-11] MEDS: DIPHENHYDRAMINE HCL 25 MG CAPSULE PO PRN (22:45)
[2019-09-12] MEDS: IPRATROPIUM/ALBUTEROL 0.5-2.5 MG/3 ML AMPUL NEB SCH ×4 (02:09→19:51)
[2019-09-12 04:48] LABS: ABSOLUTE LYMPHOCYTES (AUTO) 0.7 10^3/uL (0.5-4.7); ABSOLUTE MONOCYTES (AUTO) 0.3 10^3/uL (0.1-1.4); ABSOLUTE NEUT (AUTO) 9.3 10^3/uL (1.7-8.2); BASOPHILS % (AUTO) 0.5 % (0-2); HEMATOCRIT 37.2 % (36.0-47.0); HEMOGLOBIN 12.6 g/dL (12.0-15.5); MEAN CORPUSCULAR HEMOGLOBIN 31.7 pg (27.0-33.4); MEAN CORPUSCULAR HGB CONC 33.9 g/dL (32.0-36.0); MEAN CORPUSCULAR VOLUME 94 fl (80-97); MONOCYTES % (AUTO) 2.8 % (3-13); PLATELET COUNT 244 10^3/uL (150-450); RED BLOOD COUNT 3.97 10^6/uL (3.72-5.28); RED CELL DISTRIBUTION WIDTH 14.3 % (11.5-14.0); SEGMENTED NEUTROPHILS % (AUTO) 89.7 % (42-78); TOTAL CELLS COUNTED % (AUTO) 100 %; WHITE BLOOD COUNT 10.3 10^3/uL (4.0-10.5)
[2019-09-12] MEDS: HEPARIN SOD (PORCINE) 5,000 UNIT/ML 1 ML VIAL SUBCUT SCH ×3 (06:50→22:42)
[2019-09-12] MEDS: LEVOTHYROXINE SODIUM 0.1 MG TABLET PO SCH (06:50)
[2019-09-12] MEDS: LEVOTHYROXINE SODIUM 0.025 MG TABLET PO SCH (06:50)
[2019-09-12] MEDS: FUROSEMIDE 40 MG TABLET PO SCH (10:29)
[2019-09-12] MEDS: LOSARTAN POTASSIUM 50 MG TABLET PO SCH (10:29)
[2019-09-12] MEDS: AMLODIPINE BESYLATE 5 MG TABLET PO SCH (10:30)
[2019-09-12] MEDS: TIZANIDINE HCL 4 MG TABLET PO SCH ×3 (10:30→17:17)
[2019-09-12] MEDS: PREDNISONE 20 MG TABLET PO SCH (10:30)
[2019-09-12] MEDS: NITROFURANTOIN MONOHYD/M-CRYST 100 MG CAPSULE PO SCH ×2 (11:00→17:17)
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
[2019-09-12] MEDS: POTASSIUM CHLORIDE 10 MEQ TABLET.ER PO SCH (12:26)
[2019-09-12] MEDS: FLUTICASONE/UMECLIDIN/VILANTER 100-62.5-25 MCG/DOSE IH SCH (17:18)
[2019-09-12] MEDS: DIPHENHYDRAMINE HCL 25 MG CAPSULE PO PRN (22:42)
[2019-09-13] MEDS: IPRATROPIUM/ALBUTEROL 0.5-2.5 MG/3 ML AMPUL NEB SCH ×2 (02:11→08:25)
[2019-09-13 04:35] LABS: ABSOLUTE LYMPHOCYTES (AUTO) 1.3 10^3/uL (0.5-4.7); ABSOLUTE MONOCYTES (AUTO) 0.7 10^3/uL (0.1-1.4); ABSOLUTE NEUT (AUTO) 8.1 10^3/uL (1.7-8.2); BASOPHILS % (AUTO) 0.2 % (0-2); HEMATOCRIT 36.3 % (36.0-47.0); HEMOGLOBIN 12.1 g/dL (12.0-15.5); LYMPHOCYTES % (AUTO) 12.6 % (13-45); MEAN CORPUSCULAR HEMOGLOBIN 31.5 pg (27.0-33.4); MEAN CORPUSCULAR HGB CONC 33.3 g/dL (32.0-36.0); MEAN CORPUSCULAR VOLUME 95 fl (80-97); MONOCYTES % (AUTO) 7.3 % (3-13); PLATELET COUNT 244 10^3/uL (150-450); RED BLOOD COUNT 3.84 10^6/uL (3.72-5.28); RED CELL DISTRIBUTION WIDTH 14.7 % (11.5-14.0); SEGMENTED NEUTROPHILS % (AUTO) 79.9 % (42-78); TOTAL CELLS COUNTED % (AUTO) 100 %; WHITE BLOOD COUNT 10.1 10^3/uL (4.0-10.5)
[2019-09-13 05:04] LABS: BLOOD UREA NITROGEN 22 mg/dL (7-20); CALCIUM 9.2 mg/dL (8.4-10.2); GLUCOSE 110 mg/dL (75-110); POTASSIUM 4.2 mmol/L (3.6-5.0)
[2019-09-13 05:10] LABS: ANION GAP 5 (5-19); CARBON DIOXIDE 30 mmol/L (22-30); CHLORIDE 105 mmol/L (98-107)
[2019-09-13] MEDS: LEVOTHYROXINE SODIUM 0.025 MG TABLET PO SCH (06:12)
[2019-09-13] MEDS: LEVOTHYROXINE SODIUM 0.1 MG TABLET PO SCH (06:13)
[2019-09-13] MEDS: HEPARIN SOD (PORCINE) 5,000 UNIT/ML 1 ML VIAL SUBCUT SCH (06:13)
[2019-09-13] MEDS: NITROFURANTOIN MONOHYD/M-CRYST 100 MG CAPSULE PO SCH (09:52)
[2019-09-13] MEDS: LOSARTAN POTASSIUM 50 MG TABLET PO SCH (09:52)
[2019-09-13] MEDS: PREDNISONE 20 MG TABLET PO SCH (09:52)
[2019-09-13] MEDS: TIZANIDINE HCL 4 MG TABLET PO SCH (09:52)
[2019-09-13] MEDS: AMLODIPINE BESYLATE 5 MG TABLET PO SCH (09:52)
[2019-09-13] MEDS: FUROSEMIDE 40 MG TABLET PO SCH (09:53)
[2019-09-13] MEDS: POTASSIUM CHLORIDE 10 MEQ TABLET.ER PO SCH (09:53)
[2019-09-13] MEDS: FLUTICASONE/UMECLIDIN/VILANTER 100-62.5-25 MCG/DOSE IH SCH (09:53)
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
[2019-09-13 12:09] VITALS: BP 118/55
== END 2019-09-13 12:45 | disposition home or self-care (01) | DRG 190 ==
LOC: ER 04:41 → EH 09:53 → 3N 17:57
PROVIDERS: ADMIT Internal Medicine; ATTEND Internal Medicine
PROC: 5A09357 Assistance with Respiratory Ventilation, Less than 24 Consecutive Hours, Continuous Positive Airway Pressure (ICD-10-PCS; principal; 2019-09-11)
DX: J43.9 Emphysema, unspecified (principal); J96.02 Acute respiratory failure with hypercapnia; N39.0 Urinary tract infection, site not specified; I10 Essential (primary) hypertension; E03.9 Hypothyroidism, unspecified; E66.9 Obesity, unspecified; Z79.899 Other long term (current) drug therapy; Z87.891 Personal history of nicotine dependence
CPT/HCPCS: 36415; 71045; 80048; 82803; 83605; 83880; 84484; 85025; 93005; 93010; 94660; 99285; J1644; J2920; J3490; J7512; J7620; J8499

== ENCOUNTER → 2020-04-22 | Outpatient (CLI) | payer MEDICARE ==
[2020-04-22 11:55] VITALS: BP 114/59
--- NOTE | 2020-04-22 11:55 | ER RDC ASSESSMENT REPORT ---
Intake - In the Last 14 days Have you traveled outside [place]?: No Have you been in close contact with someone CONFIRMED: Yes Worked in Healthcare?: No - Symptoms Subjective Fever([place] feverish): No Chills: No Muscule Aches: No Runny Nose: No Sore Throat: No Cough (New or worsening chronic cough): No Shortness of breath: No Nausea or Vomiting: No Headache: No Abdominal Pain: No Diarrhea(3 or more loose stools in last 24 hours): No - Do you have any of the following Chronic lung disease: Asthma or emphysema or COPD: Yes Chronic Lung Disease Comment: History of COPD Cystic Fibrosis: No Diabetes: No High Blood Pressure: No Cardiovascular Disease: No Chronic Kidney Disease: No Chronic Liver Disease: No Chronic blood disorder like Sickle Cell Disease: No Weak immune system due to disease or medication: No Neurologic condition that limits movement: No Developmental delay - Moderate to Severe: No Recent (within past 2 weeks) or current : No Morbid Obesity (>100 pounds over ideal weight): No Obesity Comment: Height 5 feet 2 inches weight 190 pounds - Objective Temperature: 98.6 F Pulse Rate: 77 Respiratory Rate: 18 Blood Pressure: 114/59 O2 Sat by Pulse Oximetry: 93 Objective: Given above, testing performed: If Testing Performed: Test Specimen Type Sent to General - General Information source: Patient Notes: Patient here at [facility] for COVID testing reports nephew came by the house Saturday and has now found out he is positive for COVID. Patient reports nephew was asymptomatic patient reports she is also asymptomatic. She has a history of COPD sees nurse practitioner Gage at [facility] and will follow up with them today. - Related Data Allergies/Adverse Reactions: No Known Allergies Allergy (Verified 09/11/19 05:06) Past Medical History - General Information source: Patient - Social History Smoking Status: Former Smoker Family History: DM, Hypertension - Past Medical History Cardiac Medical History: Reports: Hx Congestive Heart Failure, Hx Hypercholesterolemia, Hx Hypertension Pulmonary Medical History: Reports: Hx COPD, Hx Pneumonia Endocrine Medical History: Reports: Hx Hypothyroidism Renal/ Medical History: Denies: Hx Peritoneal Dialysis Musculoskeletal Medical History: Reports Hx Arthritis, Reports Hx Musculoskeletal Deformity, Reports Hx Musculoskeletal Trauma Skin Medical History: Comment 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 HEAD: Atraumatic, normocephalic. EYES: sclera anicteric, conjunctiva are normal. ENT: nares patent. Moist mucous membranes. NECK: Normal range of motion, supple without lymphadenopathy LUNGS: CTAB and equal. No wheezes rales or rhonchi. Resp even and unlabored. Lung sounds clear. HEART: Regular rate and rhythm without murmurs ABDOMEN: Soft, nontender, normal bowel sounds, no guarding. EXTREMITIES: No cyanosis. NEUROLOGICAL: Normal speech. PSYCH: Normal mood, normal affect. SKIN: Warm, Dry, normal turgor, Diagnostic Results Laboratory Results: Pending cover testing results. Patient provided instructions regarding COVID to include: As a person under investigation for Covid 19, the [place] department of Health and Human Services, division of public health advises you to adhere to the following guidance until your test results are reported to you. If your test result is positive, you will receive additional information from your provider and your local health department at that time. Remain at home until you are cleared by the health provider or public health authorities. Keep a log of visitors to your home, notify any visitors to your home of your isolation status. If you plan to move to a new address or leave the [facility], notify the local health department in your County. Call your doctor or seek care if you have an urgent medical need. Before seeking medical care, call ahead to get instructions from the provider before arriving at the medical office clinic or hospital. Notify them that you are being tested for the virus that causes Covid 19 so that arrangements can be made, as necessary, to prevent transmission to others in the healthcare setting. Next, notify the local health department in your county. If a medical emergency arises and you need to call 911, inform the first responders that you are being tested for the virus that causes Covid 19. Next, notify the local health department in your county. Patient Education/Counseling Counseling/Education: Patient presents with upper respiratory symptoms worrisome for possible Covid 19. Patient does not have emergency worring symptoms such as difficulty breathing, shortness of breath, chest pain, pressure, confusion or cyanosis. Patient appears suitable for discharge. Patient instructed to follow-up with PC P at [facility] today. To ED for worsening symptoms or change in condition. patient's vital signs are stable and patient is nontoxic in appearance. Good return precautions have been discussed with patient, patient verbalized understanding and is agreeable with discharge plan of care at this time. RDC Discharge - Discharge Clinical Impression: Encounter for screening laboratory testing for COVID-19 virus in asymptomatic patient Condition: Stable Disposition: Home; Selfcare
== END ==
LOC: RDC 10:51
PROVIDERS: ATTEND Nurse Practitioner Family
DX: Z20.828 Contact with and (suspected) exposure to other viral communicable diseases (principal); J44.9 Chronic obstructive pulmonary disease, unspecified; I10 Essential (primary) hypertension; E78.00 Pure hypercholesterolemia, unspecified; E03.9 Hypothyroidism, unspecified; Z87.891 Personal history of nicotine dependence; Z86.14 Personal history of Methicillin resistant Staphylococcus aureus infection
CPT/HCPCS: U0003; C9803; 87635; 99201; 99211

== ENCOUNTER → 2020-07-01 | Outpatient (CLI) | payer MEDICARE ==
--- NOTE | 2020-07-01 10:03 | WOMENS IMAGING REPORT ---
EXAM DESCRIPTION: 3D SCREENING MAMMO BILAT IMAGES COMPLETED DATE/TIME: 07/01/2020 9:51 am REASON FOR STUDY: Z12.31 ENCNTR SCREEN MAMMOGRAM FOR MALIGNANT NEOPLASM OF BREAST Z12.31 ENCNTR SCR EEN MAMMOGRAM FOR MALIGNANT NEOPLASM OF [place]A COMPARISON: Priors dating back to 2013. EXAM PARAMETERS: Views: Standard craniocaudal and mediolateral oblique views of each breast recorded using digital acquisition and breast tomosynthesis. Read with the assistance of CAD. [facility] [employer] Version 9.2 LIMITATIONS: None. FINDINGS: No suspicious masses, suspicious calcifications or architectural distortion. No areas of c oncern. IMPRESSION: NEGATIVE MAMMOGRAM. BIRADS 1. BREAST DENSITY: b. There are scattered areas of fibroglandular density. BIRAD: ASSESSMENT: 1 NEGATIVE RECOMMENDATION: ROUTINE SCREENING COMMENT: The patient has been notified of the results by letter per MQSA requirements. Additional no tification policies are in place for contacting patient with suspicious or incomplete findings. Quality ID #[id number]: The [employer] recommends an annual screening mammogram for women aged 40 years or over. This facility utilizes a reminder system to ensure that all patients receive reminder letters, and/or direct phone calls for appointments. This includes reminders for routine scr eening mammograms, diagnostic mammograms, or other Breast Imaging Interventions when appropriate. Th is patient will be placed in the appropriate reminder system. TECHNICAL DOCUMENTATION: FINDING NUMBER: (1) ASSESSMENT: (1) JOB ID: [id number] 2010 [employer]- All Rights Reserved Reading location - IP/workstation name: [email or web address]
== END ==
LOC: WI 09:18
PROVIDERS: ATTEND Physician Assistant
DX: Z12.31 Encounter for screening mammogram for malignant neoplasm of breast (principal)
CPT/HCPCS: 77063; 77067